=== PATIENT | male | born 1955 | race Caucasian/White ===

== ENCOUNTER 2016-04-17 12:32 | Inpatient (IN) | payer OTHER ==
[2016-04-17 12:42] VITALS: BMI 34.2
[2016-04-17] MEDS ORDERED: SODIUM CHLORIDE 500 ML IV STA (13:10)
[2016-04-17] MEDS ORDERED: morphine CARPU-JECT 4 MG/1 ML DISP.SYRIN IVPUSH ONE ×3 (13:10→18:09)
[2016-04-17] MEDS ORDERED: ACETAMINOPHEN 1000 MG/100 ML VIAL (NON FORMULARY) IVPB ONE (13:10)
--- NOTE | 2016-04-17 13:22 | PDOC ---
History of Present Illness - General Chief Complaint: Pain, Acute Stated Complaint: ABD PAIN (PCP SENT) Time Seen by Provider: 04/17/16 12:49 History Source: Patient, Family Exam Limitations: No Limitations - History of Present Illness Travel History: No Initial Comments: 04/17/16 13:15 Patient came to emergency department on advice of Dr. Gatica, his PMD. States over the past month has been using 800 mg of by mouth ibuprofen twice a day. States early this past week started developing abdominal pain, epigastric pain. By Dr. Gatica on recommended to stop ibuprofen and started on pantoprazole which helped resolve some of his abdominal cramping and pain. States however Monday pain recurred which turned into worsened cramping. Completed ultrasound of his abdomen and was told by Dr. Gatica those results were negative for gallbladder disease. Monday symptoms progressively became worse and today woke up with fevers and chills. Dr. Gatica notified and recommended evaluation. Patient denies earache, sore throat, cough or runny nose. Denies dysuria . Denies vomiting but has some mild nausea. Pain to his abdomen is cramping and transit around all of abdomen, states is it 8 out of 10 no quadrant worse than the other. States feels is distended/bloated. Denies diarrhea, however states had some stools that were grade recorder in color/ philippe yesterday. denies alcohol, smoking or any other drug use. Timing/Duration: reports: constant, getting worse Quality: reports: moderate Pain Radiation: reports: epigastric, periumbilical, other Activities at Onset: reports: none (And diffuse) Alleviating Factors: improves with: Belching, Passing Gas, Change in Position Past History - Travel Traveled outside of the country in the last 30 days: No Close contact w/someone who was outside of country & ill: No - Past Medical History Allergies/Adverse Reactions: Allergies Allergy/AdvReac Type Severity Reaction Status Date / Time No Known Allergies Allergy Verified 04/17/16 12:42 GI Disorders: Yes (GASTRITIS) HTN: Yes - Psycho/Social/Smoking Cessation Hx Suicidal Ideation: No Smoking History: Never smoked Hx Alcohol Use: No Drug/Substance Use Hx: No Review of Systems - Review of Systems Able to Perform ROS?: Yes Is the patient limited Persian proficient: Yes Constitutional: Yes: Symptoms Reported, See HPI, Chills, Fever, Loss of Appetite , Malaise HEENTM: Yes: See HPI. No: Symptoms Reported, Nose Congestion Respiratory: Yes: See HPI. No: Symptoms reported, Cough, Shortness of Breath, Wheezing Cardiac (ROS): No: Symptoms Reported ABD/GI: Yes: Symptoms Reported, See HPI, Nausea, Abdominal cramping. No: Blood Streaked Bowels (Nuys black tarriness or foul-smelling stool, no bright red blood, states has some tannish appearance to stool), Constipated, Diarrhea, Rectal Bleeding, Vomiting, Tarry Stools : Yes: See HPI. No: Symptoms Reported Musculoskeletal: Yes: Symptoms Reported Integumentary: Yes: See HPI. No: Symptoms Reported, Bruising Neurological: Yes: Symptoms reported, See HPI All Other Systems: Reviewed and Negative *Physical Exam - Vital Signs Last Vital Signs Temp Pulse Resp BP Pulse Ox 101.7 F H 90 18 151/53 94 L 04/17/16 12:39 04/17/16 12:39 04/17/16 12:39 04/17/16 12:39 04/17/16 12:39 - Physical Exam General Appearance: Yes: Nourished, Appropriately Dressed, Apparent Distress, Moderate Distress, Severe Distress HEENT: positive: ISAIAH, Normal ENT Inspection, Normal Voice, TMs Normal, Pharynx Normal Neck: positive: Supple. negative: Tender, Lymphadenopathy (R), Lymphadenopathy (L) Respiratory/Chest: positive: Lungs Clear, Normal Breath Sounds. negative: Respiratory Distress Cardiovascular: positive: Regular Rhythm, Regular Rate Gastrointestinal/Abdominal: positive: Tender, Protuberent, Distended, Guarding, Tenderness (patient has midline contusion consistent with a herniation). negative: Normal Bowel Sounds, Soft, Organomegaly (diminished unable to palpate due to patient's tenderness, and protuberant abdomen) Extremity: positive: Normal Capillary Refill, Normal Inspection, Normal Range of Motion Integumentary: positive: Normal Color, Warm, Pale Neurologic: positive: pipe coverer II-XII NML intact, Fully Oriented, Alert, Normal Mood/ Affect, Normal Response, Motor Strength 5/5 ED Treatment Course - LABORATORY CBC & Chemistry Diagram: 04/17/16 13:11 04/17/16 13:11 - RADIOLOGY Radiology Studies Ordered: Category Date Time Status ABDOMEN & PELVIS CT W/WO CONTR [CT] Stat CT Scan 04/17/16 13:12 Ordered Progress Note - Progress Note Progress Note: Escalating abdominal pain and distention. Patient will be obtaining CAT scan with and without contrast, medicated with morphine and Tylenol for pain and fever, laboratory work obtained and will start providing IV fluids. Patient and at bedside updated to plan. Discussed case with Dr. Gatica who reports that ultrasound did not reveal any cholecystitis or any other liver/biliary obstruction. Labs were relatively normal on . Will see patient in the emergency department today Medical Decision Making - Medical Decision Making 04/17/16 17:27 CAT scan reveals acute pancreatitis without necrotizing evidence. Discussed case with Dr. Gatica who agrees patient should be admitted for an ICU admission and reevaluation tomorrow for possible downgrading. Patient has been medicated with morphine for pain, is receiving IV fluids, has received Levaquin 750 mg IV and Flagyl 500 mg IV. Feels much improved after the morphine and Tylenol with fevers resolved to 99.7 a few hours ago. Patient and updated to plan and waiting admission from manager body 04/17/16 17:28 04/17/16 18:10 04/17/16 18:10 *DC/Admit/Observation/Transfer Diagnosis at time of Disposition: Acute pancreatitis Qualifiers: Pancreatitis type: unspecified pancreatitis type Qualified Code(s): K85.9 - Acute pancreatitis, unspecified - Discharge Dispostion Admit: Yes
[2016-04-17] MEDS ORDERED: morphine CARPU-JECT 4 MG/1 ML DISP.SYRIN ONE ×2 (13:24→18:26)
[2016-04-17] MEDS ORDERED: ACETAMINOPHEN INJECTION 100 ML IVPB ONE (13:24)
[2016-04-17 13:34] LABS: MCH 25.2 pg (25.7-33.7); MCHC 32.2 g/dl (32.0-35.9); MEAN CELL VOLUME 78.2 fl (80-96); MEAN PLT VOLUME 8.8 fl (7.5-11.1); PLATELET COUNT 187 K/MM3 (134-434); RDW 14.7 % (11.9-15.9)
[2016-04-17 13:57] LABS: ALBUMIN 3.7 g/dl (3.4-5.0); ANION GAP 9 (8-16); BILIRUBIN,TOTAL 2.1 mg/dL (0.2-1.0); CALCIUM 9.1 mg/dL (8.5-10.1); CO2 28 mmol/L (21-32); CREATININE 1.2 mg/dL (0.7-1.3); GLUCOSE,RANDOM 135 mg/dL (74-106); SGOT/AST 48 U/L (15-37); SGPT/ALT 144 U/L (12-78)
[2016-04-17 13:59] LABS: ALK PHOS 150 U/L (45-117); TOT PROT 6.9 g/dl (6.4-8.2)
[2016-04-17] MEDS ORDERED: LEVOFLOXACIN 750 MG IVPB 150 ML IVPB ONE ×2 (14:32→14:38)
[2016-04-17] MEDS ORDERED: SODIUM CHLORIDE 1,000 ML IV SCH ×3 (14:45→17:36)
[2016-04-17] MEDS ORDERED: METRONIDAZOLE 500 MG PREMIXED 100 ML IVPB ONE (17:02)
[2016-04-17] MEDS ORDERED: ONDANSETRON 4 MG/2 ML VIAL IVPB PRN (17:29)
[2016-04-17] MEDS ORDERED: METRONIDAZOLE 500 MG PREMIXED 100 ML IVPB SCH (18:00)
[2016-04-17] MEDS ORDERED: PIPERACILLIN/TAZOB 3.375 GM 3.375 GM in DEXTROSE 5%-WATER - 50 ML IVPB SCH (18:00)
--- NOTE | 2016-04-17 18:10 | EKG ---
Test Reason : Blood Pressure : / mmHG Vent. Rate : 078 BPM Atrial Rate : 078 BPM P-R Int : 154 ms QRS Dur : 084 ms QT Int : 350 ms P-R-T Axes : 042 020 026 degrees QTc Int : 399 ms NORMAL SINUS RHYTHM POSSIBLE LEFT ATRIAL ENLARGEMENT POSSIBLE ANTERIOR INFARCT , AGE UNDETERMINED ABNORMAL ECG NO PREVIOUS ECGS AVAILABLE Confirmed by MELINDA GARCIA MD ([id number]) on 04/17/2016 6:09:32 PM Referred By: Confirmed By:MELINDA GARCIA MD
[2016-04-17] MEDS ORDERED: PIPERACILLIN/TAZOB 3.375 GM 50 ML IVPB ONE (18:27)
[2016-04-17 18:32] LABS: PH,URINE 6.5 (5.0-8.0); URINE APPEARANCE CLEAR; URINE BILIRUBIN NEGATIVE (NEGATIVE); URINE BLOOD TRACE-INTA (NEGATIVE); URINE COLOR YELLOW; URINE GLUCOSE (UA) NEGATIVE (NEGATIVE); URINE KETONE NEGATIVE (NEGATIVE); URINE LEUK ESTERASE NEGATIVE (NEGATIVE); URINE NITRITE NEGATIVE (NEGATIVE); URINE PROTEIN NEGATIVE (NEGATIVE); URINE UROBILINOGEN 0.2 E.U/dl E.U./dl (0.2-1.0)
--- NOTE | 2016-04-17 20:16 | HP ---
Admitting History and Physical - Primary Care Physician PCP: Emanuel Gatica - Admission Chief Complaint: Abdominal pain History of Present Illness: 61 yo male with significant past medical history of hypertension, hyperlipidemia , obesity, presents to the ER with c/o nausea, vomiting, diarrhea, and generalized abdominal pain. Patient has been having abdominal pain for almost a week now. He was taking ibuprufen 800 mg BID for almost a month. Ibuprufen was prescribed for neck pain. He was seen in my office on for epigastric and right upper quadrant pain. Advised to stop motrin and protonix prescribed. Ultrasound of RUQ - normal. wbc, lfts was normal. Amylase normal and lipase 90. He felt much better with protonix but since yesterday started having generalized abdominal pain. Had 2 episodes of vomiting, one episode of loose bowel movement. No blood in stool or hemetemesis. He was febrile in the ER. Denies chest pain, shortness of breath, palpitation or dizziness. Denies dysuria or hematuria. No h/o alcohol intake. History Source: Patient Limitations to Obtaining History: No Limitations - Past Medical History Cardiovascular: Yes: HTN, Hyperlipdemia Gastrointestinal: Yes: Gastritis - Smoking History Smoking history: Never smoked - Alcohol/Substance Use Hx Alcohol Use: No Home Medications - Allergies Allergies/Adverse Reactions: Allergies Allergy/AdvReac Type Severity Reaction Status Date / Time No Known Allergies Allergy Verified 04/17/16 12:42 - Home Medications Home Medications: Ambulatory Orders Amlodipine Besylate/Benazepril [Lotrel 5-40 mg Capsule] 1 each PO DAILY Pantoprazole Sodium [Protonix] 40 mg PO DAILY 04/17/16 Review of Systems - Review of Systems Constitutional: reports: Fever, Weakness HENT: reports: No Symptoms Neck: reports: No Symptoms Cardiovascular: reports: No Symptoms Gastrointestinal: reports: Abdominal Pain, Diarrhea, Nausea, Vomiting Genitourinary: reports: No Symptoms Musculoskeletal: reports: No Symptoms Integumentary: reports: No Symptoms Neurological: reports: No Symptoms Endocrine: reports: No Symptoms Hematology/Lymphatic: reports: No Symptoms Psychiatric: reports: No Symptoms Physical Examination Vital Signs: Vital Signs Temperature 101.7 F H 04/17/16 12:39 Pulse Rate 84 04/17/16 18:45 Respiratory Rate 18 04/17/16 18:45 Blood Pressure 131/69 04/17/16 18:45 O2 Sat by Pulse Oximetry (%) 97 04/17/16 18:45 Constitutional: Yes: Anxious, Moderate Distress, Obese Eyes: Yes: Conjunctiva Clear, EOM Intact HENT: Yes: Atraumatic, Normocephalic Neck: Yes: Supple, Trachea Midline Cardiovascular: Yes: Regular Rate and Rhythm, S1, S2 Respiratory: Yes: Regular, CTA Bilaterally Gastrointestinal: Yes: Distention, Tenderness (right upper quadrant and manuela umbilical region), Tenderness, Epigastrium ...Rectal Exam: Yes: Deferred Renal/: Yes: WNL Breast(s): Yes: WNL Musculoskeletal: Yes: WNL Extremities: Yes: WNL Peripheral Pulses WNL: Yes Integumentary: Yes: WNL Neurological: Yes: WNL ...Motor Strength: WNL Psychiatric: Yes: WNL Imaging - Results Chest X-ray: Report Reviewed Cat Scan: Report Reviewed Problem List - Problems (1) Acute pancreatitis Assessment/Plan: - NPO - Aggressive IV hydration - Pain management - Abx coverage with zosyn/Flagyl - GI and ID consulted. - Close monitoring Code(s): K85.9 - ACUTE PANCREATITIS, UNSPECIFIED * DO NOT USE * Qualifiers: Pancreatitis type: drug induced Qualified Code(s): K85.3 - Drug induced acute pancreatitis (2) Hypertension Assessment/Plan: Close monitoring Code(s): I10 - ESSENTIAL (PRIMARY) HYPERTENSION (3) Abnormal LFTs (liver function tests) Assessment/Plan: - Labs normal on 04/14/15 lab draw in the office. - Ultrasound of liver/GB ordered again. Normal on 04/14/15. - GI consulted. Code(s): R79.89 - OTHER SPECIFIED ABNORMAL FINDINGS OF BLOOD CHEMISTRY (4) Leukocytosis Assessment/Plan: - In the setting of acute pancreatitis. - Wbc normal on 04/14/15 lab draw in the office. - Covered with zosyn/flagyl. - ID consulted - Cultures done Code(s): D72.829 - ELEVATED WHITE BLOOD CELL COUNT, UNSPECIFIED
[2016-04-17] MEDS ORDERED: LACTATED RINGERS SOLUTION 1,000 ML IV ONE (21:16)
--- NOTE | 2016-04-17 21:24 | CONSULT ---
Consult Consult Specialty:: Pulm/CC - History of Present Illness History of Present Illness: Pt is a 61yr old man with PMHx of HTN, HLD. He presents to the ER with CC of abdominal pain, vomiting/diarrhea x 2. Pt states he had been taking 800mg PO Ibuprofen for a "pinch nerve" and had progressive GI discomfort since, unresolved with protonix. In the ER found to have WBC 24, Amylase 342, lipase 2318 and ab/pel CT consistent with acute pancreatitis (no necrosis noted). Pt admitted to the ICU for further management. Upon assessment pt denies chest pain /sob/headache/n/v and endorses diffuse abdominal pain L>R. - History Source History Provided By: Patient, Medical Record Limitations to Obtaining History: No Limitations - Past Medical History Cardio/Vascular: Yes: HTN, Hyperlipdemia Gastrointestinal: Yes: Gastritis - Alcohol/Substance Use Hx Alcohol Use: No - Smoking History Smoking history: Never smoked Home Medications - Allergies Allergies/Adverse Reactions: Allergies Allergy/AdvReac Type Severity Reaction Status Date / Time No Known Allergies Allergy Verified 04/17/16 12:42 - Home Medications Home Medications: Ambulatory Orders Amlodipine Besylate/Benazepril [Lotrel 5-40 mg Capsule] 1 each PO DAILY Pantoprazole Sodium [Protonix] 40 mg PO DAILY 04/17/16 Review of Systems - Review of Systems Cardiovascular: denies: Chest Pain, Palpitations, Shortness of Breath Respiratory: denies: Cough Gastrointestinal: reports: Diarrhea, Vomiting. denies: Melena, Vomiting Blood Genitourinary: denies: Dysuria Physical Exam Vital Signs: Vital Signs Period Temp Pulse Resp BP Sys/Stone Pulse Ox Last 24 Hr 101.7 F 80-90 18-18 131-151/53-82 94-99 Intake & Output 04/14/16 04/15/16 04/16/16 04/17/16 23:59 23:59 23:59 23:59 Weight 245 lb Constitutional: Yes: Well Nourished, No Distress, Calm Eyes: Yes: WNL, PERRL HENT: Yes: WNL Neck: Yes: WNL Cardiovascular: Yes: S1, S2, Other (80s, sinus on tele) Respiratory: Yes: Diminished (as bases bilaterally), On Nasal O2. No: Rales, Rhonchi, SOB, Tachypnea, Wheezes Gastrointestinal: Yes: Normal Bowel Sounds, Soft, Abdomen, Obese, Tenderness ( LUQ) ...Rectal Exam: Yes: Deferred Extremities: Yes: WNL Edema: No Peripheral Pulses WNL: Yes (+2 bilateral pedal pulses) Integumentary: Yes: WNL Neurological: Yes: WNL Psychiatric: Yes: WNL Labs: Abnormal Lab Results 04/17/16 04/17/16 04/17/16 13:11 13:11 13:11 WBC 24.0 H RBC 5.96 H MCV 78.2 L Lymphocytes % 7.0 L Monocytes % 3.0 L BUN 19 H Random Glucose 135 H Total Bilirubin 2.1 H AST 48 H ALT 144 H Alkaline Phosphatase 150 H Total Amylase 342 H Lipase 2318 H Imaging - Results Cat Scan: Report Reviewed Assessment/Plan Pt is a 61yr old man with PMHx of HTN and HLD. Now in the ICU for management of acute pancreatitis. Pulm: -O2 support prn for sat >94% -Incentive spirometer -PFT as outpt to rule out JOSIAH ID: -f/u cultures -Consult -Antibiotics per ID GI -Consult -Repeat imaging as clinically warranted -Advance diet as tolerated Cardiac -BP/Rate control -f/u enzymes Renal -IVF as tolerated -Replete electrolytes prn Neuro -Pain management Prophylactic -DVT -PPI
[2016-04-17 22:56] LABS: MAGNESIUM 2.1 mg/dL (1.8-2.4); PHOSPHOROUS 2.5 mg/dL (2.5-4.9)
[2016-04-17] MEDS: morphine CARPU-JECT 2 MG/1 ML DISP.SYRIN IVPUSH PRN (23:00)
[2016-04-17] MEDS: MUPIROCIN 2% TOPICAL OINTMENT FOR DECOLONIZATION NS SCH (23:18)
[2016-04-17] MEDS: CHLORHEXIDINE GLUCONATE 4% CLEANSER FOR DECOLONIZATION TP SCH (23:18)
[2016-04-17] MEDS: LACTATED RINGERS SOLUTION 1,000 ML IV SCH (23:18)
[2016-04-18] MEDS: METRONIDAZOLE 500 MG PREMIXED 100 ML IVPB SCH ×2 (02:00→10:20)
[2016-04-18] MEDS ORDERED: PIPERACILLIN/TAZOB 3.375 GM 50 ML IVPB ONE (02:00)
[2016-04-18] MEDS: morphine CARPU-JECT 2 MG/1 ML DISP.SYRIN IVPUSH PRN ×5 (04:25→23:02)
[2016-04-18 06:05] LABS: MCH 25.4 pg (25.7-33.7); MCHC 32.7 g/dl (32.0-35.9); MEAN CELL VOLUME 77.5 fl (80-96); MEAN PLT VOLUME 8.8 fl (7.5-11.1); PLATELET COUNT 180 K/MM3 (134-434); RDW 14.7 % (11.9-15.9); WHITE BLOOD COUNT 25.4 K/mm3 (4.0-10.0)
[2016-04-18] MEDS ORDERED: ACETAMINOPHEN 500 MG TABLET (FP) ONE (06:08)
[2016-04-18 06:21] LABS: INR 1.56 (0.82-1.09); PROTHROMBIN TIME (PATIENT) 17.3 SEC (9.98-11.88)
[2016-04-18 06:28] LABS: ALBUMIN 2.5 g/dl (3.4-5.0); AMYLASE 180 U/L (25-115); ANION GAP 8 (8-16); CALCIUM 7.8 mg/dL (8.5-10.1); CO2 25 mmol/L (21-32); GLUCOSE,RANDOM 106 mg/dL (74-106); MAGNESIUM 1.9 mg/dL (1.8-2.4)
[2016-04-18 06:32] LABS: ALK PHOS 105 U/L (45-117); BILIRUBIN,TOTAL 2.7 mg/dL (0.2-1.0); CREATININE 0.9 mg/dL (0.7-1.3); PHOSPHOROUS 2.2 mg/dL (2.5-4.9); SGOT/AST 21 U/L (15-37); SGPT/ALT 76 U/L (12-78); TOT PROT 5.6 g/dl (6.4-8.2)
[2016-04-18] MEDS ORDERED: PANTOPRAZOLE SODIUM 40 MG in SODIUM CHLORIDE 100 ML IVPB SCH (10:00)
[2016-04-18] MEDS ORDERED: PIPERACILLIN/TAZOB 3.375 GM 50 ML IVPB SCH (10:00)
--- NOTE | 2016-04-18 10:23 | PN ---
Progress Note, Physician Chief Complaint: Mr Byrd says he is beginning to feel better. He says he is still having abdominal pain, but now it is a 6-7/10. Nausea currently resolved. No chest pain or shortness of breath. - Current Medication List Current Medications: Active Medications Chlorhexidine Gluconate (Hibiclens For Decolonization -) 1 applic TP HS LASHELL Last Admin: 04/17/16 23:18 Dose: 1 applic Metronidazole (Flagyl 500mg Premixed Ivpb -) 100 mls @ 100 mls/hr IVPB Q8H-IV LASHELL Last Admin: 04/18/16 02:00 Dose: 100 mls/hr Piperacillin Sod/Tazobactam Sod (Zosyn 3.375gm Ivpb (Pre-Docked)) 50 mls @ 100 mls/hr IVPB Q8H-IV LASHELL PRN Reason: Protocol Lactated Ringer's (Lactated Ringers Solution) 1,000 mls @ 150 mls/hr IV ASDIR LASHELL Last Admin: 04/17/16 23:18 Dose: 150 mls/hr Morphine Sulfate (Morphine Injection -) 2 mg IVPUSH Q4H PRN PRN Reason: PAIN Last Admin: 04/18/16 04:25 Dose: 2 mg Mupirocin (Bactroban Ointment (For Decolonization) -) 1 applic NS BID [facility] Stop: 04/22/16 21:59 Last Admin: 04/17/16 23:18 Dose: Not Given Ondansetron HCl (Zofran Injection) 4 mg IVPB Q6H PRN PRN Reason: NAUSEA Pantoprazole Sodium (Protonix 40mg Ivpb (Pre-Docked)) 40 mg IVPB DAILY [facility] - Objective Vital Signs: Vital Signs Temperature 100.2 F H 04/18/16 06:00 Pulse Rate 89 04/18/16 06:00 Respiratory Rate 18 04/18/16 09:00 Blood Pressure 155/70 04/18/16 06:00 O2 Sat by Pulse Oximetry (%) 99 04/18/16 09:00 Constitutional: Yes: No Distress, Calm, Obese Cardiovascular: Yes: Regular Rate and Rhythm. No: Gallop, Murmur, Rub Respiratory: Yes: Regular, CTA Bilaterally. No: Rales, Rhonchi, Wheezes Gastrointestinal: Yes: Soft, Hypoactive Bowel Sounds, Tenderness. No: Distention Extremities: Yes: WNL Edema: No Labs: CBC, BMP 04/18/16 05:00 04/18/16 05:00 INR, PTT INR 1.56 (0.82-1.09) H 04/18/16 05:00 Problem List - Problems (1) Acute pancreatitis Assessment/Plan: -idiopathic -continue npo -continue aggressive hydration with LR -pain control with morphine -GI consulted -amylase/lipase improving -follow up abdominal ultrasound -check lipid profile Code(s): K85.9 - ACUTE PANCREATITIS, UNSPECIFIED * DO NOT USE * Qualifiers: Pancreatitis type: idiopathic Qualified Code(s): K85.0 - Idiopathic acute pancreatitis (2) Hypertension Assessment/Plan: -elevated currently, but on IVF and holding amlodipine -can allow permissive HTN for short time -restart amlodipine when tolerating po -if elevates further, will start on prn hydralazine Code(s): I10 - ESSENTIAL (PRIMARY) HYPERTENSION (3) Leukocytosis Assessment/Plan: -ID consulted -? infectious vs stress -will stop flagyl as this is class 1a for pancreatitis Code(s): D72.829 - ELEVATED WHITE BLOOD CELL COUNT, UNSPECIFIED
[2016-04-18] MEDS: PANTOPRAZOLE SODIUM 40 MG/100 ML PRE-DOCKED IVPB SCH (11:35)
[2016-04-18] MEDS: MUPIROCIN 2% TOPICAL OINTMENT FOR DECOLONIZATION NS SCH ×2 (12:49→23:01)
[2016-04-18 12:59] LABS: CHOLESTEROL 121 mg/dL (50-200); LDL CHOLESTEROL (ONLY SJRH) 75 mg/dL (5-100)
--- NOTE | 2016-04-18 14:18 | PN ---
Physical Exam: SUBJECTIVE: Patient seen and examined at bedside in ICU. AAO and resting comfortably in bed. States abdominal pain is improved and was afebrile overnight. Last BM was yesterday: loose, josemanuel-colored. OBJECTIVE: Vital Signs Period Temp Pulse Resp BP Sys/Stone Pulse Ox Last 24 Hr 99.9 F-101.1 F 81-95 15-21 131-157/69-82 97-99 GENERAL: The patient is awake, alert, and fully oriented, in no acute distress. HEENT: Atraumatic, EOMI, PERRLA, Moist membranes LUNGS: Breath sounds equal, clear to auscultation bilaterally HEART: Regular rate and rhythm, S1, S2 without murmur, rub or gallop. ABDOMEN: Soft, nondistended, normoactive; mild tenderness LUQ EXTREMITIES: 2+ pulses, warm, well-perfused, no edema. NEUROLOGICAL: Cranial nerves II through XII grossly intact. Normal speech, gait not observed. PSYCH: Normal mood, normal affect. SKIN: Warm, dry, normal turgor, no rashes or lesions noted Laboratory Results - last 24 hr 04/17/16 04/17/16 04/17/16 18:15 22:20 22:20 WBC RBC Hgb Hct MCV MCHC RDW Plt Count MPV Neutrophils % Lymphocytes % Monocytes % Band Neutrophils Reactive Lymphocytes INR Sodium Potassium Chloride Carbon Dioxide Anion Gap BUN Creatinine Creat Clearance w eGFR Random Glucose Calcium Phosphorus 2.5 Magnesium 2.1 Total Bilirubin AST ALT Alkaline Phosphatase B-Natriuretic Peptide 268.12 H Total Protein Albumin Triglycerides Cholesterol Total LDL Cholesterol HDL Cholesterol Total Amylase Lipase Urine Color Yellow Urine Appearance Clear Urine pH 6.5 Ur Specific [place] <= 1.005 Urine Protein Negative Urine Glucose (UA) Negative Urine Ketones Negative Urine Blood Trace-inta Urine Nitrite Negative Urine Bilirubin Negative Urine Urobilinogen 0.2 e.u/dl Ur Leukocyte Esterase Negative 04/18/16 04/18/16 04/18/16 05:00 05:00 05:00 WBC 25.4 H RBC 5.01 Hgb 12.7 D Hct 38.8 D MCV 77.5 L MCHC 32.7 RDW 14.7 Plt Count 180 MPV 8.8 Neutrophils % 90.0 H Lymphocytes % 1.0 L D Monocytes % 6.0 D Band Neutrophils 1.0 D Reactive Lymphocytes 2 INR 1.56 H Sodium 135 L Potassium 3.9 Chloride 102 Carbon Dioxide 25 Anion Gap 8 BUN 12 D Creatinine 0.9 D Creat Clearance w eGFR > 60 Random Glucose 106 D Calcium 7.8 L Phosphorus 2.2 L Magnesium 1.9 Total Bilirubin 2.7 H D AST 21 D ALT 76 D Alkaline Phosphatase 105 D B-Natriuretic Peptide 408.72 H Total Protein 5.6 L Albumin 2.5 L D Triglycerides Cholesterol Total LDL Cholesterol HDL Cholesterol Total Amylase 180 H D Lipase 910 H Urine Color Urine Appearance Urine pH Ur Specific [place] Urine Protein Urine Glucose (UA) Urine Ketones Urine Blood Urine Nitrite Urine Bilirubin Urine Urobilinogen Ur Leukocyte Esterase 04/18/16 10:32 WBC RBC Hgb Hct MCV MCHC RDW Plt Count MPV Neutrophils % Lymphocytes % Monocytes % Band Neutrophils Reactive Lymphocytes INR Sodium Potassium Chloride Carbon Dioxide Anion Gap BUN Creatinine Creat Clearance w eGFR Random Glucose Calcium Phosphorus Magnesium Total Bilirubin AST ALT Alkaline Phosphatase B-Natriuretic Peptide Total Protein Albumin Triglycerides 83 Cholesterol 121 Total LDL Cholesterol 75 HDL Cholesterol 39 L Total Amylase Lipase Urine Color Urine Appearance Urine pH Ur Specific [place] Urine Protein Urine Glucose (UA) Urine Ketones Urine Blood Urine Nitrite Urine Bilirubin Urine Urobilinogen Ur Leukocyte Esterase Active Medications Generic Name Dose Route Start Last Admin Trade Name Freq PRN Reason Stop Dose Admin Chlorhexidine Gluconate 1 applic 04/17/16 22:00 04/17/16 23:18 Hibiclens For Decolonization - TP 1 applic HS LASHELL Administration Piperacillin Sod/Tazobactam Sod 50 mls @ 100 mls/hr 04/18/16 10:00 Zosyn 3.375gm Ivpb (Pre-Docked) IVPB Q8H-IV LASHELL Protocol Lactated Ringer's 1,000 mls @ 150 mls/hr 04/17/16 21:30 04/17/16 23:18 Lactated Ringers Solution IV 150 mls/hr ASDIR LASHELL Administration Morphine Sulfate 2 mg 04/17/16 17:39 04/18/16 10:18 Morphine Injection - IVPUSH 2 mg Q4H PRN Administration PAIN Mupirocin 1 applic 04/17/16 22:00 04/18/16 12:49 Bactroban Ointment (For Decolonization) - NS 04/22/16 21:59 1 applic BID LASHELL Administration Ondansetron HCl 4 mg 04/17/16 17:29 Zofran Injection IVPB Q6H PRN NAUSEA Pantoprazole Sodium 40 mg 04/18/16 10:00 04/18/16 11:35 Protonix 40mg Ivpb (Pre-Docked) IVPB 40 mg DAILY LASHELL Administration ASSESSMENT/PLAN: 61 year old male with PMH of HTN and HLD. Presented with abdominal pain, nausea & vomiting. Lipase was [address] imaging confirmed diagnosis of acute pancreatitis. #Acute Pancreatitis -on Zosyn (held flagyl) -NPO -Zofran, PPI -IVF LR@150cc/hr -cultures sent -f/u lipase & lipids -ID consulted -morphine for pain management #NSAID Use, possible gastritis/PUD -PPI -GI consulted #HTN -currently elevated, may start hydralazine PRN if continues to be elevated -can restart home meds once tolerating PO diet Prophylaxis, FEN -SCD, PPI -NPO, will monitor electrolytes Visit type - Emergency Visit Emergency Visit: Yes ED Registration Date: 04/17/16 Care time: The patient presented to the Emergency Department on the above date and was hospitalized for further evaluation of their emergent condition. - New Patient This patient is new to me today: Yes Date on this admission: 04/18/16 - Critical Care Critical Care patient: Yes Total Critical Care Time (in minutes): 50 Critical Care Statement: The care of this patient involved high complexity decision making to prevent further life threatening deterioration of the patient 's condition and/or to evalute & treat vital organ system(s) failure or risk of failure.
[2016-04-18] MEDS: LACTATED RINGERS SOLUTION 1,000 ML IV SCH ×2 (14:41→23:01)
--- NOTE | 2016-04-18 14:48 | PN ---
Teaching Attending Note Name of Resident: Claude Rubin ATTENDING PHYSICIAN STATEMENT I saw and evaluated the patient. I reviewed the resident's note and discussed the case with the resident. I agree with the resident's findings and plan as documented. SUBJECTIVE: Patient seen and examined in the ICU. Still with abdominal pain, but now it is a 6/10 (previously 10/10) No nausea or vomiting. No CP or SOB. CT : consistent with acute pancreatitis Constitutional: Yes: No Distress, Obese Cardiovascular: Yes: Regular Rate and Rhythm. No: Gallop, Murmur, Rub Respiratory: Yes: Regular, CTA Bilaterally. No: Rales, Rhonchi, Wheezes Gastrointestinal: Yes: Soft, Hypoactive Bowel Sounds, (+) Tenderness. No: Distention, guarding, rigidity Extremities: Yes: WNL Edema: No Labs: Laboratory Results - last 24 hr 04/17/16 04/17/16 04/17/16 18:15 22:20 22:20 WBC RBC Hgb Hct MCV MCHC RDW Plt Count MPV Neutrophils % Lymphocytes % Monocytes % Band Neutrophils Reactive Lymphocytes INR Sodium Potassium Chloride Carbon Dioxide Anion Gap BUN Creatinine Creat Clearance w eGFR Random Glucose Calcium Phosphorus 2.5 Magnesium 2.1 Total Bilirubin AST ALT Alkaline Phosphatase B-Natriuretic Peptide 268.12 H Total Protein Albumin Triglycerides Cholesterol Total LDL Cholesterol HDL Cholesterol Total Amylase Lipase Urine Color Yellow Urine Appearance Clear Urine pH 6.5 Ur Specific Britton <= 1.005 Urine Protein Negative Urine Glucose (UA) Negative Urine Ketones Negative Urine Blood Trace-inta Urine Nitrite Negative Urine Bilirubin Negative Urine Urobilinogen 0.2 e.u/dl Ur Leukocyte Esterase Negative 04/18/16 04/18/16 04/18/16 05:00 05:00 05:00 WBC 25.4 H RBC 5.01 Hgb 12.7 D Hct 38.8 D MCV 77.5 L MCHC 32.7 RDW 14.7 Plt Count 180 MPV 8.8 Neutrophils % 90.0 H Lymphocytes % 1.0 L D Monocytes % 6.0 D Band Neutrophils 1.0 D Reactive Lymphocytes 2 INR 1.56 H Sodium 135 L Potassium 3.9 Chloride 102 Carbon Dioxide 25 Anion Gap 8 BUN 12 D Creatinine 0.9 D Creat Clearance w eGFR > 60 Random Glucose 106 D Calcium 7.8 L Phosphorus 2.2 L Magnesium 1.9 Total Bilirubin 2.7 H D AST 21 D ALT 76 D Alkaline Phosphatase 105 D B-Natriuretic Peptide 408.72 H Total Protein 5.6 L Albumin 2.5 L D Triglycerides Cholesterol Total LDL Cholesterol HDL Cholesterol Total Amylase 180 H D Lipase 910 H Urine Color Urine Appearance Urine pH Ur Specific Britton Urine Protein Urine Glucose (UA) Urine Ketones Urine Blood Urine Nitrite Urine Bilirubin Urine Urobilinogen Ur Leukocyte Esterase 04/18/16 10:32 WBC RBC Hgb Hct MCV MCHC RDW Plt Count MPV Neutrophils % Lymphocytes % Monocytes % Band Neutrophils Reactive Lymphocytes INR Sodium Potassium Chloride Carbon Dioxide Anion Gap BUN Creatinine Creat Clearance w eGFR Random Glucose Calcium Phosphorus Magnesium Total Bilirubin AST ALT Alkaline Phosphatase B-Natriuretic Peptide Total Protein Albumin Triglycerides 83 Cholesterol 121 Total LDL Cholesterol 75 HDL Cholesterol 39 L Total Amylase Lipase Urine Color Urine Appearance Urine pH Ur Specific Britton Urine Protein Urine Glucose (UA) Urine Ketones Urine Blood Urine Nitrite Urine Bilirubin Urine Urobilinogen Ur Leukocyte Esterase Problem List - Problems (1) Acute pancreatitis Assessment/Plan: -idiopathic -continue npo -continue aggressive hydration with LR -pain control with morphine -GI consulted -amylase/lipase improving -follow up abdominal ultrasound -check lipid profile Code(s): K85.9 - ACUTE PANCREATITIS, UNSPECIFIED * DO NOT USE * Qualifiers: Pancreatitis type: idiopathic Qualified Code(s): K85.0 - Idiopathic acute pancreatitis (2) Hypertension Assessment/Plan: -elevated currently, but on IVF and holding amlodipine -can allow permissive HTN for short time -restart amlodipine when tolerating po -if elevates further, will start on prn hydralazine Code(s): I10 - ESSENTIAL (PRIMARY) HYPERTENSION (3) Leukocytosis Assessment/Plan: -ID consulted -? infectious vs stress -will stop flagyl as this is class 1a for pancreatitis Code(s): D72.829 - ELEVATED WHITE BLOOD CELL COUNT, UNSPECIFIED PLAN: IVF with LR Strict I&O NPO VTE prophylaxis GI evaluation Check lipids Pain control Noted empiric ABX per ID Follow labs ICU monitoring Dr Rico CCTime 35"
[2016-04-18] MEDS ORDERED: ACETAMINOPHEN 1000 MG/100 ML VIAL (NON FORMULARY) IVPB ONE (15:11)
--- NOTE | 2016-04-18 16:20 | CONSULT ---
Consult Consult Specialty:: infectious diseases Referred by:: Reason for Consultation:: pancreatitis,leukocytosis - History of Present Illness Chief Complaint: abd pain History of Present Illness: 61 yo male with significant past medical history of hypertension, hyperlipidemia , obesity, presents to the ER with c/o nausea, vomiting, diarrhea, and generalized abdominal pain. Patient has been having abdominal pain for almost a week now. He was taking ibuprufen 800 mg BID for almost a month. Ibuprofen was prescribed for neck pain. patient mentions that on monday evening he started having abd pain which increased and by monday it was brianne sever and patient was aksed to come to the hospital . patient was worked up and found to ahve severe pancreatitis and pancreatic inflammation and patient was admitted to the hospital - History Source History Provided By: Patient, Family Member Limitations to Obtaining History: No Limitations - Past Medical History Cardio/Vascular: Yes: HTN, Hyperlipdemia Gastrointestinal: Yes: Gastritis - Alcohol/Substance Use Hx Alcohol Use: No - Smoking History Smoking history: Never smoked Home Medications - Allergies Allergies/Adverse Reactions: Allergies Allergy/AdvReac Type Severity Reaction Status Date / Time No Known Allergies Allergy Verified 04/17/16 12:42 - Home Medications Home Medications: Ambulatory Orders Amlodipine Besylate/Benazepril [Lotrel 5-40 mg Capsule] 1 each PO DAILY Pantoprazole Sodium [Protonix] 40 mg PO DAILY 04/17/16 Review of Systems - Review of Systems Constitutional: reports: Fever, Other Eyes: reports: No Symptoms HENT: reports: No Symptoms Neck: reports: No Symptoms Cardiovascular: reports: No Symptoms Respiratory: reports: No Symptoms Gastrointestinal: reports: Abdominal Pain, Bloating, Other Genitourinary: reports: No Symptoms Musculoskeletal: reports: No Symptoms Integumentary: reports: No Symptoms Neurological: reports: No Symptoms Endocrine: reports: No Symptoms Hematology/Lymphatic: reports: No Symptoms Psychiatric: reports: No Symptoms Physical Exam Vital Signs: Vital Signs Temperature 101.6 F H 04/18/16 14:25 Pulse Rate 95 H 04/18/16 14:25 Respiratory Rate 14 04/18/16 14:25 Blood Pressure 154/73 04/18/16 14:25 O2 Sat by Pulse Oximetry (%) 99 04/18/16 09:00 Constitutional: Yes: Moderate Distress, Obese Eyes: Yes: Conjunctiva Clear HENT: Yes: Atraumatic, Normocephalic Neck: Yes: Supple Cardiovascular: Yes: Regular Rate and Rhythm Respiratory: Yes: Regular, Poor Air Entry Gastrointestinal: Yes: Distention, Tenderness, Other (absent bowel sounds) Musculoskeletal: Yes: WNL Extremities: Yes: WNL Neurological: Yes: Alert, Oriented Psychiatric: Yes: Alert, Oriented Labs: CBC, BMP 04/18/16 05:00 04/18/16 05:00 Imaging - Results Cat Scan: Report Reviewed, Image Reviewed Ultrasound: Report Reviewed, Image Reviewed Assessment/Plan patient evaluated i had a close at the ct scan. patient continues to spike fever with high wbc.it is alwyas worrisome when u see this type of picture and have to be very cautious about it becoming a phlegmon or abscess. patient has to be closely monitored and followed and the complications need to be prevented Problem List - Problems (1) Acute pancreatitis Code(s): K85.9 - ACUTE PANCREATITIS, UNSPECIFIED * DO NOT USE * Qualifiers: Pancreatitis type: drug induced Qualified Code(s): K85.3 - Drug induced acute pancreatitis (2) Hypertension Code(s): I10 - ESSENTIAL (PRIMARY) HYPERTENSION (3) Abnormal LFTs (liver function tests) Code(s): R79.89 - OTHER SPECIFIED ABNORMAL FINDINGS OF BLOOD CHEMISTRY (4) Leukocytosis Code(s): D72.829 - ELEVATED WHITE BLOOD CELL COUNT, UNSPECIFIED plan will start patient on immipenam hydration npo strict watch on wbc and fevers if wbc starts increasing or fevers continues to be high repeated ct scan to watch the progress of pancreas cc time 50 min
[2016-04-18] MEDS ORDERED: PT OWN MED DRAWER 7, Y5N ONE ×2 (18:40→23:00)
[2016-04-18] MEDS: IMIPENEM/CILASTATIN SODIUM 500 MG in SODIUM CHLORIDE 100 ML IVPB SCH (18:56)
--- NOTE | 2016-04-18 19:09 | CON.GI ---
Consult Consult Specialty:: GASTROENTEROLOGY Referred by:: DR GARVEY Reason for Consultation:: PANCREATITIS - History of Present Illness Chief Complaint: ABDOMINAL PAIN History of Present Illness: 61 YEAR OLD MALE WITH HISTORY OF "PINCHED NERVE IN MY NECK" STARTING ONE MONTH AGO. HE WAS GIVEN NSAIDS FOR HIS PAIN. HE HAS TAKING THEM "WITHOUT FOOD" AND HE STARTED TO GET EPIGASTRIC PAIN ON AND OFF. LAST MONDAY THE PAIN, WHICH HE DESCRIBES COLICKY, INCREASED IN INTENSITY SO HE WENT TO SEE HIS PMD. HE WAS GIVEN MYLANTA AND PROTONIX. BY MONDAY/MONDAY PAIN PAIN WAS SEVERE AND HE CAME TO ER. IN THE ER LABS REVEALED ELEVATED LIVER FUNCTION TESTS AND A CT SCAN REVEALED ACUTE PANCREATITIS BUT A NORMAL GB AND LIVER. HIS PAIN HAS IMPROVED BUT IS STILL PRESENT. HIS ABDOMINAL DISTENSION HAS IMPROVED. HE DENIES MELENA , BRBPR BUT DID HAVE SOME NONBLOODY VOMITING THE DAY OF ADMISSION. TODAY HIS LIVER ENZYMES ARE ALMOST NORMAL AND HIS LIPASE IS DECLINING. HE DENIES ETOH USE , NO HISTORY OF GALLSTONES AND NO FAMILY HISTORY OF PANCREATIC DISEASE. 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's, CVA, Dementia, Migraine, Multiple Sclerosis, Peripheral Neuropathy, Parkinson's, Seizure, Syncope, TIA, Vertigo, Other Cardio/Vascular: Yes: HTN, Hyperlipdemia (TG LEVEL NOT KNOWN ) Pulmonary: No: Asthma, Bronchitis, Cancer, COPD, O2 Dependent, Pneumonia, Previously Intubated, Pulmonary Embolus, Pulmonary Fibrosis, Sleep Apnea, Other Gastrointestinal: Yes: Gastritis Hepatobiliary: No: Cirrhosis, Cholelithiasis, Cholecystitis, Choledocholithiasis , Hepatitis A, Hepatitis B, Hepatitis C, Other Renal/: No: Renal Failure, Renal Inusuff, BPH, Cancer, Hematuria, Hemodialysis , Neurogenic Bladder, Renal Calculi, UTI, Other Heme/Onc: No: Anemia, B12 Deficiency, Bleeding Disorder, Cancer, Current Chemotherapy, Current Radiation Therapy, Hemochromatosis, Hypercoaguable State, Myeloproliferative Synd, Sickle Cell Disease, Sickle Cell Trait, Thrombocytopenia, Other Psych: No: Addictions, Anxiety, Bipolar, Depression, Panic, Psychosis, Schizophrenia, Other Musculoskeletal: No: Bursitis, Chronic low back pain, Hemiparesis, Hemiplegia, Osteoarthritis, Paraplegia, Other Rheumatology: No: Fibromyalgia, Gout, Lupus, Rheumatoid Arthritis, Sarcoidosis, Vasculitis, Other ENT: No: Allergic Rhinitis, Sinusitis, Other Endocrine: No: Luke's Disease, Louisa's Disease, Diabetes Insipidus, Diabetes Mellitus, Hyperparathyroidism, Hyperthyroidism, Hypothyroidism, Osteopenia, SIADH, Other Dermatology: No: Basal Cell, Cellulitis, Eczema, Melanoma, Psoriasis, Squamous Cell, Other - Past Surgical History Past Surgical History: No: None, AAA Repair, AICD, Amputation, Appendectomy, Arthrosocopy, AV Fistula/Graft, Bariatric Surgery, Breast Biopsy, Bypass, CABG, Carotid Endarterectomy, Cataract Removal, Cholecystectomy, Colectomy, Colonoscopy, Colostomy, Craniotomy, , Cystectomy, Hernia Repair, Hysterectomy, Ileal Conduit, Ileosotomy, Joint Replacement, Kidney Transplant, Laminectomy, Liver Transplant, Mastectomy, Nephrectomy, Oopherectomy, Orchiectomy, Permanent Pacemaker, Prostatectomy, Splenectomy, Stent, Thoracotomy , TURP, Tonsillectomy, Tubal Ligation, Upper Endoscopy, Valve Replacement, Vasectomy, Vein Stripping/Ligation - Alcohol/Substance Use Hx Alcohol Use: No - Smoking History Smoking history: Never smoked Home Medications - Allergies Allergies/Adverse Reactions: Allergies Allergy/AdvReac Type Severity Reaction Status Date / Time No Known Allergies Allergy Verified 04/17/16 12:42 - Home Medications Home Medications: Ambulatory Orders Amlodipine Besylate/Benazepril [Lotrel 5-40 mg Capsule] 1 each PO DAILY Pantoprazole Sodium [Protonix] 40 mg PO DAILY 04/17/16 Family Disease History - Family Disease History Family History: Unremarkable Review of Systems - Review of Systems Constitutional: reports: No Symptoms Eyes: reports: No Symptoms HENT: reports: No Symptoms Neck: reports: No Symptoms Cardiovascular: reports: No Symptoms Respiratory: reports: No Symptoms Gastrointestinal: reports: Abdominal Pain, Nausea, Vomiting Genitourinary: reports: No Symptoms Breasts: reports: No Symptoms Reported Musculoskeletal: reports: No Symptoms Integumentary: reports: No Symptoms Neurological: reports: No Symptoms Endocrine: reports: No Symptoms Hematology/Lymphatic: reports: No Symptoms Psychiatric: reports: No Symptoms Physical Exam-GI Vital Signs: Vital Signs Temperature 101.6 F H 04/18/16 14:25 Pulse Rate 95 H 04/18/16 14:25 Respiratory Rate 14 04/18/16 14:25 Blood Pressure 154/73 04/18/16 14:25 O2 Sat by Pulse Oximetry (%) 99 04/18/16 09:00 Constitutional: Yes: Well Nourished Eyes: Yes: Conjunctiva Clear HENT: Yes: Normocephalic Neck: Yes: Supple Cardiovascular: Yes: Regular Rate and Rhythm Respiratory: Yes: Regular Gastrointestinal Inspection: Yes: Distention ...Auscultate: Yes: Normoactive Bowel Sounds ...Palpate: Yes: Soft, Tenderness (UPPER ABDOMEN) Musculoskeletal: Yes: WNL Extremities: Yes: WNL Neurological: Yes: WNL Psychiatric: Yes: Alert, Oriented Labs: CBC, BMP 04/18/16 05:00 04/18/16 05:00 INR, PTT INR 1.56 (0.82-1.09) H 04/18/16 05:00 Laboratory Tests 04/17/16 04/17/16 04/17/16 13:11 13:11 13:11 WBC RBC 5.96 H Hgb 15.0 Hct 46.6 MCV 78.2 L MCHC 32.2 RDW 14.7 Plt Count 187 MPV 8.8 Neutrophils % 82.0 Lymphocytes % 7.0 L Monocytes % 3.0 L Eosinophils % 0.0 Basophils % 0.0 Band Neutrophils 8.0 Reactive Lymphocytes INR Sodium Potassium Chloride Carbon Dioxide Anion Gap BUN Creatinine Creat Clearance w eGFR Random Glucose Calcium Phosphorus Magnesium Total Bilirubin 2.1 H AST 48 H ALT 144 H Alkaline Phosphatase 150 H B-Natriuretic Peptide Total Protein 6.9 Albumin 3.7 Triglycerides Cholesterol Total LDL Cholesterol HDL Cholesterol Total Amylase 342 H Lipase 2318 H Urine Bilirubin 04/17/16 04/18/16 04/18/16 18:15 05:00 05:00 WBC 25.4 H RBC 5.01 Hgb 12.7 D Hct 38.8 D MCV 77.5 L MCHC 32.7 RDW 14.7 Plt Count 180 MPV 8.8 Neutrophils % 90.0 H Lymphocytes % 1.0 L D Monocytes % 6.0 D Eosinophils % Basophils % Band Neutrophils 1.0 D Reactive Lymphocytes 2 INR 1.56 H Sodium Potassium Chloride Carbon Dioxide Anion Gap BUN Creatinine Creat Clearance w eGFR Random Glucose Calcium Phosphorus Magnesium Total Bilirubin AST ALT Alkaline Phosphatase B-Natriuretic Peptide Total Protein Albumin Triglycerides Cholesterol Total LDL Cholesterol HDL Cholesterol Total Amylase Lipase Urine Bilirubin Negative 04/18/16 04/18/16 05:00 10:32 WBC RBC Hgb Hct MCV MCHC RDW Plt Count MPV Neutrophils % Lymphocytes % Monocytes % Eosinophils % Basophils % Band Neutrophils Reactive Lymphocytes INR Sodium 135 L Potassium 3.9 Chloride 102 Carbon Dioxide 25 Anion Gap 8 BUN 12 D Creatinine 0.9 D Creat Clearance w eGFR > 60 Random Glucose 106 D Calcium 7.8 L Phosphorus 2.2 L Magnesium 1.9 Total Bilirubin 2.7 H D AST 21 D ALT 76 D Alkaline Phosphatase 105 D B-Natriuretic Peptide 408.72 H Total Protein 5.6 L Albumin 2.5 L D Triglycerides 83 Cholesterol 121 Total LDL Cholesterol 75 HDL Cholesterol 39 L Total Amylase 180 H D Lipase 910 H Urine Bilirubin Imaging - Results Cat Scan: Image Reviewed Problem List - Problems (1) Acute pancreatitis Assessment/Plan: CONTINUE IVF OF LR FOR ANOTHER 24 HOURS, PAIN MEDS NEEDED, FOLLOW LIPASE AND LFTS, CRP, CK SONOGRAM IN AM CK TRIGLYCERIDES GIVEN HISTORY AND TYPE OF PAIN HE MAY OF HAD BILIARY COLIC DURING THE WEEK AND WITH PASSAGE OF STONE HE DEVELOPED PANCREATITIS. I WOULD REPAT THE CT SCAN IN 5 TO 7 DAYS, KEEP NPO FOR NOW AND RE EXAMINE TOMORROW ELEVATED WBC PROBABLY DUE TO PANCREATIC INFLAMMATION Code(s): K85.9 - ACUTE PANCREATITIS, UNSPECIFIED * DO NOT USE * Qualifiers: Pancreatitis type: idiopathic Qualified Code(s): K85.0 - Idiopathic acute pancreatitis (2) Abnormal LFTs (liver function tests) Assessment/Plan: ABOVE Code(s): R79.89 - OTHER SPECIFIED ABNORMAL FINDINGS OF BLOOD CHEMISTRY (3) Hypertension Code(s): I10 - ESSENTIAL (PRIMARY) HYPERTENSION (4) Leukocytosis Assessment/Plan: ICU TIME: 45 MINUTES Code(s): D72.829 - ELEVATED WHITE BLOOD CELL COUNT, UNSPECIFIED
[2016-04-18] MEDS: CHLORHEXIDINE GLUCONATE 4% CLEANSER FOR DECOLONIZATION TP SCH (23:01)
[2016-04-19] MEDS: IMIPENEM/CILASTATIN SODIUM 500 MG in SODIUM CHLORIDE 100 ML IVPB SCH ×3 (02:00→17:20)
[2016-04-19] MEDS: morphine CARPU-JECT 2 MG/1 ML DISP.SYRIN IVPUSH PRN ×5 (03:11→20:55)
[2016-04-19 06:17] LABS: BASOPHIL 0.3 % (0-2.0); EOSINOPHIL 0.3 % (0-4.5); MCH 25.5 pg (25.7-33.7); MCHC 32.8 g/dl (32.0-35.9); MEAN CELL VOLUME 77.9 fl (80-96); MEAN PLT VOLUME 8.9 fl (7.5-11.1); NEUTROPHILS 87.9 % (42.8-82.8); PLATELET COUNT 165 K/MM3 (134-434); RDW 14.6 % (11.9-15.9); WHITE BLOOD COUNT 19.4 K/mm3 (4.0-10.0)
[2016-04-19 06:30] LABS: ALBUMIN 2.3 g/dl (3.4-5.0); BILIRUBIN,DIRECT 2.3 mg/dL (0.0-0.2); CALCIUM 8.2 mg/dL (8.5-10.1); CREATININE 0.8 mg/dL (0.7-1.3); MAGNESIUM 2.1 mg/dL (1.8-2.4); TOT PROT 5.3 g/dl (6.4-8.2)
[2016-04-19 06:31] LABS: BILIRUBIN,TOTAL 3.1 mg/dL (0.2-1.0)
[2016-04-19] MEDS ORDERED: PT OWN MED DRAWER 7, Y5N ONE ×2 (08:40→17:11)
[2016-04-19] MEDS: MUPIROCIN 2% TOPICAL OINTMENT FOR DECOLONIZATION NS SCH ×2 (09:11→21:04)
[2016-04-19] MEDS: PANTOPRAZOLE SODIUM 40 MG/100 ML PRE-DOCKED IVPB SCH (09:11)
--- NOTE | 2016-04-19 10:58 | PN ---
Progress Note, Physician Chief Complaint: Mr Byrd says he is feeling worse today, says his abdominal pain is more intense. No cp, sob, n/v. - Current Medication List Current Medications: Active Medications Chlorhexidine Gluconate (Hibiclens For Decolonization -) 1 applic TP HS [facility] Last Admin: 04/18/16 23:01 Dose: 1 applic Lactated Ringer's (Lactated Ringers Solution) 1,000 mls @ 150 mls/hr IV ASDIR [facility] Last Admin: 04/18/16 23:01 Dose: 150 mls/hr Imipenem/Cilastatin Sodium 500 (mg/ Sodium Chloride) 100 mls @ 100 mls/hr IVPB Q8H-IV [facility] PRN Reason: Protocol Last Admin: 04/19/16 09:11 Dose: 100 mls/hr Morphine Sulfate (Morphine Injection -) 2 mg IVPUSH Q4H PRN PRN Reason: PAIN Last Admin: 04/19/16 07:35 Dose: 2 mg Mupirocin (Bactroban Ointment (For Decolonization) -) 1 applic NS BID [facility] Stop: 04/22/16 21:59 Last Admin: 04/19/16 09:11 Dose: 1 applic Ondansetron HCl (Zofran Injection) 4 mg IVPB Q6H PRN PRN Reason: NAUSEA Pantoprazole Sodium (Protonix 40mg Ivpb (Pre-Docked)) 40 mg IVPB DAILY [facility] Last Admin: 04/19/16 09:11 Dose: 40 mg - Objective Vital Signs: Vital Signs Temperature 100.3 F H 04/19/16 10:00 Pulse Rate 81 04/19/16 10:00 Respiratory Rate 15 04/19/16 10:00 Blood Pressure 145/73 04/19/16 10:00 O2 Sat by Pulse Oximetry (%) 97 04/19/16 08:00 Constitutional: Yes: No Distress, Calm, Obese Cardiovascular: Yes: Regular Rate and Rhythm. No: Gallop, Murmur, Rub Respiratory: Yes: Regular, CTA Bilaterally. No: Rales, Rhonchi, Wheezes Gastrointestinal: Yes: Normal Bowel Sounds, Distention, Tenderness Extremities: Yes: WNL Edema: No Labs: CBC, BMP 04/19/16 05:10 04/19/16 05:10 INR, PTT INR 1.56 (0.82-1.09) H 04/18/16 05:00 Problem List - Problems (1) Acute pancreatitis Code(s): K85.9 - ACUTE PANCREATITIS, UNSPECIFIED * DO NOT USE * Qualifiers: Pancreatitis type: idiopathic Qualified Code(s): K85.0 - Idiopathic acute pancreatitis (2) Hypertension Code(s): I10 - ESSENTIAL (PRIMARY) HYPERTENSION (3) Leukocytosis Code(s): D72.829 - ELEVATED WHITE BLOOD CELL COUNT, UNSPECIFIED Assessment/Plan (1) Acute pancreatitis Assessment/Plan: -idiopathic -amylase/lipase normal, however clinically feeling worse today -recheck in am to make sure not increase -continue IVF hydration -continue npo -continue pain control -GI following and note reviewed Code(s): K85.9 - ACUTE PANCREATITIS, UNSPECIFIED * DO NOT USE * Qualifiers: Pancreatitis type: idiopathic Qualified Code(s): K85.0 - Idiopathic acute pancreatitis (2) Hypertension Assessment/Plan: -elevated currently, but on IVF and holding amlodipine -can allow permissive HTN for short time -restart amlodipine when tolerating po -if elevates further, will start on prn hydralazine Code(s): I10 - ESSENTIAL (PRIMARY) HYPERTENSION (3) Leukocytosis Assessment/Plan: -ID consulted -? infectious vs stress -placed on imipenem Code(s): D72.829 - ELEVATED WHITE BLOOD CELL COUNT, UNSPECIFIED
[2016-04-19] MEDS: LACTATED RINGERS SOLUTION 1,000 ML IV SCH (14:15)
--- NOTE | 2016-04-19 14:33 | PN ---
Progress Note, Physician History of Present Illness: patient slightly better had small bm still not passing any gases abd tenderness better still spiking fevers - Current Medication List Current Medications: Active Medications Chlorhexidine Gluconate (Hibiclens For Decolonization -) 1 applic TP HS [facility] Last Admin: 04/18/16 23:01 Dose: 1 applic Lactated Ringer's (Lactated Ringers Solution) 1,000 mls @ 150 mls/hr IV ASDIR [facility] Last Admin: 04/19/16 14:15 Dose: 150 mls/hr Imipenem/Cilastatin Sodium 500 (mg/ Sodium Chloride) 100 mls @ 100 mls/hr IVPB Q8H-IV [facility] PRN Reason: Protocol Last Admin: 04/19/16 09:11 Dose: 100 mls/hr Morphine Sulfate (Morphine Injection -) 2 mg IVPUSH Q4H PRN PRN Reason: PAIN Last Admin: 04/19/16 12:20 Dose: 2 mg Mupirocin (Bactroban Ointment (For Decolonization) -) 1 applic NS BID [facility] Stop: 04/22/16 21:59 Last Admin: 04/19/16 09:11 Dose: 1 applic Ondansetron HCl (Zofran Injection) 4 mg IVPB Q6H PRN PRN Reason: NAUSEA Pantoprazole Sodium (Protonix 40mg Ivpb (Pre-Docked)) 40 mg IVPB DAILY [facility] Last Admin: 04/19/16 09:11 Dose: 40 mg - Objective Vital Signs: Vital Signs Temperature 101.1 F H 04/19/16 14:00 Pulse Rate 80 04/19/16 14:00 Respiratory Rate 15 04/19/16 14:00 Blood Pressure 142/78 04/19/16 14:00 O2 Sat by Pulse Oximetry (%) 97 04/19/16 08:00 Constitutional: Yes: Calm, Mild Distress HENT: Yes: Atraumatic Neck: Yes: Supple Cardiovascular: Yes: Regular Rate and Rhythm Respiratory: Yes: Regular, CTA Bilaterally Gastrointestinal: Yes: Soft, Other (absent bowel sounds) Musculoskeletal: Yes: WNL Extremities: Yes: WNL Neurological: Yes: Alert, Oriented Psychiatric: Yes: Alert Labs: CBC, BMP 04/19/16 05:10 04/19/16 05:10 INR, PTT INR 1.56 (0.82-1.09) H 04/18/16 05:00 Assessment/Plan patient evaluated i had a close at the ct scan. patient continues to spike fever with high wbc.it is alwyas worrisome when u see this type of picture and have to be very cautious about it becoming a phlegmon or abscess. patient has to be closely monitored and followed and the complications need to be prevented Problem List - Problems (1) Acute pancreatitis Code(s): K85.9 - ACUTE PANCREATITIS, UNSPECIFIED * DO NOT USE * Qualifiers: Pancreatitis type: drug induced Qualified Code(s): K85.3 - Drug induced acute pancreatitis (2) Hypertension Code(s): I10 - ESSENTIAL (PRIMARY) HYPERTENSION (3) Abnormal LFTs (liver function tests) Code(s): R79.89 - OTHER SPECIFIED ABNORMAL FINDINGS OF BLOOD CHEMISTRY (4) Leukocytosis Code(s): D72.829 - ELEVATED WHITE BLOOD CELL COUNT, UNSPECIFIED plan continue abx hydration npo strict watch on wbc and fevers i think we should repeat a ct by cc time 50 min
[2016-04-19] MEDS: ACETAMINOPHEN 1000 MG/100 ML VIAL (NON FORMULARY) IVPB PRN ×2 (14:56→20:57)
--- NOTE | 2016-04-19 15:06 | PN ---
Progress Note (short form) - Note Progress Note: Patient seen and examined in the ICU. Still with abdominal pain. Minimal BM and flatus. Still with fever spikes > 101. No nausea or vomiting. No CP or SOB. Intake & Output 04/16/16 04/17/16 04/18/16 04/19/16 23:59 23:59 23:59 23:59 Intake Total 1000 2500 1750 Output Total 400 1400 750 Balance 600 1100 1000 Weight 245 lb 241 lb Last Vital Signs Temp Pulse Resp BP Pulse Ox 101.1 F H 80 15 142/78 97 04/19/16 14:00 04/19/16 14:00 04/19/16 14:00 04/19/16 14:00 04/19/16 08:00 Active Medications Acetaminophen (Ofirmev Injection -) 1,000 mg IVPB Q6H PRN PRN Reason: FEVER OR PAIN Stop: 04/20/16 08:36 Last Admin: 04/19/16 14:56 Dose: 1,000 mg Chlorhexidine Gluconate (Hibiclens For Decolonization -) 1 applic TP HS [facility] Last Admin: 04/18/16 23:01 Dose: 1 applic Lactated Ringer's (Lactated Ringers Solution) 1,000 mls @ 150 mls/hr IV ASDIR [facility] Last Admin: 04/19/16 14:15 Dose: 150 mls/hr Imipenem/Cilastatin Sodium 500 (mg/ Sodium Chloride) 100 mls @ 100 mls/hr IVPB Q8H-IV [facility] PRN Reason: Protocol Last Admin: 04/19/16 09:11 Dose: 100 mls/hr Morphine Sulfate (Morphine Injection -) 2 mg IVPUSH Q4H PRN PRN Reason: PAIN Last Admin: 04/19/16 12:20 Dose: 2 mg Mupirocin (Bactroban Ointment (For Decolonization) -) 1 applic NS BID [facility] Stop: 04/22/16 21:59 Last Admin: 04/19/16 09:11 Dose: 1 applic Ondansetron HCl (Zofran Injection) 4 mg IVPB Q6H PRN PRN Reason: NAUSEA Pantoprazole Sodium (Protonix 40mg Ivpb (Pre-Docked)) 40 mg IVPB DAILY [facility] Last Admin: 04/19/16 09:11 Dose: 40 mg Constitutional: Yes: Mildly uncomfortable due to pain, Obese Cardiovascular: Yes: Regular Rate and Rhythm. No: Gallop, Murmur, Rub Respiratory: Yes: Regular, CTA Bilaterally. No: Rales, Rhonchi, Wheezes Gastrointestinal: Yes: Soft, Hypoactive Bowel Sounds, (+) Tenderness. No: Distention, guarding, rigidity Extremities: Yes: WNL Edema: No Labs: Laboratory Results - last 24 hr 04/19/16 04/19/16 04/19/16 05:10 05:10 05:10 WBC 19.4 H RBC 4.73 Hgb 12.1 Hct 36.9 MCV 77.9 L MCHC 32.8 RDW 14.6 Plt Count 165 MPV 8.9 Neutrophils % 87.9 H Lymphocytes % 4.3 L D Monocytes % 7.2 Eosinophils % 0.3 D Basophils % 0.3 D Sodium 139 Potassium 3.7 Chloride 102 Carbon Dioxide 29 Anion Gap 8 BUN 13 Creatinine 0.8 Random Glucose 108 H Calcium 8.2 L Phosphorus 2.0 L Magnesium 2.1 Total Bilirubin 3.1 H Direct Bilirubin 2.3 H AST 13 L D ALT 45 D Alkaline Phosphatase 95 C-Reactive Protein 38.3 H Total Protein 5.3 L Albumin 2.3 L Total Amylase 65 D Lipase 307 Problem List - Problems (1) Acute pancreatitis Assessment/Plan: Code(s): K85.9 - ACUTE PANCREATITIS, UNSPECIFIED * DO NOT USE * Qualifiers: Pancreatitis type: idiopathic Qualified Code(s): K85.0 - Idiopathic acute pancreatitis (2) Hypertension Assessment/Plan: Code(s): I10 - ESSENTIAL (PRIMARY) HYPERTENSION (3) Leukocytosis Assessment/Plan: Code(s): D72.829 - ELEVATED WHITE BLOOD CELL COUNT, UNSPECIFIED PLAN: Continue IVF with LR Strict I&O NPO VTE prophylaxis GI evaluation noted Pain control ABX per ID Follow labs If no improvement in clinical condition and if fevers persist -> may benefit from repeat imaging to R/O Abscess or necrosis ICU monitoring for tenuous status Dr Rico CCTime 35"
--- NOTE | 2016-04-19 20:31 | PN ---
GI Progress Note Subjective: GASTROENTEROLOGY PATIENT SEEN IN THE ICU, HE FEELS A LITTLE BETTER, PASSING GAS, HAD SMALL BM TODAY, LESS ABDOMINAL PAIN, HAD CRAMPING WITH ICE CHIPS TODAY, PATIENT HAS BEEN SPIKING TEMPS,(>101) WBC COUNT IS IMPROVING CRP OVER 35 - Objective Vital Signs: Vital Signs Temperature 100.1 F H 04/19/16 20:00 Pulse Rate 78 04/19/16 20:00 Respiratory Rate 16 04/19/16 20:00 Blood Pressure 134/82 04/19/16 20:00 O2 Sat by Pulse Oximetry (%) 97 04/19/16 19:25 Constitutional: No Distress, Calm Eyes: Yes: Sclera Icterus HENT: Yes: Normocephalic Neck: Yes: Supple Cardiovascular: Yes: Regular Rate and Rhythm Respiratory: Yes: CTA Bilaterally Gastrointestinal Inspection: Yes: Distention ...Auscultate: Yes: Normoactive Bowel Sounds ...Palpate: Yes: Soft, Tenderness, Epigastium (WITH DEEP PALPATION,) ...Percussion: Yes: Tympanitic Extremities: Yes: WNL Neurological: Yes: WNL Psychiatric: Yes: WNL Labs: CBC, BMP 04/19/16 05:10 04/19/16 05:10 INR, PTT INR 1.56 (0.82-1.09) H 04/18/16 05:00 Laboratory Tests 04/17/16 04/18/16 04/18/16 13:11 05:00 05:00 WBC 24.0 H 25.4 H RBC Hgb Hct MCV MCHC RDW Plt Count MPV Neutrophils % Lymphocytes % Monocytes % Eosinophils % Basophils % INR 1.56 H Total Bilirubin Direct Bilirubin AST ALT Alkaline Phosphatase C-Reactive Protein Triglycerides Total Amylase Lipase 04/18/16 04/18/16 04/19/16 05:00 10:32 05:10 WBC 19.4 H RBC 4.73 Hgb 12.1 Hct 36.9 MCV 77.9 L MCHC 32.8 RDW 14.6 Plt Count 165 MPV 8.9 Neutrophils % 87.9 H Lymphocytes % 4.3 L D Monocytes % 7.2 Eosinophils % 0.3 D Basophils % 0.3 D INR Total Bilirubin 2.7 H D Direct Bilirubin AST 21 D ALT 76 D Alkaline Phosphatase 105 D C-Reactive Protein Triglycerides 83 Total Amylase 180 H D Lipase 910 H 04/19/16 04/19/16 05:10 05:10 WBC RBC Hgb Hct MCV MCHC RDW Plt Count MPV Neutrophils % Lymphocytes % Monocytes % Eosinophils % Basophils % INR Total Bilirubin 3.1 H Direct Bilirubin 2.3 H AST 13 L D ALT 45 D Alkaline Phosphatase 95 C-Reactive Protein 38.3 H Triglycerides Total Amylase 65 D Lipase 307 - ....Imaging Cat Scan: Image Reviewed Ultrasound: Image Reviewed Problem List - Problems (1) Acute pancreatitis Assessment/Plan: SLIGHT IMPROVEMENT HOWEVER PT IS HAVING TEMPS ON ABX: DUE TO INFLAMMATORY RESPONSE OR DOES IT SUGGEST ABSCESS OR NECROSIS? IT IS A LITTLE EARLY FOR NECROSIS (BUT HE DID GET CONTRAST FIRST HOUR OF ADMISSION) AND IT IS TOO EARLY FOR ABSCESS. CONTINUE TO FOLLOW LIPASE, CRP, WBC, LFT'S, TEMP ; IF CONTINUES TO SPIKE WOULD CONSIDER REPEAT CT SCAN. IF ABSCESS IR ASPIRATION FOR CULTURE AND SENSITIVITY ALREADY ON ABX. OTHERWISE WOULD HOLD TIGHT FOR NOW PATIENT HAS AN ILEUS, NEEDS TO GET OOB AND TO CHAIR IF POSSIBLE, MAY ALSO NEED A SMALL BOWEL TUBE PAST THE SECOND PORTION OF THE DUODENUM FOR FEEDING CONSIDER THAT MONDAY OR MONDAY IF NOT IMPROVED. Code(s): K85.9 - ACUTE PANCREATITIS, UNSPECIFIED * DO NOT USE * Qualifiers: Pancreatitis type: idiopathic Qualified Code(s): K85.0 - Idiopathic acute pancreatitis (2) Abnormal LFTs (liver function tests) Assessment/Plan: ABOVE, CLINICAL SCENARIO SUGGEST GALLSTONE PANCREATITIS BUT I CAN NOT PROVE THIS Code(s): R79.89 - OTHER SPECIFIED ABNORMAL FINDINGS OF BLOOD CHEMISTRY (3) Hypertension Code(s): I10 - ESSENTIAL (PRIMARY) HYPERTENSION (4) Leukocytosis Assessment/Plan: IMPROVING ICU TIME: 30 MINUTES Code(s): D72.829 - ELEVATED WHITE BLOOD CELL COUNT, UNSPECIFIED
[2016-04-19] MEDS: CHLORHEXIDINE GLUCONATE 4% CLEANSER FOR DECOLONIZATION TP SCH (21:04)
[2016-04-20] MEDS ORDERED: PT OWN MED DRAWER 7, Y5N ONE ×4 (00:09→23:20)
[2016-04-20] MEDS: morphine CARPU-JECT 2 MG/1 ML DISP.SYRIN IVPUSH PRN ×3 (00:27→10:50)
[2016-04-20] MEDS: LACTATED RINGERS SOLUTION 1,000 ML IV SCH (01:56)
[2016-04-20] MEDS: IMIPENEM/CILASTATIN SODIUM 500 MG in SODIUM CHLORIDE 100 ML IVPB SCH ×3 (01:56→17:39)
[2016-04-20] MEDS ORDERED: POTASSIUM PHOSPHATE 15 MM in SODIUM CHLORIDE 250 ML IVPB ONE ×2 (04:10→04:13)
[2016-04-20 05:34] LABS: BASOPHIL 0.2 % (0-2.0); EOSINOPHIL 1.3 % (0-4.5); MCH 25.7 pg (25.7-33.7); MCHC 32.5 g/dl (32.0-35.9); NEUTROPHILS 85.4 % (42.8-82.8); PLATELET COUNT 198 K/MM3 (134-434); WHITE BLOOD COUNT 15.6 K/mm3 (4.0-10.0)
[2016-04-20] MEDS: PANTOPRAZOLE SODIUM 40 MG/100 ML PRE-DOCKED IVPB SCH (09:05)
[2016-04-20] MEDS: MUPIROCIN 2% TOPICAL OINTMENT FOR DECOLONIZATION NS SCH ×2 (09:06→21:16)
[2016-04-20] MEDS: SIMETHICONE 80 MG TAB.CHEW (FP) PO PRN ×4 (09:17→21:40)
[2016-04-20 10:23] LABS: ALBUMIN 2.2 g/dl (3.4-5.0); ALK PHOS 91 U/L (45-117); ANION GAP 9 (8-16); BILIRUBIN,TOTAL 2.2 mg/dL (0.2-1.0); CO2 27 mmol/L (21-32); CREATININE 0.5 mg/dL (0.7-1.3); GLUCOSE,RANDOM 105 mg/dL (74-106); MAGNESIUM 2.3 mg/dL (1.8-2.4); SGOT/AST 11 U/L (15-37); SGPT/ALT 34 U/L (12-78); TOT PROT 5.2 g/dl (6.4-8.2)
[2016-04-20 10:47] LABS: C-REACTIVE PROTEIN 34.4 MG/DL (0.00-0.3)
--- NOTE | 2016-04-20 11:04 | PN ---
Progress Note, Physician Chief Complaint: Mr Byrd states he is having a lot of bloating type pain this morning. +flatus , small bowel movement. No chest pain or shortness of breath. - Current Medication List Current Medications: Active Medications Chlorhexidine Gluconate (Hibiclens For Decolonization -) 1 applic TP HS [facility] Last Admin: 04/19/16 21:04 Dose: 1 applic Lactated Ringer's (Lactated Ringers Solution) 1,000 mls @ 150 mls/hr IV ASDIR [facility] Last Admin: 04/20/16 01:56 Dose: 150 mls/hr Imipenem/Cilastatin Sodium 500 (mg/ Sodium Chloride) 100 mls @ 100 mls/hr IVPB Q8H-IV [facility] PRN Reason: Protocol Last Admin: 04/20/16 09:05 Dose: 100 mls/hr Morphine Sulfate (Morphine Injection -) 2 mg IVPUSH Q4H PRN PRN Reason: PAIN Last Admin: 04/20/16 10:50 Dose: 2 mg Mupirocin (Bactroban Ointment (For Decolonization) -) 1 applic NS BID [facility] Stop: 04/22/16 21:59 Last Admin: 04/20/16 09:06 Dose: 1 applic Ondansetron HCl (Zofran Injection) 4 mg IVPB Q6H PRN PRN Reason: NAUSEA Pantoprazole Sodium (Protonix 40mg Ivpb (Pre-Docked)) 40 mg IVPB DAILY [facility] Last Admin: 04/20/16 09:05 Dose: 40 mg Simethicone (Mylicon -) 80 mg PO Q4H PRN PRN Reason: GAS Last Admin: 04/20/16 09:17 Dose: 80 mg - Objective Vital Signs: Vital Signs Temperature 99.5 F 04/20/16 10:00 Pulse Rate 75 04/20/16 10:00 Respiratory Rate 16 04/20/16 10:00 Blood Pressure 156/88 04/20/16 10:00 O2 Sat by Pulse Oximetry (%) 99 04/20/16 08:00 Constitutional: Yes: No Distress, Calm, Obese Cardiovascular: Yes: Regular Rate and Rhythm. No: Gallop, Murmur, Rub Respiratory: Yes: Regular, CTA Bilaterally. No: Rales, Rhonchi, Wheezes Gastrointestinal: Yes: Normal Bowel Sounds, Distention, Tenderness. No: Soft Extremities: Yes: WNL Edema: No Labs: CBC, BMP 04/20/16 05:00 04/20/16 09:20 INR, PTT INR 1.56 (0.82-1.09) H 04/18/16 05:00 Problem List - Problems (1) Acute pancreatitis Code(s): K85.9 - ACUTE PANCREATITIS, UNSPECIFIED * DO NOT USE * Qualifiers: Pancreatitis type: idiopathic Qualified Code(s): K85.0 - Idiopathic acute pancreatitis (2) Hypertension Code(s): I10 - ESSENTIAL (PRIMARY) HYPERTENSION (3) Leukocytosis Code(s): D72.829 - ELEVATED WHITE BLOOD CELL COUNT, UNSPECIFIED Assessment/Plan (1) Acute pancreatitis Assessment/Plan: -idiopathic -amylase and lipase remain normal, CRP improving but still significantly elevated -GI following -continue npo, pain control, and LR -continue antibiotics per ID, last fever at 1500 yesterday Code(s): K85.9 - ACUTE PANCREATITIS, UNSPECIFIED * DO NOT USE * Qualifiers: Pancreatitis type: idiopathic Qualified Code(s): K85.0 - Idiopathic acute pancreatitis (2) Hypertension Assessment/Plan: -elevated currently, but on IVF and holding amlodipine -can allow permissive HTN for short time -restart amlodipine when tolerating po -if elevates further, will start on prn hydralazine Code(s): I10 - ESSENTIAL (PRIMARY) HYPERTENSION (3) Leukocytosis Assessment/Plan: -ID consulted and following -improving -? infectious vs stress -placed on imipenem -considering repeat CT scan tomorrow Code(s): D72.829 - ELEVATED WHITE BLOOD CELL COUNT, UNSPECIFIED
--- NOTE | 2016-04-20 11:07 | PN ---
Physical Exam: SUBJECTIVE: Patient seen and examined at bedside this AM. Afebrile since 2pm yesterday and states his abdominal pain is much better than yesterday. Small BM yesterday. Increased flatus overnight, feels very bloated this morning. OBJECTIVE: Vital Signs Period Temp Pulse Resp BP Sys/Stone Pulse Ox Last 24 Hr 98.0 F-101.1 F 66-84 11-16 129-162/73-88 97-99 GENERAL: The patient is awake, alert, and fully oriented, in no acute distress. HEENT: Atraumatic, EOMI, PERRLA, Moist membranes LUNGS: Breath sounds equal, clear to auscultation bilaterally HEART: Regular rate and rhythm, S1, S2 without murmur, rub or gallop. ABDOMEN: Soft, nondistended, normoactive; mild tenderness epigastric EXTREMITIES: 2+ pulses, warm, well-perfused, no edema. NEUROLOGICAL: Cranial nerves II through XII grossly intact. Normal speech, gait not observed. PSYCH: Normal mood, normal affect. SKIN: Warm, dry, normal turgor, no rashes or lesions noted Laboratory Results - last 24 hr 04/20/16 04/20/16 04/20/16 05:00 09:20 09:20 WBC 15.6 H RBC 4.69 Hgb 12.1 Hct 37.1 MCV 79.0 L MCHC 32.5 RDW 15.0 Plt Count 198 MPV 9.0 Neutrophils % 85.4 H Lymphocytes % 5.6 L D Monocytes % 7.5 Eosinophils % 1.3 D Basophils % 0.2 Sodium 138 Potassium 3.8 Chloride 102 Carbon Dioxide 27 Anion Gap 9 BUN 13 Creatinine 0.5 L D Creat Clearance w eGFR > 60 Random Glucose 105 Calcium 8.0 L Phosphorus 3.0 D Magnesium 2.3 Total Bilirubin 2.2 H D AST 11 L ALT 34 D Alkaline Phosphatase 91 C-Reactive Protein 34.4 H D Total Protein 5.2 L Albumin 2.2 L Total Amylase 40 D Lipase 229 Active Medications Generic Name Dose Route Start Last Admin Trade Name Freq PRN Reason Stop Dose Admin Chlorhexidine Gluconate 1 applic 04/17/16 22:00 04/19/16 21:04 Hibiclens For Decolonization - TP 1 applic HS [facility] Administration Lactated Ringer's 1,000 mls @ 150 mls/hr 04/17/16 21:30 04/20/16 01:56 Lactated Ringers Solution IV 150 mls/hr ASDIR [facility] Administration Imipenem/Cilastatin Sodium 500 100 mls @ 100 mls/hr 04/18/16 18:00 04/20/16 09: 05 mg/ Sodium Chloride IVPB 100 mls/hr Q8H-IV [facility] Administration Protocol Morphine Sulfate 2 mg 04/17/16 17:39 04/20/16 10:50 Morphine Injection - IVPUSH 2 mg Q4H PRN Administration PAIN Mupirocin 1 applic 04/17/16 22:00 04/20/16 09:06 Bactroban Ointment (For Decolonization) - NS 04/22/16 21:59 1 applic BID [facility] Administration Ondansetron HCl 4 mg 04/17/16 17:29 Zofran Injection IVPB Q6H PRN NAUSEA Pantoprazole Sodium 40 mg 04/18/16 10:00 04/20/16 09:05 Protonix 40mg Ivpb (Pre-Docked) IVPB 40 mg DAILY [facility] Administration Simethicone 80 mg 04/20/16 08:58 04/20/16 09:17 Mylicon - PO 80 mg Q4H PRN Administration GAS ASSESSMENT/PLAN: 61 year old male with PMH of HTN and HLD. Presented with abdominal pain, nausea & vomiting. Lipase was [address] imaging confirmed diagnosis of acute pancreatitis. #Acute Pancreatitis -on Imipenem -NPO -Zofran, PPI -IVF Dextrose 5%-LR @150cc/hr for nutrition & hydration -f/u lipase & CRP, improving thus far -ID consult appreciated -GI following as well -morphine for pain management -if no significant improvement by tomorrow, will need repeat CT imaging to rule out abscess formation #HTN -currently elevated, may start hydralazine PRN if continues to be elevated -can restart home meds once tolerating PO diet Prophylaxis, FEN -SCD, PPI -NPO, will monitor electrolytes Visit type - Emergency Visit Emergency Visit: Yes ED Registration Date: 04/17/16 Care time: The patient presented to the Emergency Department on the above date and was hospitalized for further evaluation of their emergent condition. - New Patient This patient is new to me today: No - Critical Care Critical Care patient: Yes Total Critical Care Time (in minutes): 35 Critical Care Statement: The care of this patient involved high complexity decision making to prevent further life threatening deterioration of the patient 's condition and/or to evalute & treat vital organ system(s) failure or risk of failure.
[2016-04-20] MEDS: DEXTROSE 5%-LACTATED RINGERS 1,000 ML IV SCH ×2 (11:45→21:00)
--- NOTE | 2016-04-20 14:12 | PN ---
Teaching Attending Note Name of Resident: Claude Rubin ATTENDING PHYSICIAN STATEMENT I saw and evaluated the patient. I reviewed the resident's note and discussed the case with the resident. I agree with the resident's findings and plan as documented. SUBJECTIVE: Patient seen and examined in the ICU. Still with abdominal pain, but less. Minimal BM last night. No nausea or vomiting. No CP or SOB. Intake & Output 04/17/16 04/18/16 04/19/16 04/20/16 23:59 23:59 23:59 23:59 Intake Total 1000 2500 3850 2950 Output Total 400 1400 1900 1000 Balance 600 1100 1950 1950 Weight 245 lb 241 lb 242 lb 5 oz Last Vital Signs Temp Pulse Resp BP Pulse Ox 99.3 F 78 18 154/79 99 04/20/16 12:00 04/20/16 12:00 04/20/16 12:00 04/20/16 12:00 04/20/16 08:00 Active Medications Chlorhexidine Gluconate (Hibiclens For Decolonization -) 1 applic TP HS [facility] Last Admin: 04/19/16 21:04 Dose: 1 applic Imipenem/Cilastatin Sodium 500 (mg/ Sodium Chloride) 100 mls @ 100 mls/hr IVPB Q8H-IV [facility] PRN Reason: Protocol Last Admin: 04/20/16 09:05 Dose: 100 mls/hr Dextrose/Lactated Ringer's (D5-Lr -) 1,000 mls @ 150 mls/hr IV ASDIR [facility] Last Admin: 04/20/16 11:45 Dose: 150 mls/hr Morphine Sulfate (Morphine Injection -) 2 mg IVPUSH Q4H PRN PRN Reason: PAIN Last Admin: 04/20/16 10:50 Dose: 2 mg Mupirocin (Bactroban Ointment (For Decolonization) -) 1 applic NS BID [facility] Stop: 04/22/16 21:59 Last Admin: 04/20/16 09:06 Dose: 1 applic Ondansetron HCl (Zofran Injection) 4 mg IVPB Q6H PRN PRN Reason: NAUSEA Pantoprazole Sodium (Protonix 40mg Ivpb (Pre-Docked)) 40 mg IVPB DAILY [facility] Last Admin: 04/20/16 09:05 Dose: 40 mg Simethicone (Mylicon -) 80 mg PO Q4H PRN PRN Reason: GAS Last Admin: 04/20/16 12:37 Dose: 80 mg Constitutional: Yes: Less uncomfortable today, Obese, NAD Cardiovascular: Yes: Regular Rate and Rhythm. No: Gallop, Murmur, Rub Respiratory: Yes: Regular, CTA Bilaterally. No: Rales, Rhonchi, Wheezes Gastrointestinal: Yes: Soft, Hypoactive Bowel Sounds, (+) Tenderness. No: Distention, guarding, rigidity Extremities: Yes: WNL Edema: No Labs: Laboratory Results - last 24 hr 04/20/16 04/20/16 04/20/16 05:00 09:20 09:20 WBC 15.6 H RBC 4.69 Hgb 12.1 Hct 37.1 MCV 79.0 L MCHC 32.5 RDW 15.0 Plt Count 198 MPV 9.0 Neutrophils % 85.4 H Lymphocytes % 5.6 L D Monocytes % 7.5 Eosinophils % 1.3 D Basophils % 0.2 Sodium 138 Potassium 3.8 Chloride 102 Carbon Dioxide 27 Anion Gap 9 BUN 13 Creatinine 0.5 L D Creat Clearance w eGFR > 60 Random Glucose 105 Calcium 8.0 L Phosphorus 3.0 D Magnesium 2.3 Total Bilirubin 2.2 H D AST 11 L ALT 34 D Alkaline Phosphatase 91 C-Reactive Protein 34.4 H D Total Protein 5.2 L Albumin 2.2 L Total Amylase 40 D Lipase 229 Problem List - Problems (1) Acute pancreatitis Assessment/Plan: Code(s): K85.9 - ACUTE PANCREATITIS, UNSPECIFIED * DO NOT USE * Qualifiers: Pancreatitis type: idiopathic Qualified Code(s): K85.0 - Idiopathic acute pancreatitis (2) Hypertension Assessment/Plan: Code(s): I10 - ESSENTIAL (PRIMARY) HYPERTENSION (3) Leukocytosis Assessment/Plan: Code(s): D72.829 - ELEVATED WHITE BLOOD CELL COUNT, UNSPECIFIED PLAN: Continue IVF with D5LR Strict I&O NPO VTE prophylaxis Pain control ABX per ID Hopefully will be able to start oral intake in the next 1 to 2 days -> If not will D/W GI distal tube feedings Dr Rico CCTime 35"
--- NOTE | 2016-04-20 16:53 | PN ---
Progress Note, Physician History of Present Illness: patient slightly better still bloated still uncomfortable spiking low grade fevers,but improving - Current Medication List Current Medications: Active Medications Chlorhexidine Gluconate (Hibiclens For Decolonization -) 1 applic TP HS [facility] Last Admin: 04/19/16 21:04 Dose: 1 applic Imipenem/Cilastatin Sodium 500 (mg/ Sodium Chloride) 100 mls @ 100 mls/hr IVPB Q8H-IV [facility] PRN Reason: Protocol Last Admin: 04/20/16 09:05 Dose: 100 mls/hr Dextrose/Lactated Ringer's (D5-Lr -) 1,000 mls @ 150 mls/hr IV ASDIR [facility] Last Admin: 04/20/16 11:45 Dose: 150 mls/hr Morphine Sulfate (Morphine Injection -) 2 mg IVPUSH Q4H PRN PRN Reason: PAIN Last Admin: 04/20/16 10:50 Dose: 2 mg Mupirocin (Bactroban Ointment (For Decolonization) -) 1 applic NS BID [facility] Stop: 04/22/16 21:59 Last Admin: 04/20/16 09:06 Dose: 1 applic Ondansetron HCl (Zofran Injection) 4 mg IVPB Q6H PRN PRN Reason: NAUSEA Pantoprazole Sodium (Protonix 40mg Ivpb (Pre-Docked)) 40 mg IVPB DAILY [facility] Last Admin: 04/20/16 09:05 Dose: 40 mg Simethicone (Mylicon -) 80 mg PO Q4H PRN PRN Reason: GAS Last Admin: 04/20/16 12:37 Dose: 80 mg - Objective Vital Signs: Vital Signs Temperature 99.3 F 04/20/16 14:00 Pulse Rate 73 04/20/16 14:00 Respiratory Rate 18 04/20/16 14:00 Blood Pressure 149/91 04/20/16 14:00 O2 Sat by Pulse Oximetry (%) 99 04/20/16 08:00 Constitutional: Yes: No Distress, Calm Cardiovascular: Yes: Regular Rate and Rhythm Respiratory: Yes: Regular, CTA Bilaterally Gastrointestinal: Yes: Normal Bowel Sounds, Soft Musculoskeletal: Yes: WNL Extremities: Yes: WNL Neurological: Yes: Alert, Oriented Psychiatric: Yes: Alert Labs: CBC, BMP 04/20/16 05:00 04/20/16 09:20 INR, PTT INR 1.56 (0.82-1.09) H 04/18/16 05:00 Assessment/Plan patient evaluated i had a close at the ct scan. patient continues to spike fever with high wbc.it is alwyas worrisome when u see this type of picture and have to be very cautious about it becoming a phlegmon or abscess. patient has to be closely monitored and followed and the complications need to be prevented Problem List - Problems (1) Acute pancreatitis Code(s): K85.9 - ACUTE PANCREATITIS, UNSPECIFIED * DO NOT USE * Qualifiers: Pancreatitis type: drug induced Qualified Code(s): K85.3 - Drug induced acute pancreatitis (2) Hypertension Code(s): I10 - ESSENTIAL (PRIMARY) HYPERTENSION (3) Abnormal LFTs (liver function tests) Code(s): R79.89 - OTHER SPECIFIED ABNORMAL FINDINGS OF BLOOD CHEMISTRY (4) Leukocytosis Code(s): D72.829 - ELEVATED WHITE BLOOD CELL COUNT, UNSPECIFIED plan continue abx hydration npo strict watch on wbc and fevers wbc trending down cc time 40 min
--- NOTE | 2016-04-20 19:45 | PN ---
GI Progress Note Subjective: Gastroenterology patient seen this morning in the ICU Shailesh felt somewhat better last evening. He felt better this morning. However after trying some ice chips he developed some abdominal cramping. He has had no fever as of this morning his last T-max was over 101 degrees. His abdomen is still distended but improved since yesterday. He is passing flatus - Objective Vital Signs: Vital Signs Temperature 99.2 F 04/20/16 18:00 Pulse Rate 79 04/20/16 18:00 Respiratory Rate 18 04/20/16 18:00 Blood Pressure 164/94 04/20/16 18:00 O2 Sat by Pulse Oximetry (%) 99 04/20/16 08:00 Constitutional: Calm Eyes: Yes: Conjunctiva Clear Neck: Yes: Supple Cardiovascular: Yes: Regular Rate and Rhythm Respiratory: Yes: Regular Gastrointestinal Inspection: Yes: Distention ...Auscultate: Yes: Normoactive Bowel Sounds ...Palpate: Yes: Tenderness, Epigastium ( pain is improved from yesterday) ...Percussion: Yes: Tympanitic Musculoskeletal: Yes: WNL Extremities: Yes: WNL Neurological: Yes: WNL Labs: CBC, BMP 04/20/16 05:00 04/20/16 09:20 INR, PTT INR 1.56 (0.82-1.09) H 04/18/16 05:00 Laboratory Tests 04/17/16 04/17/16 04/17/16 13:11 13:11 13:11 WBC 24.0 H RBC Hgb Hct MCV MCHC RDW Plt Count MPV Neutrophils % Lymphocytes % Monocytes % Eosinophils % Basophils % INR Sodium Potassium Chloride Carbon Dioxide Anion Gap BUN Creatinine Creat Clearance w eGFR Random Glucose Calcium Total Bilirubin AST ALT Alkaline Phosphatase C-Reactive Protein B-Natriuretic Peptide Total Protein Albumin Triglycerides Total Amylase 342 H Lipase 2318 H 04/18/16 04/18/16 04/18/16 05:00 05:00 05:00 WBC 25.4 H RBC Hgb Hct MCV MCHC RDW Plt Count MPV Neutrophils % Lymphocytes % Monocytes % Eosinophils % Basophils % INR 1.56 H Sodium Potassium Chloride Carbon Dioxide Anion Gap BUN Creatinine Creat Clearance w eGFR Random Glucose Calcium Total Bilirubin AST ALT Alkaline Phosphatase C-Reactive Protein B-Natriuretic Peptide 408.72 H Total Protein Albumin Triglycerides Total Amylase 180 H D Lipase 910 H 04/18/16 04/19/16 04/19/16 10:32 05:10 05:10 WBC 19.4 H RBC Hgb Hct MCV MCHC RDW Plt Count MPV Neutrophils % Lymphocytes % Monocytes % Eosinophils % Basophils % INR Sodium Potassium Chloride Carbon Dioxide Anion Gap BUN Creatinine Creat Clearance w eGFR Random Glucose Calcium Total Bilirubin AST ALT Alkaline Phosphatase C-Reactive Protein B-Natriuretic Peptide Total Protein Albumin Triglycerides 83 Total Amylase Lipase 307 04/19/16 04/20/16 04/20/16 05:10 05:00 09:20 WBC 15.6 H RBC 4.69 Hgb 12.1 Hct 37.1 MCV 79.0 L MCHC 32.5 RDW 15.0 Plt Count 198 MPV 9.0 Neutrophils % 85.4 H Lymphocytes % 5.6 L D Monocytes % 7.5 Eosinophils % 1.3 D Basophils % 0.2 INR Sodium Potassium Chloride Carbon Dioxide Anion Gap BUN Creatinine Creat Clearance w eGFR Random Glucose Calcium Total Bilirubin AST ALT Alkaline Phosphatase C-Reactive Protein 38.3 H B-Natriuretic Peptide Total Protein Albumin Triglycerides Total Amylase Lipase 229 04/20/16 09:20 WBC RBC Hgb Hct MCV MCHC RDW Plt Count MPV Neutrophils % Lymphocytes % Monocytes % Eosinophils % Basophils % INR Sodium 138 Potassium 3.8 Chloride 102 Carbon Dioxide 27 Anion Gap 9 BUN 13 Creatinine 0.5 L D Creat Clearance w eGFR > 60 Random Glucose 105 Calcium 8.0 L Total Bilirubin 2.2 H D AST 11 L ALT 34 D Alkaline Phosphatase 91 C-Reactive Protein 34.4 H D B-Natriuretic Peptide Total Protein 5.2 L Albumin 2.2 L Triglycerides Total Amylase Lipase Problem List - Problems (1) Acute pancreatitis Assessment/Plan: his fever curve has improved since yesterday, he still has an ileus, I spoke with the payroll administrative assistant, today we will try to ambulate the patient get him out of bed and have him walk if he can tolerate this. I still believe that the times were related to inflammatory process and not abscess or necrosis. We will reevaluate him in the a.m. still maintain n.p.o. status. Hopefully his ileus will improve his pain will resolve we can at least start feeding him by mouth at some point. Trend liver function tests CBC C-reactive protein and lipase Code(s): K85.9 - ACUTE PANCREATITIS, UNSPECIFIED * DO NOT USE * Qualifiers: Pancreatitis type: idiopathic Qualified Code(s): K85.0 - Idiopathic acute pancreatitis (2) Abnormal LFTs (liver function tests) Assessment/Plan: ABOVE, CLINICAL SCENARIO SUGGEST GALLSTONE PANCREATITIS BUT I CAN NOT PROVE THIS Code(s): R79.89 - OTHER SPECIFIED ABNORMAL FINDINGS OF BLOOD CHEMISTRY (3) Hypertension Code(s): I10 - ESSENTIAL (PRIMARY) HYPERTENSION (4) Leukocytosis Assessment/Plan: IMPROVING ICU TIME: 30 MINUTES Code(s): D72.829 - ELEVATED WHITE BLOOD CELL COUNT, UNSPECIFIED
[2016-04-20] MEDS: CHLORHEXIDINE GLUCONATE 4% CLEANSER FOR DECOLONIZATION TP SCH (21:16)
[2016-04-21] MEDS: IMIPENEM/CILASTATIN SODIUM 500 MG in SODIUM CHLORIDE 100 ML IVPB SCH ×3 (01:18→17:32)
[2016-04-21 05:36] LABS: BASOPHIL 0.4 % (0-2.0); EOSINOPHIL 1.5 % (0-4.5); MCH 25.5 pg (25.7-33.7); MCHC 32.8 g/dl (32.0-35.9); MEAN CELL VOLUME 77.8 fl (80-96); MEAN PLT VOLUME 8.3 fl (7.5-11.1); NEUTROPHILS 82.1 % (42.8-82.8); PLATELET COUNT 213 K/MM3 (134-434); RDW 14.6 % (11.9-15.9); WHITE BLOOD COUNT 13.6 K/mm3 (4.0-10.0)
[2016-04-21 06:19] LABS: CALCIUM 7.6 mg/dL (8.5-10.1); CREATININE 0.6 mg/dL (0.7-1.3); MAGNESIUM 2.1 mg/dL (1.8-2.4); PHOSPHOROUS 2.3 mg/dL (2.5-4.9)
[2016-04-21] MEDS ORDERED: POTASSIUM CHLORIDE 40 MEQ/30 ML UNIT DOSE CUP PO ONE (08:45)
[2016-04-21] MEDS: PANTOPRAZOLE SODIUM 40 MG/100 ML PRE-DOCKED IVPB SCH (09:41)
--- NOTE | 2016-04-21 09:53 | PN ---
Physical Exam: SUBJECTIVE: Patient seen and examined at bedside in ICU. Afebrile overnight & states bloating has improved. Had 1 small philippe-brown bowel movement last night. Ambulating well and sits in chair during day. Abdominal pain resolving as well. OBJECTIVE: Vital Signs Period Temp Pulse Resp BP Sys/Stone Pulse Ox Last 24 Hr 98.9 F-99.6 F 68-80 16-23 132-164/53-94 99-100 GENERAL: The patient is awake, alert, and fully oriented, in no acute distress. HEENT: Atraumatic, EOMI, PERRLA, Moist membranes LUNGS: Breath sounds equal, clear to auscultation bilaterally HEART: Regular rate and rhythm, S1, S2 without murmur, rub or gallop. ABDOMEN: Soft, nondistended, normoactive; nontender to palpation EXTREMITIES: 2+ pulses, warm, well-perfused, no edema. NEUROLOGICAL: Cranial nerves II through XII grossly intact. Normal speech, gait not observed. PSYCH: Normal mood, normal affect. SKIN: Warm, dry, normal turgor, no rashes or lesions noted Laboratory Results - last 24 hr 04/20/16 04/20/16 04/21/16 09:20 09:20 05:00 WBC 13.6 H RBC 4.52 Hgb 11.5 L Hct 35.1 L MCV 77.8 L MCHC 32.8 RDW 14.6 Plt Count 213 MPV 8.3 Neutrophils % 82.1 Lymphocytes % 7.5 L D Monocytes % 8.5 Eosinophils % 1.5 Basophils % 0.4 Sodium 138 Potassium 3.8 Chloride 102 Carbon Dioxide 27 Anion Gap 9 BUN 13 Creatinine 0.5 L D Creat Clearance w eGFR > 60 Random Glucose 105 Calcium 8.0 L Phosphorus 3.0 D Magnesium 2.3 Total Bilirubin 2.2 H D AST 11 L ALT 34 D Alkaline Phosphatase 91 C-Reactive Protein 34.4 H D Total Protein 5.2 L Albumin 2.2 L Total Amylase 40 D Lipase 229 04/21/16 05:00 WBC RBC Hgb Hct MCV MCHC RDW Plt Count MPV Neutrophils % Lymphocytes % Monocytes % Eosinophils % Basophils % Sodium 140 Potassium 3.5 Chloride 102 Carbon Dioxide 26 Anion Gap 12 BUN 10 D Creatinine 0.6 L Creat Clearance w eGFR Random Glucose 148 H D Calcium 7.6 L Phosphorus 2.3 L D Magnesium 2.1 Total Bilirubin AST ALT Alkaline Phosphatase C-Reactive Protein Total Protein Albumin Total Amylase 48 Lipase 407 H Active Medications Generic Name Dose Route Start Last Admin Trade Name Freq PRN Reason Stop Dose Admin Chlorhexidine Gluconate 1 applic 04/17/16 22:00 04/20/16 21:16 Hibiclens For Decolonization - TP 1 applic HS LASHELL Administration Imipenem/Cilastatin Sodium 500 100 mls @ 100 mls/hr 04/18/16 18:00 04/21/16 01: 18 mg/ Sodium Chloride IVPB 100 mls/hr Q8H-IV LASHELL Administration Protocol Dextrose/Lactated Ringer's 1,000 mls @ 150 mls/hr 04/20/16 11:45 04/20/16 21:00 D5-Lr - IV 150 mls/hr ASDIR LASHELL Administration Morphine Sulfate 2 mg 04/17/16 17:39 04/20/16 10:50 Morphine Injection - IVPUSH 2 mg Q4H PRN Administration PAIN Mupirocin 1 applic 04/17/16 22:00 04/20/16 21:16 Bactroban Ointment (For Decolonization) - NS 04/22/16 21:59 1 applic BID LASHELL Administration Ondansetron HCl 4 mg 04/17/16 17:29 Zofran Injection IVPB Q6H PRN NAUSEA Pantoprazole Sodium 40 mg 04/18/16 10:00 04/21/16 09:41 Protonix 40mg Ivpb (Pre-Docked) IVPB 40 mg DAILY LASHELL Administration Simethicone 80 mg 04/20/16 08:58 04/20/16 21:40 Mylicon - PO 80 mg Q4H PRN Administration GAS ASSESSMENT/PLAN: 61 year old male with PMH of HTN and HLD. Presented with abdominal pain, nausea & vomiting. Lipase was [address] imaging confirmed diagnosis of acute pancreatitis. #Acute Pancreatitis -on Imipenem, day 4 -NPO, may advance diet today as per GI -Zofran, PPI -IVF Dextrose 5%-LR @150cc/hr for nutrition & hydration -f/u lipase & CRP, improving thus far -ID & GI consults appreciated #HTN -currently elevated, may start hydralazine PRN if continues to be elevated -can restart home meds once tolerating PO diet Prophylaxis, FEN -SCD, PPI -NPO, will monitor electrolytes, Simethicone for gas Visit type - Emergency Visit Emergency Visit: Yes ED Registration Date: 04/17/16 Care time: The patient presented to the Emergency Department on the above date and was hospitalized for further evaluation of their emergent condition. - New Patient This patient is new to me today: No - Critical Care Critical Care patient: Yes Total Critical Care Time (in minutes): 40 Critical Care Statement: The care of this patient involved high complexity decision making to prevent further life threatening deterioration of the patient 's condition and/or to evalute & treat vital organ system(s) failure or risk of failure.
[2016-04-21] MEDS ORDERED: NAPH,MB-DB/K PH,MBDB POWDER PACKET PO SCH (10:00)
[2016-04-21] MEDS: MUPIROCIN 2% TOPICAL OINTMENT FOR DECOLONIZATION NS SCH (11:24)
[2016-04-21] MEDS: DEXTROSE 5%-LACTATED RINGERS 1,000 ML IV SCH (11:25)
--- NOTE | 2016-04-21 11:43 | PN ---
Progress Note, Physician Chief Complaint: Mr Byrd states he is feeling better today. Bloating pain is almost resolved. No cp or sob. - Current Medication List Current Medications: Active Medications Chlorhexidine Gluconate (Hibiclens For Decolonization -) 1 applic TP HS [facility] Last Admin: 04/20/16 21:16 Dose: 1 applic Imipenem/Cilastatin Sodium 500 (mg/ Sodium Chloride) 100 mls @ 100 mls/hr IVPB Q8H-IV LASHELL PRN Reason: Protocol Last Admin: 04/21/16 11:18 Dose: 100 mls/hr Dextrose/Lactated Ringer's (D5-Lr -) 1,000 mls @ 150 mls/hr IV ASDIR LASHELL Last Admin: 04/21/16 11:25 Dose: 150 mls/hr Morphine Sulfate (Morphine Injection -) 2 mg IVPUSH Q4H PRN PRN Reason: PAIN Last Admin: 04/20/16 10:50 Dose: 2 mg Mupirocin (Bactroban Ointment (For Decolonization) -) 1 applic NS BID [facility] Stop: 04/22/16 21:59 Last Admin: 04/21/16 11:24 Dose: 1 applic Ondansetron HCl (Zofran Injection) 4 mg IVPB Q6H PRN PRN Reason: NAUSEA Pantoprazole Sodium (Protonix 40mg Ivpb (Pre-Docked)) 40 mg IVPB DAILY [facility] Last Admin: 04/21/16 09:41 Dose: 40 mg Simethicone (Mylicon -) 80 mg PO Q4H PRN PRN Reason: GAS Last Admin: 04/20/16 21:40 Dose: 80 mg - Objective Vital Signs: Vital Signs Temperature 99.5 F 04/21/16 09:52 Pulse Rate 72 04/21/16 09:52 Respiratory Rate 18 04/21/16 09:52 Blood Pressure 149/85 04/21/16 09:52 O2 Sat by Pulse Oximetry (%) 100 04/20/16 21:00 Constitutional: Yes: Well Nourished, No Distress, Calm Cardiovascular: Yes: Regular Rate and Rhythm. No: Gallop, Murmur, Rub Respiratory: Yes: Regular, CTA Bilaterally. No: Rales, Rhonchi, Wheezes Gastrointestinal: Yes: Normal Bowel Sounds, Distention. No: Tenderness Extremities: Yes: WNL Edema: No Labs: CBC, BMP 04/21/16 05:00 04/21/16 05:00 INR, PTT INR 1.56 (0.82-1.09) H 04/18/16 05:00 Problem List - Problems (1) Acute pancreatitis Code(s): K85.9 - ACUTE PANCREATITIS, UNSPECIFIED * DO NOT USE * Qualifiers: Pancreatitis type: idiopathic Qualified Code(s): K85.0 - Idiopathic acute pancreatitis (2) Hypertension Code(s): I10 - ESSENTIAL (PRIMARY) HYPERTENSION (3) Leukocytosis Code(s): D72.829 - ELEVATED WHITE BLOOD CELL COUNT, UNSPECIFIED Assessment/Plan (1) Acute pancreatitis Assessment/Plan: -idiopathic -patient continues to improve -lipase elevated, suspect secondary to trying clear liquids -continue npo and IVF -GI following -trend labs -remains afebrile Code(s): K85.9 - ACUTE PANCREATITIS, UNSPECIFIED * DO NOT USE * Qualifiers: Pancreatitis type: idiopathic Qualified Code(s): K85.0 - Idiopathic acute pancreatitis (2) Hypertension Assessment/Plan: -elevated currently, but on IVF and holding amlodipine -can allow permissive HTN for short time -restart amlodipine when tolerating po -if elevates further, will start on prn hydralazine Code(s): I10 - ESSENTIAL (PRIMARY) HYPERTENSION (3) Leukocytosis Assessment/Plan: -ID following -improving -continue imipenem per Dr Johnson's recommendations -hold on CT scan currently, will review with GI and ID Code(s): D72.829 - ELEVATED WHITE BLOOD CELL COUNT, UNSPECIFIED
--- NOTE | 2016-04-21 15:30 | PN ---
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 but much better - Current Medication List Current Medications: Active Medications Chlorhexidine Gluconate (Hibiclens For Decolonization -) 1 applic TP HS [facility] Last Admin: 04/20/16 21:16 Dose: 1 applic Imipenem/Cilastatin Sodium 500 (mg/ Sodium Chloride) 100 mls @ 100 mls/hr IVPB Q8H-IV LASHELL PRN Reason: Protocol Last Admin: 04/21/16 11:18 Dose: 100 mls/hr Dextrose/Lactated Ringer's (D5-Lr -) 1,000 mls @ 150 mls/hr IV ASDIR [facility] Last Admin: 04/21/16 11:25 Dose: 150 mls/hr Morphine Sulfate (Morphine Injection -) 2 mg IVPUSH Q4H PRN PRN Reason: PAIN Last Admin: 04/20/16 10:50 Dose: 2 mg Mupirocin (Bactroban Ointment (For Decolonization) -) 1 applic NS BID [facility] Stop: 04/22/16 21:59 Last Admin: 04/21/16 11:24 Dose: 1 applic Ondansetron HCl (Zofran Injection) 4 mg IVPB Q6H PRN PRN Reason: NAUSEA Pantoprazole Sodium (Protonix 40mg Ivpb (Pre-Docked)) 40 mg IVPB DAILY [facility] Last Admin: 04/21/16 09:41 Dose: 40 mg Simethicone (Mylicon -) 80 mg PO Q4H PRN PRN Reason: GAS Last Admin: 04/20/16 21:40 Dose: 80 mg - Objective Vital Signs: Vital Signs Temperature 99.5 F 04/21/16 10:00 Pulse Rate 78 04/21/16 14:00 Respiratory Rate 18 04/21/16 14:00 Blood Pressure 146/88 04/21/16 14:00 O2 Sat by Pulse Oximetry (%) 100 04/21/16 09:00 Constitutional: Yes: No Distress, Calm Cardiovascular: Yes: Regular Rate and Rhythm Respiratory: Yes: Regular, CTA Bilaterally Gastrointestinal: Yes: Soft, Distention, Hypoactive Bowel Sounds Musculoskeletal: Yes: WNL Extremities: Yes: WNL Neurological: Yes: Alert, Oriented Psychiatric: Yes: Alert Labs: CBC, BMP 04/21/16 05:00 04/21/16 05:00 INR, PTT INR 1.56 (0.82-1.09) H 04/18/16 05:00 Assessment/Plan patient evaluated i had a close at the ct scan. patient continues to spike fever with high wbc.it is alwyas worrisome when u see this type of picture and have to be very cautious about it becoming a phlegmon or abscess. patient has to be closely monitored and followed and the complications need to be prevented Problem List - Problems (1) Acute pancreatitis Code(s): K85.9 - ACUTE PANCREATITIS, UNSPECIFIED * DO NOT USE * Qualifiers: Pancreatitis type: drug induced Qualified Code(s): K85.3 - Drug induced acute pancreatitis (2) Hypertension Code(s): I10 - ESSENTIAL (PRIMARY) HYPERTENSION (3) Abnormal LFTs (liver function tests) Code(s): R79.89 - OTHER SPECIFIED ABNORMAL FINDINGS OF BLOOD CHEMISTRY (4) Leukocytosis Code(s): D72.829 - ELEVATED WHITE BLOOD CELL COUNT, UNSPECIFIED plan continue abx hydration wbc trending down will await for wbc to come down further before deescalating cc time 40 min
[2016-04-21] MEDS ORDERED: PT OWN MED DRAWER 7, Y5N ONE (17:29)
[2016-04-21] MEDS ORDERED: DEXTROSE 5%-LACTATED RINGERS 1,000 ML IV SCH (18:35)
[2016-04-21] MEDS ORDERED: ONDANSETRON 4 MG/2 ML VIAL IVPB PRN (18:35)
[2016-04-21] MEDS ORDERED: SIMETHICONE 80 MG TAB.CHEW (FP) PO PRN (18:35)
[2016-04-21] MEDS ORDERED: morphine CARPU-JECT 2 MG/1 ML DISP.SYRIN IVPUSH PRN (18:35)
--- NOTE | 2016-04-21 20:26 | PN ---
GI Progress Note Subjective: GASTROENTEROLOGY PATIENT FEELS BETTER, HAD BOWEL MOVEMENTS TODAY, LESS DISTENDED, HE IS HUNGRY, HE HAS NO PAIN TODAY, TRANSFERRED TO THE FLOOR TODAY, NO FEVER - Objective Vital Signs: Vital Signs Temperature 98.7 F 04/21/16 18:57 Pulse Rate 84 04/21/16 18:57 Respiratory Rate 18 04/21/16 18:57 Blood Pressure 130/82 04/21/16 18:57 O2 Sat by Pulse Oximetry (%) 100 04/21/16 09:00 Constitutional: No Distress, Calm Eyes: Yes: Conjunctiva Clear HENT: Yes: Normocephalic Neck: Yes: Supple Cardiovascular: Yes: Regular Rate and Rhythm Respiratory: Yes: Regular Gastrointestinal Inspection: Yes: Other (MUCH LESS DISTENDED) ...Auscultate: Yes: Normoactive Bowel Sounds ...Palpate: Yes: Soft Extremities: Yes: WNL Neurological: Yes: WNL Labs: CBC, BMP 04/21/16 05:00 04/21/16 05:00 INR, PTT INR 1.56 (0.82-1.09) H 04/18/16 05:00 Laboratory Tests 04/17/16 04/18/16 04/18/16 13:11 05:00 05:00 WBC 24.0 H 25.4 H RBC Hgb Hct MCV MCHC RDW Plt Count MPV Neutrophils % Lymphocytes % Monocytes % Eosinophils % Basophils % INR 1.56 H Sodium Potassium Chloride Carbon Dioxide Anion Gap BUN Creatinine Random Glucose Calcium Phosphorus Magnesium Total Bilirubin AST ALT Alkaline Phosphatase C-Reactive Protein Total Protein Albumin Total Amylase Lipase 04/19/16 04/19/16 04/20/16 05:10 05:10 05:00 WBC 19.4 H 15.6 H RBC Hgb Hct MCV MCHC RDW Plt Count MPV Neutrophils % Lymphocytes % Monocytes % Eosinophils % Basophils % INR Sodium Potassium Chloride Carbon Dioxide Anion Gap BUN Creatinine Random Glucose Calcium Phosphorus Magnesium Total Bilirubin AST ALT Alkaline Phosphatase C-Reactive Protein Total Protein Albumin Total Amylase Lipase 307 04/20/16 04/20/16 04/21/16 09:20 09:20 05:00 WBC 13.6 H RBC 4.52 Hgb 11.5 L Hct 35.1 L MCV 77.8 L MCHC 32.8 RDW 14.6 Plt Count 213 MPV 8.3 Neutrophils % 82.1 Lymphocytes % 7.5 L D Monocytes % 8.5 Eosinophils % 1.5 Basophils % 0.4 INR Sodium Potassium Chloride Carbon Dioxide Anion Gap BUN Creatinine Random Glucose Calcium Phosphorus Magnesium Total Bilirubin 2.2 H D AST 11 L ALT 34 D Alkaline Phosphatase 91 C-Reactive Protein 34.4 H D Total Protein 5.2 L Albumin 2.2 L Total Amylase Lipase 229 04/21/16 05:00 WBC RBC Hgb Hct MCV MCHC RDW Plt Count MPV Neutrophils % Lymphocytes % Monocytes % Eosinophils % Basophils % INR Sodium 140 Potassium 3.5 Chloride 102 Carbon Dioxide 26 Anion Gap 12 BUN 10 D Creatinine 0.6 L Random Glucose 148 H D Calcium 7.6 L Phosphorus 2.3 L D Magnesium 2.1 Total Bilirubin AST ALT Alkaline Phosphatase C-Reactive Protein Total Protein Albumin Total Amylase 48 Lipase 407 H Problem List - Problems (1) Acute pancreatitis Assessment/Plan: DOING MUCH BETTER TODAY! NO FEVER HE IS HUNGRY AND I WILL START CLEAR LIQUIDS TONIGHT EVEN WITH MILDLY ELEVATED LIPASE HE HAS NO PAIN TODAY. I HAVE LOWERED THE D5 LR TO 75 CC/HR AND STARTED CLINIMIX AT 75 CC FOLLOW LABS IN AM Code(s): K85.9 - ACUTE PANCREATITIS, UNSPECIFIED * DO NOT USE * Qualifiers: Qualified Code(s): K85.0 - Idiopathic acute pancreatitis (2) Abnormal LFTs (liver function tests) Assessment/Plan: ABOVE Code(s): R79.89 - OTHER SPECIFIED ABNORMAL FINDINGS OF BLOOD CHEMISTRY (3) Hypertension Code(s): I10 - ESSENTIAL (PRIMARY) HYPERTENSION (4) Leukocytosis Assessment/Plan: IMPROVING Code(s): D72.829 - ELEVATED WHITE BLOOD CELL COUNT, UNSPECIFIED
[2016-04-21] MEDS: LACTATED RINGERS SOLUTION 1,000 ML IV SCH ×2 (21:38→23:04)
[2016-04-21] MEDS: AMINO ACIDS 4.25%/D5W 1,000 ML IV SCH (21:40)
[2016-04-21] MEDS: ACETAMINOPHEN 325 MG TABLET (FP) PO PRN (22:50)
--- NOTE | 2016-04-22 02:39 | HOSP ---
Addendum entered and electronically signed by Fede Dooley RES 04/22/16 03:44 : case discussed with dr leal at 3: 45 am Original Note: Subjective - Review of Symptoms Events since last encounter: nurse called to inform taht patient is having bradycardia pulse rate 40-44 Patient seen and examined Patient is 61 y/o male with PMH of HTN, HLD, obesity was admitted for pancreatitis Patient denies shortness of breath, chest pain, tightness in chest, light headidness, dizinessn, nausea, vomiting GA fluctuates beween 40 to 81, irregularly irregular CVS s1s2 normal, no murmur chest: b/l equal breath sounds, no wheez, no crackels abdomen : soft, non tender, no guard no rigidity, bs + BP: 111/65 spo2 95 on room air PLAN stat ekg sinus bradycardia and possible av block vs sicksinus stat electrolyte cbc, cmp, ca, mg, trop i, cxr transfer to tele monitor vitals monitor i/o get ECHO cardiology consult: Dr malin, karen tsh patient recently started on clenimix, will hold for now. Physical Examination Vital Signs: Vital Signs Temperature 98.5 F 04/22/16 02:00 Pulse Rate 44 L 04/22/16 02:00 Respiratory Rate 18 04/22/16 02:00 Blood Pressure 111/65 04/22/16 02:00 O2 Sat by Pulse Oximetry (%) 100 04/21/16 21:00 Labs: CBC, BMP 04/21/16 05:00 04/21/16 05:00 Visit type - Emergency Visit Emergency Visit: Yes ED Registration Date: 04/17/16 Care time: The patient presented to the Emergency Department on the above date and was hospitalized for further evaluation of their emergent condition. - New Patient This patient is new to me today: Yes Date on this admission: 04/22/16 - Critical Care Critical Care patient: No
[2016-04-22 03:06] LABS: BASOPHIL 0.3 % (0-2.0); EOSINOPHIL 2.5 % (0-4.5); MCH 25.3 pg (25.7-33.7); MCHC 32.6 g/dl (32.0-35.9); MEAN CELL VOLUME 77.6 fl (80-96); MEAN PLT VOLUME 8.5 fl (7.5-11.1); NEUTROPHILS 79.3 % (42.8-82.8); PLATELET COUNT 215 K/MM3 (134-434); RDW 14.6 % (11.9-15.9); WHITE BLOOD COUNT 13.2 K/mm3 (4.0-10.0)
[2016-04-22] MEDS ORDERED: LACTATED RINGERS SOLUTION 1,000 ML IV SCH (03:12)
[2016-04-22 03:30] LABS: ALBUMIN 2.1 g/dl (3.4-5.0); ANION GAP 10 (8-16); BILIRUBIN,TOTAL 1.4 mg/dL (0.2-1.0); CALCIUM 7.8 mg/dL (8.5-10.1); CO2 26 mmol/L (21-32); CREATININE 0.6 mg/dL (0.7-1.3); GLUCOSE,RANDOM 126 mg/dL (74-106); MAGNESIUM 1.8 mg/dL (1.8-2.4); PHOSPHOROUS 2.8 mg/dL (2.5-4.9); SGOT/AST 32 U/L (15-37); SGPT/ALT 38 U/L (12-78); TOT PROT 5.1 g/dl (6.4-8.2)
[2016-04-22 03:38] LABS: ALK PHOS 194 U/L (45-117)
[2016-04-22 03:39] LABS: THYROID STIMULATING HORMONE 2.15 uIU/ml (0.358-3.74); TROPONIN I < 0.02 ng/ml (0.00-0.05)
[2016-04-22] MEDS: ACETAMINOPHEN 325 MG TABLET (FP) PO PRN ×2 (04:05→14:15)
[2016-04-22] MEDS: IMIPENEM/CILASTATIN SODIUM 500 MG in SODIUM CHLORIDE 100 ML IVPB SCH ×3 (04:05→18:50)
[2016-04-22 07:50] LABS: BASOPHIL 0.6 % (0-2.0); MCH 25.3 pg (25.7-33.7); MCHC 32.5 g/dl (32.0-35.9); MEAN CELL VOLUME 77.9 fl (80-96); NEUTROPHILS 78.6 % (42.8-82.8); PLATELET COUNT 206 K/MM3 (134-434); RDW 14.4 % (11.9-15.9); WHITE BLOOD COUNT 12.8 K/mm3 (4.0-10.0)
[2016-04-22 08:01] LABS: ALBUMIN 2.1 g/dl (3.4-5.0); CALCIUM 8.3 mg/dL (8.5-10.1); CREATININE 0.6 mg/dL (0.7-1.3); MAGNESIUM 2.1 mg/dL (1.8-2.4); PHOSPHOROUS 3.4 mg/dL (2.5-4.9)
[2016-04-22 08:03] LABS: BILIRUBIN,TOTAL 1.4 mg/dL (0.2-1.0); C-REACTIVE PROTEIN 17.2 MG/DL (0.00-0.3); TOT PROT 5.1 g/dl (6.4-8.2)
--- NOTE | 2016-04-22 09:34 | CON.CARD ---
Consult Consult Specialty:: Cardiology Referred by:: Hospitalist Medicine Reason for Consultation:: Bradycardia - History of Present Illness Chief Complaint: Bradycardia History of Present Illness: Pt is a 61yr old man with PMHx of HTN, HLD initially presented with abdominal pain, vomiting/diarrhea x 2, admitted for acute pancreatitis for which he is recovering after bowel rest, IVF and abx course. He was noted to have asymptomatic bradycardia overnight 40-45 while sleeping, transferred to telemetry. He denies chest pain, dyspnea, near or true syncope, palpitations, orthopnea, PND or LE edema. 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: No: Alzheimer's, CVA, Dementia, Migraine, Multiple Sclerosis, Peripheral Neuropathy, Parkinson's, Seizure, Syncope, TIA, Vertigo, Other Cardio/Vascular: Yes: HTN, Hyperlipdemia Pulmonary: No: Asthma, Bronchitis, Cancer, COPD, O2 Dependent, Pneumonia, Previously Intubated, Pulmonary Embolus, Pulmonary Fibrosis, Sleep Apnea, Other Gastrointestinal: Yes: Gastritis Hepatobiliary: No: Cirrhosis, Cholelithiasis, Cholecystitis, Choledocholithiasis , Hepatitis A, Hepatitis B, Hepatitis C, Other Renal/: No: Renal Failure, Renal Inusuff, BPH, Cancer, Hematuria, Hemodialysis , Neurogenic Bladder, Renal Calculi, UTI, Other Psych: No: Addictions, Anxiety, Bipolar, Depression, Panic, Psychosis, Schizophrenia, Other Musculoskeletal: No: Bursitis, Chronic low back pain, Hemiparesis, Hemiplegia, Osteoarthritis, Paraplegia, Other Rheumatology: No: Fibromyalgia, Gout, Lupus, Rheumatoid Arthritis, Sarcoidosis, Vasculitis, Other ENT: No: Allergic Rhinitis, Sinusitis, Other Endocrine: No: [place]'s Disease, Homer's Disease, Diabetes Insipidus, Diabetes Mellitus, Hyperparathyroidism, Hyperthyroidism, Hypothyroidism, Osteopenia, SIADH, Other Dermatology: No: Basal Cell, Cellulitis, Eczema, Melanoma, Psoriasis, Squamous Cell, Other - Past Surgical History Past Surgical History: No: None, AAA Repair, AICD, Amputation, Appendectomy, Arthrosocopy, AV Fistula/Graft, Bariatric Surgery, Breast Biopsy, Bypass, CABG, Carotid Endarterectomy, Cataract Removal, Cholecystectomy, Colectomy, Colonoscopy, Colostomy, Craniotomy, , Cystectomy, Hernia Repair, Hysterectomy, Ileal Conduit, Ileosotomy, Joint Replacement, Kidney Transplant, Laminectomy, Liver Transplant, Mastectomy, Nephrectomy, Oopherectomy, Orchiectomy, Permanent Pacemaker, Prostatectomy, Splenectomy, Stent, Thoracotomy , TURP, Tonsillectomy, Tubal Ligation, Upper Endoscopy, Valve Replacement, Vasectomy, Vein Stripping/Ligation - Alcohol/Substance Use Hx Alcohol Use: No - Smoking History Smoking history: Never smoked Home Medications - Allergies Allergies/Adverse Reactions: Allergies Allergy/AdvReac Type Severity Reaction Status Date / Time No Known Allergies Allergy Verified 04/17/16 12:42 - Home Medications Home Medications: Ambulatory Orders Amlodipine Besylate/Benazepril [Lotrel 5-40 mg Capsule] 1 each PO DAILY Pantoprazole Sodium [Protonix] 40 mg PO DAILY 04/17/16 Review of Systems - Review of Systems Gastrointestinal: reports: Abdominal Pain Vital Signs: Vital Signs Temperature 98.2 F 04/22/16 06:00 Pulse Rate 72 04/22/16 06:00 Respiratory Rate 16 04/22/16 06:00 Blood Pressure 124/66 04/22/16 06:00 O2 Sat by Pulse Oximetry (%) 100 04/21/16 21:00 Constitutional: Yes: No Distress, Calm Neck: Yes: Supple Respiratory: Yes: Regular, Diminished Gastrointestinal: Yes: Normal Bowel Sounds, Soft, Abdomen, Obese Cardiovascular: Yes: Regular Rate and Rhythm JVD: No Carotid Bruit: No Heart Sounds: Yes: S1, S2 Edema: No - Other Data Labs, Other Data: CBC, BMP 04/22/16 05:35 04/22/16 05:35 INR, PTT INR 1.56 (0.82-1.09) H 04/18/16 05:00 Troponin, BNP 04/22/16 02:30 Troponin I < 0.02 Troponin, BNP 04/22/16 02:30 Troponin I < 0.02 NSR @ 78 PAC Tele: No significant pauses Imaging - Results Chest X-ray: Report Reviewed (NAD) Cat Scan: Report Reviewed (Acute pancreatitis) Ultrasound: Report Reviewed (RUQ US: No cholelithiasis) Assessment/Plan 1. Nocturnal bradycardia r/o OSAS 2. Acute pancreatitis 3. HTN P:1. IVF, complete abx course, analgesia as needed, advance diet as tolerated 2. Monitor on telemetry for 24 hrs, f/u echocardiogram results 3. Outpatient PSG to r/o OSAS 4. Thank you for consultative opportunity
[2016-04-22] MEDS: PANTOPRAZOLE SODIUM 40 MG/100 ML PRE-DOCKED IVPB SCH (09:44)
--- NOTE | 2016-04-22 10:50 | EKG ---
Test Reason : Blood Pressure : / mmHG Vent. Rate : 094 BPM Atrial Rate : 075 BPM P-R Int : 132 ms QRS Dur : 080 ms QT Int : 410 ms P-R-T Axes : 040 013 004 degrees QTc Int : 512 ms POOR DATA QUALITY, INTERPRETATION MAY BE ADVERSELY AFFECTED SINUS RHYTHM WITH MARKED SINUS ARRHYTHMIA WITH OCCASIONAL PREMATURE VENTRICULAR COMPLEXES AND PREMATURE ATRIAL COMPLEXES ABNORMAL ECG Confirmed by ULYSSES MITCHELL MD ([id number]) on 04/22/2016 10:50:29 AM Referred By: Confirmed By:ULYSSES MITCHELL MD
--- NOTE | 2016-04-22 10:53 | EKG ---
Test Reason : Blood Pressure : / mmHG Vent. Rate : 078 BPM Atrial Rate : 072 BPM P-R Int : 144 ms QRS Dur : 080 ms QT Int : 420 ms P-R-T Axes : 046 028 017 degrees QTc Int : 478 ms SINUS RHYTHM WITH PREMATURE SUPRAVENTRICULAR COMPLEXES NONSPECIFIC ST ABNORMALITY Confirmed by ULYSSES MITCHELL MD ([id number]) on 04/22/2016 10:53:25 AM Referred By: HOSP Confirmed By:ULYSSES MITCHELL MD
[2016-04-22] MEDS ORDERED: INSULIN (NOVOLOG) ASPART 100 UNITS/ML 10ML VIAL ONE (11:48)
--- NOTE | 2016-04-22 12:41 | PN ---
Progress Note, Physician Chief Complaint: Mr Byrd continues to improve. Says feeling much better except he was woken up last night for a heart rate of 40. He was asymptomatic at the time. He is still having bloating pain but it is better. No cp or sob. - Current Medication List Current Medications: Active Medications Acetaminophen (Tylenol -) 650 mg PO Q4H PRN PRN Reason: FEVER OR PAIN Last Admin: 04/22/16 04:05 Dose: 650 mg Imipenem/Cilastatin Sodium 500 (mg/ Sodium Chloride) 100 mls @ 100 mls/hr IVPB Q8H-IV [facility] PRN Reason: Protocol Last Admin: 04/22/16 09:46 Dose: 100 mls/hr Amino Acids (Clinimix -) 1,000 mls @ 84 mls/hr IV Q12H [facility] Last Admin: 04/21/16 21:40 Dose: 84 mls/hr Lactated Ringer's (Lactated Ringers Solution) 1,000 mls @ 100 mls/hr IV ASDIR [facility] Last Admin: 04/22/16 04:05 Dose: 100 mls/hr Morphine Sulfate (Morphine Injection -) 2 mg IVPUSH Q4H PRN PRN Reason: PAIN Ondansetron HCl (Zofran Injection) 4 mg IVPB Q6H PRN PRN Reason: NAUSEA Pantoprazole Sodium (Protonix 40mg Ivpb (Pre-Docked)) 40 mg IVPB DAILY [facility] Last Admin: 04/22/16 09:44 Dose: 40 mg Simethicone (Mylicon -) 80 mg PO Q4H PRN PRN Reason: GAS - Objective Vital Signs: Vital Signs Temperature 98.2 F 04/22/16 08:00 Pulse Rate 71 04/22/16 08:00 Respiratory Rate 18 04/22/16 09:00 Blood Pressure 123/68 04/22/16 08:00 O2 Sat by Pulse Oximetry (%) 100 04/22/16 09:00 Constitutional: Yes: Well Nourished, No Distress, Calm Cardiovascular: Yes: Regular Rate and Rhythm. No: Gallop, Murmur, Rub Respiratory: Yes: Regular, CTA Bilaterally. No: Rales, Rhonchi, Wheezes Gastrointestinal: Yes: Normal Bowel Sounds, Soft. No: Distention, Tenderness Extremities: Yes: WNL Edema: No Labs: CBC, BMP 04/22/16 05:35 04/22/16 05:35 INR, PTT INR 1.56 (0.82-1.09) H 04/18/16 05:00 Problem List - Problems (1) Acute pancreatitis Code(s): K85.9 - ACUTE PANCREATITIS, UNSPECIFIED * DO NOT USE * Qualifiers: Qualified Code(s): K85.0 - Idiopathic acute pancreatitis (2) Hypertension Code(s): I10 - ESSENTIAL (PRIMARY) HYPERTENSION (3) Leukocytosis Code(s): D72.829 - ELEVATED WHITE BLOOD CELL COUNT, UNSPECIFIED Assessment/Plan (1) Acute pancreatitis Assessment/Plan: -idiopathic -patient clinically improved -however had recent fever and lipase is increasing -CT scan also worsening -continue IVF -continue to monitor lipase -GI following -continue clinimix Code(s): K85.9 - ACUTE PANCREATITIS, UNSPECIFIED * DO NOT USE * Qualifiers: Pancreatitis type: idiopathic Qualified Code(s): K85.0 - Idiopathic acute pancreatitis (2) Hypertension Assessment/Plan: -currently well controlled Code(s): I10 - ESSENTIAL (PRIMARY) HYPERTENSION (3) Leukocytosis Assessment/Plan: -continue imipenem Code(s): D72.829 - ELEVATED WHITE BLOOD CELL COUNT, UNSPECIFIED
--- NOTE | 2016-04-22 16:27 | PN ---
Progress Note, Physician History of Present Illness: patient stable no new issues spiked a fever - Current Medication List Current Medications: Active Medications Acetaminophen (Tylenol -) 650 mg PO Q4H PRN PRN Reason: FEVER OR PAIN Last Admin: 04/22/16 14:15 Dose: 650 mg Imipenem/Cilastatin Sodium 500 (mg/ Sodium Chloride) 100 mls @ 100 mls/hr IVPB Q8H-IV [facility] PRN Reason: Protocol Last Admin: 04/22/16 09:46 Dose: 100 mls/hr Amino Acids (Clinimix -) 1,000 mls @ 84 mls/hr IV Q12H [facility] Last Admin: 04/21/16 21:40 Dose: 84 mls/hr Lactated Ringer's (Lactated Ringers Solution) 1,000 mls @ 100 mls/hr IV ASDIR [facility] Last Admin: 04/22/16 04:05 Dose: 100 mls/hr Morphine Sulfate (Morphine Injection -) 2 mg IVPUSH Q4H PRN PRN Reason: PAIN Ondansetron HCl (Zofran Injection) 4 mg IVPB Q6H PRN PRN Reason: NAUSEA Pantoprazole Sodium (Protonix 40mg Ivpb (Pre-Docked)) 40 mg IVPB DAILY [facility] Last Admin: 04/22/16 09:44 Dose: 40 mg Simethicone (Mylicon -) 80 mg PO Q4H PRN PRN Reason: GAS - Objective Vital Signs: Vital Signs Temperature 100.6 F H 04/22/16 14:39 Pulse Rate 67 04/22/16 14:39 Respiratory Rate 18 04/22/16 14:39 Blood Pressure 121/68 04/22/16 14:39 O2 Sat by Pulse Oximetry (%) 100 04/22/16 09:00 Constitutional: Yes: No Distress, Calm Cardiovascular: Yes: Regular Rate and Rhythm Respiratory: Yes: Regular, CTA Bilaterally Gastrointestinal: Yes: Normal Bowel Sounds, Soft Musculoskeletal: Yes: WNL Extremities: Yes: WNL Neurological: Yes: Alert, Oriented Psychiatric: Yes: Alert, Oriented Labs: CBC, BMP 04/22/16 05:35 04/22/16 05:35 INR, PTT INR 1.56 (0.82-1.09) H 04/18/16 05:00 Assessment/Plan patient evaluated i had a close at the ct scan. patient continues to spike fever with high wbc.it is alwyas worrisome when u see this type of picture and have to be very cautious about it becoming a phlegmon or abscess. patient has to be closely monitored and followed and the complications need to be prevented Problem List - Problems (1) Acute pancreatitis Code(s): K85.9 - ACUTE PANCREATITIS, UNSPECIFIED * DO NOT USE * Qualifiers: Pancreatitis type: drug induced Qualified Code(s): K85.3 - Drug induced acute pancreatitis (2) Hypertension Code(s): I10 - ESSENTIAL (PRIMARY) HYPERTENSION (3) Abnormal LFTs (liver function tests) Code(s): R79.89 - OTHER SPECIFIED ABNORMAL FINDINGS OF BLOOD CHEMISTRY (4) Leukocytosis Code(s): D72.829 - ELEVATED WHITE BLOOD CELL COUNT, UNSPECIFIED plan continue abx hydration wbc trending down patient still spiking fever
--- NOTE | 2016-04-22 18:24 | PN ---
GI Progress Note Subjective: GASTROENTEROLOGY NO PAIN, TOLERATES CLEAR LIQUID DIET, HAD TEMP TO 101 THIS AM, HAD BRADYCARDIA LAST NIGHT SENT TO TELEMETRY, NO BRADYCARDIA TODAY NEW CT SCAN REVIEWED WITH RADIOLOGIST: MILD INCREASE IN FLUID BUT NO ABSCESS AND NO NECROSIS - Objective Vital Signs: Vital Signs Temperature 100.6 F H 04/22/16 14:39 Pulse Rate 67 04/22/16 14:39 Respiratory Rate 18 04/22/16 14:39 Blood Pressure 121/68 04/22/16 14:39 O2 Sat by Pulse Oximetry (%) 100 04/22/16 09:00 Constitutional: No Distress, Calm Eyes: Yes: Conjunctiva Clear HENT: Yes: Normocephalic Neck: Yes: Supple Cardiovascular: Yes: Regular Rate and Rhythm Respiratory: Yes: Regular Gastrointestinal Inspection: Yes: Distention ...Auscultate: Yes: Normoactive Bowel Sounds ...Palpate: Yes: Soft Extremities: Yes: WNL Labs: CBC, BMP 04/22/16 05:35 04/22/16 05:35 INR, PTT INR 1.56 (0.82-1.09) H 04/18/16 05:00 Laboratory Tests 04/20/16 04/21/16 04/22/16 09:20 05:00 02:30 WBC RBC Hgb Hct MCV MCHC RDW Plt Count MPV Neutrophils % Lymphocytes % Monocytes % Eosinophils % Basophils % Sodium Potassium Chloride Carbon Dioxide Anion Gap BUN Creatinine Random Glucose Calcium Phosphorus Magnesium Total Bilirubin Direct Bilirubin AST ALT Alkaline Phosphatase C-Reactive Protein Total Protein Albumin Lipase 229 407 H TSH 2.15 04/22/16 04/22/16 05:35 05:35 WBC 12.8 H RBC 4.52 Hgb 11.5 L Hct 35.2 L MCV 77.9 L MCHC 32.5 RDW 14.4 Plt Count 206 MPV 9.0 Neutrophils % 78.6 Lymphocytes % 8.4 Monocytes % 9.4 Eosinophils % 3.0 Basophils % 0.6 Sodium 141 Potassium 3.8 Chloride 103 Carbon Dioxide 27 Anion Gap 11 BUN 13 Creatinine 0.6 L Random Glucose 112 H Calcium 8.3 L Phosphorus 3.4 D Magnesium 2.1 Total Bilirubin 1.4 H Direct Bilirubin 1.0 H D AST 28 ALT 38 Alkaline Phosphatase 179 H C-Reactive Protein 17.2 H D Total Protein 5.1 L Albumin 2.1 L Lipase 624 H TSH - ....Imaging Cat Scan: Image Reviewed Problem List - Problems (1) Acute pancreatitis Assessment/Plan: CLINICAL PROGRESSING FASTER THAN THE CT SCAN READS. HE HAS NO PAIN, TOLERATES CLEAR LIQUID DIET. NO OBJECTION TO CONTINUING THE FLUID DIET LONG HE HAS NO PAIN. FEVER RELATED TO EITHER MEDS OR INFLAMMATION ALTHOUGH CRP HAS IMPROVED WELL HIS WBC'S. I HAVE START A LOW DOSE OF PANCREATIC ENYZMES TO BE USED WITH MEALS. WILL FOLLOW LIPASE, CRP, AND LFT'S . DR RADFORD TO COVER THE WEEKEND. IF HE IS STABLE WILL ADVANCE DIET TOLERATED. Code(s): K85.9 - ACUTE PANCREATITIS, UNSPECIFIED * DO NOT USE * Qualifiers: Qualified Code(s): K85.0 - Idiopathic acute pancreatitis (2) Abnormal LFTs (liver function tests) Assessment/Plan: NORMALIZED Code(s): R79.89 - OTHER SPECIFIED ABNORMAL FINDINGS OF BLOOD CHEMISTRY (3) Hypertension Code(s): I10 - ESSENTIAL (PRIMARY) HYPERTENSION (4) Leukocytosis Code(s): D72.829 - ELEVATED WHITE BLOOD CELL COUNT, UNSPECIFIED
[2016-04-22] MEDS ORDERED: PT OWN MED DRAWER 7, Y5N ONE (18:47)
[2016-04-22] MEDS: LIPASE/PROTEASE/AMYLASE 6,000 UNIT CAPSULE PO SCH (19:39)
[2016-04-22] MEDS: AMINO ACIDS 4.25%/D5W 1,000 ML IV SCH (20:45)
[2016-04-23] MEDS: IMIPENEM/CILASTATIN SODIUM 500 MG in SODIUM CHLORIDE 100 ML IVPB SCH ×3 (01:18→18:14)
[2016-04-23] MEDS: ACETAMINOPHEN 325 MG TABLET (FP) PO PRN ×2 (06:12→16:42)
[2016-04-23 08:17] LABS: BASOPHIL 0.5 % (0-2.0); EOSINOPHIL 2.7 % (0-4.5); MCH 25.3 pg (25.7-33.7); MCHC 32.6 g/dl (32.0-35.9); MEAN CELL VOLUME 77.6 fl (80-96); MEAN PLT VOLUME 9.2 fl (7.5-11.1); NEUTROPHILS 81.6 % (42.8-82.8); PLATELET COUNT 211 K/MM3 (134-434); RDW 14.4 % (11.9-15.9); WHITE BLOOD COUNT 13.4 K/mm3 (4.0-10.0)
[2016-04-23] MEDS ORDERED: PT OWN MED DRAWER 7, Y5N ONE ×2 (08:30→16:46)
[2016-04-23] MEDS: LIPASE/PROTEASE/AMYLASE 6,000 UNIT CAPSULE PO SCH ×3 (08:32→16:45)
[2016-04-23 08:49] LABS: ALBUMIN 2.2 g/dl (3.4-5.0); ANION GAP 10 (8-16); CO2 27 mmol/L (21-32); GLUCOSE,RANDOM 137 mg/dL (74-106)
[2016-04-23 08:56] LABS: ALK PHOS 215 U/L (45-117); BILIRUBIN,TOTAL 1.3 mg/dL (0.2-1.0); C-REACTIVE PROTEIN 21.2 MG/DL (0.00-0.3); CREATININE 0.7 mg/dL (0.7-1.3); PHOSPHOROUS 3.3 mg/dL (2.5-4.9); SGOT/AST 28 U/L (15-37); SGPT/ALT 40 U/L (12-78); TOT PROT 5.5 g/dl (6.4-8.2)
[2016-04-23] MEDS: PANTOPRAZOLE SODIUM 40 MG/100 ML PRE-DOCKED IVPB SCH (10:18)
--- NOTE | 2016-04-23 11:43 | PN ---
GI Progress Note Subjective: GI NOte ( covering ) : Pain free. No vomiting. Having BMs. Tolerating clear liquids. - Objective Vital Signs: Vital Signs Temperature 98.9 F 04/23/16 10:00 Pulse Rate 78 04/23/16 10:00 Respiratory Rate 18 04/23/16 10:00 Blood Pressure 145/73 04/23/16 10:00 O2 Sat by Pulse Oximetry (%) 94 L 04/23/16 09:00 Constitutional: Calm ...Auscultate: Yes: Normoactive Bowel Sounds ...Palpate: Yes: Soft, Other (nontender) Labs: CBC, BMP 04/23/16 05:40 04/23/16 05:40 INR, PTT INR 1.56 (0.82-1.09) H 04/18/16 05:00 Assessment/Plan Despite rising WBC and CRP the pancreatitis appears to be clinically improving. Will try full liquids.
--- NOTE | 2016-04-23 11:47 | PN ---
Progress Note, Physician Chief Complaint: Feels better with some mild abdominal pain and bloating. History of Present Illness: Patient admitted with severe abdominal pain after ingesting Motrin 800 BID for cervical spine pain. He was put on PPI by his PMD but then developed severe abdominal pain and came to ER. Cat scan and lab revealed Acute Pancreatitis but so far further testing has not revealed a source such as Choledoclithiasis or alcoholism. Triglcerides are 83. He is now on clear liquid but CRP, alkaline phosphatase and lipase are higher today. ? MRI to be done and still question Choledocholithiasis Dx. Will follow lab. - Current Medication List Current Medications: Active Medications Acetaminophen (Tylenol -) 650 mg PO Q4H PRN PRN Reason: FEVER OR PAIN Last Admin: 04/23/16 06:12 Dose: 650 mg Imipenem/Cilastatin Sodium 500 (mg/ Sodium Chloride) 100 mls @ 100 mls/hr IVPB Q8H-IV [facility] PRN Reason: Protocol Last Admin: 04/23/16 10:18 Dose: 100 mls/hr Amino Acids (Clinimix -) 1,000 mls @ 84 mls/hr IV Q12H [facility] Last Admin: 04/22/16 20:45 Dose: 84 mls/hr Morphine Sulfate (Morphine Injection -) 2 mg IVPUSH Q4H PRN PRN Reason: PAIN Ondansetron HCl (Zofran Injection) 4 mg IVPB Q6H PRN PRN Reason: NAUSEA Pancrelipase (Creon Dr 6,000 Units Capsule) 1 cap PO TIDCM [facility] Last Admin: 04/23/16 08:32 Dose: 1 cap Pantoprazole Sodium (Protonix 40mg Ivpb (Pre-Docked)) 40 mg IVPB DAILY [facility] Last Admin: 04/23/16 10:18 Dose: 40 mg Simethicone (Mylicon -) 80 mg PO Q4H PRN PRN Reason: GAS - Objective Vital Signs: Vital Signs Temperature 98.9 F 04/23/16 10:00 Pulse Rate 78 04/23/16 10:00 Respiratory Rate 18 04/23/16 10:00 Blood Pressure 145/73 04/23/16 10:00 O2 Sat by Pulse Oximetry (%) 94 L 04/23/16 09:00 Constitutional: Yes: Calm Eyes: Yes: Conjunctiva Clear Cardiovascular: Yes: Regular Rate and Rhythm Respiratory: Yes: Diminished Gastrointestinal: Yes: Soft, Distention, Hypoactive Bowel Sounds, Tenderness ( mild in RUQ, LUQ and Epigastric areas.) Genitourinary: No: Das Present Edema: No Neurological: Yes: Oriented Labs: CBC, BMP 04/23/16 05:40 04/23/16 05:40 INR, PTT INR 1.56 (0.82-1.09) H 04/18/16 05:00 Assessment/Plan Plan: Followup CRP, sed, lipase and liver chemistries. GI MD followup. Hesitant to increase diet with repea CAT Scan report and todays lab.
--- NOTE | 2016-04-23 13:39 | PN ---
Progress Note, Physician Chief Complaint: Events noted Sitting in chair Feels better History of Present Illness: Patient was seen and examined. Awake and alert. Chart was reviewed Denies chest pain, SOB or palpitations Currently on clear liquid diet. Blood pressure medication to be restarted - Current Medication List Current Medications: Active Medications Acetaminophen (Tylenol -) 650 mg PO Q4H PRN PRN Reason: FEVER OR PAIN Last Admin: 04/23/16 06:12 Dose: 650 mg Amlodipine Besylate (Norvasc -) 5 mg PO DAILY [facility] Imipenem/Cilastatin Sodium 500 (mg/ Sodium Chloride) 100 mls @ 100 mls/hr IVPB Q8H-IV [facility] PRN Reason: Protocol Last Admin: 04/23/16 10:18 Dose: 100 mls/hr Amino Acids (Clinimix -) 1,000 mls @ 84 mls/hr IV Q12H [facility] Last Admin: 04/22/16 20:45 Dose: 84 mls/hr Morphine Sulfate (Morphine Injection -) 2 mg IVPUSH Q4H PRN PRN Reason: PAIN Ondansetron HCl (Zofran Injection) 4 mg IVPB Q6H PRN PRN Reason: NAUSEA Pancrelipase (Creon Dr 6,000 Units Capsule) 1 cap PO TIDCM [facility] Last Admin: 04/23/16 08:32 Dose: 1 cap Pantoprazole Sodium (Protonix 40mg Ivpb (Pre-Docked)) 40 mg IVPB DAILY [facility] Last Admin: 04/23/16 10:18 Dose: 40 mg Simethicone (Mylicon -) 80 mg PO Q4H PRN PRN Reason: GAS - Objective Vital Signs: Vital Signs Temperature 98.9 F 04/23/16 10:00 Pulse Rate 78 04/23/16 10:00 Respiratory Rate 18 04/23/16 10:00 Blood Pressure 145/73 04/23/16 10:00 O2 Sat by Pulse Oximetry (%) 94 L 04/23/16 09:00 Neck: Yes: Supple Cardiovascular: Yes: Regular Rate and Rhythm, S1, S2 Respiratory: Yes: CTA Bilaterally Gastrointestinal: Yes: Soft. No: Tenderness Edema: No Additional Findings/Remarks: - Review of Systems Constitutional: denies: Fever. denies: Chills Cardiovascular: denies: Chest Pain, Palpitations, Shortness of Breath Respiratory: denies: Cough, Hemoptysis, Orthopnea, PND Gastrointestinal: (+) Abdominal Pain. denies: Diarrhea, Melena, Nausea, Rectal Bleeding, Vomiting Genitourinary: denies: Dysuria Neurological: denies: Dizziness, Headache, Seizure, Syncope Labs: CBC, BMP 04/23/16 05:40 04/23/16 05:40 Problem List - Problems (1) Hypertension Code(s): I10 - ESSENTIAL (PRIMARY) HYPERTENSION Qualifiers: Hypertension type: essential hypertension Qualified Code(s): I10 - Essential (primary) hypertension (2) Leukocytosis Code(s): D72.829 - ELEVATED WHITE BLOOD CELL COUNT, UNSPECIFIED (3) Acute pancreatitis Code(s): K85.9 - ACUTE PANCREATITIS, UNSPECIFIED * DO NOT USE * Qualifiers: Pancreatitis type: idiopathic Qualified Code(s): K85.0 - Idiopathic acute pancreatitis Assessment/Plan 1. Nocturnal bradycardia rule out OSAS 2. Acute pancreatitis 3. HTN PLAN: 1. IV fluids, complete antibiotic course, analgesia as needed and advance diet as tolerated 2. Monitor on telemetry - transthoracic echocardiography revealed normal left ventricular systolic function, mild MR and TR 3. Outpatient sleep study to rule out OSAS Further plans are to follow Colton Zhang MD
[2016-04-23] MEDS: amLODIPine BESYLATE 5 MG TABLET (FP) PO SCH (14:26)
--- NOTE | 2016-04-23 16:21 | PN ---
Progress Note, Physician History of Present Illness: patient stable no new issues spiked a fever feels that he is coming along well - Current Medication List Current Medications: Active Medications Acetaminophen (Tylenol -) 650 mg PO Q4H PRN PRN Reason: FEVER OR PAIN Last Admin: 04/23/16 06:12 Dose: 650 mg Amlodipine Besylate (Norvasc -) 5 mg PO DAILY [facility] Last Admin: 04/23/16 14:26 Dose: 5 mg Imipenem/Cilastatin Sodium 500 (mg/ Sodium Chloride) 100 mls @ 100 mls/hr IVPB Q8H-IV [facility] PRN Reason: Protocol Last Admin: 04/23/16 10:18 Dose: 100 mls/hr Amino Acids (Clinimix -) 1,000 mls @ 84 mls/hr IV Q12H [facility] Last Admin: 04/22/16 20:45 Dose: 84 mls/hr Morphine Sulfate (Morphine Injection -) 2 mg IVPUSH Q4H PRN PRN Reason: PAIN Ondansetron HCl (Zofran Injection) 4 mg IVPB Q6H PRN PRN Reason: NAUSEA Pancrelipase (Creon Dr 6,000 Units Capsule) 1 cap PO TIDCM [facility] Last Admin: 04/23/16 14:26 Dose: 1 cap Pantoprazole Sodium (Protonix 40mg Ivpb (Pre-Docked)) 40 mg IVPB DAILY [facility] Last Admin: 04/23/16 10:18 Dose: 40 mg Simethicone (Mylicon -) 80 mg PO Q4H PRN PRN Reason: GAS - Objective Vital Signs: Vital Signs Temperature 98.7 F 04/23/16 14:35 Pulse Rate 81 04/23/16 14:35 Respiratory Rate 20 04/23/16 14:35 Blood Pressure 130/63 04/23/16 14:35 O2 Sat by Pulse Oximetry (%) 94 L 04/23/16 09:00 Constitutional: Yes: No Distress, Calm Respiratory: Yes: Regular, CTA Bilaterally Gastrointestinal: Yes: Soft, Hypoactive Bowel Sounds Musculoskeletal: Yes: WNL Extremities: Yes: WNL Neurological: Yes: Alert, Oriented Psychiatric: Yes: Alert Labs: CBC, BMP 04/23/16 05:40 04/23/16 05:40 INR, PTT INR 1.56 (0.82-1.09) H 04/18/16 05:00 Assessment/Plan patient evaluated i had a close at the ct scan. patient continues to spike fever with high wbc.it is alwyas worrisome when u see this type of picture and have to be very cautious about it becoming a phlegmon or abscess. patient has to be closely monitored and followed and the complications need to be prevented Problem List - Problems (1) Acute pancreatitis Code(s): K85.9 - ACUTE PANCREATITIS, UNSPECIFIED * DO NOT USE * Qualifiers: Pancreatitis type: drug induced Qualified Code(s): K85.3 - Drug induced acute pancreatitis (2) Hypertension Code(s): I10 - ESSENTIAL (PRIMARY) HYPERTENSION (3) Abnormal LFTs (liver function tests) Code(s): R79.89 - OTHER SPECIFIED ABNORMAL FINDINGS OF BLOOD CHEMISTRY (4) Leukocytosis Code(s): D72.829 - ELEVATED WHITE BLOOD CELL COUNT, UNSPECIFIED patient has increase in wbc plan continue abx hydration wbc has gone slightly up
[2016-04-23] MEDS: AMINO ACIDS 4.25%/D5W 1,000 ML IV SCH ×2 (17:37→20:57)
[2016-04-24] MEDS ORDERED: PT OWN MED DRAWER 7, Y5N ONE ×3 (01:23→18:01)
[2016-04-24] MEDS: IMIPENEM/CILASTATIN SODIUM 500 MG in SODIUM CHLORIDE 100 ML IVPB SCH ×3 (01:26→18:42)
[2016-04-24] MEDS: ACETAMINOPHEN 325 MG TABLET (FP) PO PRN ×2 (05:31→16:59)
[2016-04-24] MEDS: LIPASE/PROTEASE/AMYLASE 6,000 UNIT CAPSULE PO SCH ×3 (08:01→17:00)
[2016-04-24 08:31] LABS: BASOPHIL 0.4 % (0-2.0); EOSINOPHIL 2.5 % (0-4.5); MCH 25.4 pg (25.7-33.7); MCHC 32.6 g/dl (32.0-35.9); MEAN CELL VOLUME 78.1 fl (80-96); MEAN PLT VOLUME 9.4 fl (7.5-11.1); NEUTROPHILS 81.7 % (42.8-82.8); PLATELET COUNT 278 K/MM3 (134-434); RDW 14.4 % (11.9-15.9); WHITE BLOOD COUNT 14.3 K/mm3 (4.0-10.0)
[2016-04-24 08:58] LABS: ALBUMIN 2.5 g/dl (3.4-5.0); AMYLASE 84 U/L (25-115); ANION GAP 10 (8-16); CALCIUM 8.1 mg/dL (8.5-10.1); CO2 29 mmol/L (21-32); GLUCOSE,RANDOM 133 mg/dL (74-106); SGPT/ALT 46 U/L (12-78); TOT PROT 5.9 g/dl (6.4-8.2)
[2016-04-24 09:07] LABS: ALK PHOS 234 U/L (45-117); BILIRUBIN,TOTAL 1.4 mg/dL (0.2-1.0); C-REACTIVE PROTEIN 25.7 MG/DL (0.00-0.3); CREATININE 0.8 mg/dL (0.7-1.3); SGOT/AST 28 U/L (15-37)
--- NOTE | 2016-04-24 09:36 | PN ---
Progress Note, Physician Chief Complaint: Events noted Sitting in chair Episodes of fever Abdominal CT was done in 3/3 ID input noted. Further etiology to follow History of Present Illness: Patient was seen and examined. Awake and alert. Chart was reviewed Denies chest pain, SOB or palpitations Currently on clear liquid diet. Blood pressure medication is to be started - Current Medication List Current Medications: Active Medications Acetaminophen (Tylenol -) 650 mg PO Q4H PRN PRN Reason: FEVER OR PAIN Last Admin: 04/24/16 05:31 Dose: 650 mg Amlodipine Besylate (Norvasc -) 5 mg PO DAILY [facility] Last Admin: 04/23/16 14:26 Dose: 5 mg Imipenem/Cilastatin Sodium 500 (mg/ Sodium Chloride) 100 mls @ 100 mls/hr IVPB Q8H-IV [facility] PRN Reason: Protocol Last Admin: 04/24/16 01:26 Dose: 100 mls/hr Amino Acids (Clinimix -) 1,000 mls @ 84 mls/hr IV Q12H [facility] Last Admin: 04/23/16 20:57 Dose: 84 mls/hr Morphine Sulfate (Morphine Injection -) 2 mg IVPUSH Q4H PRN PRN Reason: PAIN Ondansetron HCl (Zofran Injection) 4 mg IVPB Q6H PRN PRN Reason: NAUSEA Pancrelipase (Creon Dr 6,000 Units Capsule) 1 cap PO TIDCM [facility] Last Admin: 04/24/16 08:01 Dose: 1 cap Pantoprazole Sodium (Protonix 40mg Ivpb (Pre-Docked)) 40 mg IVPB DAILY [facility] Last Admin: 04/23/16 10:18 Dose: 40 mg Simethicone (Mylicon -) 80 mg PO Q4H PRN PRN Reason: GAS - Objective Vital Signs: Vital Signs Temperature 100 F H 04/24/16 07:45 Pulse Rate 82 04/24/16 07:45 Respiratory Rate 20 04/24/16 07:45 Blood Pressure 150/60 04/24/16 07:45 O2 Sat by Pulse Oximetry (%) 98 04/24/16 07:46 Neck: Yes: Supple Cardiovascular: Yes: Regular Rate and Rhythm, S1, S2 Respiratory: Yes: CTA Bilaterally Gastrointestinal: Yes: Normal Bowel Sounds, Soft. No: Tenderness Edema: No Additional Findings/Remarks: - Review of Systems Constitutional: (+) Fever. denies: Chills Cardiovascular: denies: Chest Pain, Palpitations, Shortness of Breath Respiratory: denies: Cough, Hemoptysis, Orthopnea, PND Gastrointestinal: (+) Abdominal Pain. denies: Diarrhea, Melena, Nausea, Rectal Bleeding, Vomiting Genitourinary: denies: Dysuria Neurological: denies: Dizziness, Headache, Seizure, Syncope Labs: CBC, BMP 04/24/16 05:45 04/24/16 05:45 Problem List - Problems (1) Hypertension Code(s): I10 - ESSENTIAL (PRIMARY) HYPERTENSION Qualifiers: Hypertension type: essential hypertension Qualified Code(s): I10 - Essential (primary) hypertension (2) Leukocytosis Code(s): D72.829 - ELEVATED WHITE BLOOD CELL COUNT, UNSPECIFIED (3) Acute pancreatitis Code(s): K85.9 - ACUTE PANCREATITIS, UNSPECIFIED * DO NOT USE * Qualifiers: Pancreatitis type: idiopathic Qualified Code(s): K85.0 - Idiopathic acute pancreatitis (4) Fever Code(s): R50.9 - FEVER, UNSPECIFIED Qualifiers: Fever type: unspecified Qualified Code(s): R50.9 - Fever, unspecified Assessment/Plan 1. Nocturnal bradycardia rule out OSAS 2. Acute pancreatitis with episode of fever, etiology to be determined. Abscess is to be ruled out 3. HTN PLAN: 1. IV fluids, complete antibiotic course as per ID, analgesia as needed and advance diet as tolerated. Consider jackson culture in view of fever 2. Monitor on telemetry - transthoracic echocardiography revealed normal left ventricular systolic function, mild MR and TR 3. Outpatient sleep study to rule out OSAS Further plans are to follow Coltno Zhang MD
[2016-04-24] MEDS: amLODIPine BESYLATE 5 MG TABLET (FP) PO SCH (10:45)
[2016-04-24] MEDS: AMINO ACIDS 4.25%/D5W 1,000 ML IV SCH ×2 (10:48→21:25)
[2016-04-24] MEDS: LISINOPRIL 20 MG TABLET (FP) PO SCH (10:51)
[2016-04-24 10:55] LABS: ERYTHROCYTE SEDIMENTATION RATE 48 mm/hr (0-20)
--- NOTE | 2016-04-24 11:30 | PN ---
Progress Note, Physician Chief Complaint: Some left flank pain but tolerating diet with no nausea. History of Present Illness: Patient with Acute Pancreatitis is feeling better but lab tests including Alk phosphatase , CRP and Lipase are still markedly elevated.GI M had suggested advancing diet. 2 Abdominal CAT Scans were completed and still show inflammatory changes. Temp overnite. - Current Medication List Current Medications: Active Medications Acetaminophen (Tylenol -) 650 mg PO Q4H PRN PRN Reason: FEVER OR PAIN Last Admin: 04/24/16 05:31 Dose: 650 mg Amlodipine Besylate (Norvasc -) 5 mg PO DAILY [facility] Last Admin: 04/24/16 10:45 Dose: 5 mg Imipenem/Cilastatin Sodium 500 (mg/ Sodium Chloride) 100 mls @ 100 mls/hr IVPB Q8H-IV [facility] PRN Reason: Protocol Last Admin: 04/24/16 10:46 Dose: 100 mls/hr Amino Acids (Clinimix -) 1,000 mls @ 84 mls/hr IV Q12H [facility] Last Admin: 04/24/16 10:48 Dose: 84 mls/hr Lisinopril (Prinivil) 40 mg PO DAILY [facility] Last Admin: 04/24/16 10:51 Dose: 40 mg Morphine Sulfate (Morphine Injection -) 2 mg IVPUSH Q4H PRN PRN Reason: PAIN Ondansetron HCl (Zofran Injection) 4 mg IVPB Q6H PRN PRN Reason: NAUSEA Pancrelipase (Creon Dr 6,000 Units Capsule) 1 cap PO TIDCM [facility] Last Admin: 04/24/16 08:01 Dose: 1 cap Pantoprazole Sodium (Protonix 40mg Ivpb (Pre-Docked)) 40 mg IVPB DAILY [facility] Last Admin: 04/23/16 10:18 Dose: 40 mg Simethicone (Mylicon -) 80 mg PO Q4H PRN PRN Reason: GAS - Objective Vital Signs: Vital Signs Temperature 100 F H 04/24/16 07:45 Pulse Rate 82 04/24/16 07:45 Respiratory Rate 20 04/24/16 07:45 Blood Pressure 150/60 04/24/16 07:45 O2 Sat by Pulse Oximetry (%) 98 04/24/16 07:46 Constitutional: Yes: Calm Eyes: Yes: Conjunctiva Clear Cardiovascular: Yes: Regular Rate and Rhythm Respiratory: Yes: Diminished Gastrointestinal: Yes: Soft, Distention, Hypoactive Bowel Sounds. No: Tenderness Genitourinary: Yes: CVA Tenderness - Left. No: Das Present Edema: No Neurological: Yes: Alert, Oriented Labs: CBC, BMP 04/24/16 05:45 04/24/16 05:45 INR, PTT INR 1.56 (0.82-1.09) H 04/18/16 05:00 Problem List - Problems (1) Abnormal LFTs (liver function tests) Assessment/Plan: Alkaline phosphatase slightly higher at 234. Will follow Code(s): R79.89 - OTHER SPECIFIED ABNORMAL FINDINGS OF BLOOD CHEMISTRY (2) Fever Assessment/Plan: Had 101.7 temp last nite. On Imipenem Blood C/S negative Code(s): R50.9 - FEVER, UNSPECIFIED Qualifiers: Fever type: unspecified Qualified Code(s): R50.9 - Fever, unspecified (3) Hypertension Assessment/Plan: Systolic BP still elevated; To resume 10 mg Amlodipine; will hold KE Code(s): I10 - ESSENTIAL (PRIMARY) HYPERTENSION Qualifiers: Hypertension type: essential hypertension Qualified Code(s): I10 - Essential (primary) hypertension (4) Leukocytosis Assessment/Plan: WBC slightly elevated at 14,000. Code(s): D72.829 - ELEVATED WHITE BLOOD CELL COUNT, UNSPECIFIED (5) Acute pancreatitis Assessment/Plan: Lipase 829. ???Idiopathic cause for this problem Code(s): K85.9 - ACUTE PANCREATITIS, UNSPECIFIED * DO NOT USE * Qualifiers: Pancreatitis type: idiopathic Qualified Code(s): K85.0 - Idiopathic acute pancreatitis
[2016-04-24] MEDS ORDERED: amLODIPine BESYLATE 10 MG TABLET (FP) PO SCH (11:34)
[2016-04-24] MEDS: PANTOPRAZOLE SODIUM 40 MG/100 ML PRE-DOCKED IVPB SCH (12:04)
--- NOTE | 2016-04-24 16:00 | PN ---
GI Progress Note Subjective: GI Note ( covering Dr Alonzo): Had a large liquid BM after the full liquids but no pain or vomiting. Rising CRP and fever to 101 last PM noted but Shane is feeling better. - Objective Vital Signs: Vital Signs Temperature 100 F H 04/24/16 07:45 Pulse Rate 82 04/24/16 07:45 Respiratory Rate 20 04/24/16 07:45 Blood Pressure 150/60 04/24/16 07:45 O2 Sat by Pulse Oximetry (%) 98 04/24/16 07:46 Labs: CBC, BMP 04/24/16 05:45 04/24/16 05:45 INR, PTT INR 1.56 (0.82-1.09) H 04/18/16 05:00 Laboratory Tests 04/24/16 04/24/16 05:45 05:45 WBC 14.3 H Total Bilirubin 1.4 H AST 28 ALT 46 Alkaline Phosphatase 234 H C-Reactive Protein 25.7 H D Albumin 2.5 L Total Amylase 84 Lipase 829 H Assessment/Plan Will attempt low fat diet. Continue antibiotics. Dr Alonzo will return tomorrow.
--- NOTE | 2016-04-24 16:51 | PN ---
Progress Note, Physician History of Present Illness: patient still spiking fevers high grade fevers - Current Medication List Current Medications: Active Medications Acetaminophen (Tylenol -) 650 mg PO Q4H PRN PRN Reason: FEVER OR PAIN Last Admin: 04/24/16 05:31 Dose: 650 mg Amlodipine Besylate (Norvasc -) 10 mg PO DAILY [facility] Imipenem/Cilastatin Sodium 500 (mg/ Sodium Chloride) 100 mls @ 100 mls/hr IVPB Q8H-IV [facility] PRN Reason: Protocol Last Admin: 04/24/16 10:46 Dose: 100 mls/hr Amino Acids (Clinimix -) 1,000 mls @ 84 mls/hr IV Q12H [facility] Last Admin: 04/24/16 10:48 Dose: 84 mls/hr Lisinopril (Prinivil) 40 mg PO DAILY [facility] Last Admin: 04/24/16 10:51 Dose: 40 mg Morphine Sulfate (Morphine Injection -) 2 mg IVPUSH Q4H PRN PRN Reason: PAIN Ondansetron HCl (Zofran Injection) 4 mg IVPB Q6H PRN PRN Reason: NAUSEA Pancrelipase (Creon Dr 6,000 Units Capsule) 1 cap PO TIDCM [facility] Last Admin: 04/24/16 12:04 Dose: 1 cap Pantoprazole Sodium (Protonix 40mg Ivpb (Pre-Docked)) 40 mg IVPB DAILY [facility] Last Admin: 04/24/16 12:04 Dose: 40 mg Simethicone (Mylicon -) 80 mg PO Q4H PRN PRN Reason: GAS - Objective Vital Signs: Vital Signs Temperature 98.4 F 04/24/16 14:15 Pulse Rate 81 04/24/16 14:15 Respiratory Rate 20 04/24/16 14:15 Blood Pressure 131/70 04/24/16 14:15 O2 Sat by Pulse Oximetry (%) 98 04/24/16 07:46 Constitutional: Yes: No Distress, Calm Cardiovascular: Yes: Regular Rate and Rhythm Respiratory: Yes: Regular, Poor Air Entry (at the lower lobes) Gastrointestinal: Yes: Hypoactive Bowel Sounds, Tenderness Musculoskeletal: Yes: WNL Extremities: Yes: WNL Neurological: Yes: Alert, Oriented Psychiatric: Yes: Alert Labs: CBC, BMP 04/24/16 05:45 04/24/16 05:45 INR, PTT INR 1.56 (0.82-1.09) H 04/18/16 05:00 Assessment/Plan Problem List - Problems (1) Acute pancreatitis Code(s): K85.9 - ACUTE PANCREATITIS, UNSPECIFIED * DO NOT USE * Qualifiers: Pancreatitis type: drug induced Qualified Code(s): K85.3 - Drug induced acute pancreatitis (2) Hypertension Code(s): I10 - ESSENTIAL (PRIMARY) HYPERTENSION (3) Abnormal LFTs (liver function tests) Code(s): R79.89 - OTHER SPECIFIED ABNORMAL FINDINGS OF BLOOD CHEMISTRY (4) Leukocytosis Code(s): D72.829 - ELEVATED WHITE BLOOD CELL COUNT, UNSPECIFIED patients wbc has started increasing and patient continues to spike fevers plan would suggest repeat ct scan cbc cmp repeat ct scan noted worried about patient developing something suggest continuing rest to pancreas will continue abx will see the rerepeat ct scan and then decide also will continue to follow wbc very closely
[2016-04-25] MEDS ORDERED: PT OWN MED DRAWER 7, Y5N ONE ×3 (01:33→11:47)
[2016-04-25] MEDS: IMIPENEM/CILASTATIN SODIUM 500 MG in SODIUM CHLORIDE 100 ML IVPB SCH ×3 (01:34→17:11)
[2016-04-25 07:16] LABS: BASOPHIL 1.3 % (0-2.0); EOSINOPHIL 2.5 % (0-4.5); MCH 25.3 pg (25.7-33.7); MCHC 32.2 g/dl (32.0-35.9); MEAN CELL VOLUME 78.5 fl (80-96); MEAN PLT VOLUME 9.1 fl (7.5-11.1); NEUTROPHILS 81.5 % (42.8-82.8); PLATELET COUNT 295 K/MM3 (134-434); RDW 14.5 % (11.9-15.9)
[2016-04-25 07:59] LABS: ALBUMIN 2.4 g/dl (3.4-5.0); ANION GAP 11 (8-16); CALCIUM 8.1 mg/dL (8.5-10.1); CO2 27 mmol/L (21-32); GLUCOSE,RANDOM 137 mg/dL (74-106)
[2016-04-25 08:04] LABS: ALK PHOS 221 U/L (45-117); BILIRUBIN,TOTAL 1.4 mg/dL (0.2-1.0); CREATININE 0.7 mg/dL (0.7-1.3); SGOT/AST 20 U/L (15-37); SGPT/ALT 35 U/L (12-78); TOT PROT 5.9 g/dl (6.4-8.2)
[2016-04-25] MEDS: LIPASE/PROTEASE/AMYLASE 6,000 UNIT CAPSULE PO SCH ×4 (08:11→17:10)
[2016-04-25 08:44] LABS: AMYLASE 83 U/L (25-115)
[2016-04-25 08:47] LABS: C-REACTIVE PROTEIN 25.1 MG/DL (0.00-0.3)
[2016-04-25] MEDS: AMINO ACIDS 4.25%/D5W 1,000 ML IV SCH ×2 (09:25→21:36)
[2016-04-25] MEDS: PANTOPRAZOLE SODIUM 40 MG/100 ML PRE-DOCKED IVPB SCH (09:27)
[2016-04-25] MEDS: LISINOPRIL 20 MG TABLET (FP) PO SCH (09:31)
--- NOTE | 2016-04-25 10:02 | PN ---
Progress Note, Physician Chief Complaint: Events noted Episodes of fever Abdominal CT was done in 04/22 - MRI of abdomen scheduled ID input noted. Further etiology to follow History of Present Illness: Patient was seen and examined. Awake and alert. Chart was reviewed Denies chest pain, SOB or palpitations Patient was given regular diet and he complains of mild mid abdominal discomfort - but tolerated - Current Medication List Current Medications: Active Medications Acetaminophen (Tylenol -) 650 mg PO Q4H PRN PRN Reason: FEVER OR PAIN Last Admin: 04/24/16 16:59 Dose: 650 mg Amlodipine Besylate (Norvasc -) 10 mg PO DAILY [facility] Last Admin: 04/25/16 09:31 Dose: 10 mg Imipenem/Cilastatin Sodium 500 (mg/ Sodium Chloride) 100 mls @ 100 mls/hr IVPB Q8H-IV [facility] PRN Reason: Protocol Last Admin: 04/25/16 01:34 Dose: 100 mls/hr Amino Acids (Clinimix -) 1,000 mls @ 84 mls/hr IV Q12H [facility] Last Admin: 04/25/16 09:25 Dose: 84 mls/hr Lisinopril (Prinivil) 40 mg PO DAILY [facility] Last Admin: 04/25/16 09:31 Dose: 40 mg Ondansetron HCl (Zofran Injection) 4 mg IVPB Q6H PRN PRN Reason: NAUSEA Pancrelipase (Creon Dr 6,000 Units Capsule) 1 cap PO TIDCM [facility] Last Admin: 04/25/16 08:39 Dose: 1 cap Pantoprazole Sodium (Protonix 40mg Ivpb (Pre-Docked)) 40 mg IVPB DAILY [facility] Last Admin: 04/25/16 09:27 Dose: 40 mg Simethicone (Mylicon -) 80 mg PO Q4H PRN PRN Reason: GAS - Objective Vital Signs: Vital Signs Temperature 100 F H 04/25/16 05:00 Pulse Rate 73 04/25/16 05:00 Respiratory Rate 20 04/25/16 05:00 Blood Pressure 120/63 04/25/16 05:00 O2 Sat by Pulse Oximetry (%) 94 L 04/24/16 22:00 Neck: Yes: Supple Cardiovascular: Yes: Regular Rate and Rhythm, S1, S2 Respiratory: Yes: CTA Bilaterally Gastrointestinal: Yes: Normal Bowel Sounds, Soft. No: Tenderness Edema: No Additional Findings/Remarks: - Review of Systems Constitutional: (+) Fever. denies: Chills Cardiovascular: denies: Chest Pain, Palpitations, Shortness of Breath Respiratory: denies: Cough, Hemoptysis, Orthopnea, PND Gastrointestinal: (+) Abdominal Pain. denies: Diarrhea, Melena, Nausea, Rectal Bleeding, Vomiting Genitourinary: denies: Dysuria Neurological: denies: Dizziness, Headache, Seizure, Syncope Labs: CBC, BMP 04/25/16 05:35 04/25/16 05:35 INR, PTT INR 1.56 (0.82-1.09) H 04/18/16 05:00 Problem List - Problems (1) Hypertension Code(s): I10 - ESSENTIAL (PRIMARY) HYPERTENSION Qualifiers: Hypertension type: essential hypertension Qualified Code(s): I10 - Essential (primary) hypertension (2) Leukocytosis Code(s): D72.829 - ELEVATED WHITE BLOOD CELL COUNT, UNSPECIFIED Qualifiers: Leukocytosis type: unspecified Qualified Code(s): D72.829 - Elevated white blood cell count, unspecified (3) Acute pancreatitis Code(s): K85.9 - ACUTE PANCREATITIS, UNSPECIFIED * DO NOT USE * Qualifiers: Pancreatitis type: idiopathic Qualified Code(s): K85.0 - Idiopathic acute pancreatitis (4) Fever Code(s): R50.9 - FEVER, UNSPECIFIED Qualifiers: Fever type: unspecified Qualified Code(s): R50.9 - Fever, unspecified Assessment/Plan 1. Nocturnal bradycardia rule out OSAS - currently not bradycardic 2. Acute pancreatitis with episode of fever, etiology to be determined. Abscess is to be ruled out 3. HTN PLAN: 1. IV fluids, complete antibiotic course as per ID, analgesia as needed and advance diet as tolerated. If patient continues to have abdominal discomfort, may need to withhold regular diet and go back to clears. Consider jackson culture in view of fever. MRI of abdomen pending 2. Patient may be taken off campus monitor to regular floor 3. Outpatient sleep study to rule out OSAS Further plans are to follow Colton Zhang MD
--- NOTE | 2016-04-25 11:36 | PN ---
Progress Note, Physician Chief Complaint: Mr Byrd says he is feeling better but not normal. Says he is not having pain when he eats or in his mid-abdomen like he was prior, however has pain in the LUQ when he takes a deep breath. No cp or sob. - Current Medication List Current Medications: Active Medications Acetaminophen (Tylenol -) 650 mg PO Q4H PRN PRN Reason: FEVER OR PAIN Last Admin: 04/24/16 16:59 Dose: 650 mg Amlodipine Besylate (Norvasc -) 10 mg PO DAILY [facility] Last Admin: 04/25/16 09:31 Dose: 10 mg Imipenem/Cilastatin Sodium 500 (mg/ Sodium Chloride) 100 mls @ 100 mls/hr IVPB Q8H-IV [facility] PRN Reason: Protocol Last Admin: 04/25/16 10:45 Dose: 100 mls/hr Amino Acids (Clinimix -) 1,000 mls @ 84 mls/hr IV Q12H [facility] Last Admin: 04/25/16 09:25 Dose: 84 mls/hr Lisinopril (Prinivil) 40 mg PO DAILY [facility] Last Admin: 04/25/16 09:31 Dose: 40 mg Ondansetron HCl (Zofran Injection) 4 mg IVPB Q6H PRN PRN Reason: NAUSEA Pancrelipase (Creon Dr 6,000 Units Capsule) 1 cap PO TIDCM [facility] Last Admin: 04/25/16 08:39 Dose: 1 cap Pantoprazole Sodium (Protonix 40mg Ivpb (Pre-Docked)) 40 mg IVPB DAILY [facility] Last Admin: 04/25/16 09:27 Dose: 40 mg Simethicone (Mylicon -) 80 mg PO Q4H PRN PRN Reason: GAS - Objective Vital Signs: Vital Signs Temperature 99.1 F 04/25/16 10:00 Pulse Rate 80 04/25/16 10:00 Respiratory Rate 18 04/25/16 10:00 Blood Pressure 126/64 04/25/16 10:00 O2 Sat by Pulse Oximetry (%) 94 L 04/24/16 22:00 Constitutional: Yes: No Distress, Calm, Obese Cardiovascular: Yes: Regular Rate and Rhythm. No: Gallop, Murmur, Rub Respiratory: Yes: Regular, CTA Bilaterally. No: Rales, Rhonchi, Wheezes Gastrointestinal: Yes: Normal Bowel Sounds, Soft. No: Distention, Tenderness Extremities: Yes: WNL Edema: No Labs: CBC, BMP 04/25/16 05:35 04/25/16 05:35 INR, PTT INR 1.56 (0.82-1.09) H 04/18/16 05:00 Problem List - Problems (1) Acute pancreatitis Code(s): K85.9 - ACUTE PANCREATITIS, UNSPECIFIED * DO NOT USE * Qualifiers: Pancreatitis type: idiopathic Qualified Code(s): K85.0 - Idiopathic acute pancreatitis (2) Hypertension Code(s): I10 - ESSENTIAL (PRIMARY) HYPERTENSION Qualifiers: Hypertension type: essential hypertension Qualified Code(s): I10 - Essential (primary) hypertension (3) Leukocytosis Code(s): D72.829 - ELEVATED WHITE BLOOD CELL COUNT, UNSPECIFIED Qualifiers: Leukocytosis type: unspecified Qualified Code(s): D72.829 - Elevated white blood cell count, unspecified Assessment/Plan (1) Acute pancreatitis Assessment/Plan: -still with fevers, last fever yesterday at 5pm -also with elevated lipase and crp -clinically patient appears improved, tolerating diet without problems -agree with abdominal MRI to evaluate pancreatitis -GI following and will discuss case Code(s): K85.9 - ACUTE PANCREATITIS, UNSPECIFIED * DO NOT USE * Qualifiers: Pancreatitis type: idiopathic Qualified Code(s): K85.0 - Idiopathic acute pancreatitis (2) Hypertension Assessment/Plan: -currently well controlled -continue amlodipine and lisinopril Code(s): I10 - ESSENTIAL (PRIMARY) HYPERTENSION (3) Leukocytosis Assessment/Plan: -continue imipenem -ID following and will discuss case Code(s): D72.829 - ELEVATED WHITE BLOOD CELL COUNT, UNSPECIFIED
--- NOTE | 2016-04-25 13:59 | PN ---
Progress Note, Physician History of Present Illness: patient says except back pain he is feeling better tolerated diet yesterday and some break fast this morning continues to have fevers - Current Medication List Current Medications: Active Medications Acetaminophen (Tylenol -) 650 mg PO Q4H PRN PRN Reason: FEVER OR PAIN Last Admin: 04/24/16 16:59 Dose: 650 mg Amlodipine Besylate (Norvasc -) 10 mg PO DAILY [facility] Last Admin: 04/25/16 09:31 Dose: 10 mg Imipenem/Cilastatin Sodium 500 (mg/ Sodium Chloride) 100 mls @ 100 mls/hr IVPB Q8H-IV [facility] PRN Reason: Protocol Last Admin: 04/25/16 10:45 Dose: 100 mls/hr Amino Acids (Clinimix -) 1,000 mls @ 84 mls/hr IV Q12H [facility] Last Admin: 04/25/16 09:25 Dose: 84 mls/hr Lisinopril (Prinivil) 40 mg PO DAILY [facility] Last Admin: 04/25/16 09:31 Dose: 40 mg Ondansetron HCl (Zofran Injection) 4 mg IVPB Q6H PRN PRN Reason: NAUSEA Pancrelipase (Creon Dr 6,000 Units Capsule) 1 cap PO TIDCM [facility] Last Admin: 04/25/16 11:50 Dose: 1 cap Pantoprazole Sodium (Protonix 40mg Ivpb (Pre-Docked)) 40 mg IVPB DAILY [facility] Last Admin: 04/25/16 09:27 Dose: 40 mg Simethicone (Mylicon -) 80 mg PO Q4H PRN PRN Reason: GAS - Objective Vital Signs: Vital Signs Temperature 99.1 F 04/25/16 10:00 Pulse Rate 80 04/25/16 10:00 Respiratory Rate 18 04/25/16 10:00 Blood Pressure 126/64 04/25/16 10:00 O2 Sat by Pulse Oximetry (%) 96 04/25/16 09:00 Constitutional: Yes: No Distress, Calm HENT: Yes: Atraumatic Cardiovascular: Yes: Regular Rate and Rhythm Respiratory: Yes: Regular, CTA Bilaterally Gastrointestinal: Yes: Distention, Hyperactive Bowel Sounds Musculoskeletal: Yes: WNL Extremities: Yes: WNL Neurological: Yes: Alert, Oriented Psychiatric: Yes: Alert, Oriented Labs: CBC, BMP 04/25/16 05:35 04/25/16 05:35 INR, PTT INR 1.56 (0.82-1.09) H 04/18/16 05:00 Assessment/Plan Problem List - Problems (1) Acute pancreatitis Code(s): K85.9 - ACUTE PANCREATITIS, UNSPECIFIED * DO NOT USE * Qualifiers: Pancreatitis type: drug induced Qualified Code(s): K85.3 - Drug induced acute pancreatitis (2) Hypertension Code(s): I10 - ESSENTIAL (PRIMARY) HYPERTENSION (3) Abnormal LFTs (liver function tests) Code(s): R79.89 - OTHER SPECIFIED ABNORMAL FINDINGS OF BLOOD CHEMISTRY (4) Leukocytosis Code(s): D72.829 - ELEVATED WHITE BLOOD CELL COUNT, UNSPECIFIED wbc continues to increase patient still spiking fevers plan continue current mgmt patient for mri today agree with that will see what the mri shows to make final determination
--- NOTE | 2016-04-25 18:39 | PN ---
GI Progress Note Subjective: GASTROENTEROLOGY EATING FULL MELAS WITH NO ABDOMINAL PAIN, DOES HAVE SOME PAIN IN LUQ WITH INSPIRATION, LOW GRADE TEMP, WBC UP A LITTLE TO 16K BUT LIPASE DOWN. PATIENT HAVING BOWEL MOVEMENTS - Objective Vital Signs: Vital Signs Temperature 101.6 F H 04/25/16 16:48 Pulse Rate 82 04/25/16 16:48 Respiratory Rate 20 04/25/16 16:48 Blood Pressure 131/65 04/25/16 16:48 O2 Sat by Pulse Oximetry (%) 96 04/25/16 09:00 Constitutional: No Distress, Calm Eyes: Yes: Conjunctiva Clear HENT: Yes: Normocephalic Neck: Yes: Supple Cardiovascular: Yes: Regular Rate and Rhythm Respiratory: Yes: Regular ...Auscultate: Yes: Normoactive Bowel Sounds ...Palpate: Yes: Soft Extremities: Yes: WNL Labs: CBC, BMP 04/25/16 05:35 04/25/16 05:35 INR, PTT INR 1.56 (0.82-1.09) H 04/18/16 05:00 Laboratory Tests 04/22/16 04/23/16 04/24/16 05:35 05:40 05:45 WBC RBC Hgb Hct MCV MCHC RDW Plt Count MPV Neutrophils % Lymphocytes % Monocytes % Eosinophils % Basophils % Total Bilirubin AST ALT Alkaline Phosphatase C-Reactive Protein Total Protein Albumin Lipase 624 H 835 H 829 H 04/25/16 04/25/16 05:35 05:35 WBC 16.0 H RBC 4.74 Hgb 12.0 Hct 37.2 MCV 78.5 L MCHC 32.2 RDW 14.5 Plt Count 295 MPV 9.1 Neutrophils % 81.5 Lymphocytes % 7.0 L Monocytes % 7.7 Eosinophils % 2.5 Basophils % 1.3 D Total Bilirubin 1.4 H AST 20 D ALT 35 D Alkaline Phosphatase 221 H C-Reactive Protein 25.1 H D Total Protein 5.9 L Albumin 2.4 L Lipase 740 H Problem List - Problems (1) Acute pancreatitis Assessment/Plan: TOLERATES DIET NO PAIN LOW GRADE TEMP LIPASE IMPROVED TO EVALUATE THE CLINICAL PICTURE WILL TRY TO LOOK AT THE PANCREATIC AND CBD WITH MRI/MRCP INCREASE CREON TO TWO PILLS WITH MEALS FOLLOW LABS Code(s): K85.9 - ACUTE PANCREATITIS, UNSPECIFIED * DO NOT USE * Qualifiers: Pancreatitis type: idiopathic Qualified Code(s): K85.0 - Idiopathic acute pancreatitis (2) Abnormal LFTs (liver function tests) Code(s): R79.89 - OTHER SPECIFIED ABNORMAL FINDINGS OF BLOOD CHEMISTRY (3) Hypertension Code(s): I10 - ESSENTIAL (PRIMARY) HYPERTENSION Qualifiers: Hypertension type: essential hypertension Qualified Code(s): I10 - Essential (primary) hypertension (4) Leukocytosis Code(s): D72.829 - ELEVATED WHITE BLOOD CELL COUNT, UNSPECIFIED Qualifiers: Leukocytosis type: unspecified Qualified Code(s): D72.829 - Elevated white blood cell count, unspecified
[2016-04-26] MEDS: IMIPENEM/CILASTATIN SODIUM 500 MG in SODIUM CHLORIDE 100 ML IVPB SCH ×3 (01:34→11:08)
[2016-04-26 07:20] LABS: BASOPHIL 0.7 % (0-2.0); EOSINOPHIL 2.8 % (0-4.5); MCH 25.1 pg (25.7-33.7); MCHC 31.9 g/dl (32.0-35.9); MEAN CELL VOLUME 78.8 fl (80-96); MEAN PLT VOLUME 9.1 fl (7.5-11.1); NEUTROPHILS 80.8 % (42.8-82.8); PLATELET COUNT 277 K/MM3 (134-434); RDW 14.3 % (11.9-15.9); WHITE BLOOD COUNT 13.1 K/mm3 (4.0-10.0)
[2016-04-26 07:51] LABS: ALBUMIN 2.3 g/dl (3.4-5.0); ANION GAP 11 (8-16); C-REACTIVE PROTEIN 18.8 MG/DL (0.00-0.3); CALCIUM 8.1 mg/dL (8.5-10.1); CO2 27 mmol/L (21-32); CREATININE 0.6 mg/dL (0.7-1.3); GLUCOSE,RANDOM 143 mg/dL (74-106); PHOSPHOROUS 3.1 mg/dL (2.5-4.9); SGOT/AST 26 U/L (15-37); SGPT/ALT 35 U/L (12-78); TOT PROT 5.6 g/dl (6.4-8.2)
[2016-04-26 07:52] LABS: ALK PHOS 187 U/L (45-117)
[2016-04-26] MEDS: LIPASE/PROTEASE/AMYLASE 6,000 UNIT CAPSULE PO SCH ×3 (08:00→17:37)
--- NOTE | 2016-04-26 09:38 | PN ---
Progress Note (short form) - Note Progress Note: Chief Complaint: Events noted, notes reviewed, denies any chest pain or dyspnea , reports persistent epigastric discomfort severity of which has decreased History of Present Illness: Seen and examined on telemetry. Events noted, notes reviewed, denies any chest pain or dyspnea, reports persistent epigastric discomfort severity of which has decreased Echocardiography revealed normal LV size and function with mild MR and TR - Current Medication List Current Medications Acetaminophen (Tylenol -) 650 mg PO Q4H PRN PRN Reason: FEVER OR PAIN Last Admin: 04/24/16 16:59 Dose: 650 mg Amlodipine Besylate (Norvasc -) 10 mg PO DAILY [facility] Last Admin: 04/25/16 09:31 Dose: 10 mg Imipenem/Cilastatin Sodium 500 (mg/ Sodium Chloride) 100 mls @ 100 mls/hr IVPB Q8H-IV [facility] PRN Reason: Protocol Last Admin: 04/26/16 01:34 Dose: 100 mls/hr Amino Acids (Clinimix -) 1,000 mls @ 84 mls/hr IV Q12H [facility] Last Admin: 04/25/16 21:36 Dose: 84 mls/hr Lisinopril (Prinivil) 40 mg PO DAILY [facility] Last Admin: 04/25/16 09:31 Dose: 40 mg Ondansetron HCl (Zofran Injection) 4 mg IVPB Q6H PRN PRN Reason: NAUSEA Pancrelipase (Creon Dr 6,000 Units Capsule) 2 cap PO TIDCM [facility] Pantoprazole Sodium (Protonix 40mg Ivpb (Pre-Docked)) 40 mg IVPB DAILY [facility] Last Admin: 04/25/16 09:27 Dose: 40 mg Simethicone (Mylicon -) 80 mg PO Q4H PRN PRN Reason: GAS Review of Systems - Review of Systems Constitutional: denies: Chills, Fever Cardiovascular: As noted above Respiratory: denies: Cough or Sputum Production Gastrointestinal: denies: Nausea, Vomiting, Diarrhea, Constipation but reports Abdominal Pain as noted above Musculoskeletal: No symptoms reported Neurological: No symptoms reported - Objective Vital Signs: Last Vital Signs Temp Pulse Resp BP Pulse Ox 99.8 F H 74 18 109/59 96 04/26/16 06:00 04/26/16 06:00 04/26/16 06:00 04/26/16 06:00 04/25/16 21:00 Neck: Supple Negative JVD Cardiovascular: S1 S2 Regular Rate and Rhythm Respiratory: Clear to A&P Bilaterally Gastrointestinal: Soft Benign Normal Bowel Sounds Ext: No Edema Labs: CBC, BMP 04/26/16 05:35 04/26/16 05:35 Assessment/Plan ASSESSMENT: 1. HTN 2. Nocturnal bradycardia consider OSAS as a differential 3. Acute pancreatitis with residual discomfort, post MRCP, results pending 4. Hyperglycemia 5. Anemia PLAN: 1. Continue Norvasc but decrease dosage 2. Continue Lisinopril but decrease dosage 3. Await MRCP report 4. Further evaluation of OSAS as outpatient Dulce Verduzco MD
[2016-04-26] MEDS: PANTOPRAZOLE SODIUM 40 MG/100 ML PRE-DOCKED IVPB SCH (10:05)
[2016-04-26] MEDS: LISINOPRIL 20 MG TABLET (FP) PO SCH (10:57)
[2016-04-26] MEDS: amLODIPine BESYLATE 5 MG TABLET (FP) PO SCH (10:57)
[2016-04-26] MEDS: AMINO ACIDS 4.25%/D5W 1,000 ML IV SCH ×2 (11:10→21:48)
--- NOTE | 2016-04-26 14:11 | PN ---
Progress Note, Physician History of Present Illness: stable doing better has not spike for more than 16 hours now - Current Medication List Current Medications: Active Medications Acetaminophen (Tylenol -) 650 mg PO Q4H PRN PRN Reason: FEVER OR PAIN Last Admin: 04/24/16 16:59 Dose: 650 mg Amlodipine Besylate (Norvasc -) 5 mg PO DAILY [facility] Last Admin: 04/26/16 10:57 Dose: 5 mg Amino Acids (Clinimix -) 1,000 mls @ 84 mls/hr IV Q12H [facility] Last Admin: 04/26/16 11:10 Dose: 84 mls/hr Lisinopril (Prinivil) 20 mg PO DAILY [facility] Last Admin: 04/26/16 10:57 Dose: 20 mg Ondansetron HCl (Zofran Injection) 4 mg IVPB Q6H PRN PRN Reason: NAUSEA Pancrelipase (Creon Dr 6,000 Units Capsule) 2 cap PO TIDCM [facility] Last Admin: 04/26/16 11:59 Dose: 2 cap Pantoprazole Sodium (Protonix 40mg Ivpb (Pre-Docked)) 40 mg IVPB DAILY [facility] Last Admin: 04/26/16 10:05 Dose: 40 mg Simethicone (Mylicon -) 80 mg PO Q4H PRN PRN Reason: GAS - Objective Vital Signs: Vital Signs Temperature 99 F 04/26/16 13:46 Pulse Rate 81 04/26/16 13:46 Respiratory Rate 20 04/26/16 13:46 Blood Pressure 137/58 04/26/16 13:46 O2 Sat by Pulse Oximetry (%) 98 04/26/16 09:00 Constitutional: Yes: No Distress, Calm Cardiovascular: Yes: Regular Rate and Rhythm Respiratory: Yes: Regular, CTA Bilaterally Gastrointestinal: Yes: Normal Bowel Sounds, Soft, Tenderness Musculoskeletal: Yes: WNL Extremities: Yes: WNL Neurological: Yes: Alert, Oriented Psychiatric: Yes: Alert, Oriented Labs: CBC, BMP 04/26/16 05:35 04/26/16 05:35 INR, PTT INR 1.56 (0.82-1.09) H 04/18/16 05:00 Assessment/Plan Problem List - Problems (1) Acute pancreatitis Code(s): K85.9 - ACUTE PANCREATITIS, UNSPECIFIED * DO NOT USE * Qualifiers: Pancreatitis type: drug induced Qualified Code(s): K85.3 - Drug induced acute pancreatitis (2) Hypertension Code(s): I10 - ESSENTIAL (PRIMARY) HYPERTENSION (3) Abnormal LFTs (liver function tests) Code(s): R79.89 - OTHER SPECIFIED ABNORMAL FINDINGS OF BLOOD CHEMISTRY (4) Leukocytosis Code(s): D72.829 - ELEVATED WHITE BLOOD CELL COUNT, UNSPECIFIED wbc down no fevers plan will stop abx await for mri read monitor very carefully rest as per the team
--- NOTE | 2016-04-26 16:44 | PN ---
GI Progress Note Subjective: GASTROENTEROLOGY PATIENT FEELS OK, EATING WELL , SOME REFLUX WITH KETCHUP TODAY, NO PAIN MRI/MRCP REVIEWED WITH TWO RADIOLOGISTS WBC IMPROVED, LIPASE IMPROVED - Objective Vital Signs: Vital Signs Temperature 99 F 04/26/16 13:46 Pulse Rate 81 04/26/16 13:46 Respiratory Rate 20 04/26/16 13:46 Blood Pressure 137/58 04/26/16 13:46 O2 Sat by Pulse Oximetry (%) 98 04/26/16 09:00 Constitutional: No Distress, Calm Eyes: Yes: Conjunctiva Clear HENT: Yes: Normocephalic Cardiovascular: Yes: Regular Rate and Rhythm Respiratory: Yes: Regular Gastrointestinal Inspection: Yes: WNL ...Auscultate: Yes: Normoactive Bowel Sounds ...Palpate: Yes: Soft Extremities: Yes: WNL Neurological: Yes: WNL Labs: CBC, BMP 04/26/16 05:35 04/26/16 05:35 INR, PTT INR 1.56 (0.82-1.09) H 04/18/16 05:00 Laboratory Tests 04/26/16 04/26/16 05:35 05:35 WBC 13.1 H RBC 4.40 Hgb 11.0 L Hct 34.6 L MCV 78.8 L MCHC 31.9 L RDW 14.3 Plt Count 277 Sodium 139 Potassium 3.6 Chloride 101 Carbon Dioxide 27 Anion Gap 11 BUN 15 Creatinine 0.6 L Creat Clearance w eGFR > 60 Random Glucose 143 H Calcium 8.1 L Phosphorus 3.1 Magnesium 2.0 Total Bilirubin 1.0 D AST 26 D ALT 35 Alkaline Phosphatase 187 H C-Reactive Protein 18.8 H D Total Protein 5.6 L Albumin 2.3 L Lipase 580 H - ....Imaging MRI: Image Reviewed (NON OCCULSIVE SPLENIC VEIN THROMBOSIS, LESS WILLIE PANCREATIC FLUID, NO ABSCESS, NO NECROSIS, NO STONES, NO BILE DUCT DILATION, NO PANCREATIC DUCTAL STONES, PANCREATIC INFLAMMATION LESS) Problem List - Problems (1) Acute pancreatitis Assessment/Plan: NO CHANGE IN MANAGEMENT. SPLENIC VEIN THROMBOSIS (WHICH IN THIS CASE IS NOT OCCLUSIVE) OCCURS MAINLY DUE TO PERIPANCREATIC INFLAMMATION AND FLUID. THE PANCREAS IMPROVES SO WILL THE FLOW IN THE SPLENIC VEIN. SUCH THERE IS CURRENTLY NO NEED FOR ANTICOAGULATION I AM HAPPY THAT THE ANTIBIOTICS HAVE BEEN DISCONTINUED! CONTINUE DIET/ AMBULATION. DISCONTINUE AMINO ACID INFUSION IN AM. CONTINUE PANCREATIC ENZYMES , FOLLOW LIPASE AND WBC. KE INHIBITOR IS A MEDICATION THAT CAN BE RELATED TO PANCREATITIS (NOT A COMMON ETIOLOGY) AND SINCE THERE ARE NO CURRENT PROVEN ETIOLOGY I WOULD TRY TO USE ANOTHER ANTIHYPERTENSIVE Code(s): K85.9 - ACUTE PANCREATITIS, UNSPECIFIED * DO NOT USE * Qualifiers: Pancreatitis type: idiopathic Qualified Code(s): K85.0 - Idiopathic acute pancreatitis (2) Abnormal LFTs (liver function tests) Assessment/Plan: RESOLVED Code(s): R79.89 - OTHER SPECIFIED ABNORMAL FINDINGS OF BLOOD CHEMISTRY (3) Leukocytosis Assessment/Plan: IMPROVING Code(s): D72.829 - ELEVATED WHITE BLOOD CELL COUNT, UNSPECIFIED Qualifiers: Leukocytosis type: unspecified Qualified Code(s): D72.829 - Elevated white blood cell count, unspecified (4) Splenic vein thrombosis Assessment/Plan: ABOVE Code(s): I82.890 - ACUTE EMBOLISM AND THROMBOSIS OF OTHER SPECIFIED VEINS (5) Hypertension Assessment/Plan: SPOKE WITH DR STONE, PATIENT AND . Code(s): I10 - ESSENTIAL (PRIMARY) HYPERTENSION Qualifiers: Hypertension type: essential hypertension Qualified Code(s): I10 - Essential (primary) hypertension
--- NOTE | 2016-04-26 16:45 | PN ---
Progress Note, Physician Chief Complaint: Mr Byrd says he is feeling much better. Is tolerating diet. Currently without pain. No cp, sob, n/v. - Current Medication List Current Medications: Active Medications Acetaminophen (Tylenol -) 650 mg PO Q4H PRN PRN Reason: FEVER OR PAIN Last Admin: 04/24/16 16:59 Dose: 650 mg Amlodipine Besylate (Norvasc -) 5 mg PO DAILY [facility] Last Admin: 04/26/16 10:57 Dose: 5 mg Amino Acids (Clinimix -) 1,000 mls @ 84 mls/hr IV Q12H [facility] Last Admin: 04/26/16 11:10 Dose: 84 mls/hr Lisinopril (Prinivil) 20 mg PO DAILY [facility] Last Admin: 04/26/16 10:57 Dose: 20 mg Ondansetron HCl (Zofran Injection) 4 mg IVPB Q6H PRN PRN Reason: NAUSEA Pancrelipase (Creon Dr 6,000 Units Capsule) 2 cap PO TIDCM [facility] Last Admin: 04/26/16 11:59 Dose: 2 cap Pantoprazole Sodium (Protonix 40mg Ivpb (Pre-Docked)) 40 mg IVPB DAILY [facility] Last Admin: 04/26/16 10:05 Dose: 40 mg Simethicone (Mylicon -) 80 mg PO Q4H PRN PRN Reason: GAS - Objective Vital Signs: Vital Signs Temperature 99 F 04/26/16 13:46 Pulse Rate 81 04/26/16 13:46 Respiratory Rate 20 04/26/16 13:46 Blood Pressure 137/58 04/26/16 13:46 O2 Sat by Pulse Oximetry (%) 98 04/26/16 09:00 Constitutional: Yes: Well Nourished, No Distress, Calm Cardiovascular: Yes: Regular Rate and Rhythm. No: Gallop, Murmur, Rub Respiratory: Yes: Regular, CTA Bilaterally. No: Rales, Rhonchi, Wheezes Gastrointestinal: Yes: Normal Bowel Sounds, Soft. No: Distention, Tenderness Extremities: Yes: WNL Edema: No Labs: CBC, BMP 04/26/16 05:35 04/26/16 05:35 INR, PTT INR 1.56 (0.82-1.09) H 04/18/16 05:00 Problem List - Problems (1) Acute pancreatitis Code(s): K85.9 - ACUTE PANCREATITIS, UNSPECIFIED * DO NOT USE * Qualifiers: Qualified Code(s): K85.0 - Idiopathic acute pancreatitis (2) Hypertension Code(s): I10 - ESSENTIAL (PRIMARY) HYPERTENSION Qualifiers: Qualified Code(s): I10 - Essential (primary) hypertension (3) Leukocytosis Code(s): D72.829 - ELEVATED WHITE BLOOD CELL COUNT, UNSPECIFIED Qualifiers: Qualified Code(s): D72.829 - Elevated white blood cell count, unspecified Assessment/Plan (1) Acute pancreatitis Assessment/Plan: -patient feeling much better today -labs improving -MRCP and CT scans reviewed, showing non-occlusive splenic vein thrombus -secondary to inflammation of pancreas -no need for anticoagulation Code(s): K85.9 - ACUTE PANCREATITIS, UNSPECIFIED * DO NOT USE * Qualifiers: Pancreatitis type: idiopathic Qualified Code(s): K85.0 - Idiopathic acute pancreatitis (2) Hypertension Assessment/Plan: -currently well controlled -continue amlodipine and lisinopril Code(s): I10 - ESSENTIAL (PRIMARY) HYPERTENSION (3) Leukocytosis Assessment/Plan: -antibiotics stopped -monitor off of antibiotics Code(s): D72.829 - ELEVATED WHITE BLOOD CELL COUNT, UNSPECIFIED
[2016-04-26] MEDS ORDERED: SIMETHICONE 80 MG TAB.CHEW (FP) PO PRN (18:42)
[2016-04-26] MEDS ORDERED: ONDANSETRON 4 MG/2 ML VIAL IVPB PRN (18:42)
[2016-04-26] MEDS ORDERED: ACETAMINOPHEN 325 MG TABLET (FP) PO PRN (18:42)
[2016-04-27] MEDS ORDERED: PT OWN MED DRAWER 7, Y5N ONE ×3 (08:46→17:37)
[2016-04-27 08:49] LABS: BASOPHIL 0.4 % (0-2.0); EOSINOPHIL 1.6 % (0-4.5); MCH 25.2 pg (25.7-33.7); MCHC 32.3 g/dl (32.0-35.9); MEAN PLT VOLUME 9.6 fl (7.5-11.1); PLATELET COUNT 319 K/MM3 (134-434); RDW 14.5 % (11.9-15.9); WHITE BLOOD COUNT 14.2 K/mm3 (4.0-10.0)
[2016-04-27] MEDS: LIPASE/PROTEASE/AMYLASE 6,000 UNIT CAPSULE PO SCH ×3 (08:49→17:53)
[2016-04-27] MEDS: AMINO ACIDS 4.25%/D5W 1,000 ML IV SCH (08:49)
[2016-04-27 09:11] LABS: ALBUMIN 2.5 g/dl (3.4-5.0); ANION GAP 12 (8-16); CALCIUM 8.5 mg/dL (8.5-10.1); CO2 26 mmol/L (21-32); GLUCOSE,RANDOM 143 mg/dL (74-106); MAGNESIUM 2.1 mg/dL (1.8-2.4); SGPT/ALT 49 U/L (12-78)
[2016-04-27 09:20] LABS: ALK PHOS 204 U/L (45-117); CREATININE 0.7 mg/dL (0.7-1.3); PHOSPHOROUS 3.2 mg/dL (2.5-4.9); SGOT/AST 32 U/L (15-37); TOT PROT 6.2 g/dl (6.4-8.2)
[2016-04-27] MEDS: LISINOPRIL 20 MG TABLET (FP) PO SCH (09:35)
[2016-04-27] MEDS: amLODIPine BESYLATE 5 MG TABLET (FP) PO SCH (09:35)
[2016-04-27] MEDS: PANTOPRAZOLE 40 MG TABLET (FP) PO SCH (09:35)
--- NOTE | 2016-04-27 12:43 | PN ---
Progress Note, Physician Chief Complaint: Mr Byrd continues to improve, today says feeling a little bit better but much improved from admission. Tolerating diet. No cp, sob, n/v. - Current Medication List Current Medications: Active Medications Acetaminophen (Tylenol -) 650 mg PO Q4H PRN PRN Reason: FEVER OR PAIN Amlodipine Besylate (Norvasc -) 5 mg PO DAILY [facility] Last Admin: 04/27/16 09:35 Dose: 5 mg Amino Acids (Clinimix -) 1,000 mls @ 84 mls/hr IV Q12H [facility] Last Admin: 04/27/16 08:49 Dose: Not Given Lisinopril (Prinivil) 20 mg PO DAILY [facility] Last Admin: 04/27/16 09:35 Dose: 20 mg Ondansetron HCl (Zofran Injection) 4 mg IVPB Q6H PRN PRN Reason: NAUSEA Pancrelipase (Creon Dr 6,000 Units Capsule) 2 cap PO TIDCM [facility] Last Admin: 04/27/16 08:49 Dose: 2 cap Pantoprazole Sodium (Protonix -) 40 mg PO DAILY [facility] Last Admin: 04/27/16 09:35 Dose: 40 mg Simethicone (Mylicon -) 80 mg PO Q4H PRN PRN Reason: GAS - Objective Vital Signs: Vital Signs Temperature 100.0 F H 04/27/16 10:00 Pulse Rate 80 04/27/16 10:00 Respiratory Rate 20 04/27/16 10:00 Blood Pressure 134/76 04/27/16 10:00 O2 Sat by Pulse Oximetry (%) 97 04/26/16 21:00 Constitutional: Yes: No Distress, Calm, Obese Cardiovascular: Yes: Regular Rate and Rhythm. No: Gallop, Murmur, Rub Respiratory: Yes: Regular, CTA Bilaterally. No: Rales, Rhonchi, Wheezes Gastrointestinal: Yes: Normal Bowel Sounds, Soft. No: Distention, Tenderness Extremities: Yes: WNL Edema: No Labs: CBC, BMP 04/27/16 06:00 04/27/16 06:00 INR, PTT INR 1.56 (0.82-1.09) H 04/18/16 05:00 Problem List - Problems (1) Acute pancreatitis Code(s): K85.9 - ACUTE PANCREATITIS, UNSPECIFIED * DO NOT USE * Qualifiers: Pancreatitis type: idiopathic Qualified Code(s): K85.0 - Idiopathic acute pancreatitis (2) Hypertension Code(s): I10 - ESSENTIAL (PRIMARY) HYPERTENSION Qualifiers: Hypertension type: essential hypertension Qualified Code(s): I10 - Essential (primary) hypertension (3) Leukocytosis Code(s): D72.829 - ELEVATED WHITE BLOOD CELL COUNT, UNSPECIFIED Qualifiers: Leukocytosis type: unspecified Qualified Code(s): D72.829 - Elevated white blood cell count, unspecified Assessment/Plan (1) Acute pancreatitis Assessment/Plan: -patient continues to improve -labs slightly worse today, continue to monitor -MRCP and CT scans reviewed, showing non-occlusive splenic vein thrombus -secondary to inflammation of pancreas -no need for anticoagulation but GI following Code(s): K85.9 - ACUTE PANCREATITIS, UNSPECIFIED * DO NOT USE * Qualifiers: Pancreatitis type: idiopathic Qualified Code(s): K85.0 - Idiopathic acute pancreatitis (2) Hypertension Assessment/Plan: -currently well controlled -continue amlodipine and lisinopril Code(s): I10 - ESSENTIAL (PRIMARY) HYPERTENSION (3) Leukocytosis Assessment/Plan: -antibiotics stopped -monitor off of antibiotics Code(s): D72.829 - ELEVATED WHITE BLOOD CELL COUNT, UNSPECIFIED
--- NOTE | 2016-04-27 14:28 | PN ---
Progress Note, Physician History of Present Illness: patient feels better had a spike of fever - Current Medication List Current Medications: Active Medications Acetaminophen (Tylenol -) 650 mg PO Q4H PRN PRN Reason: FEVER OR PAIN Amlodipine Besylate (Norvasc -) 5 mg PO DAILY [facility] Last Admin: 04/27/16 09:35 Dose: 5 mg Lisinopril (Prinivil) 20 mg PO DAILY [facility] Last Admin: 04/27/16 09:35 Dose: 20 mg Ondansetron HCl (Zofran Injection) 4 mg IVPB Q6H PRN PRN Reason: NAUSEA Pancrelipase (Creon Dr 6,000 Units Capsule) 2 cap PO TIDCM [facility] Last Admin: 04/27/16 12:46 Dose: 2 cap Pantoprazole Sodium (Protonix -) 40 mg PO DAILY [facility] Last Admin: 04/27/16 09:35 Dose: 40 mg Simethicone (Mylicon -) 80 mg PO Q4H PRN PRN Reason: GAS - Objective Vital Signs: Vital Signs Temperature 100.0 F H 04/27/16 10:00 Pulse Rate 80 04/27/16 10:00 Respiratory Rate 20 04/27/16 10:00 Blood Pressure 134/76 04/27/16 10:00 O2 Sat by Pulse Oximetry (%) 97 04/27/16 09:00 Constitutional: Yes: No Distress, Calm HENT: Yes: Atraumatic Neck: Yes: Supple Cardiovascular: Yes: Regular Rate and Rhythm Respiratory: Yes: Regular, CTA Bilaterally Gastrointestinal: Yes: Normal Bowel Sounds, Soft Extremities: Yes: WNL Neurological: Yes: Alert, Oriented Psychiatric: Yes: Alert Labs: CBC, BMP 04/27/16 06:00 04/27/16 06:00 INR, PTT INR 1.56 (0.82-1.09) H 04/18/16 05:00 Assessment/Plan Problem List - Problems (1) Acute pancreatitis Code(s): K85.9 - ACUTE PANCREATITIS, UNSPECIFIED * DO NOT USE * Qualifiers: Pancreatitis type: drug induced Qualified Code(s): K85.3 - Drug induced acute pancreatitis (2) Hypertension Code(s): I10 - ESSENTIAL (PRIMARY) HYPERTENSION (3) Abnormal LFTs (liver function tests) Code(s): R79.89 - OTHER SPECIFIED ABNORMAL FINDINGS OF BLOOD CHEMISTRY (4) Leukocytosis Code(s): D72.829 - ELEVATED WHITE BLOOD CELL COUNT, UNSPECIFIED wbc down no fevers plan patient stable without abx but wbc going up patient spiked a fever will wait and see what tomorrows wbs shows
--- NOTE | 2016-04-27 14:44 | PN ---
Progress Note, Physician History of Present Illness: Abdominal pain resolved, tolerating diet without nausea and emesis. He denies chest pain, dyspnea, near or true syncope, palpitations, orthopnea, PND or LE edema. - Current Medication List Current Medications: Active Medications Acetaminophen (Tylenol -) 650 mg PO Q4H PRN PRN Reason: FEVER OR PAIN Amlodipine Besylate (Norvasc -) 5 mg PO DAILY [facility] Last Admin: 04/27/16 09:35 Dose: 5 mg Lisinopril (Prinivil) 20 mg PO DAILY [facility] Last Admin: 04/27/16 09:35 Dose: 20 mg Ondansetron HCl (Zofran Injection) 4 mg IVPB Q6H PRN PRN Reason: NAUSEA Pancrelipase (Creon Dr 6,000 Units Capsule) 2 cap PO TIDCM [facility] Last Admin: 04/27/16 12:46 Dose: 2 cap Pantoprazole Sodium (Protonix -) 40 mg PO DAILY [facility] Last Admin: 04/27/16 09:35 Dose: 40 mg Simethicone (Mylicon -) 80 mg PO Q4H PRN PRN Reason: GAS - Objective Vital Signs: Vital Signs Temperature 100.0 F H 04/27/16 10:00 Pulse Rate 80 04/27/16 10:00 Respiratory Rate 20 04/27/16 10:00 Blood Pressure 134/76 04/27/16 10:00 O2 Sat by Pulse Oximetry (%) 97 04/27/16 09:00 Constitutional: Yes: No Distress, Calm Neck: Yes: Supple Cardiovascular: Yes: Regular Rate and Rhythm Respiratory: Yes: Regular, CTA Bilaterally Gastrointestinal: Yes: Soft, Hypoactive Bowel Sounds Edema: No Labs: CBC, BMP 04/27/16 06:00 04/27/16 06:00 INR, PTT INR 1.56 (0.82-1.09) H 04/18/16 05:00 Problem List - Problems (1) Abnormal LFTs (liver function tests) Code(s): R79.89 - OTHER SPECIFIED ABNORMAL FINDINGS OF BLOOD CHEMISTRY (2) Fever Code(s): R50.9 - FEVER, UNSPECIFIED Qualifiers: Fever type: unspecified Qualified Code(s): R50.9 - Fever, unspecified (3) Hypertension Code(s): I10 - ESSENTIAL (PRIMARY) HYPERTENSION Qualifiers: Hypertension type: essential hypertension Qualified Code(s): I10 - Essential (primary) hypertension (4) Leukocytosis Code(s): D72.829 - ELEVATED WHITE BLOOD CELL COUNT, UNSPECIFIED Qualifiers: Leukocytosis type: unspecified Qualified Code(s): D72.829 - Elevated white blood cell count, unspecified (5) Splenic vein thrombosis Code(s): I82.890 - ACUTE EMBOLISM AND THROMBOSIS OF OTHER SPECIFIED VEINS (6) Acute pancreatitis Code(s): K85.9 - ACUTE PANCREATITIS, UNSPECIFIED * DO NOT USE * Qualifiers: Pancreatitis type: idiopathic Qualified Code(s): K85.0 - Idiopathic acute pancreatitis Assessment/Plan 1. HTN 2. Nocturnal bradycardia consider OSAS as a differential 3. Resolving acute pancreatitis, ruled out for choledocholithiasis with nonocclusive splenic vein thrombosis 4. Hyperglycemia 5. Anemia PLAN: 1. Continue Norvasc 5 qd 2. Continue Lisinopril 20 qd 3. Further evaluation of OSAS as outpatient 4. Advance diet as tolerate, ambulate, monitor pancreatic enzymes
[2016-04-28 07:49] LABS: BASOPHIL 0.7 % (0-2.0); EOSINOPHIL 2.2 % (0-4.5); MCH 25.2 pg (25.7-33.7); MCHC 32.3 g/dl (32.0-35.9); MEAN CELL VOLUME 77.9 fl (80-96); MEAN PLT VOLUME 9.6 fl (7.5-11.1); NEUTROPHILS 80.3 % (42.8-82.8); PLATELET COUNT 296 K/MM3 (134-434); RDW 14.5 % (11.9-15.9); WHITE BLOOD COUNT 12.1 K/mm3 (4.0-10.0)
[2016-04-28] MEDS ORDERED: PT OWN MED DRAWER 7, Y5N ONE ×3 (07:50→16:15)
[2016-04-28 08:27] LABS: ALBUMIN 2.2 g/dl (3.4-5.0); CALCIUM 8.4 mg/dL (8.5-10.1); MAGNESIUM 2.1 mg/dL (1.8-2.4)
[2016-04-28 08:32] LABS: BILIRUBIN,DIRECT 0.6 mg/dL (0.0-0.2); BILIRUBIN,TOTAL 0.9 mg/dL (0.2-1.0); C-REACTIVE PROTEIN 14.9 MG/DL (0.00-0.3); CREATININE 0.7 mg/dL (0.7-1.3); PHOSPHOROUS 3.5 mg/dL (2.5-4.9); TOT PROT 5.7 g/dl (6.4-8.2)
[2016-04-28] MEDS: LIPASE/PROTEASE/AMYLASE 6,000 UNIT CAPSULE PO SCH ×3 (08:35→18:14)
--- NOTE | 2016-04-28 09:28 | PN ---
Progress Note (short form) - Note Progress Note: Patient seen and examined in the ICU. Still with abdominal pain. Minimal BM and flatus. OOB to chair. Tolerating PO intake. No abdominal pain. No nausea or vomiting. No CP or SOB. Intake & Output 04/25/16 04/26/16 04/27/16 04/28/16 23:59 23:59 23:59 23:59 Intake Total 1210 1180 1408 Output Total 1400 400 320 Balance -289 835 2706 Weight 237 lb 6.4 oz 239 lb 2 oz Last Vital Signs Temp Pulse Resp BP Pulse Ox 98.2 F 74 16 135/63 97 04/28/16 06:00 04/28/16 06:00 04/28/16 06:00 04/28/16 06:00 04/27/16 21:00 Active Medications Acetaminophen (Tylenol -) 650 mg PO Q4H PRN PRN Reason: FEVER OR PAIN Last Admin: 04/27/16 17:04 Dose: 650 mg Amlodipine Besylate (Norvasc -) 5 mg PO DAILY [facility] Last Admin: 04/27/16 09:35 Dose: 5 mg Lisinopril (Prinivil) 20 mg PO DAILY [facility] Last Admin: 04/27/16 09:35 Dose: 20 mg Ondansetron HCl (Zofran Injection) 4 mg IVPB Q6H PRN PRN Reason: NAUSEA Pancrelipase (Creon Dr 6,000 Units Capsule) 2 cap PO TIDCM [facility] Last Admin: 04/28/16 08:35 Dose: 2 cap Pantoprazole Sodium (Protonix -) 40 mg PO DAILY [facility] Last Admin: 04/27/16 09:35 Dose: 40 mg Simethicone (Mylicon -) 80 mg PO Q4H PRN PRN Reason: GAS Constitutional: Yes: NAD Cardiovascular: Yes: Regular Rate and Rhythm. No: Gallop, Murmur, Rub Respiratory: Yes: Regular, CTA Bilaterally. No: Rales, Rhonchi, Wheezes Gastrointestinal: Yes: Soft, (+) Bowel Sounds, Minimal tenderness. No: Distention, guarding, rigidity Extremities: Yes: WNL Edema: No Labs: Laboratory Results - last 24 hr 04/28/16 04/28/16 06:00 06:00 WBC 12.1 H RBC 4.37 Hgb 11.0 L Hct 34.0 L MCV 77.9 L MCHC 32.3 RDW 14.5 Plt Count 296 MPV 9.6 Neutrophils % 80.3 Lymphocytes % 8.8 Monocytes % 8.0 Eosinophils % 2.2 Basophils % 0.7 Sodium 138 Potassium 3.8 Chloride 101 Carbon Dioxide 26 Anion Gap 11 BUN 11 Creatinine 0.7 Random Glucose 158 H Calcium 8.4 L Phosphorus 3.5 Magnesium 2.1 Total Bilirubin 0.9 Direct Bilirubin 0.6 H D AST 31 ALT 57 Alkaline Phosphatase 190 H C-Reactive Protein 14.9 H D Total Protein 5.7 L Albumin 2.2 L Lipase 512 H Problem List - Problems (1) Acute pancreatitis Assessment/Plan: Code(s): K85.9 - ACUTE PANCREATITIS, UNSPECIFIED * DO NOT USE * Qualifiers: Pancreatitis type: idiopathic Qualified Code(s): K85.0 - Idiopathic acute pancreatitis (2) Hypertension Assessment/Plan: Code(s): I10 - ESSENTIAL (PRIMARY) HYPERTENSION (3) Leukocytosis Assessment/Plan: Code(s): D72.829 - ELEVATED WHITE BLOOD CELL COUNT, UNSPECIFIED PLAN: PO as tolerated Strict I&O VTE prophylaxis Pain control ABX per ID Will need formal sleep workup after discharge for possible sleep apnea Dr Rico
[2016-04-28] MEDS: amLODIPine BESYLATE 5 MG TABLET (FP) PO SCH (09:36)
[2016-04-28] MEDS: PANTOPRAZOLE 40 MG TABLET (FP) PO SCH (09:36)
[2016-04-28] MEDS: LISINOPRIL 20 MG TABLET (FP) PO SCH (09:37)
--- NOTE | 2016-04-28 15:15 | PN ---
Progress Note, Physician History of Present Illness: Abdominal pain resolved, tolerating diet without nausea and emesis. Febrile yesterday, none today, WBC and lipase trending downwards. - Current Medication List Current Medications: Active Medications Acetaminophen (Tylenol -) 650 mg PO Q4H PRN PRN Reason: FEVER OR PAIN Last Admin: 04/27/16 17:04 Dose: 650 mg Amlodipine Besylate (Norvasc -) 5 mg PO DAILY [facility] Last Admin: 04/28/16 09:36 Dose: 5 mg Lisinopril (Prinivil) 20 mg PO DAILY [facility] Last Admin: 04/28/16 09:37 Dose: 20 mg Ondansetron HCl (Zofran Injection) 4 mg IVPB Q6H PRN PRN Reason: NAUSEA Pancrelipase (Creon Dr 6,000 Units Capsule) 2 cap PO TIDCM [facility] Last Admin: 04/28/16 11:57 Dose: 2 cap Pantoprazole Sodium (Protonix -) 40 mg PO DAILY [facility] Last Admin: 04/28/16 09:36 Dose: 40 mg Simethicone (Mylicon -) 80 mg PO Q4H PRN PRN Reason: GAS - Objective Vital Signs: Vital Signs Temperature 98.8 F 04/28/16 10:00 Pulse Rate 80 04/28/16 10:00 Respiratory Rate 18 04/28/16 10:00 Blood Pressure 121/73 04/28/16 10:00 O2 Sat by Pulse Oximetry (%) 97 04/28/16 09:00 Constitutional: Yes: No Distress, Calm Neck: Yes: Supple Cardiovascular: Yes: Regular Rate and Rhythm Respiratory: Yes: Regular, CTA Bilaterally Gastrointestinal: Yes: Normal Bowel Sounds, Soft Edema: No Labs: CBC, BMP 04/28/16 06:00 04/28/16 06:00 INR, PTT INR 1.56 (0.82-1.09) H 04/18/16 05:00 Problem List - Problems (1) Abnormal LFTs (liver function tests) Code(s): R79.89 - OTHER SPECIFIED ABNORMAL FINDINGS OF BLOOD CHEMISTRY (2) Fever Code(s): R50.9 - FEVER, UNSPECIFIED Qualifiers: Fever type: unspecified Qualified Code(s): R50.9 - Fever, unspecified (3) Hypertension Code(s): I10 - ESSENTIAL (PRIMARY) HYPERTENSION Qualifiers: Hypertension type: essential hypertension Qualified Code(s): I10 - Essential (primary) hypertension (4) Leukocytosis Code(s): D72.829 - ELEVATED WHITE BLOOD CELL COUNT, UNSPECIFIED Qualifiers: Leukocytosis type: unspecified Qualified Code(s): D72.829 - Elevated white blood cell count, unspecified (5) Splenic vein thrombosis Code(s): I82.890 - ACUTE EMBOLISM AND THROMBOSIS OF OTHER SPECIFIED VEINS (6) Acute pancreatitis Code(s): K85.9 - ACUTE PANCREATITIS, UNSPECIFIED * DO NOT USE * Qualifiers: Pancreatitis type: idiopathic Qualified Code(s): K85.0 - Idiopathic acute pancreatitis Assessment/Plan 1. HTN 2. Nocturnal bradycardia consider OSAS as a differential 3. Resolving acute pancreatitis, ruled out for choledocholithiasis with nonocclusive splenic vein thrombosis 4. Hyperglycemia 5. Anemia PLAN: 1. Continue Norvasc 5 qd 2. Continue Lisinopril 20 qd 3. Further evaluation of OSAS as outpatient 4. Advance diet as tolerate, ambulate, pancreatic enzymes downtrending 5. D/c planning
--- NOTE | 2016-04-28 15:18 | PN ---
Progress Note, Physician History of Present Illness: spiked yesterday since then has been stable - Current Medication List Current Medications: Active Medications Acetaminophen (Tylenol -) 650 mg PO Q4H PRN PRN Reason: FEVER OR PAIN Last Admin: 04/27/16 17:04 Dose: 650 mg Amlodipine Besylate (Norvasc -) 5 mg PO DAILY [facility] Last Admin: 04/28/16 09:36 Dose: 5 mg Lisinopril (Prinivil) 20 mg PO DAILY [facility] Last Admin: 04/28/16 09:37 Dose: 20 mg Ondansetron HCl (Zofran Injection) 4 mg IVPB Q6H PRN PRN Reason: NAUSEA Pancrelipase (Creon Dr 6,000 Units Capsule) 2 cap PO TIDCM [facility] Last Admin: 04/28/16 11:57 Dose: 2 cap Pantoprazole Sodium (Protonix -) 40 mg PO DAILY [facility] Last Admin: 04/28/16 09:36 Dose: 40 mg Simethicone (Mylicon -) 80 mg PO Q4H PRN PRN Reason: GAS - Objective Vital Signs: Vital Signs Temperature 98.8 F 04/28/16 10:00 Pulse Rate 80 04/28/16 10:00 Respiratory Rate 18 04/28/16 10:00 Blood Pressure 121/73 04/28/16 10:00 O2 Sat by Pulse Oximetry (%) 97 04/28/16 09:00 Constitutional: Yes: No Distress, Calm Cardiovascular: Yes: Regular Rate and Rhythm Respiratory: Yes: Regular, CTA Bilaterally Gastrointestinal: Yes: Normal Bowel Sounds, Soft Musculoskeletal: Yes: WNL Extremities: Yes: WNL Neurological: Yes: Alert, Oriented Psychiatric: Yes: Alert, Oriented Labs: CBC, BMP 04/28/16 06:00 04/28/16 06:00 INR, PTT INR 1.56 (0.82-1.09) H 04/18/16 05:00 Assessment/Plan Problem List - Problems (1) Acute pancreatitis Code(s): K85.9 - ACUTE PANCREATITIS, UNSPECIFIED * DO NOT USE * Qualifiers: Pancreatitis type: drug induced Qualified Code(s): K85.3 - Drug induced acute pancreatitis (2) Hypertension Code(s): I10 - ESSENTIAL (PRIMARY) HYPERTENSION (3) Abnormal LFTs (liver function tests) Code(s): R79.89 - OTHER SPECIFIED ABNORMAL FINDINGS OF BLOOD CHEMISTRY (4) Leukocytosis Code(s): D72.829 - ELEVATED WHITE BLOOD CELL COUNT, UNSPECIFIED wbc down no fevers plan wbc trending down has been afebrile continue monitoring patient looks like has turned the corner family in room
--- NOTE | 2016-04-28 18:37 | PN ---
Progress Note, Physician Chief Complaint: Mr Byrd is without complaint today. No cp, sob, n/v. Tolerating diet. - Current Medication List Current Medications: Active Medications Acetaminophen (Tylenol -) 650 mg PO Q4H PRN PRN Reason: FEVER OR PAIN Last Admin: 04/27/16 17:04 Dose: 650 mg Amlodipine Besylate (Norvasc -) 5 mg PO DAILY [facility] Last Admin: 04/28/16 09:36 Dose: 5 mg Lisinopril (Prinivil) 20 mg PO DAILY [facility] Last Admin: 04/28/16 09:37 Dose: 20 mg Ondansetron HCl (Zofran Injection) 4 mg IVPB Q6H PRN PRN Reason: NAUSEA Pancrelipase (Creon Dr 6,000 Units Capsule) 2 cap PO TIDCM [facility] Last Admin: 04/28/16 18:14 Dose: 2 cap Pantoprazole Sodium (Protonix -) 40 mg PO DAILY [facility] Last Admin: 04/28/16 09:36 Dose: 40 mg Simethicone (Mylicon -) 80 mg PO Q4H PRN PRN Reason: GAS - Objective Vital Signs: Vital Signs Temperature 99.5 F 04/28/16 17:23 Pulse Rate 77 04/28/16 17:23 Respiratory Rate 20 04/28/16 17:23 Blood Pressure 118/75 04/28/16 17:23 O2 Sat by Pulse Oximetry (%) 97 04/28/16 09:00 Constitutional: Yes: No Distress, Calm, Obese Cardiovascular: Yes: Regular Rate and Rhythm. No: Gallop, Murmur, Rub Respiratory: Yes: Regular, CTA Bilaterally. No: Rales, Rhonchi, Wheezes Gastrointestinal: Yes: Normal Bowel Sounds, Soft. No: Distention, Tenderness Extremities: Yes: WNL Edema: No Labs: CBC, BMP 04/28/16 06:00 04/28/16 06:00 INR, PTT INR 1.56 (0.82-1.09) H 04/18/16 05:00 Problem List - Problems (1) Acute pancreatitis Code(s): K85.9 - ACUTE PANCREATITIS, UNSPECIFIED * DO NOT USE * Qualifiers: Pancreatitis type: idiopathic Qualified Code(s): K85.0 - Idiopathic acute pancreatitis (2) Hypertension Code(s): I10 - ESSENTIAL (PRIMARY) HYPERTENSION Qualifiers: Hypertension type: essential hypertension Qualified Code(s): I10 - Essential (primary) hypertension (3) Leukocytosis Code(s): D72.829 - ELEVATED WHITE BLOOD CELL COUNT, UNSPECIFIED Qualifiers: Leukocytosis type: unspecified Qualified Code(s): D72.829 - Elevated white blood cell count, unspecified Assessment/Plan (1) Acute pancreatitis Assessment/Plan: -patient continues to improve -labs improving -continue diet -await GI recommendations -possible discharge pending GI recs Code(s): K85.9 - ACUTE PANCREATITIS, UNSPECIFIED * DO NOT USE * Qualifiers: Pancreatitis type: idiopathic Qualified Code(s): K85.0 - Idiopathic acute pancreatitis (2) Hypertension Assessment/Plan: -currently well controlled -continue amlodipine and lisinopril Code(s): I10 - ESSENTIAL (PRIMARY) HYPERTENSION (3) Leukocytosis Assessment/Plan: -antibiotics stopped -monitor off of antibiotics -improving Code(s): D72.829 - ELEVATED WHITE BLOOD CELL COUNT, UNSPECIFIED
--- NOTE | 2016-04-28 19:51 | PN ---
GI Progress Note Subjective: GASTROENTEROLOGY TOLERATES FOOD, NO PAIN, NAUSEA, PASSING STOOL NO BLEEDING - Objective Vital Signs: Vital Signs Temperature 99.5 F 04/28/16 17:23 Pulse Rate 77 04/28/16 17:23 Respiratory Rate 20 04/28/16 17:23 Blood Pressure 118/75 04/28/16 17:23 O2 Sat by Pulse Oximetry (%) 97 04/28/16 09:00 Constitutional: No Distress Eyes: Yes: Conjunctiva Clear HENT: Yes: Normocephalic Cardiovascular: Yes: Regular Rate and Rhythm Respiratory: Yes: Regular Gastrointestinal Inspection: Yes: Other (MUCH LESS DITENSION) ...Auscultate: Yes: Normoactive Bowel Sounds ...Palpate: Yes: Soft, Other (NO SPLENOMEGALY) Extremities: Yes: WNL Neurological: Yes: WNL Psychiatric: Yes: WNL Labs: CBC, BMP 04/28/16 06:00 04/28/16 06:00 INR, PTT INR 1.56 (0.82-1.09) H 04/18/16 05:00 Laboratory Tests 04/18/16 04/24/16 04/25/16 05:00 05:45 05:35 WBC RBC Hgb Hct MCV MCHC RDW Plt Count MPV Neutrophils % Lymphocytes % Monocytes % Eosinophils % Basophils % INR 1.56 H Sodium Potassium Chloride Carbon Dioxide Anion Gap BUN Creatinine Random Glucose Calcium Phosphorus Magnesium Total Bilirubin Direct Bilirubin AST ALT Alkaline Phosphatase C-Reactive Protein Total Protein Albumin Lipase 829 H 740 H 04/26/16 04/27/16 04/28/16 05:35 06:00 06:00 WBC RBC Hgb Hct MCV MCHC RDW Plt Count MPV Neutrophils % Lymphocytes % Monocytes % Eosinophils % Basophils % INR Sodium 138 Potassium 3.8 Chloride 101 Carbon Dioxide 26 Anion Gap 11 BUN 11 Creatinine 0.7 Random Glucose 158 H Calcium 8.4 L Phosphorus 3.5 Magnesium 2.1 Total Bilirubin 0.9 Direct Bilirubin 0.6 H D AST 31 ALT 57 Alkaline Phosphatase 190 H C-Reactive Protein 14.9 H D Total Protein 5.7 L Albumin 2.2 L Lipase 580 H 740 H 512 H 04/28/16 06:00 WBC 12.1 H RBC 4.37 Hgb 11.0 L Hct 34.0 L MCV 77.9 L MCHC 32.3 RDW 14.5 Plt Count 296 MPV 9.6 Neutrophils % 80.3 Lymphocytes % 8.8 Monocytes % 8.0 Eosinophils % 2.2 Basophils % 0.7 INR Sodium Potassium Chloride Carbon Dioxide Anion Gap BUN Creatinine Random Glucose Calcium Phosphorus Magnesium Total Bilirubin Direct Bilirubin AST ALT Alkaline Phosphatase C-Reactive Protein Total Protein Albumin Lipase Problem List - Problems (1) Acute pancreatitis Assessment/Plan: OVERALL IMPROVED, CONTINUE SAME , NO OBJECTION TO DISCHARGE ON MONDAY BUT WILL LEAVE DECISION UP TO ID SECONDARY TO TEMP SPIKE Code(s): K85.9 - ACUTE PANCREATITIS, UNSPECIFIED * DO NOT USE * Qualifiers: Pancreatitis type: idiopathic Qualified Code(s): K85.0 - Idiopathic acute pancreatitis (2) Splenic vein thrombosis Assessment/Plan: CONTINUE TREATMENT FOR ACUTE PANCREATITIS, NO AC, BABY ASA OK IF PMD WANTS TO GIVE FOR OTHER REASONS, REPREAT CT SCAN IN ONE TO TWO WEEKS OR US WITH DOPPLER Code(s): I82.890 - ACUTE EMBOLISM AND THROMBOSIS OF OTHER SPECIFIED VEINS (3) Abnormal LFTs (liver function tests) Assessment/Plan: RESOLVED Code(s): R79.89 - OTHER SPECIFIED ABNORMAL FINDINGS OF BLOOD CHEMISTRY (4) Leukocytosis Assessment/Plan: RESOLVING Code(s): D72.829 - ELEVATED WHITE BLOOD CELL COUNT, UNSPECIFIED Qualifiers: Leukocytosis type: unspecified Qualified Code(s): D72.829 - Elevated white blood cell count, unspecified (5) Hypertension Code(s): I10 - ESSENTIAL (PRIMARY) HYPERTENSION Qualifiers: Hypertension type: essential hypertension Qualified Code(s): I10 - Essential (primary) hypertension
[2016-04-29 08:06] LABS: BASOPHIL 0.7 % (0-2.0); EOSINOPHIL 2.3 % (0-4.5); MCH 25.4 pg (25.7-33.7); MCHC 32.3 g/dl (32.0-35.9); MEAN CELL VOLUME 78.5 fl (80-96); MEAN PLT VOLUME 9.8 fl (7.5-11.1); NEUTROPHILS 75.7 % (42.8-82.8); PLATELET COUNT 350 K/MM3 (134-434); RDW 14.2 % (11.9-15.9); WHITE BLOOD COUNT 10.4 K/mm3 (4.0-10.0)
[2016-04-29 08:48] LABS: MAGNESIUM 2.2 mg/dL (1.8-2.4)
[2016-04-29] MEDS ORDERED: PT OWN MED DRAWER 7, Y5N ONE ×2 (09:11→12:07)
[2016-04-29] MEDS: LIPASE/PROTEASE/AMYLASE 6,000 UNIT CAPSULE PO SCH ×2 (09:12→12:09)
[2016-04-29] MEDS: PANTOPRAZOLE 40 MG TABLET (FP) PO SCH (09:13)
[2016-04-29] MEDS: amLODIPine BESYLATE 5 MG TABLET (FP) PO SCH (09:13)
[2016-04-29] MEDS: LISINOPRIL 20 MG TABLET (FP) PO SCH (09:13)
[2016-04-29 09:14] LABS: ALBUMIN 2.6 g/dl (3.4-5.0); BILIRUBIN,DIRECT 0.6 mg/dL (0.0-0.2); BILIRUBIN,TOTAL 0.9 mg/dL (0.2-1.0); C-REACTIVE PROTEIN 13.6 MG/DL (0.00-0.3); CALCIUM 8.8 mg/dL (8.5-10.1); CREATININE 0.7 mg/dL (0.7-1.3); PHOSPHOROUS 3.6 mg/dL (2.5-4.9); TOT PROT 6.3 g/dl (6.4-8.2)
--- NOTE | 2016-04-29 11:29 | PN ---
Progress Note, Physician History of Present Illness: Abdominal pain resolved, tolerating diet without nausea and emesis. Remains afebrile, WBC and lipase trending downwards. - Current Medication List Current Medications: Active Medications Acetaminophen (Tylenol -) 650 mg PO Q4H PRN PRN Reason: FEVER OR PAIN Last Admin: 04/27/16 17:04 Dose: 650 mg Amlodipine Besylate (Norvasc -) 5 mg PO DAILY [facility] Last Admin: 04/29/16 09:13 Dose: 5 mg Lisinopril (Prinivil) 20 mg PO DAILY [facility] Last Admin: 04/29/16 09:13 Dose: 20 mg Ondansetron HCl (Zofran Injection) 4 mg IVPB Q6H PRN PRN Reason: NAUSEA Pancrelipase (Creon Dr 6,000 Units Capsule) 2 cap PO TIDCM [facility] Last Admin: 04/29/16 09:12 Dose: 2 cap Pantoprazole Sodium (Protonix -) 40 mg PO DAILY [facility] Last Admin: 04/29/16 09:13 Dose: 40 mg Simethicone (Mylicon -) 80 mg PO Q4H PRN PRN Reason: GAS - Objective Vital Signs: Vital Signs Temperature 98.6 F 04/29/16 10:00 Pulse Rate 64 04/29/16 10:00 Respiratory Rate 20 04/29/16 10:00 Blood Pressure 138/64 04/29/16 10:00 O2 Sat by Pulse Oximetry (%) 97 04/28/16 21:00 Constitutional: Yes: No Distress, Calm Neck: Yes: Supple Cardiovascular: Yes: Regular Rate and Rhythm Respiratory: Yes: Regular, CTA Bilaterally Gastrointestinal: Yes: Normal Bowel Sounds, Soft Edema: No Labs: CBC, BMP 04/29/16 06:00 04/29/16 06:00 INR, PTT INR 1.56 (0.82-1.09) H 04/18/16 05:00 Problem List - Problems (1) Hypertension Code(s): I10 - ESSENTIAL (PRIMARY) HYPERTENSION Qualifiers: Hypertension type: essential hypertension Qualified Code(s): I10 - Essential (primary) hypertension (2) Splenic vein thrombosis Code(s): I82.890 - ACUTE EMBOLISM AND THROMBOSIS OF OTHER SPECIFIED VEINS (3) Acute pancreatitis Code(s): K85.9 - ACUTE PANCREATITIS, UNSPECIFIED * DO NOT USE * Qualifiers: Pancreatitis type: idiopathic Qualified Code(s): K85.0 - Idiopathic acute pancreatitis (4) Leukocytosis Code(s): D72.829 - ELEVATED WHITE BLOOD CELL COUNT, UNSPECIFIED Qualifiers: Leukocytosis type: unspecified Qualified Code(s): D72.829 - Elevated white blood cell count, unspecified Assessment/Plan 1. HTN 2. Nocturnal bradycardia consider OSAS as a differential 3. Resolving acute pancreatitis, ruled out for choledocholithiasis with nonocclusive splenic vein thrombosis 4. Hyperglycemia 5. Anemia PLAN: 1. Continue Norvasc 5 qd 2. Continue Lisinopril 20 qd 3. Further evaluation of OSAS as outpatient 4. Advance diet as tolerate, ambulate, pancreatic enzymes downtrending 5. D/c planning
--- NOTE | 2016-04-29 12:45 | PN ---
Progress Note, Physician History of Present Illness: doing well no complaints tolerating diet - Current Medication List Current Medications: Active Medications Acetaminophen (Tylenol -) 650 mg PO Q4H PRN PRN Reason: FEVER OR PAIN Last Admin: 04/27/16 17:04 Dose: 650 mg Amlodipine Besylate (Norvasc -) 5 mg PO DAILY [facility] Last Admin: 04/29/16 09:13 Dose: 5 mg Lisinopril (Prinivil) 20 mg PO DAILY [facility] Last Admin: 04/29/16 09:13 Dose: 20 mg Ondansetron HCl (Zofran Injection) 4 mg IVPB Q6H PRN PRN Reason: NAUSEA Pancrelipase (Creon Dr 6,000 Units Capsule) 2 cap PO TIDCM [facility] Last Admin: 04/29/16 12:09 Dose: 2 cap Pantoprazole Sodium (Protonix -) 40 mg PO DAILY [facility] Last Admin: 04/29/16 09:13 Dose: 40 mg Simethicone (Mylicon -) 80 mg PO Q4H PRN PRN Reason: GAS - Objective Vital Signs: Vital Signs Temperature 98.6 F 04/29/16 10:00 Pulse Rate 64 04/29/16 10:00 Respiratory Rate 20 04/29/16 10:00 Blood Pressure 138/64 04/29/16 10:00 O2 Sat by Pulse Oximetry (%) 98 04/29/16 09:00 Constitutional: Yes: No Distress, Calm Cardiovascular: Yes: Regular Rate and Rhythm Respiratory: Yes: Regular, CTA Bilaterally Gastrointestinal: Yes: Normal Bowel Sounds, Soft Musculoskeletal: Yes: WNL Extremities: Yes: WNL Integumentary: Yes: WNL Neurological: Yes: Alert, Oriented Psychiatric: Yes: Alert, Oriented Labs: CBC, BMP 04/29/16 06:00 04/29/16 06:00 INR, PTT INR 1.56 (0.82-1.09) H 04/18/16 05:00 Assessment/Plan Problem List - Problems (1) Acute pancreatitis Code(s): K85.9 - ACUTE PANCREATITIS, UNSPECIFIED * DO NOT USE * Qualifiers: Pancreatitis type: drug induced Qualified Code(s): K85.3 - Drug induced acute pancreatitis (2) Hypertension Code(s): I10 - ESSENTIAL (PRIMARY) HYPERTENSION (3) Abnormal LFTs (liver function tests) Code(s): R79.89 - OTHER SPECIFIED ABNORMAL FINDINGS OF BLOOD CHEMISTRY (4) Leukocytosis Code(s): D72.829 - ELEVATED WHITE BLOOD CELL COUNT, UNSPECIFIED wbc down no fevers plan wbc trending down near normal has been afebrile continue monitoring doing well family in room
[2016-04-29 14:33] VITALS: BP 114/80; PULSE 78; TEMP 98
--- NOTE | 2016-04-29 15:00 | DS ---
Physical Examination Vital Signs: Vital Signs Temperature 98.0 F 04/29/16 14:29 Pulse Rate 78 04/29/16 14:29 Respiratory Rate 16 04/29/16 14:29 Blood Pressure 114/80 04/29/16 14:29 O2 Sat by Pulse Oximetry (%) 98 04/29/16 09:00 Constitutional: Yes: Well Nourished, No Distress, Calm Cardiovascular: Yes: Regular Rate and Rhythm. No: Gallop, Murmur, Rub Respiratory: Yes: Regular, CTA Bilaterally. No: Rales, Rhonchi, Wheezes Gastrointestinal: Yes: Normal Bowel Sounds, Soft. No: Distention, Tenderness Extremities: Yes: WNL Edema: No Labs: CBC, BMP 04/29/16 06:00 04/29/16 06:00 Discharge Summary Reason For Visit: ACUTE PANCREATITIS Hospital Course: (1) Acute pancreatitis Code(s): K85.9 - ACUTE PANCREATITIS, UNSPECIFIED * DO NOT USE * Qualifiers: Pancreatitis type: idiopathic Qualified Code(s): K85.0 - Idiopathic acute pancreatitis (2) Hypertension Code(s): I10 - ESSENTIAL (PRIMARY) HYPERTENSION Qualifiers: Hypertension type: essential hypertension Qualified Code(s): I10 - Essential (primary) hypertension (3) Leukocytosis Code(s): D72.829 - ELEVATED WHITE BLOOD CELL COUNT, UNSPECIFIED Qualifiers: Leukocytosis type: unspecified Qualified Code(s): D72.829 - Elevated white blood cell count, unspecified Mr Byrd is a very pleasant 61 year old male who comes in with abdominal pain and was found to have acute pancreatitis and concern for sepsis. He was seen by GI and ID. He was made npo, hydrated, and his pain was controlled. He was also started on broad spectrum antibiotics. He improved, however he continued to spike fevers. At first there was concern for abscess, but hewas found to have non-occlusive splenic vein thrombus. It was felt he was having fevers secondary to inflammation. His diet was advanced and he tolerated it well. Currently he is safe for discharge home. 35 minutes spent in preparation of this discharge Condition: Good - Instructions Diet, Activity, Other Instructions: resume previous diet and activity Referrals: Emanuel Gatica MD [Primary Care Provider] - Basil Alonzo MD [Staff Physician] - Disposition: HOME - Home Medications Comprehensive Discharge Medication List: Ambulatory Orders Amlodipine Besylate/Benazepril [Lotrel 5-40 mg Capsule] 1 each PO DAILY Pantoprazole Sodium [Protonix] 40 mg PO DAILY 04/17/16 Lipase/Protease/Amylase [Creon Dr 6,000 Units Capsule] 2 cap PO TIDCM #120 12/06
== END 2016-04-29 14:35 | disposition home or self-care (01) | DRG 440 ==
LOC: JER 12:32 → JERBED 17:39 → JICU 22:31 → J5S 04-21 18:29 → J4W 04-22 03:50 → J8W 04-26 16:56
PROVIDERS: ADMIT Internal Medicine; ATTEND Internal Medicine
DX: K85.90 Acute pancreatitis without necrosis or infection, unspecified (principal); I10 Essential (primary) hypertension; D72.829 Elevated white blood cell count, unspecified; R79.89 Other specified abnormal findings of blood chemistry; R00.1 Bradycardia, unspecified; D64.9 Anemia, unspecified; E78.5 Hyperlipidemia, unspecified; E66.9 Obesity, unspecified; Z68.34 Body mass index [BMI] 34.0-34.9, adult
CPT/HCPCS: 36415; 71010-TC; 74177-TC; 74178-TC; 74182-TC; 76705-TC; 80048; 80053; 80061; 80076; 81003; 82150; 83605; 83690; 83721; 83735; 83880; 84100; 84443; 84484; 85025; 85610; 85651; 86140; 87040; 87254; 87804; 93005; 93010; 93306-TC; 97116-GP; 97162-PG; 99283-25; A9576; Q9967

== ENCOUNTER 2016-05-06 17:45 | Inpatient (IN) | payer OTHER ==
[2016-05-06] MEDS ORDERED: HYDROmorphone HCL CARPU-JECT 2 MG/1 ML DISP.SYRIN IVPB PRN (19:11)
[2016-05-06] MEDS ORDERED: METOCLOPRAMIDE HCL INJECTION 10 MG/2 ML VIAL IVPB PRN (19:12)
[2016-05-06] MEDS ORDERED: IMIPENEM/CILASTATIN SODIUM 500 MG in SODIUM CHLORIDE 100 ML IVPB ONE (20:45)
[2016-05-06] MEDS: LACTATED RINGERS SOLUTION 1,000 ML IV SCH (20:53)
[2016-05-06] MEDS: PANTOPRAZOLE SODIUM 40 MG/100 ML PRE-DOCKED IVPB SCH ×2 (21:00→22:11)
[2016-05-06] MEDS ORDERED: ZOLPIDEM TARTRATE 5 MG TABLET PO PRN (21:00)
[2016-05-06 21:27] LABS: MCH 24.8 pg (25.7-33.7); MCHC 32.2 g/dl (32.0-35.9); MEAN CELL VOLUME 76.9 fl (80-96); PLATELET COUNT 295 K/MM3 (134-434); RDW 14.1 % (11.9-15.9); WHITE BLOOD COUNT 15.5 K/mm3 (4.0-10.0)
[2016-05-06 22:11] LABS: ANION GAP 9 (8-16); BILIRUBIN,TOTAL 0.9 mg/dL (0.2-1.0); CALCIUM 9.2 mg/dL (8.5-10.1); CO2 29 mmol/L (21-32); CREATININE 1.1 mg/dL (0.7-1.3); GLUCOSE,RANDOM 117 mg/dL (74-106); SGOT/AST 13 U/L (15-37); SGPT/ALT 27 U/L (12-78); TOT PROT 6.6 g/dl (6.4-8.2)
[2016-05-06 22:12] LABS: ALK PHOS 131 U/L (45-117)
--- NOTE | 2016-05-06 22:57 | HP ---
Admitting History and Physical - Admission Chief Complaint: abdominal pain, nausea,vomiting and lack of appetite History of Present Illness: 61 YEAR OLD MALE DISCHARGE ABOUT ONE WEEK AGO AFTER BOUT OF PANCREATITIS AND SPLENIC VEIN THROMBUS. UPON DISCHARGE THE PATIENT HAD NO ABDOMINAL PAIN AND WAS TOLERATING A LOW FAT DIET. HE DID WELL FOR 6 DAYS BUT YESTERDAY HE DEVELOPED NAUSEA AND 4/10 ABDOMINAL PAIN. HE HAD A BOUT OF VOMITING. HE HAS LOST HIS APPETITE. HIS MAXIMUM TEMPERATURE WAS 100 DEGREES. HIS CALLED THE OFFICE AND DESCRIBED HIS SYMPTOMS. AN OUTPATIENT CT SCAN REVELED A LARGE PSEUDOCYST AND POSSIBLE SOME NECROSIS IN THE PANCREATIC TAIL. HE WAS ADVISED TO COME BACK TO THE HOSPITAL FOR ADMISSION. History Source: Patient Limitations to Obtaining History: No Limitations - Past Medical History Cardiovascular: Yes: HTN, Hyperlipdemia Gastrointestinal: Yes: Gastritis, Pancreatitis (THE ETIOLOGY ODF THE PANCREATITIS WAS NEVER FOUND) - Past Surgical History Past Surgical History: Yes: Colonoscopy - Smoking History Smoking history: Never smoked - Alcohol/Substance Use Hx Alcohol Use: No Home Medications - Allergies Allergies/Adverse Reactions: Allergies Allergy/AdvReac Type Severity Reaction Status Date / Time No Known Allergies Allergy Verified 04/17/16 12:42 - Home Medications Home Medications: Ambulatory Orders Amlodipine Besylate/Benazepril [Lotrel 5-40 mg Capsule] 1 each PO DAILY Pantoprazole Sodium [Protonix] 40 mg PO DAILY 04/17/16 Lipase/Protease/Amylase [Creon Dr 6,000 Units Capsule] 2 cap PO TIDCM #120 12/06 Family Disease History - Family Disease History Family History: Unremarkable Review of Systems - Review of Systems Constitutional: reports: Malaise Eyes: reports: No Symptoms HENT: reports: No Symptoms Neck: reports: No Symptoms Cardiovascular: reports: No Symptoms Respiratory: reports: No Symptoms Gastrointestinal: reports: Abdominal Pain, Nausea, Vomiting Genitourinary: reports: No Symptoms Musculoskeletal: reports: No Symptoms Integumentary: reports: No Symptoms Neurological: reports: No Symptoms Endocrine: reports: No Symptoms Psychiatric: reports: No Symptoms Physical Examination Constitutional: Yes: Mild Distress Eyes: Yes: Conjunctiva Clear HENT: Yes: Normocephalic Neck: Yes: Supple Cardiovascular: Yes: Regular Rate and Rhythm Respiratory: Yes: Regular Gastrointestinal: Yes: Normal Bowel Sounds, Distention, Tenderness, Epigastrium Extremities: Yes: WNL Neurological: Yes: WNL Psychiatric: Yes: WNL Labs: CBC, BMP 05/06/16 20:45 05/06/16 20:45 Laboratory Tests 05/06/16 05/06/16 05/06/16 20:45 20:45 20:45 Total Bilirubin 0.9 AST 13 L D ALT 27 Alkaline Phosphatase 131 H C-Reactive Protein 14.6 H D Total Protein 6.6 Albumin 3.0 L Lipase 574 H Imaging - Results Cat Scan: Image Reviewed Problem List - Problems (1) Pancreatic pseudocyst Assessment/Plan: PATIENT NEEDS TO BE ADMITTED FOR PANCREATIC REST, IVF AND ANALGESIA. HE NEEDS ANTIBIOTICS AND I HAVE CONSULTED ID. HE WILL REMAIN NPO AND WILL BE GIVEN ANALGESIA. A NASOJEJUNAL TUBE WILL BE PLACED ON MONDAY i WAIT FOR THE HOSPITAL TO OBTAIN THE PROPER TUBE. THE PROCESS THAT IS OCCURRING NOW NEEDS TO MATURE FOR ABOUT 3 TO 4 WEEKS BEFORE ANY MANIPULATION IS PERFORMED (WHETHER ENDOSCOPIC OR SURGICAL) WILL NEED TO OBSERVE FOR FLUID OVERLOAD AND FEVER THAT MAY SUGGEST INFECTION OF THE CYST OR NECROSIS. Code(s): K86.3 - PSEUDOCYST OF PANCREAS (2) Relapsing pancreatic necrosis Code(s): K86.89 - OTHER SPECIFIED DISEASES OF PANCREAS (3) Splenic vein thrombosis Assessment/Plan: COLLATERALS SEEN, SPLEEN LOOKS OK Code(s): I82.890 - ACUTE EMBOLISM AND THROMBOSIS OF OTHER SPECIFIED VEINS
[2016-05-06 23:29] VITALS: BMI 31.4
[2016-05-07] MEDS: IMIPENEM/CILASTATIN SODIUM 500 MG in SODIUM CHLORIDE 100 ML IVPB SCH ×2 (02:15→11:03)
[2016-05-07] MEDS: LACTATED RINGERS SOLUTION 1,000 ML IV SCH ×3 (02:28→23:15)
[2016-05-07 08:45] LABS: MCH 24.7 pg (25.7-33.7); MCHC 32.1 g/dl (32.0-35.9); MEAN CELL VOLUME 76.9 fl (80-96); PLATELET COUNT 235 K/MM3 (134-434); RDW 13.7 % (11.9-15.9); WHITE BLOOD COUNT 14.7 K/mm3 (4.0-10.0)
[2016-05-07] MEDS ORDERED: ACETAMINOPHEN 325 MG TABLET (FP) PO ONE (09:00)
[2016-05-07] MEDS ORDERED: PT OWN MED DRAWER 7, Y5N ONE ×2 (09:10→17:48)
[2016-05-07] MEDS: amLODIPine BESYLATE 5 MG TABLET (FP) PO SCH (09:14)
[2016-05-07] MEDS: PANTOPRAZOLE SODIUM 40 MG/100 ML PRE-DOCKED IVPB SCH (09:15)
[2016-05-07 09:22] LABS: CALCIUM 8.4 mg/dL (8.5-10.1)
[2016-05-07 09:24] LABS: C-REACTIVE PROTEIN 14.6 MG/DL (0.00-0.3); CREATININE 0.9 mg/dL (0.7-1.3)
[2016-05-07] MEDS ORDERED: LISINOPRIL 20 MG TABLET (FP) PO SCH (10:00)
--- NOTE | 2016-05-07 11:42 | CONSULT ---
Consult Consult Specialty:: infectious diseases Reason for Consultation:: fever,pancreatic necrosis,psudocyst - History of Present Illness Chief Complaint: fever,abd pain History of Present Illness: patient known from last admission.He is a 61 y/o male who was admitted with severe pancreatitits and splenic vein thrombosis,who was managed conservatively stabilized and discharged home. Patient then in between spiked a fever and then was stale again till he started developing nausea and abd pain with vomiting patient was told to get a follow up ct scan which he did which showed a large pseudocyst and possible some pancreatic necrosis in the tail patient has again started spiking fevers - History Source History Provided By: Patient Limitations to Obtaining History: No Limitations - Past Medical History Cardio/Vascular: Yes: HTN, Hyperlipdemia Gastrointestinal: Yes: Gastritis, Pancreatitis (THE ETIOLOGY ODF THE PANCREATITIS WAS NEVER FOUND) - Past Surgical History Past Surgical History: Yes: Colonoscopy - Alcohol/Substance Use Hx Alcohol Use: No - Smoking History Smoking history: Never smoked Home Medications - Allergies Allergies/Adverse Reactions: Allergies Allergy/AdvReac Type Severity Reaction Status Date / Time No Known Allergies Allergy Verified 04/17/16 12:42 - Home Medications Home Medications: Ambulatory Orders Amlodipine Besylate/Benazepril [Lotrel 5-40 mg Capsule] 1 each PO DAILY Pantoprazole Sodium [Protonix] 40 mg PO DAILY 04/17/16 Lipase/Protease/Amylase [Creon Dr 6,000 Units Capsule] 2 cap PO [facility] #120 12/06 Review of Systems - Review of Systems Constitutional: reports: Fever, Other Eyes: reports: No Symptoms HENT: reports: No Symptoms Neck: reports: No Symptoms Cardiovascular: reports: No Symptoms Respiratory: reports: No Symptoms Gastrointestinal: reports: Abdominal Pain, Bloating, Nausea, Vomiting Genitourinary: reports: No Symptoms Musculoskeletal: reports: No Symptoms Integumentary: reports: No Symptoms Neurological: reports: No Symptoms Endocrine: reports: No Symptoms Hematology/Lymphatic: reports: No Symptoms Psychiatric: reports: No Symptoms Physical Exam Vital Signs: Vital Signs Temperature 100.4 F H 05/07/16 06:38 Pulse Rate 88 05/07/16 06:38 Respiratory Rate 20 05/07/16 06:38 Blood Pressure 138/66 05/07/16 06:38 O2 Sat by Pulse Oximetry (%) Constitutional: Yes: No Distress, Calm, Obese Eyes: Yes: Conjunctiva Clear HENT: Yes: Atraumatic Neck: Yes: Supple, Trachea Midline Cardiovascular: Yes: Regular Rate and Rhythm Respiratory: Yes: Regular, CTA Bilaterally Gastrointestinal: Yes: Hypoactive Bowel Sounds, Tenderness, Vomiting Musculoskeletal: Yes: WNL Extremities: Yes: WNL Neurological: Yes: Alert, Oriented Psychiatric: Yes: Alert, Oriented Labs: CBC, BMP 05/07/16 06:50 05/07/16 06:50 Imaging - Results Cat Scan: Report Reviewed, Image Reviewed Other: Report Reviewed, Image Reviewed Assessment/Plan Problem List - Problems (1) Pancreatic pseudocyst Code(s): K86.3 - PSEUDOCYST OF PANCREAS (2) Relapsing pancreatic necrosis Code(s): K86.89 - OTHER SPECIFIED DISEASES OF PANCREAS (3) Splenic vein thrombosis Assessment/Plan: COLLATERALS SEEN, SPLEEN LOOKS OK Code(s): I82.890 - ACUTE EMBOLISM AND THROMBOSIS fever nausea and vomiting abd pain plan continue as per gi continue abx close monitoring will have to decide the further plan
--- NOTE | 2016-05-07 12:41 | PN ---
GI Progress Note Subjective: GASTROENTEROLOGY FEELS BETTER, TEMP SPIKE THIS AM, STILL NPO MILD CRAMPING OF THE ABDOMEN, NO NAUSEA OR VOMITING - Objective Vital Signs: Vital Signs Temperature 100.4 F H 05/07/16 06:38 Pulse Rate 88 05/07/16 06:38 Respiratory Rate 20 05/07/16 06:38 Blood Pressure 138/66 05/07/16 06:38 O2 Sat by Pulse Oximetry (%) Constitutional: No Distress, Calm Eyes: Yes: Conjunctiva Clear HENT: Yes: Normocephalic Cardiovascular: Yes: Regular Rate and Rhythm Respiratory: Yes: Regular Gastrointestinal Inspection: Yes: Distention ...Auscultate: Yes: Normoactive Bowel Sounds ...Palpate: Yes: Tenderness (MILD EPIGASTRIC LUQ TENDERNESS, NO MASS, GUARDING OR REBOUND) Extremities: Yes: WNL Labs: CBC, BMP 05/07/16 06:50 05/07/16 06:50 Laboratory Tests 05/06/16 05/07/16 05/07/16 20:45 06:50 06:50 WBC 14.7 H RBC 4.40 Hgb 10.9 L Hct 33.8 L MCV 76.9 L MCHC 32.1 RDW 13.7 Plt Count 235 D MPV 10.0 Sodium 138 Potassium 4.0 Chloride 101 Carbon Dioxide 26 Anion Gap 11 BUN 12 Creatinine 0.9 Random Glucose 122 H Calcium 8.4 L C-Reactive Protein 14.6 H Lipase 574 H 373 Problem List - Problems (1) Pancreatic pseudocyst Assessment/Plan: CONTINUE CURRENT COURSE AMBULATE,SCD WHILE IN BED TRANSFER MEDICAL CARE TO DR STONE APPRECIATE ID INPUT FOR NASOJEJUNAL FEEDING ONCE HOSPITAL GETS CORRECT TUBE FOR ENDOSCOPIC PLACEMENT , START PPN AND INTRALIPIDS Code(s): K86.3 - PSEUDOCYST OF PANCREAS (2) Relapsing pancreatic necrosis Code(s): K86.89 - OTHER SPECIFIED DISEASES OF PANCREAS (3) Splenic vein thrombosis Code(s): I82.890 - ACUTE EMBOLISM AND THROMBOSIS OF OTHER SPECIFIED VEINS
--- NOTE | 2016-05-07 14:21 | PN ---
Progress Note, Physician History of Present Illness: Not much pain this morning. No longer having nausea. No fevers noted. - Current Medication List Current Medications: Active Medications Amlodipine Besylate (Norvasc -) 5 mg PO DAILY [facility] Last Admin: 05/07/16 09:14 Dose: 5 mg Fat Emulsion Intravenous (Intralipid -) 250 ml IV DAILY@2200 [facility] Hydromorphone HCl (Dilaudid Injection -) 2 mg IVPB Q4H PRN PRN Reason: PAIN Lactated Ringer's (Lactated Ringers Solution) 1,000 mls @ 80 mls/hr IV ASDIR [facility] Amino Acids (Clinimix -) 1,000 mls @ 84 mls/hr IV Q12H [facility] Imipenem/Cilastatin Sodium 1, (000 mg/ Dextrose) 250 mls @ 250 mls/hr IVPB Q8H- IV [facility] Metoclopramide HCl (Reglan Injection -) 10 mg IVPB Q8H PRN PRN Reason: NAUSEA Multivitamins/Minerals (Infuvite Adult -) 10 ml IV DAILY [facility] Pantoprazole Sodium (Protonix -) 20 mg PO BID [facility] Zolpidem Tartrate (Ambien -) 5 mg PO HS PRN - Objective Vital Signs: Vital Signs Temperature 100.4 F H 05/07/16 06:38 Pulse Rate 88 05/07/16 06:38 Respiratory Rate 20 05/07/16 06:38 Blood Pressure 138/66 05/07/16 06:38 O2 Sat by Pulse Oximetry (%) Constitutional: Yes: No Distress, Calm Cardiovascular: Yes: Regular Rate and Rhythm, S1, S2. No: Murmur Respiratory: Yes: Regular, CTA Bilaterally. No: Rales, Rhonchi, Wheezes Gastrointestinal: Yes: Normal Bowel Sounds, Soft, Abdomen, Obese. No: Distention, Tenderness Edema: No Labs: CBC, BMP 05/07/16 06:50 05/07/16 06:50 Assessment/Plan Current Active Problems Pancreatic pseudocyst (Acute) Relapsing pancreatic necrosis (Acute) HTN -IVF, abx, pain control, pancreatic rest
[2016-05-07] MEDS ORDERED: MULTIVIT INJ. ADULT COMBO WITH VIT K 1 COMBO 10 ML VIAL IV ONE (15:00)
[2016-05-07] MEDS: AMINO ACIDS 4.25%/D5W 1,000 ML IV SCH (15:59)
[2016-05-07] MEDS: WATER IVPB SCH (17:53)
[2016-05-07] MEDS: IMIPENEM IVPB SCH (17:53)
[2016-05-07] MEDS: DEXTROSE 5% IVPB SCH (17:53)
[2016-05-07] MEDS: CILASTATIN SODIUM IVPB SCH (17:53)
[2016-05-07] MEDS: FAT EMULSIONS 20% 250 ML PREMIX INFUS.BAG IV SCH (21:23)
[2016-05-07] MEDS: PANTOPRAZOLE 20 MG TABLET (FP) PO SCH (22:23)
[2016-05-08] MEDS: AMINO ACIDS 4.25%/D5W 1,000 ML IV SCH ×2 (01:14→18:00)
[2016-05-08] MEDS: WATER IVPB SCH ×3 (02:14→17:59)
[2016-05-08] MEDS: DEXTROSE 5% IVPB SCH ×3 (02:14→17:59)
[2016-05-08] MEDS: CILASTATIN SODIUM IVPB SCH ×3 (02:14→17:59)
[2016-05-08] MEDS: IMIPENEM IVPB SCH ×3 (02:14→17:59)
[2016-05-08 08:59] LABS: BASOPHIL 0.9 % (0-2.0); EOSINOPHIL 6.3 % (0-4.5); MCH 25.3 pg (25.7-33.7); MCHC 32.6 g/dl (32.0-35.9); MEAN CELL VOLUME 77.5 fl (80-96); MEAN PLT VOLUME 9.9 fl (7.5-11.1); NEUTROPHILS 79.4 % (42.8-82.8); PLATELET COUNT 198 K/MM3 (134-434); RDW 13.8 % (11.9-15.9); WHITE BLOOD COUNT 9.4 K/mm3 (4.0-10.0)
[2016-05-08] MEDS ORDERED: PT OWN MED DRAWER 7, Y5N ONE ×3 (10:05→17:53)
[2016-05-08] MEDS: PANTOPRAZOLE 20 MG TABLET (FP) PO SCH ×2 (10:11→21:39)
[2016-05-08] MEDS: amLODIPine BESYLATE 5 MG TABLET (FP) PO SCH (10:11)
--- NOTE | 2016-05-08 11:01 | PN ---
Progress Note, Physician History of Present Illness: Feeling OK, still with some abd discomfort, but did not need pain med yesterday. Still notes sleep seems to be an issue. - Current Medication List Current Medications: Active Medications Amlodipine Besylate (Norvasc -) 5 mg PO DAILY [facility] Last Admin: 05/08/16 10:11 Dose: 5 mg Fat Emulsion Intravenous (Intralipid -) 250 ml IV DAILY@2200 [facility] Last Admin: 05/07/16 21:23 Dose: 250 ml Hydromorphone HCl (Dilaudid Injection -) 2 mg IVPB Q4H PRN PRN Reason: PAIN Lactated Ringer's (Lactated Ringers Solution) 1,000 mls @ 80 mls/hr IV ASDIR [facility] Last Admin: 05/07/16 23:15 Dose: 80 mls/hr Amino Acids (Clinimix -) 1,000 mls @ 84 mls/hr IV Q12H [facility] Last Admin: 05/08/16 01:14 Dose: Not Given Imipenem/Cilastatin Sodium 1, (000 mg/ Dextrose) 250 mls @ 250 mls/hr IVPB Q8H- IV [facility] Last Admin: 05/08/16 10:11 Dose: 250 mls/hr Metoclopramide HCl (Reglan Injection -) 10 mg IVPB Q8H PRN PRN Reason: NAUSEA Multivitamins/Minerals (Infuvite Adult -) 10 ml IV DAILY [facility] Pantoprazole Sodium (Protonix -) 20 mg PO BID [facility] Last Admin: 05/08/16 10:11 Dose: 20 mg Zolpidem Tartrate (Ambien -) 5 mg PO HS PRN Last Admin: 05/07/16 22:23 Dose: 5 mg - Objective Vital Signs: Vital Signs Temperature 99.9 F H 05/08/16 06:00 Pulse Rate 80 05/08/16 06:00 Respiratory Rate 20 05/08/16 06:00 Blood Pressure 120/56 05/08/16 06:00 O2 Sat by Pulse Oximetry (%) 98 05/07/16 21:00 Constitutional: Yes: No Distress, Calm Eyes: Yes: Conjunctiva Clear, EOM Intact HENT: Yes: Atraumatic, Normocephalic Neck: Yes: Supple, Trachea Midline Cardiovascular: Yes: Regular Rate and Rhythm, S1, S2. No: Murmur Respiratory: Yes: Regular, CTA Bilaterally. No: Rales, Rhonchi, Wheezes Gastrointestinal: Yes: Normal Bowel Sounds, Soft. No: Distention, Tenderness Edema: No Labs: CBC, BMP 05/08/16 06:50 05/07/16 06:50 Assessment/Plan Current Active Problems Pancreatic pseudocyst (Acute) Relapsing pancreatic necrosis (Acute) HTN -IVF, abx, pain control, pancreatic rest -plan for eventual drainage of cyst when more matured
--- NOTE | 2016-05-08 13:06 | PN ---
GI Progress Note Subjective: GASTROENTEROLOGY MINIMAL PAIN , NO FEVER, WBC COUNT IS NORMAL , LIPASE IS NORMAL - Objective Vital Signs: Vital Signs Temperature 99.9 F H 05/08/16 06:00 Pulse Rate 80 05/08/16 06:00 Respiratory Rate 20 05/08/16 06:00 Blood Pressure 120/56 05/08/16 06:00 O2 Sat by Pulse Oximetry (%) 98 05/07/16 21:00 Constitutional: No Distress, Calm Eyes: Yes: Conjunctiva Clear HENT: Yes: Normocephalic Cardiovascular: Yes: WNL Respiratory: Yes: WNL Gastrointestinal Inspection: Yes: Distention ...Auscultate: Yes: Normoactive Bowel Sounds ...Palpate: Yes: Soft Musculoskeletal: Yes: WNL Extremities: Yes: WNL Labs: CBC, BMP 05/08/16 06:50 05/07/16 06:50 Microbiology 05/07/16 06:00 Urine - Urine Clean Catch Urine Culture - Final NO GROWTH OBTAINED 05/06/16 20:55 Blood - Arterial Blood Culture - Preliminary NO GROWTH OBTAINED AFTER 24 HOURS, INCUBATION TO CONTINUE FOR 4 DAYS. 05/06/16 20:45 Blood - Arterial Blood Culture - Preliminary NO GROWTH OBTAINED AFTER 24 HOURS, INCUBATION TO CONTINUE FOR 4 DAYS. Laboratory Tests 05/06/16 05/07/16 05/08/16 20:45 06:50 06:50 WBC RBC Hgb Hct MCV MCHC RDW Plt Count MPV Neutrophils % Lymphocytes % Monocytes % Eosinophils % Basophils % Sodium 138 Potassium 4.0 Chloride 101 Carbon Dioxide 26 Anion Gap 11 BUN 12 Creatinine 0.9 Random Glucose 122 H Calcium 8.4 L C-Reactive Protein 14.6 H D 14.6 H 17.3 H D 05/08/16 06:50 WBC 9.4 D RBC 4.50 Hgb 11.4 L Hct 34.9 L MCV 77.5 L MCHC 32.6 RDW 13.8 Plt Count 198 MPV 9.9 Neutrophils % 79.4 Lymphocytes % 6.7 L D Monocytes % 6.7 Eosinophils % 6.3 H D Basophils % 0.9 Sodium Potassium Chloride Carbon Dioxide Anion Gap BUN Creatinine Random Glucose Calcium C-Reactive Protein Problem List - Problems (1) Pancreatic pseudocyst Assessment/Plan: CONTINUE CURRENT COURSE AMBULATE,SCD WHILE IN BED TRANSFER MEDICAL CARE TO DR STONE APPRECIATE ID INPUT FOR NASOJEJUNAL FEEDING ONCE HOSPITAL GETS CORRECT TUBE FOR ENDOSCOPIC PLACEMENT , START PPN AND INTRALIPIDS SO FAR STABLE SLIGHT IMPROVEMENT Code(s): K86.3 - PSEUDOCYST OF PANCREAS (2) Relapsing pancreatic necrosis Assessment/Plan: STABLE Code(s): K86.89 - OTHER SPECIFIED DISEASES OF PANCREAS (3) Splenic vein thrombosis Assessment/Plan: COLLATERALS SEEN, SPLEEN LOOKS OK Code(s): I82.890 - ACUTE EMBOLISM AND THROMBOSIS OF OTHER SPECIFIED VEINS
--- NOTE | 2016-05-08 16:59 | PN ---
Progress Note, Physician History of Present Illness: patient doing well still has abd discomfort - Current Medication List Current Medications: Active Medications Amlodipine Besylate (Norvasc -) 5 mg PO DAILY [facility] Last Admin: 05/08/16 10:11 Dose: 5 mg Fat Emulsion Intravenous (Intralipid -) 250 ml IV DAILY@2200 [facility] Last Admin: 05/07/16 21:23 Dose: 250 ml Hydromorphone HCl (Dilaudid Injection -) 2 mg IVPB Q4H PRN PRN Reason: PAIN Lactated Ringer's (Lactated Ringers Solution) 1,000 mls @ 80 mls/hr IV ASDIR [facility] Last Admin: 05/07/16 23:15 Dose: 80 mls/hr Amino Acids (Clinimix -) 1,000 mls @ 84 mls/hr IV Q12H [facility] Last Admin: 05/08/16 01:14 Dose: Not Given Imipenem/Cilastatin Sodium 1, (000 mg/ Dextrose) 250 mls @ 250 mls/hr IVPB Q8H- IV [facility] Last Admin: 05/08/16 10:11 Dose: 250 mls/hr Metoclopramide HCl (Reglan Injection -) 10 mg IVPB Q8H PRN PRN Reason: NAUSEA Multivitamins/Minerals (Infuvite Adult -) 10 ml IV DAILY [facility] Pantoprazole Sodium (Protonix -) 20 mg PO BID [facility] Last Admin: 05/08/16 10:11 Dose: 20 mg Zolpidem Tartrate (Ambien -) 10 mg PO HS PRN PRN Reason: INSOMNIA - Objective Vital Signs: Vital Signs Temperature 99.1 F 05/08/16 15:07 Pulse Rate 76 05/08/16 15:07 Respiratory Rate 20 05/08/16 15:07 Blood Pressure 115/65 05/08/16 15:07 O2 Sat by Pulse Oximetry (%) 98 05/08/16 09:00 Constitutional: Yes: No Distress, Calm HENT: Yes: Atraumatic Cardiovascular: Yes: Regular Rate and Rhythm Respiratory: Yes: Regular, CTA Bilaterally Gastrointestinal: Yes: Soft, Hypoactive Bowel Sounds Musculoskeletal: Yes: WNL Extremities: Yes: WNL Neurological: Yes: Alert, Oriented Psychiatric: Yes: Alert Labs: CBC, BMP 05/08/16 06:50 05/07/16 06:50 Assessment/Plan Problem List - Problems (1) Pancreatic pseudocyst Code(s): K86.3 - PSEUDOCYST OF PANCREAS (2) Relapsing pancreatic necrosis Code(s): K86.89 - OTHER SPECIFIED DISEASES OF PANCREAS (3) Splenic vein thrombosis Assessment/Plan: COLLATERALS SEEN, SPLEEN LOOKS OK Code(s): I82.890 - ACUTE EMBOLISM AND THROMBOSIS fever nausea and vomiting abd pain patient stable from fever point of view plan continue as per gi continue abx close monitoring will have to decide the further plan
[2016-05-08] MEDS: LACTATED RINGERS SOLUTION 1,000 ML IV SCH (17:34)
[2016-05-08] MEDS: MULTIVIT INJ. ADULT COMBO WITH VIT K 1 COMBO 10 ML VIAL IV SCH (17:35)
[2016-05-08] MEDS: FAT EMULSIONS 20% 250 ML PREMIX INFUS.BAG IV SCH (21:40)
[2016-05-08] MEDS: ZOLPIDEM TARTRATE 5 MG TABLET PO PRN (22:58)
[2016-05-09] MEDS: DEXTROSE 5% IVPB SCH ×3 (02:06→18:31)
[2016-05-09] MEDS: IMIPENEM IVPB SCH ×3 (02:06→18:31)
[2016-05-09] MEDS: CILASTATIN SODIUM IVPB SCH ×3 (02:06→18:31)
[2016-05-09] MEDS: WATER IVPB SCH ×3 (02:06→18:31)
[2016-05-09] MEDS: AMINO ACIDS 4.25%/D5W 1,000 ML IV SCH ×2 (04:54→15:06)
[2016-05-09] MEDS: LACTATED RINGERS SOLUTION 1,000 ML IV SCH ×2 (06:57→15:06)
[2016-05-09 08:35] LABS: BASOPHIL 0.7 % (0-2.0); EOSINOPHIL 10.3 % (0-4.5); MCH 25.1 pg (25.7-33.7); MCHC 32.3 g/dl (32.0-35.9); MEAN CELL VOLUME 77.6 fl (80-96); MEAN PLT VOLUME 9.8 fl (7.5-11.1); NEUTROPHILS 70.3 % (42.8-82.8); PLATELET COUNT 187 K/MM3 (134-434); RDW 13.4 % (11.9-15.9); WHITE BLOOD COUNT 6.3 K/mm3 (4.0-10.0)
[2016-05-09 09:04] LABS: ALBUMIN 2.5 g/dl (3.4-5.0); ALK PHOS 109 U/L (45-117); AMYLASE 73 U/L (25-115); ANION GAP 10 (8-16); BILIRUBIN,TOTAL 0.4 mg/dL (0.2-1.0); C-REACTIVE PROTEIN 12.4 MG/DL (0.00-0.3); CALCIUM 8.4 mg/dL (8.5-10.1); CO2 28 mmol/L (21-32); CREATININE 0.6 mg/dL (0.7-1.3); GLUCOSE,RANDOM 124 mg/dL (74-106); SGOT/AST 9 U/L (15-37); SGPT/ALT 15 U/L (12-78)
[2016-05-09] MEDS ORDERED: PT OWN MED DRAWER 7, Y5N ONE ×2 (09:58→17:20)
[2016-05-09] MEDS: PANTOPRAZOLE 20 MG TABLET (FP) PO SCH ×2 (10:05→22:02)
[2016-05-09] MEDS: amLODIPine BESYLATE 5 MG TABLET (FP) PO SCH (10:05)
--- NOTE | 2016-05-09 10:32 | PN ---
Progress Note, Physician Chief Complaint: Mr Byrd says he is having abdominal pain. No cp or sob. - Current Medication List Current Medications: Active Medications Amlodipine Besylate (Norvasc -) 5 mg PO DAILY [facility] Last Admin: 05/09/16 10:05 Dose: 5 mg Fat Emulsion Intravenous (Intralipid -) 250 ml IV DAILY@2200 [facility] Last Admin: 05/08/16 21:40 Dose: 250 ml Hydromorphone HCl (Dilaudid Injection -) 2 mg IVPB Q4H PRN PRN Reason: PAIN Lactated Ringer's (Lactated Ringers Solution) 1,000 mls @ 80 mls/hr IV ASDIR [facility] Last Admin: 05/09/16 06:57 Dose: 80 mls/hr Amino Acids (Clinimix -) 1,000 mls @ 84 mls/hr IV Q12H [facility] Last Admin: 05/09/16 04:54 Dose: 84 mls/hr Imipenem/Cilastatin Sodium 1, (000 mg/ Dextrose) 250 mls @ 250 mls/hr IVPB Q8H- IV [facility] Last Admin: 05/09/16 02:06 Dose: 250 mls/hr Metoclopramide HCl (Reglan Injection -) 10 mg IVPB Q8H PRN PRN Reason: NAUSEA Multivitamins/Minerals (Infuvite Adult -) 10 ml IV DAILY [facility] Last Admin: 05/08/16 17:35 Dose: 10 ml Pantoprazole Sodium (Protonix -) 20 mg PO BID [facility] Last Admin: 05/09/16 10:05 Dose: 20 mg Zolpidem Tartrate (Ambien -) 10 mg PO HS PRN PRN Reason: INSOMNIA Last Admin: 05/08/16 22:58 Dose: 10 mg - Objective Vital Signs: Vital Signs Temperature 98.8 F 05/09/16 08:55 Pulse Rate 62 05/09/16 08:55 Respiratory Rate 20 05/09/16 08:55 Blood Pressure 135/60 05/09/16 08:55 O2 Sat by Pulse Oximetry (%) 97 05/08/16 21:00 Constitutional: Yes: No Distress, Calm, Obese Cardiovascular: Yes: Regular Rate and Rhythm. No: Gallop, Murmur, Rub Respiratory: Yes: Regular, CTA Bilaterally. No: Rales, Rhonchi, Wheezes Gastrointestinal: Yes: Distention, Hypoactive Bowel Sounds, Tenderness Extremities: Yes: WNL Edema: No Labs: CBC, BMP 05/09/16 07:00 05/09/16 07:00 Problem List - Problems (1) Relapsing pancreatic necrosis Assessment/Plan: -continue antibiotics per ID -continue pain control -continue NPO with clinimix -GI following Code(s): K86.89 - OTHER SPECIFIED DISEASES OF PANCREAS (2) Hypertension Assessment/Plan: -monitor Code(s): I10 - ESSENTIAL (PRIMARY) HYPERTENSION Qualifiers: Hypertension type: essential hypertension Qualified Code(s): I10 - Essential (primary) hypertension
--- NOTE | 2016-05-09 13:14 | PN ---
Progress Note, Physician History of Present Illness: stable no new issues abd discomfort still present - Current Medication List Current Medications: Active Medications Amlodipine Besylate (Norvasc -) 5 mg PO DAILY [facility] Last Admin: 05/09/16 10:05 Dose: 5 mg Fat Emulsion Intravenous (Intralipid -) 250 ml IV DAILY@2200 [facility] Last Admin: 05/08/16 21:40 Dose: 250 ml Hydromorphone HCl (Dilaudid Injection -) 2 mg IVPB Q4H PRN PRN Reason: PAIN Lactated Ringer's (Lactated Ringers Solution) 1,000 mls @ 80 mls/hr IV ASDIR [facility] Last Admin: 05/09/16 06:57 Dose: 80 mls/hr Amino Acids (Clinimix -) 1,000 mls @ 84 mls/hr IV Q12H [facility] Last Admin: 05/09/16 04:54 Dose: 84 mls/hr Imipenem/Cilastatin Sodium 1, (000 mg/ Dextrose) 250 mls @ 250 mls/hr IVPB Q8H- IV [facility] Last Admin: 05/09/16 10:38 Dose: 250 mls/hr Metoclopramide HCl (Reglan Injection -) 10 mg IVPB Q8H PRN PRN Reason: NAUSEA Multivitamins/Minerals (Infuvite Adult -) 10 ml IV DAILY [facility] Last Admin: 05/08/16 17:35 Dose: 10 ml Pantoprazole Sodium (Protonix -) 20 mg PO BID [facility] Last Admin: 05/09/16 10:05 Dose: 20 mg Zolpidem Tartrate (Ambien -) 10 mg PO HS PRN PRN Reason: INSOMNIA Last Admin: 05/08/16 22:58 Dose: 10 mg - Objective Vital Signs: Vital Signs Temperature 98.8 F 05/09/16 08:55 Pulse Rate 62 05/09/16 08:55 Respiratory Rate 20 05/09/16 08:55 Blood Pressure 135/60 05/09/16 08:55 O2 Sat by Pulse Oximetry (%) 97 05/08/16 21:00 Constitutional: Yes: Calm, Mild Distress Cardiovascular: Yes: Regular Rate and Rhythm Respiratory: Yes: Regular, CTA Bilaterally Gastrointestinal: Yes: Soft, Tenderness Musculoskeletal: Yes: WNL Extremities: Yes: WNL Neurological: Yes: Alert, Oriented Psychiatric: Yes: Alert, Oriented Labs: CBC, BMP 05/09/16 07:00 05/09/16 07:00 Assessment/Plan Problem List - Problems (1) Pancreatic pseudocyst Code(s): K86.3 - PSEUDOCYST OF PANCREAS (2) Relapsing pancreatic necrosis Code(s): K86.89 - OTHER SPECIFIED DISEASES OF PANCREAS (3) Splenic vein thrombosis Assessment/Plan: COLLATERALS SEEN, SPLEEN LOOKS OK Code(s): I82.890 - ACUTE EMBOLISM AND THROMBOSIS fever nausea and vomiting abd pain patient stable from fever point of view plan continue current mgmt patient remaining afebrile
[2016-05-09] MEDS: MULTIVIT INJ. ADULT COMBO WITH VIT K 1 COMBO 10 ML VIAL IV SCH (15:07)
[2016-05-09] MEDS: ZOLPIDEM TARTRATE 5 MG TABLET PO PRN (22:02)
[2016-05-09] MEDS: FAT EMULSIONS 20% 250 ML PREMIX INFUS.BAG IV SCH (22:02)
[2016-05-10] MEDS: AMINO ACIDS 4.25%/D5W 1,000 ML IV SCH ×3 (00:42→17:21)
[2016-05-10] MEDS: DEXTROSE 5% IVPB SCH ×3 (02:14→17:24)
[2016-05-10] MEDS: CILASTATIN SODIUM IVPB SCH ×3 (02:14→17:24)
[2016-05-10] MEDS: IMIPENEM IVPB SCH ×3 (02:14→17:24)
[2016-05-10] MEDS: WATER IVPB SCH ×3 (02:14→17:24)
[2016-05-10] MEDS: LACTATED RINGERS SOLUTION 1,000 ML IV SCH ×3 (04:43→18:51)
[2016-05-10] MEDS ORDERED: PT OWN MED DRAWER 7, Y5N ONE ×3 (08:48→21:24)
[2016-05-10] MEDS: amLODIPine BESYLATE 5 MG TABLET (FP) PO SCH (09:58)
[2016-05-10] MEDS: PANTOPRAZOLE 20 MG TABLET (FP) PO SCH ×2 (09:58→21:54)
[2016-05-10 10:06] LABS: CALCIUM 8.7 mg/dL (8.5-10.1); CREATININE 0.7 mg/dL (0.7-1.3); MAGNESIUM 2.1 mg/dL (1.8-2.4); PHOSPHOROUS 3.4 mg/dL (2.5-4.9)
[2016-05-10 10:20] LABS: EOSINOPHIL 10.7 % (0-4.5); MCH 24.7 pg (25.7-33.7); MCHC 31.8 g/dl (32.0-35.9); MEAN CELL VOLUME 77.7 fl (80-96); MEAN PLT VOLUME 10.2 fl (7.5-11.1); NEUTROPHILS 69.2 % (42.8-82.8); PLATELET COUNT 204 K/MM3 (134-434); RDW 13.9 % (11.9-15.9); WHITE BLOOD COUNT 6.4 K/mm3 (4.0-10.0)
[2016-05-10 10:56] LABS: C-REACTIVE PROTEIN 7.3 MG/DL (0.00-0.3)
--- NOTE | 2016-05-10 13:57 | PN ---
Progress Note, Physician History of Present Illness: patient continues to have abdominal discomfort bloating present has been afebrile now for more than 48 hours still very anxious - Current Medication List Current Medications: Active Medications Amlodipine Besylate (Norvasc -) 5 mg PO DAILY [facility] Last Admin: 05/10/16 09:58 Dose: 5 mg Fat Emulsion Intravenous (Intralipid -) 250 ml IV DAILY@2200 [facility] Last Admin: 05/09/16 22:02 Dose: 250 ml Hydromorphone HCl (Dilaudid Injection -) 2 mg IVPB Q4H PRN PRN Reason: PAIN Lactated Ringer's (Lactated Ringers Solution) 1,000 mls @ 80 mls/hr IV ASDIR [facility] Last Admin: 05/10/16 04:43 Dose: 80 mls/hr Amino Acids (Clinimix -) 1,000 mls @ 84 mls/hr IV Q12H [facility] Last Admin: 05/10/16 04:42 Dose: 84 mls/hr Imipenem/Cilastatin Sodium 1, (000 mg/ Dextrose) 250 mls @ 250 mls/hr IVPB Q8H- IV [facility] Last Admin: 05/10/16 09:58 Dose: 250 mls/hr Metoclopramide HCl (Reglan Injection -) 10 mg IVPB Q8H PRN PRN Reason: NAUSEA Multivitamins/Minerals (Infuvite Adult -) 10 ml IV DAILY [facility] Last Admin: 05/09/16 15:07 Dose: 10 ml Pantoprazole Sodium (Protonix -) 20 mg PO BID [facility] Last Admin: 05/10/16 09:58 Dose: 20 mg Zolpidem Tartrate (Ambien -) 10 mg PO HS PRN PRN Reason: INSOMNIA Last Admin: 05/09/16 22:02 Dose: 10 mg - Objective Vital Signs: Vital Signs Temperature 98.2 F 05/10/16 08:15 Pulse Rate 71 05/10/16 08:15 Respiratory Rate 18 05/10/16 08:15 Blood Pressure 142/74 05/10/16 08:15 O2 Sat by Pulse Oximetry (%) 97 05/10/16 09:00 Constitutional: Yes: Calm, Mild Distress Cardiovascular: Yes: Regular Rate and Rhythm Respiratory: Yes: Regular, CTA Bilaterally Gastrointestinal: Yes: Abdomen, Obese, Other (discomfort felt in the abdomen associated with bloating) Musculoskeletal: Yes: WNL Extremities: Yes: WNL Neurological: Yes: Alert, Oriented Psychiatric: Yes: Alert Labs: CBC, BMP 05/10/16 07:30 05/10/16 07:30 Assessment/Plan Problem List - Problems (1) Pancreatic pseudocyst Code(s): K86.3 - PSEUDOCYST OF PANCREAS (2) Relapsing pancreatic necrosis Code(s): K86.89 - OTHER SPECIFIED DISEASES OF PANCREAS (3) Splenic vein thrombosis Assessment/Plan: COLLATERALS SEEN, SPLEEN LOOKS OK Code(s): I82.890 - ACUTE EMBOLISM AND THROMBOSIS fever nausea and vomiting abd pain patient stable from fever point of view wbc has normalized plan continue current mgmt patient remaining afebrile wbc normal will deescalate abx will probably stop by tomorrow or
--- NOTE | 2016-05-10 14:56 | PN ---
Progress Note, Physician Chief Complaint: Mr Byrd without new complaints. Still with abdominal pain but unchanged. No cp or sob. - Current Medication List Current Medications: Active Medications Amlodipine Besylate (Norvasc -) 5 mg PO DAILY [facility] Last Admin: 05/10/16 09:58 Dose: 5 mg Fat Emulsion Intravenous (Intralipid -) 250 ml IV DAILY@2200 [facility] Last Admin: 05/09/16 22:02 Dose: 250 ml Hydromorphone HCl (Dilaudid Injection -) 2 mg IVPB Q4H PRN PRN Reason: PAIN Lactated Ringer's (Lactated Ringers Solution) 1,000 mls @ 80 mls/hr IV ASDIR [facility] Last Admin: 05/10/16 04:43 Dose: 80 mls/hr Amino Acids (Clinimix -) 1,000 mls @ 84 mls/hr IV Q12H [facility] Last Admin: 05/10/16 04:42 Dose: 84 mls/hr Imipenem/Cilastatin Sodium 1, (000 mg/ Dextrose) 250 mls @ 250 mls/hr IVPB Q8H- IV [facility] Last Admin: 05/10/16 09:58 Dose: 250 mls/hr Metoclopramide HCl (Reglan Injection -) 10 mg IVPB Q8H PRN PRN Reason: NAUSEA Multivitamins/Minerals (Infuvite Adult -) 10 ml IV DAILY [facility] Last Admin: 05/09/16 15:07 Dose: 10 ml Pantoprazole Sodium (Protonix -) 20 mg PO BID [facility] Last Admin: 05/10/16 09:58 Dose: 20 mg Zolpidem Tartrate (Ambien -) 10 mg PO HS PRN PRN Reason: INSOMNIA Last Admin: 05/09/16 22:02 Dose: 10 mg - Objective Vital Signs: Vital Signs Temperature 98.2 F 05/10/16 08:15 Pulse Rate 71 05/10/16 08:15 Respiratory Rate 18 05/10/16 08:15 Blood Pressure 142/74 05/10/16 08:15 O2 Sat by Pulse Oximetry (%) 97 05/10/16 09:00 Constitutional: Yes: Well Nourished, No Distress, Calm Cardiovascular: Yes: Regular Rate and Rhythm. No: Gallop, Murmur, Rub Respiratory: Yes: Regular, CTA Bilaterally. No: Rales, Rhonchi, Wheezes Gastrointestinal: Yes: Distention, Hypoactive Bowel Sounds, Tenderness Extremities: Yes: WNL Edema: No Labs: CBC, BMP 05/10/16 07:30 05/10/16 07:30 Assessment/Plan (1) Relapsing pancreatic necrosis Assessment/Plan: -continue antibiotics per ID -continue pain control -continue NPO with clinimix -GI following, defer to repeat CT scan or other modalities Code(s): K86.89 - OTHER SPECIFIED DISEASES OF PANCREAS (2) Hypertension Assessment/Plan: -monitor Code(s): I10 - ESSENTIAL (PRIMARY) HYPERTENSION Qualifiers: Hypertension type: essential hypertension Qualified Code(s): I10 - Essential (primary) hypertension
[2016-05-10] MEDS: MULTIVIT INJ. ADULT COMBO WITH VIT K 1 COMBO 10 ML VIAL IV SCH (17:22)
[2016-05-10] MEDS: FAT EMULSIONS 20% 250 ML PREMIX INFUS.BAG IV SCH (21:53)
--- NOTE | 2016-05-10 22:19 | PN ---
GI Progress Note Subjective: GASTROENTEROLOGY FEELS OK MINIMAL O NO ABDOMINAL PAIN, HOSPITAL HAS STILL NOT FOUND PR[facility]ER NASOJEJUNAL TUBE LAB PROFILE HAS IMPROVED ABX CONTINUE AFEBRILE - Objective Vital Signs: Vital Signs Temperature 98.5 F 05/10/16 16:25 Pulse Rate 74 05/10/16 16:25 Respiratory Rate 18 05/10/16 21:00 Blood Pressure 121/69 05/10/16 16:25 O2 Sat by Pulse Oximetry (%) 97 05/10/16 21:00 Constitutional: No Distress Eyes: Yes: Conjunctiva Clear HENT: Yes: Normocephalic Neck: Yes: Trachea Midline Cardiovascular: Yes: Regular Rate and Rhythm Respiratory: Yes: Regular Gastrointestinal Inspection: Yes: Distention ...Auscultate: Yes: Normoactive Bowel Sounds ...Palpate: Yes: Soft Extremities: Yes: WNL Labs: CBC, BMP 05/10/16 07:30 05/10/16 07:30 Laboratory Tests 05/06/16 05/08/16 05/09/16 20:45 06:50 07:00 WBC RBC Hgb Hct MCV MCHC RDW Plt Count MPV Neutrophils % Lymphocytes % Monocytes % Eosinophils % Basophils % Sodium Potassium Chloride Carbon Dioxide Anion Gap BUN Creatinine Random Glucose Calcium Phosphorus Magnesium C-Reactive Protein 17.3 H D Lipase 574 H 349 05/10/16 05/10/16 07:30 07:30 WBC 6.4 RBC 4.88 Hgb 12.1 Hct 37.9 MCV 77.7 L MCHC 31.8 L RDW 13.9 Plt Count 204 MPV 10.2 Neutrophils % 69.2 Lymphocytes % 11.0 Monocytes % 8.1 Eosinophils % 10.7 H Basophils % 1.0 Sodium 137 Potassium 3.8 Chloride 100 Carbon Dioxide 25 Anion Gap 12 BUN 11 Creatinine 0.7 Random Glucose 127 H Calcium 8.7 Phosphorus 3.4 Magnesium 2.1 C-Reactive Protein 7.3 H D Lipase 384 Problem List - Problems (1) Pancreatic pseudocyst Assessment/Plan: CONTINUE SAME IF NASOJEJUNAL TUBE NOT FOUND WILL TRY TO PLACE NASOJEJUNAL TUBE THAT THEY HAVE HERE AND HOPE THAT IT STAYS IN [place] THEN REPEAT CT SCAN NEXT WEEK. Code(s): K86.3 - PSEUDOCYST OF PANCREAS (2) Relapsing pancreatic necrosis Code(s): K86.89 - OTHER SPECIFIED DISEASES OF PANCREAS (3) Splenic vein thrombosis Code(s): I82.890 - ACUTE EMBOLISM AND THROMBOSIS OF OTHER SPECIFIED VEINS
[2016-05-10] MEDS: ZOLPIDEM TARTRATE 5 MG TABLET PO PRN (23:28)
[2016-05-11] MEDS: WATER IVPB SCH ×3 (01:55→18:07)
[2016-05-11] MEDS: DEXTROSE 5% IVPB SCH ×3 (01:55→18:07)
[2016-05-11] MEDS: CILASTATIN SODIUM IVPB SCH ×3 (01:55→18:07)
[2016-05-11] MEDS: IMIPENEM IVPB SCH ×3 (01:55→18:07)
[2016-05-11 07:52] LABS: BASOPHIL 0.8 % (0-2.0); EOSINOPHIL 9.2 % (0-4.5); MCH 24.8 pg (25.7-33.7); MCHC 32.2 g/dl (32.0-35.9); MEAN PLT VOLUME 9.5 fl (7.5-11.1); NEUTROPHILS 68.3 % (42.8-82.8); PLATELET COUNT 204 K/MM3 (134-434); RDW 13.8 % (11.9-15.9); WHITE BLOOD COUNT 6.8 K/mm3 (4.0-10.0)
[2016-05-11 09:30] LABS: ALBUMIN 2.6 g/dl (3.4-5.0); CREATININE 0.7 mg/dL (0.7-1.3); SGOT/AST 11 U/L (15-37); SGPT/ALT 15 U/L (12-78)
[2016-05-11 09:41] LABS: ALK PHOS 105 U/L (45-117); ANION GAP 11 (8-16); BILIRUBIN,TOTAL 0.4 mg/dL (0.2-1.0); C-REACTIVE PROTEIN 4.7 MG/DL (0.00-0.3); CALCIUM 8.5 mg/dL (8.5-10.1); CO2 26 mmol/L (21-32); GLUCOSE,RANDOM 131 mg/dL (74-106); PHOSPHOROUS 3.5 mg/dL (2.5-4.9); TOT PROT 5.9 g/dl (6.4-8.2)
[2016-05-11] MEDS: PANTOPRAZOLE 20 MG TABLET (FP) PO SCH ×2 (10:52→22:00)
[2016-05-11] MEDS: MULTIVIT INJ. ADULT COMBO WITH VIT K 1 COMBO 10 ML VIAL IV SCH (10:53)
[2016-05-11] MEDS: amLODIPine BESYLATE 5 MG TABLET (FP) PO SCH (10:53)
[2016-05-11] MEDS: LACTATED RINGERS SOLUTION 1,000 ML IV SCH ×2 (10:53→18:06)
[2016-05-11] MEDS: AMINO ACIDS 4.25%/D5W 1,000 ML IV SCH ×3 (10:54→20:50)
--- NOTE | 2016-05-11 11:43 | PN ---
Progress Note, Physician Chief Complaint: Mr Byrd says his pain is improving today, he feels better than he did yesterday. He had minimal abdominal pain this am after taking his meds but that has resolved. Denies cp or sob. - Current Medication List Current Medications: Active Medications Amlodipine Besylate (Norvasc -) 5 mg PO DAILY [facility] Last Admin: 05/11/16 10:53 Dose: 5 mg Fat Emulsion Intravenous (Intralipid -) 250 ml IV DAILY@2200 [facility] Last Admin: 05/10/16 21:53 Dose: 250 ml Lactated Ringer's (Lactated Ringers Solution) 1,000 mls @ 80 mls/hr IV ASDIR [facility] Last Admin: 05/11/16 10:53 Dose: 80 mls/hr Amino Acids (Clinimix -) 1,000 mls @ 84 mls/hr IV Q12H [facility] Last Admin: 05/11/16 10:54 Dose: 84 mls/hr Imipenem/Cilastatin Sodium 1, (000 mg/ Dextrose) 250 mls @ 250 mls/hr IVPB Q8H- IV [facility] Last Admin: 05/11/16 10:53 Dose: 250 mls/hr Metoclopramide HCl (Reglan Injection -) 10 mg IVPB Q8H PRN PRN Reason: NAUSEA Multivitamins/Minerals (Infuvite Adult -) 10 ml IV DAILY [facility] Last Admin: 05/11/16 10:53 Dose: 10 ml Pantoprazole Sodium (Protonix -) 20 mg PO BID [facility] Last Admin: 05/11/16 10:52 Dose: 20 mg Zolpidem Tartrate (Ambien -) 10 mg PO HS PRN PRN Reason: INSOMNIA Last Admin: 05/10/16 23:28 Dose: 10 mg - Objective Vital Signs: Vital Signs Temperature 98.3 F 05/11/16 10:18 Pulse Rate 72 05/11/16 10:18 Respiratory Rate 18 05/11/16 10:18 Blood Pressure 137/76 05/11/16 10:18 O2 Sat by Pulse Oximetry (%) 97 05/10/16 22:35 Constitutional: Yes: No Distress, Calm, Obese Cardiovascular: Yes: Regular Rate and Rhythm. No: Gallop, Murmur, Rub Respiratory: Yes: Regular, CTA Bilaterally. No: Rales, Rhonchi, Wheezes Gastrointestinal: Yes: Normal Bowel Sounds, Soft. No: Distention, Tenderness Extremities: Yes: WNL Edema: No Labs: CBC, BMP 05/11/16 06:45 05/11/16 06:45 Problem List - Problems (1) Relapsing pancreatic necrosis Code(s): K86.89 - OTHER SPECIFIED DISEASES OF PANCREAS (2) Hypertension Code(s): I10 - ESSENTIAL (PRIMARY) HYPERTENSION Qualifiers: Hypertension type: essential hypertension Qualified Code(s): I10 - Essential (primary) hypertension Assessment/Plan (1) Relapsing pancreatic necrosis Assessment/Plan: -appreciate GI and ID assistance -continue antibiotics -planning for placement of nasojejunal tube -defer CT scan to GI -continue npo, clinimix, and IVF -may need transfer to OSH for EUS Code(s): K86.89 - OTHER SPECIFIED DISEASES OF PANCREAS (2) Hypertension Assessment/Plan: -amlodipine started -controlled Code(s): I10 - ESSENTIAL (PRIMARY) HYPERTENSION Qualifiers: Hypertension type: essential hypertension Qualified Code(s): I10 - Essential (primary) hypertension
--- NOTE | 2016-05-11 15:21 | PN ---
Progress Note, Physician History of Present Illness: patient stable still with some discomfort but says today was the best day abd bloating much better - Current Medication List Current Medications: Active Medications Amlodipine Besylate (Norvasc -) 5 mg PO DAILY [facility] Last Admin: 05/11/16 10:53 Dose: 5 mg Fat Emulsion Intravenous (Intralipid -) 250 ml IV DAILY@2200 [facility] Last Admin: 05/10/16 21:53 Dose: 250 ml Lactated Ringer's (Lactated Ringers Solution) 1,000 mls @ 80 mls/hr IV ASDIR [facility] Last Admin: 05/11/16 10:53 Dose: 80 mls/hr Amino Acids (Clinimix -) 1,000 mls @ 84 mls/hr IV Q12H [facility] Last Admin: 05/11/16 10:54 Dose: 84 mls/hr Imipenem/Cilastatin Sodium 1, (000 mg/ Dextrose) 250 mls @ 250 mls/hr IVPB Q8H- IV [facility] Last Admin: 05/11/16 10:53 Dose: 250 mls/hr Metoclopramide HCl (Reglan Injection -) 10 mg IVPB Q8H PRN PRN Reason: NAUSEA Multivitamins/Minerals (Infuvite Adult -) 10 ml IV DAILY [facility] Last Admin: 05/11/16 10:53 Dose: 10 ml Pantoprazole Sodium (Protonix -) 20 mg PO BID [facility] Last Admin: 05/11/16 10:52 Dose: 20 mg Zolpidem Tartrate (Ambien -) 10 mg PO HS PRN PRN Reason: INSOMNIA Last Admin: 05/10/16 23:28 Dose: 10 mg - Objective Vital Signs: Vital Signs Temperature 98.4 F 05/11/16 14:51 Pulse Rate 74 05/11/16 14:51 Respiratory Rate 18 05/11/16 14:51 Blood Pressure 137/76 05/11/16 10:18 O2 Sat by Pulse Oximetry (%) 97 05/10/16 22:35 Constitutional: Yes: No Distress, Calm Cardiovascular: Yes: Regular Rate and Rhythm Respiratory: Yes: Regular, CTA Bilaterally Gastrointestinal: Yes: Normal Bowel Sounds, Soft Musculoskeletal: Yes: WNL Extremities: Yes: WNL Neurological: Yes: Alert, Oriented Psychiatric: Yes: Alert, Oriented Labs: CBC, BMP 05/11/16 06:45 05/11/16 06:45 Assessment/Plan Problem List - Problems (1) Pancreatic pseudocyst Code(s): K86.3 - PSEUDOCYST OF PANCREAS (2) Relapsing pancreatic necrosis Code(s): K86.89 - OTHER SPECIFIED DISEASES OF PANCREAS (3) Splenic vein thrombosis Assessment/Plan: COLLATERALS SEEN, SPLEEN LOOKS OK Code(s): I82.890 - ACUTE EMBOLISM AND THROMBOSIS fever nausea and vomiting abd pain patient stable from fever point of view wbc has normalized plan continue current mgmt patient remaining afebrile plan is to place feeding tube/j tube repeat ct scan ifn few days d/w gastro will continue abx until repeat ct scan is done will then decide on further plan
--- NOTE | 2016-05-11 19:05 | PN ---
GI Progress Note Subjective: GASTROENTEROLOGY FEELS WELL TODAY, STATES THIS WAS HIS BEST DAY HOSPITAL HAS A NASOJEJUNAL TUBE BUT NOT THE ONE SUGGESTED, DISCUSSED PLACEMENT WITH PATIENT TODAY AND HE AGREES - Objective Vital Signs: Vital Signs Temperature 98.4 F 05/11/16 14:51 Pulse Rate 74 05/11/16 14:51 Respiratory Rate 18 05/11/16 14:51 Blood Pressure 137/76 05/11/16 10:18 O2 Sat by Pulse Oximetry (%) 98 05/11/16 09:00 Constitutional: Calm Eyes: Yes: Conjunctiva Clear HENT: Yes: Normocephalic Cardiovascular: Yes: Regular Rate and Rhythm Respiratory: Yes: Regular Gastrointestinal Inspection: Yes: Distention ...Auscultate: Yes: Normoactive Bowel Sounds ...Palpate: Yes: Soft, Tenderness (MILD EPIGASTRIC PAIN TO DEEP PALPATION) Genitourinary: Yes: WNL Extremities: Yes: WNL Neurological: Yes: WNL Labs: CBC, BMP 05/11/16 06:45 05/11/16 06:45 Laboratory Tests 05/11/16 05/11/16 06:45 06:45 WBC 6.8 RBC 4.54 Hgb 11.3 L Hct 35.0 L MCHC 32.2 RDW 13.8 Plt Count 204 MPV 9.5 Neutrophils % 68.3 Lymphocytes % 12.6 Monocytes % 9.1 Eosinophils % 9.2 H Basophils % 0.8 Sodium 138 Potassium 3.7 Chloride 101 Carbon Dioxide 26 Anion Gap 11 BUN 11 Creatinine 0.7 Creat Clearance w eGFR > 60 Random Glucose 131 H Calcium 8.5 Phosphorus 3.5 Magnesium 2.0 Total Bilirubin 0.4 AST 11 L D ALT 15 Alkaline Phosphatase 105 C-Reactive Protein 4.7 H D Total Protein 5.9 L Albumin 2.6 L Lipase 442 H Problem List - Problems (1) Pancreatic pseudocyst Assessment/Plan: CONTINUE SAME IF NASOJEJUNAL TUBE NOT FOUND WILL TRY TO PLACE NASOJEJUNAL TUBE THAT THEY HAVE HERE AND HOPE THAT IT STAYS IN PLACE. RISKS AND BNEFITS OF PROCEDURE EXPLAINED AND HE AGREES. WILL PLACE TUBE IN AM (7 AM). KEEP NPO, START ENTERAL FEEDING AFTER TUBE POSITION CONFIRMED THEN REPEAT CT SCAN NEXT WEEK. Code(s): K86.3 - PSEUDOCYST OF PANCREAS (2) Relapsing pancreatic necrosis Code(s): K86.89 - OTHER SPECIFIED DISEASES OF PANCREAS (3) Splenic vein thrombosis Code(s): I82.890 - ACUTE EMBOLISM AND THROMBOSIS OF OTHER SPECIFIED VEINS
[2016-05-11] MEDS: FAT EMULSIONS 20% 250 ML PREMIX INFUS.BAG IV SCH (22:00)
[2016-05-11] MEDS ORDERED: ZOLPIDEM TARTRATE 5 MG TABLET ONE (22:27)
[2016-05-12] MEDS ORDERED: diphenhydrAMINE HCL 25 MG CAPSULE (FP) PO ONE ×3 (00:35→19:40)
[2016-05-12] MEDS: IMIPENEM IVPB SCH ×3 (02:18→17:57)
[2016-05-12] MEDS: DEXTROSE 5% IVPB SCH ×3 (02:18→17:57)
[2016-05-12] MEDS: WATER IVPB SCH ×3 (02:18→17:57)
[2016-05-12] MEDS: CILASTATIN SODIUM IVPB SCH ×3 (02:18→17:57)
[2016-05-12] MEDS ORDERED: LIDOCAINE HCL/PF 2% SDV 5ML VIAL ONE (08:11)
[2016-05-12] MEDS ORDERED: PROPOFOL 60 ML ONE (08:11)
[2016-05-12 08:21] LABS: BASOPHIL 0.9 % (0-2.0); EOSINOPHIL 9.4 % (0-4.5); MCHC 32.2 g/dl (32.0-35.9); MEAN CELL VOLUME 77.6 fl (80-96); MEAN PLT VOLUME 9.9 fl (7.5-11.1); PLATELET COUNT 192 K/MM3 (134-434); WHITE BLOOD COUNT 6.1 K/mm3 (4.0-10.0)
[2016-05-12] MEDS ORDERED: METOCLOPRAMIDE HCL INJECTION 10 MG/2 ML VIAL ONE (08:38)
[2016-05-12 08:59] LABS: CREATININE 0.7 mg/dL (0.7-1.3); SGOT/AST 17 U/L (15-37); SGPT/ALT 22 U/L (12-78)
[2016-05-12] MEDS ORDERED: METOCLOPRAMIDE HCL INJECTION 10 MG/2 ML VIAL IVPB ONE ×2 (09:00→17:09)
[2016-05-12 09:06] LABS: ALBUMIN 2.6 g/dl (3.4-5.0); ALK PHOS 109 U/L (45-117); ANION GAP 9 (8-16); BILIRUBIN,TOTAL 0.5 mg/dL (0.2-1.0); C-REACTIVE PROTEIN 3.8 MG/DL (0.00-0.3); CALCIUM 8.8 mg/dL (8.5-10.1); CO2 29 mmol/L (21-32); GLUCOSE,RANDOM 136 mg/dL (74-106); PHOSPHOROUS 3.7 mg/dL (2.5-4.9); TOT PROT 6.1 g/dl (6.4-8.2)
[2016-05-12] MEDS: amLODIPine BESYLATE 5 MG TABLET (FP) PO SCH (11:02)
[2016-05-12] MEDS: PANTOPRAZOLE 20 MG TABLET (FP) PO SCH ×2 (11:02→22:45)
--- NOTE | 2016-05-12 13:37 | PN ---
Physical Exam: SUBJECTIVE: Patient seen and examined at bedside, s/p Nasojejunal tube placement, denies abdominal pain, N/V/D,cp, sob,palpitations, fever, chills OBJECTIVE: Vital Signs Period Temp Pulse Resp BP Sys/Stone Pulse Ox Last 24 Hr 98.1 F-98.6 F 59-74 18-20 127-152/69-89 97-100 GENERAL: The patient is awake, alert, and fully oriented, in no acute distress. HEAD: Normal with no signs of trauma. EYES: PERRL, extraocular movements intact, sclera anicteric, conjunctiva clear. No ptosis. ENT: Nasojejunal tube,Ears normal, nares patent, oropharynx clear without exudates, moist mucous membranes. NECK: Trachea midline, full range of motion, supple. LUNGS: Breath sounds equal, clear to auscultation bilaterally, no wheezes, no crackles, no accessory muscle use. HEART: Regular rate and rhythm, S1, S2 without murmur, rub or gallop. ABDOMEN: Soft, nontender, nondistended, normoactive bowel sounds, no guarding, no rebound, no hepatosplenomegaly, no masses. EXTREMITIES: 2+ pulses, warm, well-perfused, no edema. NEUROLOGICAL: Cranial nerves II through XII grossly intact. Normal speech, gait not observed. PSYCH: Normal mood, normal affect. SKIN: Warm, dry, normal turgor, no rashes or lesions noted Laboratory Results - last 24 hr 05/12/16 05/12/16 06:30 06:30 WBC 6.1 RBC 4.51 Hgb 11.3 L Hct 35.0 L MCV 77.6 L MCHC 32.2 RDW 14.0 Plt Count 192 MPV 9.9 Neutrophils % 66.0 Lymphocytes % 14.1 Monocytes % 9.6 Eosinophils % 9.4 H Basophils % 0.9 Sodium 139 Potassium 3.9 Chloride 101 Carbon Dioxide 29 Anion Gap 9 BUN 12 Creatinine 0.7 Creat Clearance w eGFR > 60 Random Glucose 136 H Calcium 8.8 Phosphorus 3.7 Magnesium 2.0 Total Bilirubin 0.5 D AST 17 D ALT 22 D Alkaline Phosphatase 109 C-Reactive Protein 3.8 H D Total Protein 6.1 L Albumin 2.6 L Lipase 417 H Active Medications Generic Name Dose Route Start Last Admin Trade Name Freq PRN Reason Stop Dose Admin Amlodipine Besylate 5 mg 05/07/16 10:00 05/12/16 11:02 Norvasc - PO Not Given DAILY [facility] Fat Emulsion Intravenous 250 ml 05/07/16 22:00 05/11/16 22:00 Intralipid - IV 250 ml DAILY@2200 [facility] Administration Amino Acids 1,000 mls @ 84 mls/hr 05/07/16 12:45 05/11/16 20:50 Clinimix - IV 84 mls/hr Q12H [facility] Administration Imipenem/Cilastatin Sodium 1, 250 mls @ 250 mls/hr 05/07/16 18:00 05/12/16 11: 03 000 mg/ Dextrose IVPB 250 mls/hr Q8H-IV [facility] Administration Metoclopramide HCl 10 mg 05/06/16 19:12 Reglan Injection - IVPB Q8H PRN NAUSEA Multivitamins/Minerals 10 ml 05/08/16 10:00 05/11/16 10:53 Infuvite Adult - IV 10 ml DAILY [facility] Administration Pantoprazole Sodium 20 mg 05/07/16 22:00 05/12/16 11:02 Protonix - PO Not Given BID [facility] Abdominal X'RAy: reviewed A/P This is a 61 year old male admitted with abdominal pain and nausea,s/p recent pancreatitis and splenic vein thrombus. Out patient CT scan showed a large pseudocyst and possible some pancreatic necrosis in the tail * Relapsing pancreatic necrosis -s/p Nasojejunal tube placement - ID and GI following - afebrile, no leukocytosis -continue npo, will cont on Clinimix, Lpids and IVF - plan to repeat CT scan in a few days will continue abx until repeat ct scan is done -may need transfer to OSH for EUS - abnormal Lipase, slowly trending down *Hypertension- BP stable -amlodipine started - will monitor BP closely *Hx non -occlusive splenic vein thrombus Visit type - Emergency Visit Emergency Visit: Yes ED Registration Date: 05/06/16 Care time: The patient presented to the Emergency Department on the above date and was hospitalized for further evaluation of their emergent condition. - New Patient This patient is new to me today: Yes Date on this admission: 05/12/16 - Critical Care Critical Care patient: No
[2016-05-12] MEDS: MULTIVIT INJ. ADULT COMBO WITH VIT K 1 COMBO 10 ML VIAL IV SCH (15:55)
[2016-05-12] MEDS: AMINO ACIDS 4.25%/D5W 1,000 ML IV SCH ×2 (15:55→17:16)
--- NOTE | 2016-05-12 19:43 | HOSP ---
Subjective - Review of Symptoms Events since last encounter: Hospitalist Encounter Notified by primary RN that the patient developed hives and pruritus after completing his IV ABX. Jillian ordered Informed RN to place a call to ID, to inform of patient outcome Arrived to bedside, patent is alert, awake and oriented, reports hives and itching to both hands and his left thigh. Patient denies SOB and dysphagia at present. Upon inspection, 2 small hives on each lateral aspect on hands, walnut size hive noted to left lateral thigh, all with mild erythema. No airway compromise. Will continue to monitor Other Systems: Integumentary: Physical Examination Vital Signs: Vital Signs Temperature 98.4 F 05/12/16 15:31 Pulse Rate 68 05/12/16 15:31 Respiratory Rate 18 05/12/16 15:31 Blood Pressure 150/78 05/12/16 09:05 O2 Sat by Pulse Oximetry (%) 100 05/12/16 09:05 Labs: CBC, BMP 05/12/16 06:30 05/12/16 06:30
[2016-05-13] MEDS: CILASTATIN SODIUM IVPB SCH ×2 (01:58→10:51)
[2016-05-13] MEDS: WATER IVPB SCH ×2 (01:58→10:51)
[2016-05-13] MEDS: DEXTROSE 5% IVPB SCH ×2 (01:58→10:51)
[2016-05-13] MEDS: IMIPENEM IVPB SCH ×2 (01:58→10:51)
[2016-05-13] MEDS: AMINO ACIDS 4.25%/D5W 1,000 ML IV SCH (08:14)
[2016-05-13 08:57] LABS: BASOPHIL 0.9 % (0-2.0); EOSINOPHIL 7.1 % (0-4.5); MCH 24.9 pg (25.7-33.7); MCHC 32.4 g/dl (32.0-35.9); MEAN CELL VOLUME 76.9 fl (80-96); MEAN PLT VOLUME 9.7 fl (7.5-11.1); NEUTROPHILS 70.3 % (42.8-82.8); PLATELET COUNT 225 K/MM3 (134-434); RDW 13.9 % (11.9-15.9); WHITE BLOOD COUNT 8.6 K/mm3 (4.0-10.0)
[2016-05-13 09:18] LABS: C-REACTIVE PROTEIN 3.1 MG/DL (0.00-0.3)
[2016-05-13] MEDS: PANTOPRAZOLE 20 MG TABLET (FP) PO SCH ×2 (10:28→22:38)
[2016-05-13] MEDS: amLODIPine BESYLATE 5 MG TABLET (FP) PO SCH (10:28)
--- NOTE | 2016-05-13 11:00 | PN ---
[id number]. Having BMs. Walked up and down hallway several times today without difficulty. OBJECTIVE: Vital Signs Period Temp Pulse Resp BP Sys/Stone Pulse Ox Last 24 Hr 98.0 F-98.4 F 68-75 16-20 121-134/63-72 99 GENERAL: The patient is awake, alert, and fully oriented, in no acute distress. HEAD: Normal with no signs of trauma. EYES: PERRL, extraocular movements intact, sclera anicteric, conjunctiva clear. No ptosis. ENT: Ears normal, nares patent, oropharynx clear without exudates, moist mucous membranes. NECK: Trachea midline, full range of motion, supple. LUNGS: Breath sounds equal, clear to auscultation bilaterally, no wheezes, no crackles, no accessory muscle use. HEART: Regular rate and rhythm, S1, S2 without murmur, rub or gallop. ABDOMEN: Soft, mildly distended, mild epigastric tenderness. + Bowel sounds. EXTREMITIES: 2+ pulses, warm, well-perfused, no edema. NEUROLOGICAL: Cranial nerves II through XII grossly intact. Normal speech, gait not observed. PSYCH: Normal mood, normal affect. SKIN: Warm, dry, normal turgor, no rashes or lesions noted Laboratory Results - last 24 hr 05/13/16 05/13/16 06:30 06:30 WBC 8.6 D RBC 4.86 Hgb 12.1 Hct 37.4 MCV 76.9 L MCHC 32.4 RDW 13.9 Plt Count 225 MPV 9.7 Neutrophils % 70.3 Lymphocytes % 13.0 Monocytes % 8.7 Eosinophils % 7.1 H Basophils % 0.9 C-Reactive Protein 3.1 H D Lipase 701 H Active Medications Generic Name Dose Route Start Last Admin Trade Name Freq PRN Reason Stop Dose Admin Amlodipine Besylate 5 mg 05/07/16 10:00 05/13/16 10:28 Norvasc - PO 5 mg DAILY [facility] Administration Imipenem/Cilastatin Sodium 1, 250 mls @ 250 mls/hr 05/07/16 18:00 05/13/16 10: 51 000 mg/ Dextrose IVPB Not Given Q8H-IV [facility] Metoclopramide HCl 10 mg 05/06/16 19:12 Reglan Injection - IVPB Q8H PRN NAUSEA Multivitamins/Minerals 10 ml 05/08/16 10:00 05/12/16 15:55 Infuvite Adult - IV 10 ml DAILY [facility] Administration Pantoprazole Sodium 20 mg 05/07/16 22:00 05/13/16 10:28 Protonix - PO 20 mg BID [facility] Administration ASSESSMENT/PLAN: 61 year old male recently discharged after episode of pancreatitis and splenic vein thrombosis, subsequently developed abdominal pain and fever. Outpatient CT revealed a large psuedocyst and some possible necrosis in the pancreatitic tail. 1. Pancreatitis with pseudocyst and possible necrosis -Pancreatic rest; s/p nasojejunal tube placement for enteral feeding -DC Clinimix/Intralipid -Continue Imipenem -Lipase is rising; follow -CRP decreasing -Follow up repeat CT of abdomen -Monitor closely for development of abscess -Follow WBC, fever curve closely; may need to re-start antibiotics 2. HTN -BPs at goal -Continue Amlodipine 3. F/E/N -Continue tube feeds 4. Ppx -PO Protonix -Lovenox DISPO: Continues to require inpatient services. Visit type - Emergency Visit Emergency Visit: Yes ED Registration Date: 05/06/16 Care time: The patient presented to the Emergency Department on the above date and was hospitalized for further evaluation of their emergent condition. - New Patient This patient is new to me today: Yes Date on this admission: 05/13/16 - Critical Care Critical Care patient: No
[2016-05-13] MEDS: MULTIVIT INJ. ADULT COMBO WITH VIT K 1 COMBO 10 ML VIAL IV SCH (12:09)
--- NOTE | 2016-05-13 14:02 | PATH ---
Surgical Pathology Report Patient Name: ROSANNA SAM [facility]. Rec. #: [id number] /Age/Gender: 1955 (Age: 61) / M Account: [id number] Location: [facility] MED/SURG Taken: 05/12/2016 Received: 05/12/2016 Reported: 05/13/2016 Physicians: Basil Alonzo M.D. Specimen(s) Received BX DUODENUM Clinical History Pancreatitis, pancreatic necrosis, pseudocyst Extrinsic compression gastric body consistent with pseudocyst formation/gastritis Final Diagnosis DUODENUM, BIOPSY: DUODENAL MUCOSA WITH MILD CHRONIC INFLAMMATION. NO HISTOLOGIC EVIDENCE OF GLUTEN SENSITIVE ENTEROPATHY (CELIAC DISEASE). Electronically Signed Cruz Kelly M.D. Gross Description Received in formalin, labeled "duodenum" is a philippe, irregular portion of soft tissue measuring 0.4 cm in greatest dimension. The specimen is submitted in toto in one cassette. /05/12/2016 saudi05/12/2016
--- NOTE | 2016-05-13 14:37 | PN ---
Progress Note, Physician History of Present Illness: patient doing well hives improved tolerating tube feeds still some bloating - Current Medication List Current Medications: Active Medications Amlodipine Besylate (Norvasc -) 5 mg PO DAILY [facility] Last Admin: 05/13/16 10:28 Dose: 5 mg Imipenem/Cilastatin Sodium 1, (000 mg/ Dextrose) 250 mls @ 250 mls/hr IVPB Q8H- IV [facility] Last Admin: 05/13/16 10:51 Dose: Not Given Metoclopramide HCl (Reglan Injection -) 10 mg IVPB Q8H PRN PRN Reason: NAUSEA Pantoprazole Sodium (Protonix -) 20 mg PO BID [facility] Last Admin: 05/13/16 10:28 Dose: 20 mg - Objective Vital Signs: Vital Signs Temperature 98.2 F 05/13/16 08:00 Pulse Rate 73 05/13/16 08:00 Respiratory Rate 18 05/13/16 08:00 Blood Pressure 114/62 05/13/16 08:00 O2 Sat by Pulse Oximetry (%) 99 05/12/16 21:00 Constitutional: Yes: No Distress, Calm Neck: Yes: Supple Cardiovascular: Yes: Regular Rate and Rhythm Respiratory: Yes: Regular, CTA Bilaterally Gastrointestinal: Yes: Normal Bowel Sounds, Soft, Tenderness, Other (feeding tube in place) Musculoskeletal: Yes: WNL Extremities: Yes: WNL Neurological: Yes: Alert, Oriented Psychiatric: Yes: Alert, Oriented Labs: CBC, BMP 05/13/16 06:30 05/12/16 06:30 Assessment/Plan Problem List - Problems (1) Pancreatic pseudocyst Code(s): K86.3 - PSEUDOCYST OF PANCREAS (2) Relapsing pancreatic necrosis Code(s): K86.89 - OTHER SPECIFIED DISEASES OF PANCREAS (3) Splenic vein thrombosis Assessment/Plan: COLLATERALS SEEN, SPLEEN LOOKS OK Code(s): I82.890 - ACUTE EMBOLISM AND THROMBOSIS fever nausea and vomiting abd pain patient stable from fever point of view wbc has normalized plan continue current mgmt patient remaining afebrile plan is to place feeding tube/j tube will stop the abx
--- NOTE | 2016-05-13 14:39 | PN ---
Progress Note, Physician History of Present Illness: patient stable doing better no issues is developing hives and some rash - Current Medication List Current Medications: Active Medications Amlodipine Besylate (Norvasc -) 5 mg PO DAILY [facility] Last Admin: 05/13/16 10:28 Dose: 5 mg Metoclopramide HCl (Reglan Injection -) 10 mg IVPB Q8H PRN PRN Reason: NAUSEA Pantoprazole Sodium (Protonix -) 20 mg PO BID [facility] Last Admin: 05/13/16 10:28 Dose: 20 mg - Objective Vital Signs: Vital Signs Temperature 98.2 F 05/13/16 08:00 Pulse Rate 73 05/13/16 08:00 Respiratory Rate 18 05/13/16 08:00 Blood Pressure 114/62 05/13/16 08:00 O2 Sat by Pulse Oximetry (%) 99 05/12/16 21:00 Constitutional: Yes: No Distress, Calm Cardiovascular: Yes: Regular Rate and Rhythm Respiratory: Yes: Regular, CTA Bilaterally Gastrointestinal: Yes: Normal Bowel Sounds, Soft, Other (feeding tube in place) Musculoskeletal: Yes: WNL Extremities: Yes: WNL Neurological: Yes: Alert, Oriented Psychiatric: Yes: Alert Labs: CBC, BMP 05/13/16 06:30 05/12/16 06:30 Assessment/Plan Problem List - Problems (1) Pancreatic pseudocyst Code(s): K86.3 - PSEUDOCYST OF PANCREAS (2) Relapsing pancreatic necrosis Code(s): K86.89 - OTHER SPECIFIED DISEASES OF PANCREAS (3) Splenic vein thrombosis Assessment/Plan: COLLATERALS SEEN, SPLEEN LOOKS OK Code(s): I82.890 - ACUTE EMBOLISM AND THROMBOSIS fever nausea and vomiting abd pain patient stable from fever point of view wbc has normalized plan continue current mgmt patient remaining afebrile feeding tube in place patient tolerating the feeds if patient continues to have hives will stop abx
--- NOTE | 2016-05-13 17:41 | PN ---
GI Progress Note Subjective: GI NOte ( covering for Dr Alonzo) : Has minimal pain. Tolerating diet. Imipenem stopped due to hives. No diarrhea. No chills. CRP dropping. - Objective Vital Signs: Vital Signs Temperature 98.2 F 05/13/16 08:00 Pulse Rate 73 05/13/16 08:00 Respiratory Rate 18 05/13/16 08:00 Blood Pressure 114/62 05/13/16 08:00 O2 Sat by Pulse Oximetry (%) 99 05/12/16 21:00 CBC,CMP WBC 8.6 K/mm3 (4.0-10.0) D 05/13/16 06:30 RBC 4.86 M/mm3 (4.00-5.60) 05/13/16 06:30 Hgb 12.1 GM/dL (11.7-16.9) 05/13/16 06:30 Hct 37.4 % (35.4-49) 05/13/16 06:30 MCV 76.9 fl (80-96) L 05/13/16 06:30 MCHC 32.4 g/dl (32.0-35.9) 05/13/16 06:30 RDW 13.9 % (11.9-15.9) 05/13/16 06:30 Plt Count 225 K/MM3 (134-434) 05/13/16 06:30 MPV 9.7 fl (7.5-11.1) 05/13/16 06:30 Neutrophils % 70.3 % (42.8-82.8) 05/13/16 06:30 Lymphocytes % 13.0 % (8-40) 05/13/16 06:30 Monocytes % 8.7 % (3.8-10.2) 05/13/16 06:30 Eosinophils % 7.1 % (0-4.5) H 05/13/16 06:30 Basophils % 0.9 % (0-2.0) 05/13/16 06:30 Sodium 139 mmol/L (136-145) 05/12/16 06:30 Potassium 3.9 mmol/L (3.5-5.1) 05/12/16 06:30 Chloride 101 mmol/L (98-107) 05/12/16 06:30 Carbon Dioxide 29 mmol/L (21-32) 05/12/16 06:30 Anion Gap 9 (8-16) 05/12/16 06:30 BUN 12 mg/dL (7-18) 05/12/16 06:30 Creatinine 0.7 mg/dL (0.7-1.3) 05/12/16 06:30 Creat Clearance w eGFR > 60 (>60) 05/12/16 06:30 Random Glucose 136 mg/dL (74-106) H 05/12/16 06:30 Calcium 8.8 mg/dL (8.5-10.1) 05/12/16 06:30 Phosphorus 3.7 mg/dL (2.5-4.9) 05/12/16 06:30 Magnesium 2.0 mg/dL (1.8-2.4) 05/12/16 06:30 Total Bilirubin 0.5 mg/dL (0.2-1.0) D 05/12/16 06:30 AST 17 U/L (15-37) D 05/12/16 06:30 ALT 22 U/L (12-78) D 05/12/16 06:30 Alkaline Phosphatase 109 U/L (45-117) 05/12/16 06:30 C-Reactive Protein 3.1 MG/DL (0.00-0.3) H D 05/13/16 06:30 Total Protein 6.1 g/dl (6.4-8.2) L 05/12/16 06:30 Albumin 2.6 g/dl (3.4-5.0) L 05/12/16 06:30 Total Amylase 73 U/L (25-115) D 05/09/16 07:00 Lipase 701 U/L (73-393) H 05/13/16 06:30 Constitutional: Calm Gastrointestinal Inspection: Yes: Distention ...Auscultate: Yes: Hypoactive Bowel Sounds ...Palpate: Yes: Soft, Other (nontender) Labs: CBC, BMP 05/13/16 06:30 05/12/16 06:30 Laboratory Tests 05/12/16 05/13/16 05/13/16 06:30 06:30 06:30 WBC 8.6 D Hgb 12.1 Total Bilirubin 0.5 D AST 17 D ALT 22 D Alkaline Phosphatase 109 C-Reactive Protein 3.1 H D Lipase 701 H Assessment/Plan Pancreatitis with pseudocyst. Will repeat CT scan to assess pseudocyst size and position of NJ tube. Continue feedings. Needs to observe closely for development of a pancreatic abscess.
[2016-05-14 08:58] LABS: BASOPHIL 0.9 % (0-2.0); EOSINOPHIL 8.1 % (0-4.5); MCH 24.5 pg (25.7-33.7); MCHC 31.9 g/dl (32.0-35.9); MEAN CELL VOLUME 76.9 fl (80-96); MEAN PLT VOLUME 9.3 fl (7.5-11.1); NEUTROPHILS 65.9 % (42.8-82.8); PLATELET COUNT 205 K/MM3 (134-434); RDW 14.4 % (11.9-15.9); WHITE BLOOD COUNT 7.2 K/mm3 (4.0-10.0)
--- NOTE | 2016-05-14 09:15 | PN ---
Progress Note (short form) - Note Progress Note: Patient seen and examined. Chart reviewed. Currently sitting up in bed, alert , responsive and appropriate in no acute distress. Denies chest discomfort, abdominal pain or dyspnea. Labs, radiologic testing and fashion consultant sales notes reviewed. Selected Entries 05/13/16 05/14/16 21:00 05:49 Temperature 98.8 F Pulse Rate 71 Respiratory 20 Rate Blood Pressure 128/59 O2 Sat by Pulse 99 Oximetry (%) Oxygen Delivery Room Air Method Weight 228 lb 9.6 oz Laboratory Tests 05/12/16 05/13/16 05/13/16 06:30 06:30 06:30 WBC 8.6 D Hgb 12.1 Hct 37.4 Plt Count 225 Sodium 139 Potassium 3.9 Chloride 101 Carbon Dioxide 29 BUN 12 Creatinine 0.7 Random Glucose 136 H Calcium 8.8 Phosphorus 3.7 Magnesium 2.0 Total Bilirubin 0.5 D AST 17 D ALT 22 D Alkaline Phosphatase 109 C-Reactive Protein 3.1 H D Total Protein 6.1 L Albumin 2.6 L Lipase 701 H Chest Clear Cor RRR Abd Soft non-tender BS decreased No mass Naso-jejunal tube in place Ext No edema No phlebitis Neuro No focal deficits Assessment and Plan Pancreatitis with pseudocyst formation Monitor for progression and or abscess formation Recheck CT May require EUS for drainage Follow clinical status, labs a radiologic testing. Effect on cyst compressing venous structures to be considered Splenic vein thrombosis As above HTN Stable Hives Improved Hypoalbuminemia Follow Likely multifactorial with contributions of acute inflammation as well as nutritional factors Recheck CT Monitor parameters of pathology
[2016-05-14 09:18] LABS: ALBUMIN 3.1 g/dl (3.4-5.0); BILIRUBIN,DIRECT 0.3 mg/dL (0.0-0.2); C-REACTIVE PROTEIN 2.4 MG/DL (0.00-0.3); CREATININE 0.7 mg/dL (0.7-1.3)
[2016-05-14 09:21] LABS: BILIRUBIN,TOTAL 0.5 mg/dL (0.2-1.0); TOT PROT 6.7 g/dl (6.4-8.2)
--- NOTE | 2016-05-14 09:27 | PN ---
GI Progress Note Subjective: Dr. Godinez covering for Dr. Alonzo who will resume coverage tuesday 05/16: No acute events, no abdominal pain and tolerating feeds Remains afebrile - Objective Vital Signs: Vital Signs Temperature 98.8 F 05/14/16 05:49 Pulse Rate 71 05/14/16 05:49 Respiratory Rate 20 05/14/16 05:49 Blood Pressure 128/59 05/14/16 05:49 O2 Sat by Pulse Oximetry (%) 99 05/13/16 21:00 Constitutional: Calm Eyes: No: Sclera Icterus Cardiovascular: Yes: Regular Rate and Rhythm Respiratory: Yes: CTA Bilaterally Gastrointestinal Inspection: No: Distention ...Auscultate: Yes: Normoactive Bowel Sounds ...Palpate: No: Hepatomegaly, Splenomegaly, Tenderness Edema: No Neurological: Yes: Alert, Oriented Labs: CBC, BMP 05/14/16 08:20 Hepatic Panel Problem List - Problems (1) Relapsing pancreatic necrosis Assessment/Plan: with sequelae of pancreatic necrosis / pseudocyst / splenic vein thrombosis: Clinically looking well For CT scan today: changed to w&w/o IV contrast to reassess pancreatitis/ pseudocyst/splenic vein thrombus check stool for C. Diff continuing enteral feeds Code(s): K86.89 - OTHER SPECIFIED DISEASES OF PANCREAS (2) Acute pancreatitis Code(s): K85.9 - ACUTE PANCREATITIS, UNSPECIFIED * DO NOT USE * Qualifiers: Pancreatitis type: idiopathic
--- NOTE | 2016-05-14 11:32 | PN ---
Progress Note, Physician History of Present Illness: patient stable no new events patient for ct scan today - Current Medication List Current Medications: Active Medications Amlodipine Besylate (Norvasc -) 5 mg PO DAILY [facility] Last Admin: 05/13/16 10:28 Dose: 5 mg Enoxaparin Sodium (Lovenox -) 40 mg SQ DAILY [facility] Metoclopramide HCl (Reglan Injection -) 10 mg IVPB Q8H PRN PRN Reason: NAUSEA Pantoprazole Sodium (Protonix -) 20 mg PO BID [facility] Last Admin: 05/13/16 22:38 Dose: 20 mg - Objective Vital Signs: Vital Signs Temperature 98.8 F 05/14/16 05:49 Pulse Rate 71 05/14/16 05:49 Respiratory Rate 20 05/14/16 05:49 Blood Pressure 128/59 05/14/16 05:49 O2 Sat by Pulse Oximetry (%) 99 05/13/16 21:00 Constitutional: Yes: No Distress, Calm Cardiovascular: Yes: Regular Rate and Rhythm Respiratory: Yes: Regular, CTA Bilaterally Gastrointestinal: Yes: Normal Bowel Sounds, Soft, Other (feeding tube in place tolerating feeds) Musculoskeletal: Yes: WNL Extremities: Yes: WNL Neurological: Yes: Alert, Oriented Psychiatric: Yes: Alert Labs: CBC, BMP 05/14/16 08:20 05/14/16 08:20 Assessment/Plan Problem List - Problems (1) Pancreatic pseudocyst Code(s): K86.3 - PSEUDOCYST OF PANCREAS (2) Relapsing pancreatic necrosis Code(s): K86.89 - OTHER SPECIFIED DISEASES OF PANCREAS (3) Splenic vein thrombosis Assessment/Plan: COLLATERALS SEEN, SPLEEN LOOKS OK Code(s): I82.890 - ACUTE EMBOLISM AND THROMBOSIS fever nausea and vomiting abd pain plan patient stable without abx hives resolved ct scan awaited have explained to the patient about the chancels of abscess are always there if the patient has any fever or increase in wbc will restart abx also will look at the ct scan and then decide
[2016-05-14] MEDS: amLODIPine BESYLATE 5 MG TABLET (FP) PO SCH (11:35)
[2016-05-14] MEDS: ENOXAPARIN NA (PORCINE) 40 MG/0.4 ML DISP.SYRIN SQ SCH ×2 (11:35)
[2016-05-14] MEDS: PANTOPRAZOLE 20 MG TABLET (FP) PO SCH ×2 (11:35→22:02)
[2016-05-14] MEDS ORDERED: ZOLPIDEM TARTRATE 5 MG TABLET PO ONE (21:15)
[2016-05-15 08:24] LABS: BASOPHIL 1.4 % (0-2.0); EOSINOPHIL 11.3 % (0-4.5); MCH 24.8 pg (25.7-33.7); MCHC 32.4 g/dl (32.0-35.9); MEAN CELL VOLUME 76.7 fl (80-96); MEAN PLT VOLUME 9.5 fl (7.5-11.1); NEUTROPHILS 65.3 % (42.8-82.8); PLATELET COUNT 189 K/MM3 (134-434); RDW 14.1 % (11.9-15.9); WHITE BLOOD COUNT 6.4 K/mm3 (4.0-10.0)
[2016-05-15 08:48] LABS: ALBUMIN 2.8 g/dl (3.4-5.0); ANION GAP 10 (8-16); BILIRUBIN,TOTAL 0.5 mg/dL (0.2-1.0); CALCIUM 8.4 mg/dL (8.5-10.1); CO2 29 mmol/L (21-32); CREATININE 0.6 mg/dL (0.7-1.3); GLUCOSE,RANDOM 115 mg/dL (74-106); SGOT/AST 18 U/L (15-37); SGPT/ALT 29 U/L (12-78); TOT PROT 6.1 g/dl (6.4-8.2)
[2016-05-15 08:49] LABS: ALK PHOS 114 U/L (45-117)
--- NOTE | 2016-05-15 09:58 | PN ---
Progress Note (short form) - Note Progress Note: Patient seen and examined. Chart reviewed. Currently sitting up in chair, alert, responsive and appropriate in no acute distress. Denies chest discomfort , abdominal pain or dyspnea. Labs, radiologic testing and technical assistance consultant notes reviewed. CT scan reviewed. JT feeding ongoing Selected Entries 05/14/16 05/15/16 21:00 06:00 Temperature 98.4 F Pulse Rate 79 Respiratory 20 Rate Blood Pressure 150/85 O2 Sat by Pulse 96 Oximetry (%) Oxygen Delivery Room Air Method Weight 224 lb 8 oz Laboratory Tests 05/15/16 05/15/16 06:30 06:30 WBC 6.4 Hgb 11.3 L Hct 34.9 L Plt Count 189 Sodium 139 Potassium 4.0 Chloride 100 Carbon Dioxide 29 BUN 13 Creatinine 0.6 L Random Glucose 115 H Calcium 8.4 L Total Bilirubin 0.5 AST 18 ALT 29 Alkaline Phosphatase 114 Total Protein 6.1 L Albumin 2.8 L Lipase 159 Chest Clear Cor RRR Abd Soft non-tender BS normal No mass Naso-jejunal tube in place Feeding in progress Ext No edema No phlebitis Neuro No focal deficits Assessment and Plan Pancreatitis with pseudocyst formation CT scan reviewed with slight decrease in size of large fluid collection within the lesser sac between the pancreatic body and stomach, currently 10 x 9 8.4 cm (previously 11 x 10 x 8.4cm), communicating with a smaller fluid collection within the pancreas. May require EUS for drainage Follow clinical status, labs and radiologic testing. Effect of cyst compressing venous structures again seen with splenic vein thrombosis and extrinsic compression on the stomach. Splenic vein thrombosis As above HTN Stable Hives Improved Hypoalbuminemia 2.8 Follow Likely multifactorial with contributions of acute inflammation as well as nutritional factors Anemia 11.3/34.[address] Monitor parameters of pathology
[2016-05-15] MEDS: ENOXAPARIN NA (PORCINE) 40 MG/0.4 ML DISP.SYRIN SQ SCH (10:59)
[2016-05-15] MEDS: amLODIPine BESYLATE 5 MG TABLET (FP) PO SCH (10:59)
[2016-05-15] MEDS: PANTOPRAZOLE 20 MG TABLET (FP) PO SCH ×2 (10:59→21:53)
--- NOTE | 2016-05-15 12:50 | PN ---
Progress Note, Physician History of Present Illness: patient stable no new events feels much better - Current Medication List Current Medications: Active Medications Amlodipine Besylate (Norvasc -) 5 mg PO DAILY [facility] Last Admin: 05/15/16 10:59 Dose: 5 mg Enoxaparin Sodium (Lovenox -) 40 mg SQ DAILY [facility] Last Admin: 05/15/16 10:59 Dose: Not Given Metoclopramide HCl (Reglan Injection -) 10 mg IVPB Q8H PRN PRN Reason: NAUSEA Pantoprazole Sodium (Protonix -) 20 mg PO BID [facility] Last Admin: 05/15/16 10:59 Dose: 20 mg - Objective Vital Signs: Vital Signs Temperature 98.4 F 05/15/16 06:00 Pulse Rate 79 05/15/16 06:00 Respiratory Rate 20 05/15/16 06:00 Blood Pressure 150/85 05/15/16 06:00 O2 Sat by Pulse Oximetry (%) 96 05/14/16 21:00 Constitutional: Yes: No Distress, Calm Cardiovascular: Yes: Regular Rate and Rhythm Respiratory: Yes: Regular, CTA Bilaterally Gastrointestinal: Yes: Normal Bowel Sounds, Soft Musculoskeletal: Yes: WNL Extremities: Yes: WNL Neurological: Yes: Alert, Oriented Psychiatric: Yes: Alert Labs: CBC, BMP 05/15/16 06:30 05/15/16 06:30 Assessment/Plan Problem List - Problems (1) Pancreatic pseudocyst Code(s): K86.3 - PSEUDOCYST OF PANCREAS (2) Relapsing pancreatic necrosis Code(s): K86.89 - OTHER SPECIFIED DISEASES OF PANCREAS (3) Splenic vein thrombosis Assessment/Plan: COLLATERALS SEEN, SPLEEN LOOKS OK Code(s): I82.890 - ACUTE EMBOLISM AND THROMBOSIS fever nausea and vomiting abd pain plan patient stable without abx ct scan result noted cyst size has decreased slightly continue very close monitoring have to plan when to drain the fluid
--- NOTE | 2016-05-15 13:05 | PN ---
Progress Note (short form) - Note Progress Note: Pancreatitis of ? etiology: NSAID induced, ? 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 Will have to be monitored for develeopment of clinically significant gastric varices Continue J-Tube feeds Clinton Amin resumes coverage 05/16/16 Problem List - Problems (1) Relapsing pancreatic necrosis Code(s): K86.89 - OTHER SPECIFIED DISEASES OF PANCREAS (2) Acute pancreatitis Code(s): K85.9 - ACUTE PANCREATITIS, UNSPECIFIED * DO NOT USE * Qualifiers: Pancreatitis type: idiopathic
[2016-05-16 08:21] LABS: BASOPHIL 1.3 % (0-2.0); EOSINOPHIL 8.6 % (0-4.5); MCH 24.6 pg (25.7-33.7); MCHC 31.9 g/dl (32.0-35.9); MEAN PLT VOLUME 9.5 fl (7.5-11.1); NEUTROPHILS 60.3 % (42.8-82.8); PLATELET COUNT 180 K/MM3 (134-434); RDW 14.2 % (11.9-15.9); WHITE BLOOD COUNT 5.8 K/mm3 (4.0-10.0)
[2016-05-16 08:31] LABS: ALBUMIN 2.8 g/dl (3.4-5.0); ANION GAP 10 (8-16); BILIRUBIN,TOTAL 0.4 mg/dL (0.2-1.0); CALCIUM 8.4 mg/dL (8.5-10.1); CO2 28 mmol/L (21-32); CREATININE 0.6 mg/dL (0.7-1.3); GLUCOSE,RANDOM 143 mg/dL (74-106); SGOT/AST 16 U/L (15-37); SGPT/ALT 31 U/L (12-78); TOT PROT 6.3 g/dl (6.4-8.2)
[2016-05-16 08:32] LABS: ALK PHOS 110 U/L (45-117)
[2016-05-16] MEDS: PANTOPRAZOLE 20 MG TABLET (FP) PO SCH ×2 (10:05→22:06)
[2016-05-16] MEDS: amLODIPine BESYLATE 5 MG TABLET (FP) PO SCH (10:05)
--- NOTE | 2016-05-16 12:27 | PN ---
Progress Note, Physician History of Present Illness: continues to be afebrile no complaints tolerating feeds - Current Medication List Current Medications: Active Medications Amlodipine Besylate (Norvasc -) 5 mg PO DAILY [facility] Last Admin: 05/16/16 10:05 Dose: 5 mg Metoclopramide HCl (Reglan Injection -) 10 mg IVPB Q8H PRN PRN Reason: NAUSEA Pantoprazole Sodium (Protonix -) 20 mg PO BID [facility] Last Admin: 05/16/16 10:05 Dose: 20 mg - Objective Vital Signs: Vital Signs Temperature 98.5 F 05/16/16 06:10 Pulse Rate 71 05/16/16 06:10 Respiratory Rate 202 H 05/16/16 06:10 Blood Pressure 134/74 05/16/16 06:10 O2 Sat by Pulse Oximetry (%) 96 05/15/16 21:00 Constitutional: Yes: No Distress, Calm Cardiovascular: Yes: Regular Rate and Rhythm Respiratory: Yes: Regular, CTA Bilaterally Gastrointestinal: Yes: Normal Bowel Sounds, Soft Musculoskeletal: Yes: WNL Extremities: Yes: WNL Neurological: Yes: Alert, Oriented Psychiatric: Yes: Alert Labs: CBC, BMP 05/16/16 06:30 05/16/16 06:30 Assessment/Plan Problem List - Problems (1) Pancreatic pseudocyst Code(s): K86.3 - PSEUDOCYST OF PANCREAS (2) Relapsing pancreatic necrosis Code(s): K86.89 - OTHER SPECIFIED DISEASES OF PANCREAS (3) Splenic vein thrombosis Assessment/Plan: COLLATERALS SEEN, SPLEEN LOOKS OK Code(s): I82.890 - ACUTE EMBOLISM AND THROMBOSIS fever nausea and vomiting abd pain plan continues to be stable awaiting for final plan eus drainage probably rest as per primary team
[2016-05-16] MEDS ORDERED: diphenhydrAMINE HCL 25 MG CAPSULE (FP) PO PRN (14:52)
--- NOTE | 2016-05-16 15:55 | PN ---
Progress Note, Physician Chief Complaint: Mr Byrd is without complaint today. Says his pain is completely gone. No cp, sob, n/v. - Current Medication List Current Medications: Active Medications Amlodipine Besylate (Norvasc -) 5 mg PO DAILY [facility] Last Admin: 05/16/16 10:05 Dose: 5 mg Diphenhydramine HCl (Benadryl -) 25 mg PO Q6H PRN PRN Reason: FOR ITCHING Metoclopramide HCl (Reglan Injection -) 10 mg IVPB Q8H PRN PRN Reason: NAUSEA Pantoprazole Sodium (Protonix -) 20 mg PO BID [facility] Last Admin: 05/16/16 10:05 Dose: 20 mg - Objective Vital Signs: Vital Signs Temperature 98.4 F 05/16/16 14:17 Pulse Rate 71 05/16/16 06:10 Respiratory Rate 18 05/16/16 14:17 Blood Pressure 130/82 05/16/16 14:17 O2 Sat by Pulse Oximetry (%) 96 05/15/16 21:00 Constitutional: Yes: No Distress, Calm, Obese Cardiovascular: Yes: Regular Rate and Rhythm. No: Gallop, Murmur, Rub Respiratory: Yes: Regular, CTA Bilaterally. No: Rales, Rhonchi, Wheezes Gastrointestinal: Yes: Normal Bowel Sounds, Soft. No: Distention, Tenderness Extremities: Yes: WNL Edema: No Labs: CBC, BMP 05/16/16 06:30 05/16/16 06:30 Problem List - Problems (1) Relapsing pancreatic necrosis Code(s): K86.89 - OTHER SPECIFIED DISEASES OF PANCREAS (2) Hypertension Code(s): I10 - ESSENTIAL (PRIMARY) HYPERTENSION Qualifiers: Hypertension type: essential hypertension Qualified Code(s): I10 - Essential (primary) hypertension Assessment/Plan (1) Relapsing pancreatic necrosis Assessment/Plan: -appreciate GI and ID assistance -antibiotic course finished -continue jejunal feeds -GI following, ? transfer for EUS with drainage Code(s): K86.89 - OTHER SPECIFIED DISEASES OF PANCREAS (2) Hypertension Assessment/Plan: -continue amlodipine -controlled Code(s): I10 - ESSENTIAL (PRIMARY) HYPERTENSION Qualifiers: Hypertension type: essential hypertension Qualified Code(s): I10 - Essential (primary) hypertension
--- NOTE | 2016-05-16 17:30 | PN ---
GI Progress Note Subjective: GASTROENTEROLOGY NO PAIN, NO FEVER CT SCAN DONE THIS WEEKEND SHOWED DECREASED FLUID COLLECTION, SPLENIC VEIN THROMBOSIS WITH COLLATERALS(VARICES) MILD SPLENOMEGALY NASOJEJEUNAL TUBE IS IN GOOD POSITION - Objective Vital Signs: Vital Signs Temperature 98.8 F 05/16/16 17:11 Pulse Rate 71 05/16/16 17:11 Respiratory Rate 20 05/16/16 17:11 Blood Pressure 142/79 05/16/16 17:11 O2 Sat by Pulse Oximetry (%) 96 05/16/16 10:00 Constitutional: No Distress, Calm Eyes: Yes: Conjunctiva Clear HENT: Yes: Normocephalic Neck: Yes: Supple Cardiovascular: Yes: Regular Rate and Rhythm Respiratory: Yes: Regular Gastrointestinal Inspection: Yes: WNL ...Auscultate: Yes: Normoactive Bowel Sounds ...Palpate: Yes: Soft Extremities: Yes: WNL Labs: CBC, BMP 05/16/16 06:30 05/16/16 06:30 Laboratory Tests 05/14/16 05/15/16 05/16/16 08:20 06:30 06:30 WBC 5.8 RBC 4.67 Hgb 11.5 L Hct 36.0 MCV 77.0 L MCHC 31.9 L RDW 14.2 Plt Count 180 MPV 9.5 Neutrophils % 60.3 Lymphocytes % 18.1 D Monocytes % 11.7 H Eosinophils % 8.6 H Basophils % 1.3 Sodium Potassium Chloride Carbon Dioxide Anion Gap BUN Creatinine Creat Clearance w eGFR Random Glucose Calcium Total Bilirubin AST ALT Alkaline Phosphatase Total Protein Albumin Lipase 323 159 05/16/16 06:30 WBC RBC Hgb Hct MCV MCHC RDW Plt Count MPV Neutrophils % Lymphocytes % Monocytes % Eosinophils % Basophils % Sodium 140 Potassium 4.3 Chloride 102 Carbon Dioxide 28 Anion Gap 10 BUN 13 Creatinine 0.6 L Creat Clearance w eGFR > 60 Random Glucose 143 H D Calcium 8.4 L Total Bilirubin 0.4 AST 16 ALT 31 Alkaline Phosphatase 110 Total Protein 6.3 L Albumin 2.8 L Lipase 149 - ....Imaging Cat Scan: Image Reviewed Problem List - Problems (1) Pancreatic pseudocyst Assessment/Plan: NO GASTRIC VARICES DURING ENDOSCOPY WATCHFUL WAITING IS PREFERRED WILL REVIEW CT SCAN WITH EUS ENDOSCOPIST AND RADIOLOGIST THIS WEEK THERE HAVE BEEN PATIENT WITH FLUID COLLECTIONS LIKE THIS THAT DO WELL WITHOUT INTERVENTION BUT NEED IMAGING FOR MONTHS CONTINUE JEJUNAL FEEDINGS FOR NOW PATIENT HAS NO PROBLEMS STAYING ON THIS CURRENT THERAPY Code(s): K86.3 - PSEUDOCYST OF PANCREAS (2) Relapsing pancreatic necrosis Code(s): K86.89 - OTHER SPECIFIED DISEASES OF PANCREAS (3) Splenic vein thrombosis Code(s): I82.890 - ACUTE EMBOLISM AND THROMBOSIS OF OTHER SPECIFIED VEINS
[2016-05-17 08:22] LABS: EOSINOPHIL 7.3 % (0-4.5); MCHC 32.3 g/dl (32.0-35.9); MEAN CELL VOLUME 77.3 fl (80-96); MEAN PLT VOLUME 9.3 fl (7.5-11.1); NEUTROPHILS 63.1 % (42.8-82.8); PLATELET COUNT 195 K/MM3 (134-434); RDW 14.4 % (11.9-15.9); WHITE BLOOD COUNT 6.4 K/mm3 (4.0-10.0)
[2016-05-17] MEDS: amLODIPine BESYLATE 5 MG TABLET (FP) PO SCH (09:25)
[2016-05-17] MEDS: PANTOPRAZOLE 20 MG TABLET (FP) PO SCH ×2 (09:25→21:12)
[2016-05-17 09:35] LABS: BILIRUBIN,DIRECT 0.2 mg/dL (0.0-0.2); BILIRUBIN,TOTAL 0.5 mg/dL (0.2-1.0); CALCIUM 8.6 mg/dL (8.5-10.1); CREATININE 0.7 mg/dL (0.7-1.3); MAGNESIUM 2.5 mg/dL (1.8-2.4); PHOSPHOROUS 3.8 mg/dL (2.5-4.9); TOT PROT 6.2 g/dl (6.4-8.2)
--- NOTE | 2016-05-17 14:33 | PN ---
Progress Note, Physician History of Present Illness: patient doing well no new issues - Current Medication List Current Medications: Active Medications Amlodipine Besylate (Norvasc -) 5 mg PO DAILY [facility] Last Admin: 05/17/16 09:25 Dose: 5 mg Diphenhydramine HCl (Benadryl -) 25 mg PO Q6H PRN PRN Reason: FOR ITCHING Last Admin: 05/16/16 17:31 Dose: 25 mg Metoclopramide HCl (Reglan Injection -) 10 mg IVPB Q8H PRN PRN Reason: NAUSEA Pantoprazole Sodium (Protonix -) 20 mg PO BID [facility] Last Admin: 05/17/16 09:25 Dose: 20 mg - Objective Vital Signs: Vital Signs Temperature 98.5 F 05/17/16 14:06 Pulse Rate 73 05/17/16 14:06 Respiratory Rate 16 05/17/16 14:06 Blood Pressure 134/74 05/17/16 14:06 O2 Sat by Pulse Oximetry (%) 96 05/16/16 21:00 Constitutional: Yes: No Distress, Calm HENT: Yes: Atraumatic Cardiovascular: Yes: Regular Rate and Rhythm Respiratory: Yes: Regular, CTA Bilaterally Gastrointestinal: Yes: Normal Bowel Sounds, Soft Musculoskeletal: Yes: WNL Extremities: Yes: WNL Neurological: Yes: Alert, Oriented Psychiatric: Yes: Alert Labs: CBC, BMP 05/17/16 06:30 05/17/16 06:30 Assessment/Plan Problem List - Problems (1) Pancreatic pseudocyst Code(s): K86.3 - PSEUDOCYST OF PANCREAS (2) Relapsing pancreatic necrosis Code(s): K86.89 - OTHER SPECIFIED DISEASES OF PANCREAS (3) Splenic vein thrombosis Assessment/Plan: COLLATERALS SEEN, SPLEEN LOOKS OK Code(s): I82.890 - ACUTE EMBOLISM AND THROMBOSIS fever nausea and vomiting abd pain plan continues to be stable i think patient should get imaging studies in 2 weeks looks like cyst is maturing patient very worried if possible once the cyst matures should be drained rest as per primary team
--- NOTE | 2016-05-17 16:00 | PN ---
Progress Note, Physician Chief Complaint: Mr Byrd is without complaint today. Says his pain is completely gone. No cp, sob, n/v. - Current Medication List Current Medications: Active Medications Amlodipine Besylate (Norvasc -) 5 mg PO DAILY [facility] Last Admin: 05/17/16 09:25 Dose: 5 mg Diphenhydramine HCl (Benadryl -) 25 mg PO Q6H PRN PRN Reason: FOR ITCHING Last Admin: 05/16/16 17:31 Dose: 25 mg Metoclopramide HCl (Reglan Injection -) 10 mg IVPB Q8H PRN PRN Reason: NAUSEA Pantoprazole Sodium (Protonix -) 20 mg PO BID [facility] Last Admin: 05/17/16 09:25 Dose: 20 mg - Objective Vital Signs: Vital Signs Temperature 98.5 F 05/17/16 14:06 Pulse Rate 73 05/17/16 14:06 Respiratory Rate 16 05/17/16 14:06 Blood Pressure 134/74 05/17/16 14:06 O2 Sat by Pulse Oximetry (%) 96 05/16/16 21:00 Constitutional: Yes: Well Nourished, No Distress, Calm Cardiovascular: Yes: Regular Rate and Rhythm. No: Gallop, Murmur, Rub Respiratory: Yes: Regular, CTA Bilaterally. No: Rales, Rhonchi, Wheezes Gastrointestinal: Yes: Normal Bowel Sounds, Soft. No: Distention, Tenderness Extremities: Yes: WNL Edema: No Labs: CBC, BMP 05/17/16 06:30 05/17/16 06:30 Problem List - Problems (1) Relapsing pancreatic necrosis Code(s): K86.89 - OTHER SPECIFIED DISEASES OF PANCREAS (2) Hypertension Code(s): I10 - ESSENTIAL (PRIMARY) HYPERTENSION Qualifiers: Hypertension type: essential hypertension Qualified Code(s): I10 - Essential (primary) hypertension Assessment/Plan (1) Relapsing pancreatic necrosis Assessment/Plan: -appreciate GI and ID assistance -case d/w Dr Alonzo -currently monitor, will need a repeat CT scan in the next week -if cyst matures, plan for transfer and drainage -if not, continue current treatment Code(s): K86.89 - OTHER SPECIFIED DISEASES OF PANCREAS (2) Hypertension Assessment/Plan: -continue amlodipine -controlled Code(s): I10 - ESSENTIAL (PRIMARY) HYPERTENSION Qualifiers: Hypertension type: essential hypertension Qualified Code(s): I10 - Essential (primary) hypertension
--- NOTE | 2016-05-17 18:54 | PN ---
GI Progress Note Subjective: GASTROENTEROLOGY DOING WELL SPOKE WITH FAMILY ABOUT PLAN - Objective Vital Signs: Vital Signs Temperature 98.7 F 05/17/16 17:50 Pulse Rate 74 05/17/16 17:50 Respiratory Rate 20 05/17/16 17:50 Blood Pressure 141/74 05/17/16 17:50 O2 Sat by Pulse Oximetry (%) 96 05/17/16 10:00 Constitutional: No Distress Eyes: Yes: Conjunctiva Clear Cardiovascular: Yes: Regular Rate and Rhythm Respiratory: Yes: Regular Gastrointestinal Inspection: Yes: WNL ...Auscultate: Yes: Normoactive Bowel Sounds ...Palpate: Yes: Soft Extremities: Yes: WNL Labs: CBC, BMP 05/17/16 06:30 05/17/16 06:30 Laboratory Tests 05/17/16 05/17/16 06:30 06:30 WBC 6.4 RBC 4.75 Hgb 11.9 Hct 36.7 MCV 77.3 L MCHC 32.3 RDW 14.4 Plt Count 195 MPV 9.3 Neutrophils % 63.1 Lymphocytes % 18.9 Monocytes % 9.7 Eosinophils % 7.3 H Basophils % 1.0 Sodium 138 Potassium 4.4 Chloride 100 Carbon Dioxide 28 Anion Gap 10 BUN 13 Creatinine 0.7 Random Glucose 149 H Calcium 8.6 Phosphorus 3.8 Magnesium 2.5 H D Total Bilirubin 0.5 D Direct Bilirubin 0.2 D AST 15 ALT 29 Alkaline Phosphatase 114 Total Protein 6.2 L Albumin 3.0 L Lipase 147 - ....Imaging Cat Scan: Image Reviewed Problem List - Problems (1) Pancreatic pseudocyst Assessment/Plan: FLUID COLLECTION IS LESS. WALL AROUND FLUID COLLECTION NOT MENTIONED IN REPORT AND I DO NOT SEE THE WALL IN ALL THE IMAGES OF THE PANCREAS. ID HAS STOPPED THE ANTIBIOTICS. HE IS TOLERATING THE FEEDS. MENTIONED YESTERDAY AND BEFORE, WATCHFUL WAITING IS THE BEST APPROACH. HOPEFULLY WILL NOT NEED TO DRAIN ANYTHING. WOULD NEED TO DETERMINE THAT AT THE 3 TO 4 WEEK TIME. CURRENTLY HE IS ASYMPTOMATIC. WHEN TO START A TRIAL OF FEEDING IS NOT YET CLEAR TO ME UNTIL RADIOLOGY,THE ADVANCED ENDOSCOPIST AND MYSELF REVIEW THE IMAGES AGAIN TOGETHER (HOPEFULLY IN ONE TO TWO DAYS) Code(s): K86.3 - PSEUDOCYST OF PANCREAS (2) Relapsing pancreatic necrosis Assessment/Plan: RESOLVING Code(s): K86.89 - OTHER SPECIFIED DISEASES OF PANCREAS (3) Splenic vein thrombosis Assessment/Plan: STABLE Code(s): I82.890 - ACUTE EMBOLISM AND THROMBOSIS OF OTHER SPECIFIED VEINS
[2016-05-18] MEDS: PANTOPRAZOLE 20 MG TABLET (FP) PO SCH ×2 (10:59→22:06)
[2016-05-18] MEDS: amLODIPine BESYLATE 5 MG TABLET (FP) PO SCH (10:59)
--- NOTE | 2016-05-18 15:31 | PN ---
Progress Note, Physician History of Present Illness: patient doing well no new issues tolerating diet - Current Medication List Current Medications: Active Medications Amlodipine Besylate (Norvasc -) 5 mg PO DAILY [facility] Last Admin: 05/18/16 10:59 Dose: 5 mg Diphenhydramine HCl (Benadryl -) 25 mg PO Q6H PRN PRN Reason: FOR ITCHING Last Admin: 05/16/16 17:31 Dose: 25 mg Metoclopramide HCl (Reglan Injection -) 10 mg IVPB Q8H PRN PRN Reason: NAUSEA Pantoprazole Sodium (Protonix -) 20 mg PO BID [facility] Last Admin: 05/18/16 10:59 Dose: 20 mg - Objective Vital Signs: Vital Signs Temperature 98.4 F 05/18/16 14:42 Pulse Rate 71 05/18/16 14:42 Respiratory Rate 20 05/18/16 12:13 Blood Pressure 137/77 05/18/16 14:42 O2 Sat by Pulse Oximetry (%) 96 05/17/16 20:30 Constitutional: Yes: No Distress, Calm Cardiovascular: Yes: Regular Rate and Rhythm Respiratory: Yes: Regular, CTA Bilaterally Gastrointestinal: Yes: Normal Bowel Sounds, Soft, Other (fedding tube) Musculoskeletal: Yes: WNL Extremities: Yes: WNL Neurological: Yes: Alert, Oriented Psychiatric: Yes: Alert Labs: CBC, BMP 05/17/16 06:30 05/17/16 06:30 Assessment/Plan Problem List - Problems (1) Pancreatic pseudocyst Code(s): K86.3 - PSEUDOCYST OF PANCREAS (2) Relapsing pancreatic necrosis Code(s): K86.89 - OTHER SPECIFIED DISEASES OF PANCREAS (3) Splenic vein thrombosis Assessment/Plan: COLLATERALS SEEN, SPLEEN LOOKS OK Code(s): I82.890 - ACUTE EMBOLISM AND THROMBOSIS fever nausea and vomiting abd pain plan continue current mgmt patient tolerating ng feeding plan for introducing orally rest as per the team
--- NOTE | 2016-05-18 18:32 | PN ---
GI Progress Note Subjective: GASTROENTEROLOGY DOING WELL REVIEWED CT SCAN WITH GROUP MEETING TODAY - Objective Vital Signs: Vital Signs Temperature 98.6 F 05/18/16 17:19 Pulse Rate 68 05/18/16 17:19 Respiratory Rate 18 05/18/16 17:19 Blood Pressure 113/60 05/18/16 17:19 O2 Sat by Pulse Oximetry (%) 96 05/17/16 20:30 Constitutional: Calm Eyes: Yes: Conjunctiva Clear HENT: Yes: WNL Cardiovascular: Yes: WNL Respiratory: Yes: WNL Gastrointestinal Inspection: Yes: WNL ...Auscultate: Yes: Normoactive Bowel Sounds ...Palpate: Yes: Soft Extremities: Yes: WNL Labs: CBC, BMP 05/17/16 06:30 05/17/16 06:30 Problem List - Problems (1) Pancreatic pseudocyst Assessment/Plan: FLUID COLLECTION NOT COMPLETELY WALLED OFF. STILL NEEDS TO MATURE. CURRENTLY THERE ARE NO PLANS TO START ORAL FEEDING DESPITE THE INFECTIOUS DISEASE SPECIALIST NOTE. ONCE AGAIN WATCHFUL WAITING IS THE BEST OPTION. REPEAT IMAGING IF HIS CONDITION CHANGES. SCHEDULED CT SCAN IN 3 TO 4 WEEKS. Code(s): K86.3 - PSEUDOCYST OF PANCREAS (2) Relapsing pancreatic necrosis Code(s): K86.89 - OTHER SPECIFIED DISEASES OF PANCREAS (3) Splenic vein thrombosis Code(s): I82.890 - ACUTE EMBOLISM AND THROMBOSIS OF OTHER SPECIFIED VEINS
--- NOTE | 2016-05-18 20:43 | PN ---
Physical Exam: SUBJECTIVE: Patient seen and examined at bedside. present. Voices no complaints. OBJECTIVE: Vital Signs Period Temp Pulse Resp BP Sys/Stone Pulse Ox Last 24 Hr 97.9 F-98.6 F 64-72 18-20 113-137/60-77 95-97 GENERAL: The patient is awake, alert, and fully oriented, in no acute distress. HEAD: Normal with no signs of trauma. NG tube in place EYES: PERRL, extraocular movements intact, sclera anicteric, conjunctiva clear. No ptosis. LUNGS: Breath sounds equal, clear to auscultation bilaterally, no wheezes, no crackles, no accessory muscle use. HEART: Regular rate and rhythm, S1, S2 without murmur, rub or gallop. ABDOMEN: Soft, nontender, nondistended, normoactive bowel sounds, no guarding, no rebound, no hepatosplenomegaly, no masses. EXTREMITIES: 2+ pulses, warm, well-perfused, no edema. NEUROLOGICAL: Cranial nerves II through XII grossly intact. Normal speech, gait not observed. PSYCH: Normal mood, normal affect. CBCD WBC 6.4 K/mm3 (4.0-10.0) 05/17/16 06:30 RBC 4.75 M/mm3 (4.00-5.60) 05/17/16 06:30 Hgb 11.9 GM/dL (11.7-16.9) 05/17/16 06:30 Hct 36.7 % (35.4-49) 05/17/16 06:30 MCV 77.3 fl (80-96) L 05/17/16 06:30 MCHC 32.3 g/dl (32.0-35.9) 05/17/16 06:30 RDW 14.4 % (11.9-15.9) 05/17/16 06:30 Plt Count 195 K/MM3 (134-434) 05/17/16 06:30 MPV 9.3 fl (7.5-11.1) 05/17/16 06:30 CMP Sodium 138 mmol/L (136-145) 05/17/16 06:30 Potassium 4.4 mmol/L (3.5-5.1) 05/17/16 06:30 Chloride 100 mmol/L (98-107) 05/17/16 06:30 Carbon Dioxide 28 mmol/L (21-32) 05/17/16 06:30 Anion Gap 10 (8-16) 05/17/16 06:30 BUN 13 mg/dL (7-18) 05/17/16 06:30 Creatinine 0.7 mg/dL (0.7-1.3) 05/17/16 06:30 Creat Clearance w eGFR > 60 (>60) 05/16/16 06:30 Calcium 8.6 mg/dL (8.5-10.1) 05/17/16 06:30 Total Bilirubin 0.5 mg/dL (0.2-1.0) D 05/17/16 06:30 AST 15 U/L (15-37) 05/17/16 06:30 ALT 29 U/L (12-78) 05/17/16 06:30 Alkaline Phosphatase 114 U/L (45-117) 05/17/16 06:30 Total Protein 6.2 g/dl (6.4-8.2) L 05/17/16 06:30 Albumin 3.0 g/dl (3.4-5.0) L 05/17/16 06:30 Active Medications Generic Name Dose Route Start Last Admin Trade Name Freq PRN Reason Stop Dose Admin Amlodipine Besylate 5 mg 05/07/16 10:00 05/18/16 10:59 Norvasc - PO 5 mg DAILY [facility] Administration Diphenhydramine HCl 25 mg 05/16/16 14:52 05/16/16 17:31 Benadryl - PO 25 mg Q6H PRN Administration FOR ITCHING Metoclopramide HCl 10 mg 05/06/16 19:12 Reglan Injection - IVPB Q8H PRN NAUSEA Pantoprazole Sodium 20 mg 05/07/16 22:00 05/18/16 10:59 Protonix - PO 20 mg BID [facility] Administration ASSESSMENT/PLAN 61 year-old man with a PMH of HTN, HLD, gastritis, and pancreatitis. Recently hospitalized 04/17-04/29. Pancreatic pseudocyst --per GI, fluid collection not completely walled off, still needs to mature --no plans to start oral feeding --watchful waiting --repeat imaging if condition changes, if not, schedule CT 3 to 4 weeks Relapsing pancreatic necrosis Splenic vein thrombosis --collaterals seen F/E/N Fluids/Nutrition: Perative 70cc/hr, plus free water 30cc/hr Electrolytes: replete as indicated DVT prophylaxis: start lovenox, oob, ambulation PT evaluation/daily PT Dispo: continues to require inpatient care. Full Code. Visit type - Emergency Visit Emergency Visit: Yes ED Registration Date: 05/06/16 Care time: The patient presented to the Emergency Department on the above date and was hospitalized for further evaluation of their emergent condition. - New Patient This patient is new to me today: Yes Date on this admission: 05/18/16 - Critical Care Critical Care patient: No
[2016-05-19 08:12] LABS: BASOPHIL 1.2 % (0-2.0); EOSINOPHIL 5.1 % (0-4.5); MCHC 32.3 g/dl (32.0-35.9); MEAN CELL VOLUME 77.5 fl (80-96); MEAN PLT VOLUME 9.2 fl (7.5-11.1); PLATELET COUNT 232 K/MM3 (134-434); RDW 14.7 % (11.9-15.9); WHITE BLOOD COUNT 8.1 K/mm3 (4.0-10.0)
[2016-05-19 08:57] LABS: ALBUMIN 3.4 g/dl (3.4-5.0); ALK PHOS 117 U/L (45-117); ANION GAP 8 (8-16); BILIRUBIN,TOTAL 0.4 mg/dL (0.2-1.0); CALCIUM 9.1 mg/dL (8.5-10.1); CO2 32 mmol/L (21-32); CREATININE 0.7 mg/dL (0.7-1.3); GLUCOSE,RANDOM 131 mg/dL (74-106); MAGNESIUM 2.5 mg/dL (1.8-2.4); PHOSPHOROUS 4.1 mg/dL (2.5-4.9); SGOT/AST 13 U/L (15-37); SGPT/ALT 33 U/L (12-78); TOT PROT 6.9 g/dl (6.4-8.2)
[2016-05-19] MEDS: ENOXAPARIN NA (PORCINE) 40 MG/0.4 ML DISP.SYRIN SQ SCH ×2 (10:23→10:26)
[2016-05-19] MEDS: PANTOPRAZOLE 20 MG TABLET (FP) PO SCH ×2 (10:24→21:31)
[2016-05-19] MEDS: amLODIPine BESYLATE 5 MG TABLET (FP) PO SCH (10:24)
--- NOTE | 2016-05-19 14:04 | PN ---
Progress Note, Physician History of Present Illness: doing well no complaints tolerating tube feeds - Current Medication List Current Medications: Active Medications Amlodipine Besylate (Norvasc -) 5 mg PO DAILY [facility] Last Admin: 05/19/16 10:24 Dose: 5 mg Diphenhydramine HCl (Benadryl -) 25 mg PO Q6H PRN PRN Reason: FOR ITCHING Last Admin: 05/16/16 17:31 Dose: 25 mg Enoxaparin Sodium (Lovenox -) 40 mg SQ DAILY [facility] Last Admin: 05/19/16 10:26 Dose: Not Given Metoclopramide HCl (Reglan Injection -) 10 mg IVPB Q8H PRN PRN Reason: NAUSEA Pantoprazole Sodium (Protonix -) 20 mg PO BID [facility] Last Admin: 05/19/16 10:24 Dose: 20 mg - Objective Vital Signs: Vital Signs Temperature 98.6 F 05/19/16 06:00 Pulse Rate 66 05/19/16 06:00 Respiratory Rate 18 05/19/16 06:00 Blood Pressure 126/65 05/19/16 06:00 O2 Sat by Pulse Oximetry (%) 97 05/18/16 21:00 Constitutional: Yes: No Distress, Calm Cardiovascular: Yes: Regular Rate and Rhythm Respiratory: Yes: Regular, CTA Bilaterally Gastrointestinal: Yes: Normal Bowel Sounds, Soft Musculoskeletal: Yes: WNL Extremities: Yes: WNL Neurological: Yes: Alert, Oriented Psychiatric: Yes: Alert Labs: CBC, BMP 05/19/16 06:30 05/19/16 06:30 Assessment/Plan Problem List - Problems (1) Pancreatic pseudocyst Code(s): K86.3 - PSEUDOCYST OF PANCREAS (2) Relapsing pancreatic necrosis Code(s): K86.89 - OTHER SPECIFIED DISEASES OF PANCREAS (3) Splenic vein thrombosis Assessment/Plan: COLLATERALS SEEN, SPLEEN LOOKS OK Code(s): I82.890 - ACUTE EMBOLISM AND THROMBOSIS fever nausea and vomiting abd pain plan patient stable off of abx continue current mgmt patient tolerating ng feeding plan for introducing orally rest as per the team
[2016-05-19] MEDS ORDERED: METOCLOPRAMIDE HCL INJECTION 10 MG/2 ML VIAL IVPB ONE (16:45)
--- NOTE | 2016-05-19 17:41 | PN ---
GI Progress Note Subjective: GASTROENTEROLOGY UNFORTUNATELY THE [place] TUBE HAS MOVED OUT 10CMS FEEDS HELD REGLAN GIVEN AXR WILL BE ORDERED - Objective Vital Signs: Vital Signs Temperature 98.5 F 05/19/16 17:15 Pulse Rate 74 05/19/16 17:15 Respiratory Rate 20 05/19/16 17:15 Blood Pressure 100/47 05/19/16 17:15 O2 Sat by Pulse Oximetry (%) 98 05/19/16 09:00 Constitutional: No Distress, Calm Eyes: Yes: Conjunctiva Clear HENT: Yes: Normocephalic Cardiovascular: Yes: Regular Rate and Rhythm Respiratory: Yes: WNL Gastrointestinal Inspection: Yes: WNL ...Auscultate: Yes: Normoactive Bowel Sounds ...Palpate: Yes: Soft Extremities: Yes: WNL Neurological: Yes: WNL Labs: CBC, BMP 05/19/16 06:30 05/19/16 06:30 Problem List - Problems (1) Pancreatic pseudocyst Assessment/Plan: HOLD [place] FEEDS UNTIL AXR SHOWS IN JEJENUM DIABETIC CLEARS FOR NOW REPEAT AXR IN AM AFTER ANOTHER DOSE REGLAN IN AM IF [place] TUBE IN JEJUNUM START FEEDS AND TRY LOW FAT FULL LIQUID DIET ON MONDAY IF TUBE NO IN JEJUNUM BY AFTERNOON MONDAY CAN TRY LOW FAT FULL LIQUID DIET AND FOLLOW LIPASE AND WBC Q DAY. Code(s): K86.3 - PSEUDOCYST OF PANCREAS (2) Relapsing pancreatic necrosis Code(s): K86.89 - OTHER SPECIFIED DISEASES OF PANCREAS (3) Splenic vein thrombosis Code(s): I82.890 - ACUTE EMBOLISM AND THROMBOSIS OF OTHER SPECIFIED VEINS
--- NOTE | 2016-05-19 18:35 | PN ---
Physical Exam: SUBJECTIVE: Patient seen and examined OBJECTIVE: Vital Signs Period Temp Pulse Resp BP Sys/Stone Pulse Ox Last 24 Hr 97.9 F-98.6 F 66-74 18-20 100-150/47-77 97-98 GENERAL: The patient is awake, alert, and fully oriented, in no acute distress. HEAD: Normal with no signs of trauma. NG tube in place EYES: PERRL, extraocular movements intact, sclera anicteric, conjunctiva clear. No ptosis. LUNGS: Breath sounds equal, clear to auscultation bilaterally, no wheezes, no crackles, no accessory muscle use. HEART: Regular rate and rhythm, S1, S2 without murmur, rub or gallop. ABDOMEN: Soft, nontender, nondistended, normoactive bowel sounds, no guarding, no rebound, no hepatosplenomegaly, no masses. EXTREMITIES: 2+ pulses, warm, well-perfused, no edema. NEUROLOGICAL: Cranial nerves II through XII grossly intact. Normal speech, gait not observed. PSYCH: Normal mood, normal affect. Laboratory Results - last 24 hr 05/19/16 05/19/16 06:30 06:30 WBC 8.1 RBC 5.18 Hgb 12.9 Hct 40.1 MCV 77.5 L MCHC 32.3 RDW 14.7 Plt Count 232 MPV 9.2 Neutrophils % 66.0 Lymphocytes % 19.5 Monocytes % 8.2 Eosinophils % 5.1 H Basophils % 1.2 Sodium 138 Potassium 4.4 Chloride 98 Carbon Dioxide 32 Anion Gap 8 BUN 15 Creatinine 0.7 Creat Clearance w eGFR > 60 Random Glucose 131 H Calcium 9.1 Phosphorus 4.1 Magnesium 2.5 H Total Bilirubin 0.4 AST 13 L ALT 33 Alkaline Phosphatase 117 Total Protein 6.9 Albumin 3.4 Active Medications Generic Name Dose Route Start Last Admin Trade Name Freq PRN Reason Stop Dose Admin Amlodipine Besylate 5 mg 05/07/16 10:00 05/19/16 10:24 Norvasc - PO 5 mg DAILY [facility] Administration Diphenhydramine HCl 25 mg 05/16/16 14:52 05/16/16 17:31 Benadryl - PO 25 mg Q6H PRN Administration FOR ITCHING Enoxaparin Sodium 40 mg 05/19/16 10:00 05/19/16 10:26 Lovenox - SQ Not Given DAILY [facility] Metoclopramide HCl 10 mg 05/06/16 19:12 05/19/16 15:44 Reglan Injection - IVPB 10 mg Q8H PRN Administration NAUSEA Metoclopramide HCl 10 mg 05/20/16 08:00 Reglan Injection - IVPB 05/20/16 08:01 ONCE ONE Pantoprazole Sodium 20 mg 05/07/16 22:00 05/19/16 10:24 Protonix - PO 20 mg BID [facility] Administration ASSESSMENT/PLAN 61 year-old man with a PMH of HTN, HLD, gastritis, and pancreatitis. Recently hospitalized 04/17-04/29. Pancreatic pseudocyst --per GI, fluid collection not completely walled off, still needs to mature --will discuss with GI plans to start oral feeding Relapsing pancreatic necrosis Splenic vein thrombosis --collaterals seen F/E/N Fluids/Nutrition: Perative 70cc/hr, plus free water 30cc/hr Electrolytes: replete as indicated DVT prophylaxis: start lovenox, oob, ambulation PT evaluation/daily PT Dispo: continues to require inpatient care. Full Code. Visit type - Emergency Visit Emergency Visit: Yes ED Registration Date: 05/06/16 Care time: The patient presented to the Emergency Department on the above date and was hospitalized for further evaluation of their emergent condition. - New Patient This patient is new to me today: No - Critical Care Critical Care patient: No
[2016-05-20] MEDS ORDERED: METOCLOPRAMIDE HCL INJECTION 10 MG/2 ML VIAL IVPB ONE (08:00)
[2016-05-20] MEDS: ENOXAPARIN NA (PORCINE) 40 MG/0.4 ML DISP.SYRIN SQ SCH (09:13)
[2016-05-20] MEDS: amLODIPine BESYLATE 5 MG TABLET (FP) PO SCH (09:13)
[2016-05-20] MEDS: PANTOPRAZOLE 20 MG TABLET (FP) PO SCH ×2 (09:13→21:43)
--- NOTE | 2016-05-20 12:38 | PN ---
Physical Exam: SUBJECTIVE: Patient seen and examined OBJECTIVE: Vital Signs Period Temp Pulse Resp BP Sys/Stone Pulse Ox Last 24 Hr 97.8 F-98.5 F 70-74 18-20 100-150/47-79 98 GENERAL: The patient is awake, alert, and fully oriented, in no acute distress. HEAD: Normal with no signs of trauma. NG tube in place EYES: PERRL, extraocular movements intact, sclera anicteric, conjunctiva clear. No ptosis. LUNGS: Breath sounds equal, clear to auscultation bilaterally, no wheezes, no crackles, no accessory muscle use. HEART: Regular rate and rhythm, S1, S2 without murmur, rub or gallop. ABDOMEN: Soft, nontender, nondistended, normoactive bowel sounds, no guarding, no rebound, no hepatosplenomegaly, no masses. EXTREMITIES: 2+ pulses, warm, well-perfused, no edema. NEUROLOGICAL: Cranial nerves II through XII grossly intact. Normal speech, gait not observed. PSYCH: Normal mood, normal affect. Active Medications Generic Name Dose Route Start Last Admin Trade Name Freq PRN Reason Stop Dose Admin Amlodipine Besylate 5 mg 05/07/16 10:00 05/20/16 09:13 Norvasc - PO 5 mg DAILY [facility] Administration Diphenhydramine HCl 25 mg 05/16/16 14:52 05/16/16 17:31 Benadryl - PO 25 mg Q6H PRN Administration FOR ITCHING Enoxaparin Sodium 40 mg 05/19/16 10:00 05/20/16 09:13 Lovenox - SQ Not Given DAILY [facility] Metoclopramide HCl 10 mg 05/06/16 19:12 05/19/16 15:44 Reglan Injection - IVPB 10 mg Q8H PRN Administration NAUSEA Pantoprazole Sodium 20 mg 05/07/16 22:00 05/20/16 09:13 Protonix - PO 20 mg BID [facility] Administration ASSESSMENT/PLAN: 61 year-old man with a PMH of HTN, HLD, gastritis, and pancreatitis. Recently hospitalized 04/17-04/29. Pancreatic pseudocyst --NG tube in proper place, tube feeds resumed today --also taking in clears, tolerating so far --plan is to advance to full liquids on Monday --GI following Relapsing pancreatic necrosis Splenic vein thrombosis --collaterals seen F/E/N Fluids/Nutrition: Perative 70cc/hr, plus free water 30cc/hr; plus clears Electrolytes: replete as indicated DVT prophylaxis: start lovenox, oob, ambulation PT evaluation/daily PT Dispo: continues to require inpatient care. Full Code. Visit type - Emergency Visit Emergency Visit: Yes ED Registration Date: 05/06/16 Care time: The patient presented to the Emergency Department on the above date and was hospitalized for further evaluation of their emergent condition. - New Patient This patient is new to me today: No - Critical Care Critical Care patient: No
--- NOTE | 2016-05-20 14:21 | PN ---
Progress Note, Physician History of Present Illness: patient doing well liquids introduced j tube feeding stopped no complaints - Current Medication List Current Medications: Active Medications Amlodipine Besylate (Norvasc -) 5 mg PO DAILY [facility] Last Admin: 05/20/16 09:13 Dose: 5 mg Diphenhydramine HCl (Benadryl -) 25 mg PO Q6H PRN PRN Reason: FOR ITCHING Last Admin: 05/16/16 17:31 Dose: 25 mg Enoxaparin Sodium (Lovenox -) 40 mg SQ DAILY [facility] Last Admin: 05/20/16 09:13 Dose: Not Given Metoclopramide HCl (Reglan Injection -) 10 mg IVPB Q8H PRN PRN Reason: NAUSEA Last Admin: 05/19/16 15:44 Dose: 10 mg Pantoprazole Sodium (Protonix -) 20 mg PO BID [facility] Last Admin: 05/20/16 09:13 Dose: 20 mg - Objective Vital Signs: Vital Signs Temperature 97.8 F 05/20/16 08:17 Pulse Rate 74 05/20/16 08:17 Respiratory Rate 18 05/20/16 08:17 Blood Pressure 123/79 05/20/16 08:17 O2 Sat by Pulse Oximetry (%) 96 05/20/16 09:44 Constitutional: Yes: No Distress, Calm Cardiovascular: Yes: Regular Rate and Rhythm Respiratory: Yes: Regular, CTA Bilaterally Gastrointestinal: Yes: Normal Bowel Sounds, Soft Musculoskeletal: Yes: WNL Extremities: Yes: WNL Neurological: Yes: Alert, Oriented Psychiatric: Yes: Alert Labs: CBC, BMP 05/19/16 06:30 05/19/16 06:30 Assessment/Plan Problem List - Problems (1) Pancreatic pseudocyst Code(s): K86.3 - PSEUDOCYST OF PANCREAS (2) Relapsing pancreatic necrosis Code(s): K86.89 - OTHER SPECIFIED DISEASES OF PANCREAS (3) Splenic vein thrombosis Assessment/Plan: COLLATERALS SEEN, SPLEEN LOOKS OK Code(s): I82.890 - ACUTE EMBOLISM AND THROMBOSIS fever nausea and vomiting abd pain plan continue close monitoring see if patient tolerates orally no other issues rest as per the team
--- NOTE | 2016-05-20 14:57 | PN ---
GI Progress Note Subjective: GI NOte ( covering Dr Alonzo) : NG tube is back in the jejunum so as per Dr Alonzo will resume NG feedings. Will continue clear liquids as well with intent to advance to full liquids on Monday. - Objective Vital Signs: Vital Signs Temperature 97.8 F 05/20/16 08:17 Pulse Rate 74 05/20/16 08:17 Respiratory Rate 18 05/20/16 08:17 Blood Pressure 123/79 05/20/16 08:17 O2 Sat by Pulse Oximetry (%) 96 05/20/16 09:44 Constitutional: No Distress ...Auscultate: Yes: Normoactive Bowel Sounds ...Palpate: Yes: Soft, Other (nontender) Labs: CBC, BMP 05/19/16 06:30 05/19/16 06:30 Laboratory Tests 05/17/16 05/19/16 05/19/16 06:30 06:30 06:30 WBC 8.1 AST 13 L ALT 33 Alkaline Phosphatase 117 Lipase 147 Assessment/Plan Pancreatitis with pseudocyst. [place] tube feedings concomitant with clear liquids po. Dr Darnell will be covering this weekend.
[2016-05-20] MEDS: METOCLOPRAMIDE HCL 10 MG TABLET (FP) PO SCH (17:26)
[2016-05-21] MEDS: METOCLOPRAMIDE HCL 10 MG TABLET (FP) PO SCH ×3 (06:25→17:36)
[2016-05-21 08:49] LABS: BASOPHIL 1.3 % (0-2.0); EOSINOPHIL 4.7 % (0-4.5); MCH 24.8 pg (25.7-33.7); MCHC 31.9 g/dl (32.0-35.9); MEAN CELL VOLUME 77.8 fl (80-96); MEAN PLT VOLUME 9.3 fl (7.5-11.1); NEUTROPHILS 67.3 % (42.8-82.8); PLATELET COUNT 185 K/MM3 (134-434); RDW 14.9 % (11.9-15.9); WHITE BLOOD COUNT 6.5 K/mm3 (4.0-10.0)
[2016-05-21 09:31] LABS: ALBUMIN 3.1 g/dl (3.4-5.0); ALK PHOS 106 U/L (45-117); ANION GAP 11 (8-16); BILIRUBIN,TOTAL 0.5 mg/dL (0.2-1.0); CALCIUM 8.4 mg/dL (8.5-10.1); CO2 27 mmol/L (21-32); CREATININE 0.7 mg/dL (0.7-1.3); GLUCOSE,RANDOM 144 mg/dL (74-106); MAGNESIUM 2.4 mg/dL (1.8-2.4); SGOT/AST 13 U/L (15-37); SGPT/ALT 32 U/L (12-78); TOT PROT 6.5 g/dl (6.4-8.2)
[2016-05-21] MEDS: ENOXAPARIN NA (PORCINE) 40 MG/0.4 ML DISP.SYRIN SQ SCH (10:14)
[2016-05-21] MEDS: PANTOPRAZOLE 20 MG TABLET (FP) PO SCH ×2 (10:14→22:04)
[2016-05-21] MEDS: amLODIPine BESYLATE 5 MG TABLET (FP) PO SCH (10:14)
--- NOTE | 2016-05-21 13:38 | PN ---
Progress Note (short form) - Note Progress Note: No pain No fever O/E Heart regular Lungs clear Abd soft non tender Ext no edema Vital Signs Period Temp Pulse Resp BP Sys/Stone Pulse Ox Last 24 Hr 98.2 F-99.1 F 66-77 18-20 118-137/74-80 95-96 Current Medications Amlodipine Besylate (Norvasc -) 5 mg PO DAILY [facility] Last Admin: 05/21/16 10:14 Dose: 5 mg Diphenhydramine HCl (Benadryl -) 25 mg PO Q6H PRN PRN Reason: FOR ITCHING Last Admin: 05/16/16 17:31 Dose: 25 mg Enoxaparin Sodium (Lovenox -) 40 mg SQ DAILY [facility] Last Admin: 05/21/16 10:14 Dose: Not Given Metoclopramide HCl (Reglan -) 10 mg PO TIDAC [facility] Last Admin: 05/21/16 10:14 Dose: 10 mg Pantoprazole Sodium (Protonix -) 20 mg PO BID [facility] Last Admin: 05/21/16 10:14 Dose: 20 mg Vital Signs Temp 99.1 F 05/21/16 07:33 Pulse 66 05/21/16 07:33 Resp 20 05/21/16 07:33 BP 118/74 05/21/16 07:33 Pulse Ox 95 05/20/16 21:00 Intake & Output 05/20/16 05/21/16 05/21/16 23:59 11:59 23:59 Intake Total 530 1200 Output Total 700 600 Balance -170 600 Weight 222 lb 7 oz Intake: IV 10 SALINE LOCK 10 IVPB 0 0 Oral 120 Tube Feeding 280 840 Tube Irrigant 120 360 Output: Urine 700 600 Void 700 600 Other: Voiding Method Toilet Toilet Bowel Movement No No Weight Measurement Method Built in [facility] (1) Pancreatic pseudocyst Assessment/Plan: The last CT shows resolution and diet is being advanced. D/C planning (2) Relapsing pancreatic necrosis as above Code(s): K86.89 - OTHER SPECIFIED DISEASES OF PANCREAS (3) Splenic vein thrombosis Assessment/Plan: No treatment 4. HTN Controlled
--- NOTE | 2016-05-21 15:56 | PN ---
Progress Note, Physician History of Present Illness: doing well no issues tolerating liquids - Current Medication List Current Medications: Active Medications Amlodipine Besylate (Norvasc -) 5 mg PO DAILY [facility] Last Admin: 05/21/16 10:14 Dose: 5 mg Diphenhydramine HCl (Benadryl -) 25 mg PO Q6H PRN PRN Reason: FOR ITCHING Last Admin: 05/16/16 17:31 Dose: 25 mg Enoxaparin Sodium (Lovenox -) 40 mg SQ DAILY [facility] Last Admin: 05/21/16 10:14 Dose: Not Given Metoclopramide HCl (Reglan -) 10 mg PO TIDAC [facility] Last Admin: 05/21/16 10:14 Dose: 10 mg Pantoprazole Sodium (Protonix -) 20 mg PO BID [facility] Last Admin: 05/21/16 10:14 Dose: 20 mg - Objective Vital Signs: Vital Signs Temperature 98.3 F 05/21/16 14:28 Pulse Rate 83 05/21/16 14:28 Respiratory Rate 20 05/21/16 14:28 Blood Pressure 124/75 05/21/16 14:28 O2 Sat by Pulse Oximetry (%) 95 05/20/16 21:00 Constitutional: Yes: No Distress, Calm Cardiovascular: Yes: Regular Rate and Rhythm Respiratory: Yes: Regular, CTA Bilaterally Gastrointestinal: Yes: Normal Bowel Sounds, Soft, Other (j tube in place) Musculoskeletal: Yes: WNL Extremities: Yes: WNL Neurological: Yes: Alert, Oriented Psychiatric: Yes: Alert, Oriented Labs: CBC, BMP 05/21/16 06:00 05/21/16 06:00 Assessment/Plan Problem List - Problems (1) Pancreatic pseudocyst Code(s): K86.3 - PSEUDOCYST OF PANCREAS (2) Relapsing pancreatic necrosis Code(s): K86.89 - OTHER SPECIFIED DISEASES OF PANCREAS (3) Splenic vein thrombosis Assessment/Plan: COLLATERALS SEEN, SPLEEN LOOKS OK Code(s): I82.890 - ACUTE EMBOLISM AND THROMBOSIS fever nausea and vomiting abd pain plan continue close monitoring see if patient tolerates orally no other issues rest as per the team if patient tolerates to remove the feeding tube
[2016-05-22] MEDS: METOCLOPRAMIDE HCL 10 MG TABLET (FP) PO SCH ×3 (06:30→17:42)
[2016-05-22] MEDS: ENOXAPARIN NA (PORCINE) 40 MG/0.4 ML DISP.SYRIN SQ SCH (10:23)
[2016-05-22] MEDS: PANTOPRAZOLE 20 MG TABLET (FP) PO SCH ×2 (10:24→21:18)
[2016-05-22] MEDS: amLODIPine BESYLATE 5 MG TABLET (FP) PO SCH (10:24)
--- NOTE | 2016-05-22 13:04 | PN ---
Progress Note (short form) - Note Progress Note: No pain or fever O/E Heart regular Lungs clear Abd soft Ext no edema Vital Signs Period Temp Pulse Resp BP Sys/Stone Pulse Ox Last 24 Hr 98.3 F-98.8 F 67-83 18-20 124-131/58-75 95 Current Medications Amlodipine Besylate (Norvasc -) 5 mg PO DAILY [facility] Last Admin: 05/22/16 10:24 Dose: 5 mg Diphenhydramine HCl (Benadryl -) 25 mg PO Q6H PRN PRN Reason: FOR ITCHING Last Admin: 05/16/16 17:31 Dose: 25 mg Enoxaparin Sodium (Lovenox -) 40 mg SQ DAILY [facility] Last Admin: 05/22/16 10:23 Dose: Not Given Metoclopramide HCl (Reglan -) 10 mg PO TIDAC [facility] Last Admin: 05/22/16 10:24 Dose: 10 mg Pantoprazole Sodium (Protonix -) 20 mg PO BID [facility] Last Admin: 05/22/16 10:24 Dose: 20 mg Laboratory Last Values WBC 6.5 K/mm3 (4.0-10.0) 05/21/16 06:00 RBC 4.86 M/mm3 (4.00-5.60) 05/21/16 06:00 Hgb 12.1 GM/dL (11.7-16.9) 05/21/16 06:00 Hct 37.8 % (35.4-49) 05/21/16 06:00 MCV 77.8 fl (80-96) L 05/21/16 06:00 MCHC 31.9 g/dl (32.0-35.9) L 05/21/16 06:00 RDW 14.9 % (11.9-15.9) 05/21/16 06:00 Plt Count 185 K/MM3 (134-434) D 05/21/16 06:00 MPV 9.3 fl (7.5-11.1) 05/21/16 06:00 Neutrophils % 67.3 % (42.8-82.8) 05/21/16 06:00 Lymphocytes % 18.5 % (8-40) 05/21/16 06:00 Monocytes % 8.2 % (3.8-10.2) 05/21/16 06:00 Eosinophils % 4.7 % (0-4.5) H 05/21/16 06:00 Basophils % 1.3 % (0-2.0) 05/21/16 06:00 Sodium 139 mmol/L (136-145) 05/21/16 06:00 Potassium 4.3 mmol/L (3.5-5.1) 05/21/16 06:00 Chloride 101 mmol/L (98-107) 05/21/16 06:00 Carbon Dioxide 27 mmol/L (21-32) 05/21/16 06:00 Anion Gap 11 (8-16) 05/21/16 06:00 BUN 13 mg/dL (7-18) 05/21/16 06:00 Creatinine 0.7 mg/dL (0.7-1.3) 05/21/16 06:00 Creat Clearance w eGFR > 60 (>60) 05/21/16 06:00 Random Glucose 144 mg/dL (74-106) H 05/21/16 06:00 Calcium 8.4 mg/dL (8.5-10.1) L 05/21/16 06:00 Phosphorus 4.1 mg/dL (2.5-4.9) 05/19/16 06:30 Magnesium 2.4 mg/dL (1.8-2.4) 05/21/16 06:00 Total Bilirubin 0.5 mg/dL (0.2-1.0) D 05/21/16 06:00 Direct Bilirubin 0.2 mg/dL (0.0-0.2) D 05/17/16 06:30 AST 13 U/L (15-37) L 05/21/16 06:00 ALT 32 U/L (12-78) 05/21/16 06:00 Alkaline Phosphatase 106 U/L (45-117) 05/21/16 06:00 C-Reactive Protein 2.4 MG/DL (0.00-0.3) H D 05/14/16 08:20 Total Protein 6.5 g/dl (6.4-8.2) 05/21/16 06:00 Albumin 3.1 g/dl (3.4-5.0) L 05/21/16 06:00 Total Amylase 82 U/L (25-115) 05/14/16 08:20 Lipase 147 U/L (73-393) 05/17/16 06:30 (1) Pancreatic pseudocyst Assessment/Plan: The last CT shows resolution and diet is being advanced. D/C planning (2) Relapsing pancreatic necrosis as above Code(s): K86.89 - OTHER SPECIFIED DISEASES OF PANCREAS (3) Splenic vein thrombosis Assessment/Plan: No treatment 4. HTN Controlled Will try reducing the dose of Naorvasc as the patient has dropped about 10 % of his body weight
--- NOTE | 2016-05-22 16:50 | PN ---
Progress Note, Physician History of Present Illness: stable no new issues feeding j tube still present - Current Medication List Current Medications: Active Medications Amlodipine Besylate (Norvasc -) 2.5 mg PO DAILY [facility] Diphenhydramine HCl (Benadryl -) 25 mg PO Q6H PRN PRN Reason: FOR ITCHING Last Admin: 05/16/16 17:31 Dose: 25 mg Enoxaparin Sodium (Lovenox -) 40 mg SQ DAILY [facility] Last Admin: 05/22/16 10:23 Dose: Not Given Metoclopramide HCl (Reglan -) 10 mg PO TIDAC [facility] Last Admin: 05/22/16 10:24 Dose: 10 mg Pantoprazole Sodium (Protonix -) 20 mg PO BID [facility] Last Admin: 05/22/16 10:24 Dose: 20 mg - Objective Vital Signs: Vital Signs Temperature 98.4 F 05/22/16 14:22 Pulse Rate 68 05/22/16 14:22 Respiratory Rate 16 05/22/16 14:22 Blood Pressure 117/58 05/22/16 14:22 O2 Sat by Pulse Oximetry (%) 98 05/22/16 09:00 Constitutional: Yes: No Distress, Calm Cardiovascular: Yes: Regular Rate and Rhythm Respiratory: Yes: Regular, CTA Bilaterally Gastrointestinal: Yes: Normal Bowel Sounds, Soft Extremities: Yes: WNL Neurological: Yes: Alert, Oriented Psychiatric: Yes: Alert Labs: CBC, BMP 05/21/16 06:00 05/21/16 06:00 Assessment/Plan Problem List - Problems (1) Pancreatic pseudocyst Code(s): K86.3 - PSEUDOCYST OF PANCREAS (2) Relapsing pancreatic necrosis Code(s): K86.89 - OTHER SPECIFIED DISEASES OF PANCREAS (3) Splenic vein thrombosis Assessment/Plan: COLLATERALS SEEN, SPLEEN LOOKS OK Code(s): I82.890 - ACUTE EMBOLISM AND THROMBOSIS fever nausea and vomiting abd pain plan continue close monitoring no other issues rest as per the team patient tolerating full liquids
[2016-05-23] MEDS: METOCLOPRAMIDE HCL 10 MG TABLET (FP) PO SCH ×3 (07:00→16:17)
[2016-05-23 08:24] LABS: BASOPHIL 1.2 % (0-2.0); EOSINOPHIL 5.6 % (0-4.5); MCH 24.8 pg (25.7-33.7); MCHC 31.9 g/dl (32.0-35.9); MEAN CELL VOLUME 77.7 fl (80-96); MEAN PLT VOLUME 9.5 fl (7.5-11.1); NEUTROPHILS 63.6 % (42.8-82.8); PLATELET COUNT 154 K/MM3 (134-434); RDW 15.1 % (11.9-15.9); WHITE BLOOD COUNT 5.6 K/mm3 (4.0-10.0)
[2016-05-23] MEDS: PANTOPRAZOLE 20 MG TABLET (FP) PO SCH ×2 (11:21→21:56)
[2016-05-23] MEDS: amLODIPine BESYLATE 2.5 MG TABLET (FP) PO SCH (11:21)
[2016-05-23] MEDS: ENOXAPARIN NA (PORCINE) 40 MG/0.4 ML DISP.SYRIN SQ SCH (11:22)
--- NOTE | 2016-05-23 13:32 | PN ---
Progress Note, Physician History of Present Illness: stable no new issues - Current Medication List Current Medications: Active Medications Amlodipine Besylate (Norvasc -) 2.5 mg PO DAILY [facility] Last Admin: 05/23/16 11:21 Dose: 2.5 mg Diphenhydramine HCl (Benadryl -) 25 mg PO Q6H PRN PRN Reason: FOR ITCHING Last Admin: 05/16/16 17:31 Dose: 25 mg Enoxaparin Sodium (Lovenox -) 40 mg SQ DAILY [facility] Last Admin: 05/23/16 11:22 Dose: Not Given Metoclopramide HCl (Reglan -) 10 mg PO TIDAC [facility] Last Admin: 05/23/16 11:21 Dose: 10 mg Pantoprazole Sodium (Protonix -) 20 mg PO BID [facility] Last Admin: 05/23/16 11:21 Dose: 20 mg - Objective Vital Signs: Vital Signs Temperature 98.7 F 05/23/16 06:00 Pulse Rate 68 05/23/16 06:00 Respiratory Rate 20 05/23/16 06:00 Blood Pressure 135/65 05/23/16 06:00 O2 Sat by Pulse Oximetry (%) 98 05/22/16 21:00 Constitutional: Yes: No Distress, Calm Cardiovascular: Yes: Regular Rate and Rhythm Respiratory: Yes: Regular, CTA Bilaterally Gastrointestinal: Yes: Normal Bowel Sounds, Soft, Other (ng-j tube in place) Musculoskeletal: Yes: WNL Extremities: Yes: WNL Integumentary: Yes: WNL Neurological: Yes: Alert, Oriented Psychiatric: Yes: Alert, Oriented Labs: CBC, BMP 05/23/16 06:00 05/21/16 06:00 Assessment/Plan Problem List - Problems (1) Pancreatic pseudocyst Code(s): K86.3 - PSEUDOCYST OF PANCREAS (2) Relapsing pancreatic necrosis Code(s): K86.89 - OTHER SPECIFIED DISEASES OF PANCREAS (3) Splenic vein thrombosis Assessment/Plan: COLLATERALS SEEN, SPLEEN LOOKS OK Code(s): I82.890 - ACUTE EMBOLISM AND THROMBOSIS fever nausea and vomiting abd pain plan continue monitoring no other issues rest as per the team patient tolerating full liquids consider removing the ng tube
--- NOTE | 2016-05-23 16:30 | PN ---
GI Progress Note Subjective: Dr. Godinez covering for Dr. Alonzo No abdominal pain Tolerating full liquids - Objective Vital Signs: Vital Signs Temperature 98.3 F 05/23/16 15:10 Pulse Rate 74 05/23/16 15:10 Respiratory Rate 18 05/23/16 15:10 Blood Pressure 145/80 05/23/16 09:30 O2 Sat by Pulse Oximetry (%) 98 05/22/16 21:00 Constitutional: Calm Eyes: No: Sclera Icterus Cardiovascular: Yes: Regular Rate and Rhythm Respiratory: Yes: CTA Bilaterally Gastrointestinal Inspection: No: Distention ...Auscultate: Yes: Normoactive Bowel Sounds ...Palpate: No: Tenderness Edema: No Neurological: Yes: Alert, Oriented Labs: CBC, BMP 05/23/16 06:00 05/21/16 06:00 Problem List - Problems (1) Relapsing pancreatic necrosis Assessment/Plan: Clinically improved J-Tube removed Advancing diet this evening to low fat / sodium controlled Dr. Alonzo reumes coverage 05/24/16 Code(s): K86.89 - OTHER SPECIFIED DISEASES OF PANCREAS (2) Acute pancreatitis Code(s): K85.9 - ACUTE PANCREATITIS, UNSPECIFIED * DO NOT USE * Qualifiers: Pancreatitis type: idiopathic
--- NOTE | 2016-05-24 00:01 | PN ---
Physical Exam: SUBJECTIVE: Patient seen and examined oob to chair. Tolerating full liquids. Very unhappy about food choices. OBJECTIVE: Vital Signs Period Temp Pulse Resp BP Sys/Stone Pulse Ox Last 24 Hr 97.4 F-98.7 F 68-79 18-20 130-145/65-85 98-98 GENERAL: The patient is awake, alert, and fully oriented, in no acute distress. HEAD: Normal with no signs of trauma. NG tube in place EYES: PERRL, extraocular movements intact, sclera anicteric, conjunctiva clear. No ptosis. LUNGS: Breath sounds equal, clear to auscultation bilaterally, no wheezes, no crackles, no accessory muscle use. HEART: Regular rate and rhythm, S1, S2 without murmur, rub or gallop. ABDOMEN: Soft, nontender, nondistended, normoactive bowel sounds, no guarding, no rebound, no hepatosplenomegaly, no masses. EXTREMITIES: 2+ pulses, warm, well-perfused, no edema. NEUROLOGICAL: Cranial nerves II through XII grossly intact. Normal speech, gait not observed. PSYCH: Normal mood, normal affect. Laboratory Results - last 24 hr 05/23/16 05/23/16 06:00 06:00 WBC 5.6 RBC 4.88 Hgb 12.1 Hct 37.9 MCV 77.7 L MCHC 31.9 L RDW 15.1 Plt Count 154 MPV 9.5 Neutrophils % 63.6 Lymphocytes % 20.7 Monocytes % 8.9 Eosinophils % 5.6 H Basophils % 1.2 Lipase 109 Active Medications Generic Name Dose Route Start Last Admin Trade Name Freq PRN Reason Stop Dose Admin Amlodipine Besylate 2.5 mg 05/23/16 10:00 05/23/16 11:21 Norvasc - PO 2.5 mg DAILY [facility] Administration Diphenhydramine HCl 25 mg 05/16/16 14:52 05/16/16 17:31 Benadryl - PO 25 mg Q6H PRN Administration FOR ITCHING Enoxaparin Sodium 40 mg 05/19/16 10:00 05/23/16 11:22 Lovenox - SQ Not Given DAILY [facility] Metoclopramide HCl 10 mg 05/20/16 16:30 05/23/16 16:17 Reglan - PO 10 mg TIDAC [facility] Administration Pantoprazole Sodium 20 mg 05/07/16 22:00 05/23/16 21:56 Protonix - PO 20 mg BID [facility] Administration ASSESSMENT/PLAN: 61 year-old man with a PMH of HTN, HLD, gastritis, and pancreatitis. Pancreatic pseudocyst --N[place] tube still in place; also on full liquid diet, tolerating --per GI advance to low fat diet Relapsing pancreatic necrosis Splenic vein thrombosis --collaterals seen F/E/N Fluids/Nutrition: Perative 70cc/hr, plus free water 30cc/hr; plus full liquids; will advance Electrolytes: replete as indicated DVT prophylaxis: lovenox, oob, ambulation PT evaluation/daily PT Dispo: continues to require inpatient care. Full Code. Visit type - Emergency Visit Emergency Visit: Yes ED Registration Date: 05/06/16 Care time: The patient presented to the Emergency Department on the above date and was hospitalized for further evaluation of their emergent condition. - New Patient This patient is new to me today: No - Critical Care Critical Care patient: No
[2016-05-24] MEDS: METOCLOPRAMIDE HCL 10 MG TABLET (FP) PO SCH ×2 (07:11→11:59)
[2016-05-24] MEDS: ENOXAPARIN NA (PORCINE) 40 MG/0.4 ML DISP.SYRIN SQ SCH (09:10)
[2016-05-24] MEDS: amLODIPine BESYLATE 2.5 MG TABLET (FP) PO SCH (09:45)
[2016-05-24] MEDS: PANTOPRAZOLE 20 MG TABLET (FP) PO SCH (09:45)
[2016-05-24 14:28] VITALS: BP 130/72; PULSE 80; TEMP 98.4
--- NOTE | 2016-05-24 14:59 | PN ---
GI Progress Note Subjective: GASTROENTEROLOGY TUBE OUT TOLERATES A LOW FAT DIET NO PAIN LIPASE NORMAL - Objective Vital Signs: Vital Signs Temperature 98.4 F 05/24/16 14:26 Pulse Rate 80 05/24/16 14:26 Respiratory Rate 16 05/24/16 14:26 Blood Pressure 130/72 05/24/16 14:26 O2 Sat by Pulse Oximetry (%) 98 05/23/16 21:00 Constitutional: No Distress Eyes: Yes: Conjunctiva Clear HENT: Yes: Normocephalic Cardiovascular: Yes: Regular Rate and Rhythm Respiratory: Yes: CTA Bilaterally Gastrointestinal Inspection: Yes: WNL ...Auscultate: Yes: Normoactive Bowel Sounds ...Palpate: Yes: Soft Extremities: Yes: WNL Labs: CBC, BMP 05/23/16 06:00 05/21/16 06:00 Laboratory Tests 05/15/16 05/16/16 05/17/16 06:30 06:30 06:30 Lipase 159 149 147 05/23/16 06:00 Lipase 109 Problem List - Problems (1) Pancreatic pseudocyst Assessment/Plan: OK TO BE DISCHARGED LOW FAT DIET LABS ON MONDAY (1 WEEK) OFFICE VISIT [address] SCAN IN 3 WEEKS Code(s): K86.3 - PSEUDOCYST OF PANCREAS (2) Relapsing pancreatic necrosis Code(s): K86.89 - OTHER SPECIFIED DISEASES OF PANCREAS (3) Splenic vein thrombosis Code(s): I82.890 - ACUTE EMBOLISM AND THROMBOSIS OF OTHER SPECIFIED VEINS
--- NOTE | 2016-05-24 15:11 | PN ---
Progress Note, Physician History of Present Illness: stable no complaints ng tube removed tolerated low fat diet no issues so far - Current Medication List Current Medications: Active Medications Amlodipine Besylate (Norvasc -) 2.5 mg PO DAILY [facility] Last Admin: 05/24/16 09:45 Dose: 2.5 mg Diphenhydramine HCl (Benadryl -) 25 mg PO Q6H PRN PRN Reason: FOR ITCHING Last Admin: 05/16/16 17:31 Dose: 25 mg Enoxaparin Sodium (Lovenox -) 40 mg SQ DAILY [facility] Last Admin: 05/24/16 09:10 Dose: Not Given Metoclopramide HCl (Reglan -) 10 mg PO TIDAC [facility] Last Admin: 05/24/16 11:59 Dose: 10 mg Pantoprazole Sodium (Protonix -) 20 mg PO BID [facility] Last Admin: 05/24/16 09:45 Dose: 20 mg - Objective Vital Signs: Vital Signs Temperature 98.4 F 05/24/16 14:26 Pulse Rate 80 05/24/16 14:26 Respiratory Rate 16 05/24/16 14:26 Blood Pressure 130/72 05/24/16 14:26 O2 Sat by Pulse Oximetry (%) 98 05/23/16 21:00 Constitutional: Yes: No Distress, Calm Cardiovascular: Yes: Regular Rate and Rhythm Respiratory: Yes: Regular, CTA Bilaterally Gastrointestinal: Yes: Normal Bowel Sounds, Soft Musculoskeletal: Yes: WNL Extremities: Yes: WNL Integumentary: Yes: WNL Neurological: Yes: Alert, Oriented Psychiatric: Yes: Alert, Oriented Labs: CBC, BMP 05/23/16 06:00 05/21/16 06:00 Assessment/Plan Problem List - Problems (1) Pancreatic pseudocyst Code(s): K86.3 - PSEUDOCYST OF PANCREAS (2) Relapsing pancreatic necrosis Code(s): K86.89 - OTHER SPECIFIED DISEASES OF PANCREAS (3) Splenic vein thrombosis Assessment/Plan: COLLATERALS SEEN, SPLEEN LOOKS OK Code(s): I82.890 - ACUTE EMBOLISM AND THROMBOSIS fever nausea and vomiting abd pain plan patient can be discharged i have spoken in detail with him about diet and precautions will have to follow up with primary care will need repeat imaging studies then will have to make a decision on further planning
--- NOTE | 2016-05-24 16:04 | DS ---
Physical Exam: SUBJECTIVE: Patient seen and examined OBJECTIVE: Vital Signs Period Temp Pulse Resp BP Sys/Stone Pulse Ox Last 24 Hr 98.1 F-98.4 F 65-80 16-20 129-130/72-85 97-98 PHYSICAL EXAM GENERAL: The patient is awake, alert, and fully oriented, in no acute distress. HEAD: Normal with no signs of trauma. EYES: PERRL, extraocular movements intact, sclera anicteric, conjunctiva clear. ENT: Ears normal, nares patent, oropharynx clear without exudates, moist mucous membranes. NECK: Trachea midline, full range of motion, supple. LUNGS: Breath sounds equal, clear to auscultation bilaterally, no wheezes, no crackles, no accessory muscle use. HEART: Regular rate and rhythm, S1, S2 without murmur, rub or gallop. ABDOMEN: Soft, nontender, nondistended, normoactive bowel sounds, no guarding, no rebound, no hepatosplenomegaly, no masses. EXTREMITIES: 2+ pulses, warm, well-perfused, no edema. NEUROLOGICAL: Cranial nerves II through XII grossly intact. Normal speech, gait not observed. PSYCH: Normal mood, normal affect. SKIN: Warm, dry, normal turgor, no rashes or lesions noted. LABS HOSPITAL COURSE: Date of Admission:05/06/16 Date of Discharge: 05/24/16 Minutes to complete discharge: 40 Discharge Summary Reason For Visit: PANCREATITIS; ABDOMINAL PAIN Hospital Course: This is a 61 year-old man with a PMH of HTN, HLD, gastritis, and,recent pancreatitis and splenic vein thrombosis,who was managed conservatively stabilized and discharged home.Now presented with fever, abdominal pain, nausea and vomiting. CT scan showed a large pseudocyst and possible some pancreatic necrosis in the tail. Pt received IV antibiotics, jackson cultures remained negative. Feeding was given through the NG tube,now pt remains afebrile , low fat diet tolerating well. Pt was evaluated by GI AND ID during the hospital stay. Hemodynamically stable for home discharge with out pt GI follow up in [address] abdomen in 3 weeks. Condition: Good - Instructions Diet, Activity, Other Instructions: LOW FAT DIET LABS ON MONDAY (1 WEEK) GI followup VISIT [address] SCAN IN 3 WEEKS Referrals: Basil Alonzo MD [Staff Physician] - 2 Weeks Disposition: HOME - Home Medications Comprehensive Discharge Medication List: Ambulatory Orders Amlodipine Besylate/Benazepril [Lotrel 5-40 mg Capsule] 1 each PO DAILY Pantoprazole Sodium [Protonix] 40 mg PO DAILY 04/17/16 This patient is new to me today: Yes Date on this admission: 05/24/16 Emergency Visit: Yes ED Registration Date: 05/06/16 Care time: The patient presented to the Emergency Department on the above date and was hospitalized for further evaluation of their emergent condition. Critical Care patient: No - Discharge Referral Referred to [facility] No
== END 2016-05-24 15:20 | disposition home or self-care (01) | DRG 438 ==
LOC: J7W 17:45 → J8W 20:03
PROVIDERS: ADMIT Internal Medicine; ATTEND Nurse Practitioner Family
PROC: 0D9680Z Drainage of Stomach with Drainage Device, Via Natural or Artificial Opening Endoscopic (ICD-10-PCS; 2016-05-12)
PROC: 0DB98ZX Excision of Duodenum, Via Natural or Artificial Opening Endoscopic, Diagnostic (ICD-10-PCS; principal; 2016-05-12 07:30)
DX: K86.3 Pseudocyst of pancreas (principal); K85.81 Other acute pancreatitis with uninfected necrosis; I82.890 Acute embolism and thrombosis of other specified veins; K76.6 Portal hypertension; I10 Essential (primary) hypertension; E78.5 Hyperlipidemia, unspecified; K29.60 Other gastritis without bleeding; R50.9 Fever, unspecified; L29.8 Other pruritus; K86.1 Other chronic pancreatitis; E88.09 Other disorders of plasma-protein metabolism, not elsewhere classified; D64.9 Anemia, unspecified; I86.4 Gastric varices; R16.1 Splenomegaly, not elsewhere classified; K31.9 Disease of stomach and duodenum, unspecified; K44.9 Diaphragmatic hernia without obstruction or gangrene
CPT/HCPCS: 36415; 71260-TC; 74000-TC; 74020-TC; 74170-TC; 74178-TC; 80048; 80053; 80076; 82150; 83690; 83735; 84100; 85025; 85027; 86140; 87040; 87086; 87324; 87449; 88305-TC; 97116-GP; C1887; Q9967